=== PATIENT | male | born 1945 | race Caucasian/White ===

== ENCOUNTER 2018-10-30 14:56 | Inpatient (IN) | payer MEDICARE ==
[~2018-10-30] VITALS: Ht 177.8 cm; Wt 80.7 kg
[2018-10-31 13:15] VITALS: BP 150/72
[2018-10-31] MEDS ORDERED: PERCOCET 5MG/325MG TAB PO ONE (13:30)
[2018-10-31] MEDS ORDERED: DOCU100C16 PO (14:11)
[2018-10-31] MEDS ORDERED: CYCL10TA PO (14:11)
[2018-10-31] MEDS ORDERED: CEFT1INJ3 IV (14:11)
[2018-10-31] MEDS ORDERED: TEAR1SOL3 OU (14:11)
[2018-10-31] MEDS ORDERED: SENN18TA PO (14:11)
[2018-10-31] MEDS ORDERED: MIRA3350 PO (14:11)
[2018-10-31] MEDS ORDERED: TEST5GEL TOP (14:11)
[2018-10-31] MEDS ORDERED: PANT40TA3 PO (14:11)
[2018-10-31] MEDS ORDERED: [UNRECOGNIZED DRUG - CODE] SC (14:11)
[2018-10-31] MEDS ORDERED: METO1TAB32 PO (14:11)
[2018-10-31] MEDS ORDERED: VITA500T PO (14:11)
[2018-10-31] MEDS ORDERED: MILK120011 PO (14:11)
[2018-10-31] MEDS ORDERED: D 50CAP PO (14:11)
[2018-10-31] MEDS ORDERED: INSUHUMDS SC (14:11)
[2018-10-31] MEDS ORDERED: LIDO5DIS41 TOP (14:11)
[2018-10-31] MEDS ORDERED: BRIN1TAB3 PO (14:11)
[2018-10-31] MEDS ORDERED: [UNRECOGNIZED DRUG - CODE] IV (14:11)
[2018-10-31] MEDS ORDERED: BACL1TAB8 PO (14:11)
[2018-10-31] MEDS ORDERED: PRAM1TAB7 PO (14:11)
[2018-10-31] MEDS ORDERED: GABA-843 PO (14:11)
[2018-10-31] MEDS ORDERED: FLON1SPR NARES (14:11)
[2018-10-31] MEDS ORDERED: OXYC10TA12 PO (14:11)
[2018-10-31] MEDS ORDERED: BISA10SU4 PR (14:11)
[2018-10-31] MEDS ORDERED: REME30TA PO (14:11)
[2018-10-31] MEDS ORDERED: KRIS20PA4 PO (14:11)
[2018-10-31] MEDS ORDERED: DULE100A INH (14:11)
[2018-10-31] MEDS ORDERED: ASPI81TA24 PO (14:11)
[2018-10-31] MEDS ORDERED: RANO5TAB PO (14:11)
[2018-10-31] MEDS ORDERED: ACET1TAB55 PO (14:11)
[2018-10-31] MEDS ORDERED: GENT80SY IV (14:11)
[2018-10-31] MEDS ORDERED: OXYC-517 PO (14:17)
[2018-10-31] MEDS ORDERED: COEN100T PO (14:17)
[2018-10-31] MEDS ORDERED: METF500T13 PO (14:17)
[2018-10-31] MEDS ORDERED: REPA1INJ SC (14:17)
[2018-10-31] MEDS ORDERED: NITR4TASL SL (14:17)
[2018-10-31] MEDS ORDERED: ADV100INH INH (14:37)
[2018-10-31] MEDS ORDERED: LANS30CA PO (14:38)
[2018-10-31] MEDS ORDERED: diazePAM 5 MG TAB PO PRN ×3 (14:45→21:00)
[2018-10-31] MEDS ORDERED: NITROGLYCERIN 0.4 MG SUBL TABLET SL PRN (14:45)
[2018-10-31] MEDS ORDERED: oxyCODONE 5MG TAB PO PRN (14:45)
[2018-10-31] MEDS ORDERED: DEXTROSE 50% 50 ML SYRINGE IV PRN (15:15)
[2018-10-31] MEDS ORDERED: GLUCOSE 4 GM CHEW TABLET PO PRN (15:15)
[2018-10-31] MEDS ORDERED: GLUCAGON FOR INJ 1 MG VIAL (J1610) SC PRN (15:15)
[2018-10-31] MEDS ORDERED: ONDANSETRON 4 MG TAB (S0181) PO PRN (15:30)
[2018-10-31] MEDS ORDERED: BISACODYL 10 MG SUPP PR PRN (15:30)
[2018-10-31] MEDS: ACETAMINOPHEN 500 MG TAB PO SCH ×2 (16:02→22:04)
[2018-10-31] MEDS ORDERED: SODIUM CHLORIDE 0.9% INJ 10 ML SYR IV PRN (16:30)
[2018-10-31] MEDS ORDERED: NS 1,000 ML IV ONE (17:00)
[2018-10-31] MEDS: MORPHINE 15 MG SA TAB PO SCH ×2 (17:00→22:03)
[2018-10-31] MEDS ORDERED: TEARS NATURALE FREE OPHTH DROP VIAL OU SCH (17:00)
[2018-10-31] MEDS: ONDANSETRON 4 MG TAB (S0181) PO SCH (17:45)
[2018-10-31] MEDS: SODIUM CHLORIDE 0.9% INJ 10 ML SYR IV SCH (17:46)
[2018-10-31] MEDS: GENTAMICIN 80 MG in APPROPRIATE DILUENT 1 EA IV SCH (17:47)
--- NOTE | 2018-10-31 18:57 | CR ---
DATE OF CONSULTATION: 10/31/2018 This is a 72-year-old male with a past medical history of diabetes, hypertension, coronary artery disease, status post coronary artery bypass graft (CABG), status post transcatheter aortic valve replacement (TAVR), history of chronic obstructive pulmonary disease (COPD), who presents to [facility] ([facility]) to the physiatry department for rehabilitation. REASON FOR MEDICAL CONSULTATION: Medical management. Patient had an extensive stay between [facility] and [facility] before transferred from [facility] to [place]. Apparently he was in [facility] with altered mental status and was subsequently found to have Streptococcus mitis times two in the blood cultures. The patient was started on Rocephin for 6 weeks and gentamicin for 2 weeks, followed by Omnicef for 1 year's time. The patient, at this time, is doing well. He is pain free, offers no complaints. He has no chest pain or shortness of breath. PAST MEDICAL HISTORY: Diabetes. Hypertension. Coronary artery disease, status post CABG, status post TAVR. History of right hip replacement. COPD. ALLERGIES: He is allergic to STATINS and TRAZODONE. FAMILY HISTORY: Noncontributory. SOCIAL HISTORY: The patient denies tobacco, alcohol, or illicit drugs. MEDICATIONS: He is currently taking in the hospital are as follows: - Artifical Tears two drops four times a day - diazepam 5 mg orally every 8 hours as needed - pregabalin 100 mg orally twice daily - morphine sulfate 15 mg by mouth twice daily - Zofran 4 mg by mouth before food (a.c.) - Lyrica 100 mg orally twice daily - insulin sliding scale. - Rocephin 1 gram daily IV - Ranexa 500 mg orally twice daily - pramipexole 2 mg orally at bedtime - pantoprazole 40 mg orally daily - oxycodone 10 mg orally every 4 hours as needed - nitroglycerin 0.4 mg sublingual every 5 minutes times three as needed for chest pain - salmeterol/fluticasone two puffs inhaled twice daily - mirtazapine 30 mg orally at bedtime - metoprolol 25 mg orally daily - lidocaine patch 5%, one patch daily to lower back - pregabalin 75 mg orally twice daily - fluticasone two sprays each naris daily - diazepam 2.5 mg orally every 8 hours as needed - aspirin 81 mg orally daily - metformin 500 mg orally daily - gentamicin 80 mg IV every 12 hours REVIEW OF SYSTEMS: Negative all ten major systems except what is mentioned in the history of the present illness. Vital Signs: Blood pressure is 150/72, heart rate is 106, regular, respiratory rate 22, temperature 99.9, oxygen saturation is 99% on room air. Head is atraumatic, normocephalic. Neck supple. No jugular venous distention (JVD). Lungs are clear to auscultation. S1, S2 audible, No murmurs appreciated. Abdomen: Soft, positive bowel sounds. No pedal edema. Skin: Intact. Neurologic Examination: Patient awake, alert, oriented times three. Labs at this time are pending. IMPRESSION: 1. Discitis/osteomyelitis of L1-L2 vertebra. 2. Chronic lower back pain with debility. PLAN: Patient at this time is clinically stable with his chronic medical problems. Agree with all the medications he is on at this time. Will continue following his care alongside physiatry.
[2018-10-31] MEDS: oxyCODONE 5MG TAB PO PRN (19:33)
[2018-10-31 20:00] VITALS: BP 125/58
[2018-10-31] MEDS ORDERED: PREGABALIN 75 MG CAP(LYRICA) PO SCH (21:00)
[2018-10-31] MEDS: HumaLOG INSULIN (NovoLOG) PER UNIT SC SCH (21:00)
[2018-10-31] MEDS: ADVAIR HFA 115/21MCG INHALER INH SCH (21:23)
[2018-10-31] MEDS: **NOTE PATIENT COMMENT** MISC XX SCH (22:00)
[2018-10-31] MEDS: RANOLAZINE 500 MG ER TAB PO SCH (22:01)
[2018-10-31] MEDS: MAGNESIUM GLUCONATE 500 MG TAB PO SCH (22:02)
[2018-10-31] MEDS: MIRTAZAPINE 15 MG TAB PO SCH (22:02)
[2018-10-31] MEDS: PRAMIPEXOLE 1 MG TAB PO SCH (22:02)
[2018-10-31] MEDS: SENOKOT S TAB PO SCH (22:03)
[2018-10-31] MEDS: HEPARIN SOD (PORCINE) 5000 UNITS/ML VIAL SC SCH (22:04)
[2018-10-31] MEDS: POLYVINYL ALCOHOL OPHTH SOLN 15 ML(LIQUITEARS) OU SCH (22:04)
[2018-10-31] MEDS: PREGABALIN 100 MG CAP (LYRICA) PO SCH (22:04)
[2018-10-31 22:38] LABS: APPEARANCE, URINE CLOUDY (CLEAR); BACTERIA, URINE AUTO NEGATIVE (NEGATIVE); BILIRUBIN, URINE AUTO NEGATIVE (NEGATIVE); BLOOD, URINE BLOOD NEGATIVE (NEGATIVE); COLOR, URINE AMBER (YELLOW); GLUCOSE, URINE (UA) AUTO NEGATIVE (NEGATIVE); KETONE, URINE AUTO NEGATIVE (NEGATIVE); LEUKOCYTE ESTERASE, URINE AUTO NEGATIVE (NEGATIVE); MUCUS, URINE SMALL (NEGATIVE); NITRITE, URINE AUTO NEGATIVE (NEGATIVE); PROTEIN, URINE AUTO 2+ mg/dL (NEGATIVE); RBC, URINE AUTO 2 /HPF (0-3); SPECIFIC GRAVITY URINE AUTO 1.018 (1.002-1.035); SQUAMOUS EPITHELIAL CELL UR AU 0 /HPF (0-6); UROBILINOGEN, URINE AUTO 0.2 mg/dL (0.0-2.0); WBC, URINE AUTO 3 /HPF (0-3)
[2018-11-01] MEDS: oxyCODONE 5MG TAB PO PRN ×3 (02:18→16:27)
[2018-11-01] MEDS: GENTAMICIN 80 MG in APPROPRIATE DILUENT 1 EA IV SCH ×2 (05:56→18:17)
[2018-11-01 06:00] VITALS: BP 135/60
[2018-11-01] MEDS: SODIUM CHLORIDE 0.9% INJ 10 ML SYR IV SCH ×2 (06:37→18:17)
[2018-11-01 07:31] LABS: BASO % 0.3 % (0.0-1.0); EOS % 0.5 % (0.0-3.0); HEMATOCRIT 24.9 % (42.0-52.0); LYMPH # 0.8 10^3/uL (1.5-4.5); LYMPH % 20.1 % (24.0-44.0); MEAN CORPUSCULAR HEMOGLOBIN 30.8 pg (27.0-33.0); MEAN CORPUSCULAR HGB CONC 32.1 g/dl (32.0-36.5); MEAN CORPUSCULAR VOLUME 95.8 fl (80.0-96.0); MONO # 0.5 10^3/uL (0.0-0.8); MONO % 14.3 % (0.0-5.0); NEUTROPHILS # 2.4 10^3/uL (1.8-7.7); NEUTROPHILS % 63.5 % (36.0-66.0); PLATELET COUNT, AUTOMATED 142 10^3/uL (150-450); WHITE BLOOD COUNT 3.8 10^3/uL (4.0-10.0)
[2018-11-01 07:55] LABS: ALBUMIN 2.6 GM/DL (3.2-5.2); ALT/SGPT 31 U/L (12-78); BILIRUBIN,TOTAL 0.6 MG/DL (0.2-1.0); BLOOD UREA NITROGEN 23 MG/DL (7-18); CALCIUM LEVEL 8.6 MG/DL (8.8-10.2); CARBON DIOXIDE LEVEL 26 MEQ/L (21-32); CHLORIDE LEVEL 97 MEQ/L (98-107); CREATININE FOR GFR 1.18 MG/DL (0.70-1.30); GLOMERULAR FILTRATION RATE > 60.0 (>42); GLUCOSE, FASTING 100 MG/DL (70-100); SODIUM LEVEL 133 MEQ/L (136-145); TOTAL PROTEIN 6.6 GM/DL (6.4-8.2)
[2018-11-01] MEDS: cefTRIAXone SOD 2 GM in D5W MINI-BAG PLUS 50 ML IV SCH (08:06)
[2018-11-01] MEDS: TRINTELLIX PO SCH (08:06)
[2018-11-01] MEDS: MAGNESIUM GLUCONATE 500 MG TAB PO SCH ×2 (08:07→23:32)
[2018-11-01] MEDS: MORPHINE 15 MG SA TAB PO SCH ×2 (08:07→23:33)
[2018-11-01] MEDS: LIDOCAINE 5% (LIDODERM) PATCH TD SCH (08:07)
[2018-11-01] MEDS: CO-ENZYME Q10 50 MG CAP PO SCH (08:07)
[2018-11-01] MEDS: VITAMIN D 1,000 INTERNATIONAL UNITS TABLET PO SCH (08:09)
[2018-11-01] MEDS: PREGABALIN 100 MG CAP (LYRICA) PO SCH ×2 (08:09→21:00)
[2018-11-01] MEDS: ASPIRIN 81 MG ENTERIC TAB PO SCH (08:09)
[2018-11-01] MEDS: RANOLAZINE 500 MG ER TAB PO SCH ×2 (08:09→23:33)
[2018-11-01] MEDS: SENOKOT S TAB PO SCH ×2 (08:09→23:34)
[2018-11-01] MEDS: ACETAMINOPHEN 500 MG TAB PO SCH ×3 (08:10→23:33)
[2018-11-01] MEDS: metFORMIN (GLUCOPHAGE) 500 MG TAB PO SCH (08:10)
[2018-11-01] MEDS: METOPROLOL SUCC *XL* 25MG TAB (TopROL *XL*) PO SCH (08:10)
[2018-11-01] MEDS: ONDANSETRON 4 MG TAB (S0181) PO SCH ×3 (08:10→18:17)
[2018-11-01] MEDS: PANTOPRAZOLE 40MG TAB (PROTONIX) PO SCH (08:10)
[2018-11-01] MEDS: FLUTICASONE PROP 0.05% NASAL SPRAY 16 GM (FLONASE) NARES SCH (08:11)
[2018-11-01] MEDS: HEPARIN SOD (PORCINE) 5000 UNITS/ML VIAL SC SCH ×2 (08:11→23:31)
[2018-11-01] MEDS: ASCORBIC ACID 500 MG TAB PO SCH (08:11)
[2018-11-01 08:27] LABS: ERYTHROCYTE SEDIMENTATION RATE 126 mm/hr (0-20)
[2018-11-01] MEDS: POLYVINYL ALCOHOL OPHTH SOLN 15 ML(LIQUITEARS) OU SCH ×4 (09:00→23:34)
--- NOTE | 2018-11-01 10:09 | REP ---
BILATERAL LOWER EXTREMITY DOPPLER VENOUS ULTRASOUND: Comparison: None. Clinical History: Immobility, osteomyelitis. Technique: The deep venous system of the bilateral lower extremities is evaluated with lynn scale imaging, compression ultrasound, color imaging and duplex Doppler interrogation. Examination from the groin through the popliteal fossa into the proximal calf. Findings: There is full compressibility from the common femoral vein in the inguinal region through the popliteal vein on both sides. Color imaging confirms patency throughout the course of the deep venous system. There is respiratory variation and augmented flow at all levels. Impression: 1. No Doppler venous ultrasound evidence of DVT in the bilateral lower extremities. Electronically Signed by Artur Boss MD 11/01/2018 10:00 A
[2018-11-01] MEDS: ADVAIR HFA 115/21MCG INHALER INH SCH ×2 (11:54→20:06)
[2018-11-01 14:00] VITALS: BP 137/62
[2018-11-01] MEDS ORDERED: diazePAM 5 MG TAB PO PRN ×2 (14:00→14:30)
--- NOTE | 2018-11-01 14:05 | HPEPDOC ---
[employer] Note DATE OF ADMISSION: Oct 31, 2018 at 13:05 SOURCE OF ADMISSION INFORMATION: Patient, [facility] Medical Records, and patient's daughter CHIEF COMPLAINT: lumbar osteomyelitis HISTORY OF PRESENT ILLNESS: 72M pmh DM, HTN, PM, AVR (replaced in May 2018), CAD with CABG, JR, right hip periprosthetic infection, who was transferred to [facility] from [facility] for low back pain with fevers that began 6 days prior to admission. .An ID consult was ordered, he was found to have Strep Mitis bacteremia from a October 14 and blood culture taken at [place] for which he was placed on Ceftriaxone and Gentamicin on 10-16-18 for discitis vs osteomyelitis in the setting of a possibly infected bi-prosthetic aortic valve with endocarditis. A GUILLERMO was performed showing, Moderate perivalvular aortic regurgitation...mobile density contiguous with aortic valvecannot rule out vegetation Repeat blood cultures on October 20 and were negative. Thoracolumbar CT on 10-18-18 showed lesion suspicious for diskovertebral osteomyelitis at L1-L2, MR was not performed given his PM status. ID ultimately recommended a 6 week course of IV antibiotics followed by Omnicef for 1 year for suppression. No cardiac or orthopedic surgery was recommended and PICC line placed. He developed a decubitus ulcer during his stay due to immobility. 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 REVIEW OF SYSTEMS: The following is a completed review of systems and has been reviewed. Review of systems otherwise unremarkable. PAIN: Patient self reports severe low back pain with spasms EYES: Negative for recent vision changes EARS, NOSE, & THROAT:negative for rhinorrhea, tinnitus, or dysphagia CARDIOVASCULAR: denies chest pain or palpitations PULMONARY: Negative. Denies shortness of breath GASTROINTESTINAL: +constipation GENITOURINARY: Negative for dysuria MUSCULOSKELETAL: low back pain and bilateral knee OA NEUROLOGICAL: restless leg syndrome HEMATOLOGICAL: +anemia SKIN: +PICC PSYCHIATRIC: Unremarkable All other review of systems found to be negative. PAST MEDICAL HISTORY: DM, HTN, PM, AVR (replaced in May 2018), CAD with CABG, JR, right hip periprosthetic infection PAST SURGICAL HISTORY: TAVR replaced May 2018, first placed 2009 Right hip septic joint 1.5 years ago, s/p THR January 2018, s/p spacer and hairline fracture ALLERGIES: Please see below. MEDICATIONS: Please see below. FAMILY HISTORY: +CAD, DM SOCIAL HISTORY: ex-smoker, no ETOH, Jehovas witness, lives with DIET: Regular PHYSICAL EXAMINATION: VITAL SIGNS: Please see below. GENERAL: Pleasant and cooperative, mildly distressed by painful spasms, pale HEENT: PERRL. Extraocular movements intact. Clear conjunctiva CARDIOVASCULAR: Regular rate and rhythm. No murmurs, rubs, or gallops LUNGS: Clear to auscultation bilaterally. No wheezes. No rhonchi ABDOMEN: Soft, nontender, nondistended. Positive bowel sounds. Normal active bowel sounds NEUROLOGICAL: Alert and oriented times to self and place not time, Cranial nerves II through XII grossly intact. Sensation grossly intact. EXTREMITIES: 5\5 strength bilateral upper extremities. bilateral Ankle DF and EHL 5/5, however proximal muscle testing greatly limited by pain SKIN: +PICC, decubitus ulcer IMAGING: Imaging documentation personally reviewed by record FUNCTIONAL STATUS: Premorbid: Independent with all activities of daily life as well as mobility On Admission: Mod-Max assist for bed mobility, functional transfers, CG with RW ambulating a few feet.Max assist for dressing. GOALS: Modified independent ambulation with RW, stairs, dressing, bathing, pain control, medical optimization, family training, and assess for DMEs ASSESSMENT:72-year-old M with past medical history of CAD, AVR, CAD with CABG who presents with diskovertebral osteomyelitis in the setting of endocarditis. PLAN: 1. Rehab: PT/OT, assess for DME needs- LSO brace when out of bed for comfort 2. Neuro: pmh restless leg syndrome, continue home meds 3. Cardio: pmh CAD s/p AVR replacement with recent GUILLERMO suspicious for endocarditis continue IV Ceftriaxone and Gentamicin, outpatient cardio f/u -continue beta-blockers and ASA 4. Endo: pmh DM continue home meds 5. ID: L1-L2 disko-vertebral osteomyeltis, blood cultures positive for Strep Mitis, continue IV Ceftriaxone and Gentamcin for 6 weeks to be followed by one year suppression dose of Omnicef, will consider in-house ID consult and order admission blood cultures -patient appears mildly toxic on arrival with low grade temp, will give IVF and monitor vitals-medicine consult placed 6. Pain: pmh chronic knee pain, now with severe discogenic pain with spasms- Will start long acting Morphine 15mg BID, oxycodone 10mg q4h, standing Tylenol, switch Gabapentin to Lyrica, and Diazepam 2.5mg prn for spasms -lidoderm patch to low back 7. DVT ppx: heparin and f/u admisison dopplers, TEDs 8. SKin: Balmex and turning q2h in bed 9. Resp: pmh COPD: continue home meds, will add Duonebs and monitor for PNA 10. GI: patient constipated and poor appetite secondary to nausea, will add ZOfran prior to meals and optimize laxatives, protonix for ppx 11. Dispo: TBD POST ADMISSION PHYSICIAN EVALUATION: Medical and functional status: Description of medical status, medical assessment: As above. Rehabilitation diagnosis and current and prior cold morbid medical conditions as above. Risk of complications and plans to mitigate them as above. Description of functional status current status is as above. Prior status as above. Status compared to preadmission: There are no clinically significant differences between the patient's current status and the information described on the pread mission screening document. Treatment plan anticipated: Treatment plan is as described above. Required disciplines including physical therapy, occupational therapy, others as noted above Intensity of services: 3 hours a day, 6 days a week. Special considerations: There are no specific special or safety considerations that would likely preclude immediate implementation of an intensive rehabilitation program or subsequently influence the plan of care. ATTESTATION: Considering all the information above, it is my best judgment that this patient requires intensive rehabilitation therapy as described above and an inpatient hospital environment due to the complexity of nursing, medical, and rehabilitation needs required by the patient. Furthermore, this patient can reasonably be expected to participate in an benefit from an inpatient rehabilitation stay with an interdisciplinary team approach to the delivery of rehabilitation care under the direction and supervision of rehabilitation physician. PROGNOSIS: Good. ESTIMATED LENGTH OF STAY: 18-21 days. PROJECTED DISCHARGE DESTINATION: Home with family support and any durable medical equipment required to increase functional safety and mobility TIME SPENT COUNSELING AND COORDINATING INITIAL CARE: Greater than 70 minutes. Vital Signs Vital Sign - Last 24 Hours 1/18/19 1/18/19 1/18/19 13:15 13:48 14:18 Temp 99.9 Pulse 106 Resp 22 16 16 B/P (MAP) 150/72 (98) Pulse Ox 99 O2 Delivery Room Air Room Air Home Medications Scheduled (Dulera 100-5 Mcg/Act) 1 Aer Aer, 2 PUFF INH BID, (Reported) (Heparin Sodium) 5,000 Unit/Ml Inj, 5,000 UNIT SC BID, (Reported) (Repatha Sureclick) 140 Mg/Ml Inj, 140 MG SC Q2WK, (Reported) Ascorbic Acid (Vitamin C) 500 Mg Tab, 500 MG PO DAILY, (Reported) Aspirin (Aspirin EC) 81 Mg Tab, 81 MG PO DAILY, (Reported) Baclofen (Baclofen) 10 Mg Tab, 10 MG PO Q8H, (Reported) Ceftriaxone Sodium (Ceftriaxone Sodium) 1 Gm Inj, 2 GRAM IV DAILY, (Reported) Cholecalciferol (Vitamin D3) 5,000 Unit Cap, 5,000 UNIT PO DAILY, (Reported) Coenzyme Q10 (Coenzyme Q10) 100 Mg Tab, 100 MG PO DAILY, (Reported) Docusate Sodium (Docusate Sodium) 100 Mg Cap, 100 MG PO BID, (Reported) Fluticasone Propionate (Flonase Allergy Relief) 50 Mcg/Act Spr, 1 SPRAY NARES DAILY, (Reported) Gabapentin (Gabapentin) 300 Mg Cap, 300 MG PO TID, (Reported) Gentamicin Sulfate (Gentamicin Sulfate) 80 Mg/20 Ml Syringe, 80 MG IV Q12H, (Reported) Insulin Human Lispro (Humalog) 1 Units/0.01 Ml Inj, 1 DOSE SC ACHS, (Reported) PER SLIDING SCALE Lansoprazole (Lansoprazole) 30 Mg Cap, 30 MG PO DAILY, (Reported) HOME MED, REPLACED WITH PROTONIX AT [facility] Lidocaine (Lidoderm) 5 % Dis, 1 PATCH TOP DAILY, (Reported) LOWER BACK Magnesium Sulfate Heptahydrate (Magnesium Sulfate) 2 Gm/50 Ml Inj, 2 GM IV A SDIRECTED, (Reported) ONE TIME DOSE RECEIVED AT [facility] Metformin Hydrochloride (Metformin HCl) 500 Mg Tab, 500 MG PO DAILY, (Reported) Metoprolol Succinate (Metoprolol Succinate ER) 25 Mg Tab, 25 MG PO DAILY, (Reported) Mirtazapine (Remeron) 30 Mg Tab, 30 MG PO QHS, (Reported) Pantoprazole Sodium (Pantoprazole Sodium) 40 Mg Tab, 40 MG PO DAILY, (Reported) REPLACING HOME MED OF PREVACID, GIVEN AT [facility] Polyethylene Glycol (Miralax) 1 Pow Pow, 17 GM PO DAILY, (Reported) dilute in 8 ounces of water or juice Pramipexole Dihydrochloride (Pramipexole Dihydrochlori) 1 Mg Tab, 2 MG PO QHS, (Reported) Ranolazine (Ranexa) 500 Mg Nicolas, 500 MG PO BID, (Reported) Salmeterol/Fluticasone (Advair Diskus 100-50 Mcg/Dose) 28 Puff/Inhaler Aerp, 1 PUFF INH BID, (Reported) HOME MED, REPLACED WITH DULERA AT [facility] Senna (Senna-Lax) 8.6 Mg Tab, 1 TAB PO BID, (Reported) Testosterone (Androgel) 5 Gm Gel, 5 GM TOP DAILY, (Reported) APPLIED TO DELTOIDS Vortioxetine Hydrobromide (Trintellix) 20 Mg Tab, 20 MG PO DAILY, (Reported) Scheduled PRN Acetaminophen (Acetaminophen) 325 Mg Tab, 650 MG PO Q4H PRN for PAIN, (Reported) Bisacodyl (Bisacodyl) 10 Mg Sup, 10 MG NE DAILY PRN for CONSTIPATION, (Reported) Cyclobenzaprine HCl (Cyclobenzaprine HCl) 10 Mg Tab, 10 MG PO Q8H PRN for MUSCLE SPASMS, (Reported) Dextran/Hydrox.prop.meth.cell (Tears Naturale PF 0.1-0.3 %) 1 Drop/Bottle Soln, 1 DROP OU QID PRN for DRY EYES, (Reported) Lactulose (Kristalose) 20 Gm Viral, 10 GRAM PO DAILY PRN for CONSTIPATION, (Reported) Milk Of Magnesia (Milk of Magnesia) 1,200 Mg/15 Ml Yashira, 30 ML PO DAILY PRN for CONSTIPATION, (Reported) Nitroglycerin (Nitrostat) 0.4 Mg Subl, 0.4 MG SL Q5MP PRN for CHEST PAIN, (Reported) Oxycodone HCl (Oxycodone HCl) 10 Mg Tab, 10 MG PO Q4H PRN for BREAKTHROUGH PAIN, (Reported) Oxycodone HCl (Oxycodone HCl) 5 Mg Tab, 5 MG PO Q4H PRN for SEVERE PAIN (PS 8- 10), (Reported) Allergies Coded Allergies: Statins (Unverified Adverse Reaction, Unknown, MUSCLE PAINS, 10/31/18) Trazodone (Unverified Adverse Reaction, Unknown, ITCH, 10/31/18) SOILA FREITAS MD Oct 31, 2018 15:47
[2018-11-01] MEDS ORDERED: PILL CRUSHER/CUTTER 1 EACH XX PRN (14:15)
[2018-11-01] MEDS ORDERED: LACTULOSE 20 GM/30 ML SYRUP UD PO ONE (16:00)
[2018-11-01] MEDS ORDERED: BISACODYL 10 MG SUPP PR ONE (18:00)
[2018-11-01] MEDS ORDERED: BISACODYL ENEMA 10 MG/30 ML PR ONE (19:00)
[2018-11-01] MEDS: IPRATROPIUM 0.5MG/ALBUTEROL 2.5MG INH SOL UD 3ML (DUONEB)(J7620) NEB SCH (20:00)
[2018-11-01] MEDS: **NOTE PATIENT COMMENT** MISC XX SCH (21:00)
[2018-11-01] MEDS: HumaLOG INSULIN (NovoLOG) PER UNIT SC SCH (21:00)
[2018-11-01] MEDS: PRAMIPEXOLE 1 MG TAB PO SCH (23:31)
[2018-11-01] MEDS: MIRTAZAPINE 15 MG TAB PO SCH (23:32)
[2018-11-02 05:32] LABS: BASO % 0.5 % (0.0-1.0); EOS # 0.1 10^3/uL (0.0-0.50); EOS % 1.6 % (0.0-3.0); HEMATOCRIT 28.1 % (42.0-52.0); HEMOGLOBIN 8.9 g/dl (13.5-17.5); LYMPH # 0.9 10^3/uL (1.5-4.5); LYMPH % 22.9 % (24.0-44.0); MEAN CORPUSCULAR HEMOGLOBIN 30.6 pg (27.0-33.0); MEAN CORPUSCULAR HGB CONC 31.7 g/dl (32.0-36.5); MEAN CORPUSCULAR VOLUME 96.6 fl (80.0-96.0); MONO # 0.6 10^3/uL (0.0-0.8); MONO % 16.5 % (0.0-5.0); NEUTROPHILS # 2.2 10^3/uL (1.8-7.7); NEUTROPHILS % 57.4 % (36.0-66.0); PLATELET COUNT, AUTOMATED 151 10^3/uL (150-450); RED BLOOD COUNT 2.91 10^6/uL (4.30-6.10); WHITE BLOOD COUNT 3.8 10^3/uL (4.0-10.0)
[2018-11-02] MEDS: oxyCODONE 5MG TAB PO PRN ×3 (05:37→16:43)
[2018-11-02 06:00] VITALS: BP 127/59
[2018-11-02 06:00] LABS: CALCIUM LEVEL 8.6 MG/DL (8.8-10.2); CREATININE FOR GFR 1.26 MG/DL (0.70-1.30); GENTAMICIN LEVEL TROUGH 1.7 MCG/ML (0.0-2.0); GLOMERULAR FILTRATION RATE 59.7 (>42); POTASSIUM SERUM 4.2 MEQ/L (3.5-5.1)
[2018-11-02] MEDS: GENTAMICIN 80 MG in APPROPRIATE DILUENT 1 EA IV SCH (06:17)
[2018-11-02] MEDS: SODIUM CHLORIDE 0.9% INJ 10 ML SYR IV SCH ×2 (06:18→17:40)
[2018-11-02] MEDS: ADVAIR HFA 115/21MCG INHALER INH SCH ×2 (07:34→20:09)
[2018-11-02] MEDS: IPRATROPIUM 0.5MG/ALBUTEROL 2.5MG INH SOL UD 3ML (DUONEB)(J7620) NEB SCH ×2 (08:00→20:00)
[2018-11-02] MEDS: MAGNESIUM GLUCONATE 500 MG TAB PO SCH ×2 (08:37→21:40)
[2018-11-02] MEDS: cefTRIAXone SOD 2 GM in D5W MINI-BAG PLUS 50 ML IV SCH (08:37)
[2018-11-02] MEDS: PANTOPRAZOLE 40MG TAB (PROTONIX) PO SCH (08:37)
[2018-11-02] MEDS: CO-ENZYME Q10 50 MG CAP PO SCH (08:37)
[2018-11-02] MEDS: RANOLAZINE 500 MG ER TAB PO SCH ×2 (08:37→21:40)
[2018-11-02] MEDS: metFORMIN (GLUCOPHAGE) 500 MG TAB PO SCH (08:37)
[2018-11-02] MEDS: ASCORBIC ACID 500 MG TAB PO SCH (08:38)
[2018-11-02] MEDS: ASPIRIN 81 MG ENTERIC TAB PO SCH (08:38)
[2018-11-02] MEDS: TRINTELLIX PO SCH (08:38)
[2018-11-02] MEDS: VITAMIN D 1,000 INTERNATIONAL UNITS TABLET PO SCH (08:38)
[2018-11-02] MEDS: SENOKOT S TAB PO SCH ×2 (08:38→21:40)
[2018-11-02] MEDS: PREGABALIN 100 MG CAP (LYRICA) PO SCH ×2 (08:38→21:40)
[2018-11-02] MEDS: ONDANSETRON 4 MG TAB (S0181) PO SCH ×3 (08:39→17:38)
[2018-11-02] MEDS: HEPARIN SOD (PORCINE) 5000 UNITS/ML VIAL SC SCH ×2 (08:39→21:42)
[2018-11-02] MEDS: LIDOCAINE 5% (LIDODERM) PATCH TD SCH (08:39)
[2018-11-02] MEDS: MORPHINE 15 MG SA TAB PO SCH ×2 (08:41→21:41)
[2018-11-02] MEDS: ACETAMINOPHEN 500 MG TAB PO SCH ×3 (08:42→21:40)
[2018-11-02] MEDS: POLYVINYL ALCOHOL OPHTH SOLN 15 ML(LIQUITEARS) OU SCH ×4 (08:43→21:42)
[2018-11-02] MEDS: FLUTICASONE PROP 0.05% NASAL SPRAY 16 GM (FLONASE) NARES SCH (08:44)
[2018-11-02] MEDS: METOPROLOL SUCC *XL* 25MG TAB (TopROL *XL*) PO SCH (08:53)
--- NOTE | 2018-11-02 10:32 | IPN ---
DATE OF VISIT: 11/01/2018 SUBJECTIVE: Patient is seen and examined in the room today. On admission, the patient had a temperature of 99.9. Since admission, the patient's temperature improved. The patient continued expressing significant back pain. OBJECTIVE: Vital Signs: Temperature 98.8, pulse 97, respirations 18, blood pressure 137/62, pulse oximetry 97% in room air. General: Mild to moderate distress related to persistent back pain. The patient is alert, awake, and oriented. HEENT: Normocephalic, atraumatic. Extraocular movements grossly intact. Cardiovascular: Positive S1, S2. Regular rate. Lungs: Clear to auscultation bilaterally. Abdomen: Soft. Nontender. Nondistended. Bowel sounds present. Extremities: No edema. LABORATORY DATA: Showed WBC 3.8, hemoglobin 8, hematocrit 24.9, and platelet count 142. ESR 126. Sodium is 133, potassium 4, chloride 97, carbon dioxide 26, BUN 23, creatinine 1.1, GFR greater than 60, fasting glucose 100, calcium 8.6, magnesium 2, total bilirubin 0.6, AST 61, ALT 31, alkaline phosphatase 155, C-reactive protein 11.4, total protein 6.3, albumin 2.6. ASSESSMENT AND PLAN: 1. Diskitis/osteomyelitis of L1 to L2. The patient is currently on IV Rocephin and IV gentamicin. Currently the patient is in the acute rehabilitation unit (ARU) for acute rehabilitation. Blood culture is pending. Urine culture is pending. The patient was transferred from another facility. The regimen per patient was six week of Rocephin along with two weeks of gentamicin and then follow by Omnicef for one year. 2. Streptococcus mitis bacteremia. When the patient was in [facility], it was found patient had altered mental status. Repeated blood culture is pending. 3. Coronary artery disease. Status post coronary artery bypass graft (CABG) and status post transcatheter aortic valve replacement (TAVR). On aspirin, Ranexa. 4. History of COPD. No exacerbation at this moment. 5. Hypertension. Blood pressure in satisfactory range. 6. Deep vein thrombosis (DVT) prophylaxis. On heparin. MTDD
[2018-11-02] MEDS ORDERED: ISOVUE-370 76% 100ML VIAL (Q9967) As Ordered ONE (10:45)
--- NOTE | 2018-11-02 12:31 | REP ---
CT ABDOMEN PELVIS WITH IV CONTRAST ONLY: 11/02/2018. Clinical history: Abdominal pain with distension. Known fairly recent L1-L2 diskitis/osteomyelitis and a right total hip arthroplasty. Technique: Bolus of 100 ml Isovue 370 scanning through the abdomen pelvis with coronal and sagittal reconstructions. Bone windows are reviewed for all slices. Findings: No prior studies available at the time of this request. CT abdomen: Lung bases show minor dependent atelectatic change but no infiltrate or effusion. Heart is enlarged. There is a aortic root stent evident on the day care center director and upper most images of the study. Left atrial ventricular enlargement. No pericardial thickening or effusion. I see no hiatal hernia. Stomach partially filled with retained fluid. No gross hepatomegaly. No focal hepatic mass. I see no biliary dilatation nor adjacent ascites. Spleen mildly enlarged with a transverse diameter 15 cm, vertical diameter of 13 cm by 5.1 cm AP at the hilum. This gives a splenic index of 995 with a normal range less than 480. No focal splenic lesion. No ascites. Adrenal glands normal. Gallbladder without definite stone, sludge or mass. Pancreas unremarkable. No peripancreatic adenopathy or fluid. The aorta has atherosclerotic calcifications without aneurysm or dissection. Fluid-filled small bowel loops are noted without dilated loops, air-fluid levels, masses or wall thickening. No small bowel obstruction. There is stool and gas scattered in the abdominal portion of the colon without signs of colitis, stricture, mass or obstruction. Diverticulitis. No periaortic or retroperitoneal pathologic sized lymphadenopathy. Lung window review of all CT slices shows no perforation or free air. Kidneys show function without obstruction. A couple of tiny cortical cysts evident. There is no stone, solid mass, hydronephrosis or perinephric fluid. No ureteral dilatation or stone. The bone windows show osteomyelitis/discitis complex at the L1-2 level extending anteriorly and laterally on both sides with soft tissue density on the axial images. I do not see definite extension into the neural canal with a posterior neural arch intact for L1 and L2. No other levels with this finding. There is spondylosis from L2-3 through L4-5 with complete obliteration of the disc spaces at L3-4 and L4-5 posterior osteophytes noted. Some facet arthropathy without spondylolysis. No acute compression deformities in the thoracic vertebral levels or destructive lesions. Visualized ribs are intact. CT pelvis: Sacrum and SI joints are intact. Iliac wings intact. There is a right total hip arthroplasty in place with acetabular cup and femoral head component well aligned in relationship to each other. Left hip shows some degenerative changes. There is no acute fractures in the pelvis. Finley artifact limits evaluation of the deep pelvis but no distal ureteral dilatation, ureteral stone. Bladder stone, mass or wall thickening. No pelvic lymphadenopathy. Distal small bowel loops grossly intact with fluid-filled loops. The proximal to mid ileal loops have diameters up to 2 cm. The terminal ileum up to 12 mm. This is not obstruction with these values and normal. No air-fluid levels. There are no inflammatory changes about these loops. There are no inflammatory changes about the cecum to suggest appendicitis. No ventral or inguinal hernia. Impression: 1. Small bowel loops fluid filled but not abnormally dilated. The mid and proximal ileum up to 2 cm which is normal. The distal and terminal ileum are 1.2 cm but no sharp transition zone and no air-fluid levels to suggest obstruction. 2. Stool and gas in the colon without signs of colitis, diverticulitis, stricture or mass. The abdominal or pelvic portion of the distal sigmoid and rectum are collapsed. No abnormal colonic wall thickening to suggest antibiotic related colitis. 3. Prior right total hip arthroplasty. 4. The L1-L2 level shows discitis/osteomyelitis complex with some bony destruction and soft tissue swelling laterally and anteriorly at this level. The neural arch remains intact. No acute compression of air. Advanced degenerative changes at other levels in the lumbar spine. 5. Stomach well filled with fluid and air but no other significant findings. Electronically Signed by Artur Boss MD 11/02/2018 02:30 P
[2018-11-02 14:00] VITALS: BP 142/65
--- NOTE | 2018-11-02 15:35 | IPNPDOC ---
Text Note Date of Service The patient was seen on 11/02/18. NOTE SUBJECTIVE: Patient is seen and examined in the room today. Patient continues having significant back pain. He also noted to have pain in abdomen. He is not sure if the pain is related to his back pain. He remembers his last bowel movement was more than one week ago. His usually has bowel movement once 3-4 days. Per staff, patient might have altered mental status overnight. Valium PRN is on hold now. OBJECTIVE: Vital Signs: Listed below. General: Moderate distress related to persistent back pain. The patient is alert, awake, and oriented. HEENT: Normocephalic, atraumatic. Extraocular movements grossly intact. Cardiovascular: Positive S1, S2. Regular rate. Lungs: Clear to auscultation bilaterally. Abdomen: Soft. Nontender. Nondistended. Bowel sounds present. Extremities: No edema. LABORATORY DATA: Listed below. ASSESSMENT AND PLAN: #. Discitis/osteomyelitis of L1 to L2. - On IV Rocephin and IV gentamicin. Currently the patient is in the acute rehabilitation unit (ARU) for acute rehabilitation. Blood culture is pending. Urine culture is pending. Per recommendation, the antibiotic regimen for patient is six week of Rocephin along with two weeks of gentamicin and then follow by Omnicef for one year. # Abdomen pain - Possibly related to his persistent severe back pain from discitis/osteomyelitis. - Patient states he has had no bowel movement for long duration. Current bowel movement regimen is not working. Trial of Relistor. - CT abdomen is ordered. #. Streptococcus mitis bacteremia. - When the patient was in [facility], it was found patient had altered mental status. Blood culture was performed at the time and patient blood culture was positive. Repeated blood culture is pending. #. Coronary artery disease. - Status post coronary artery bypass graft (CABG) and status post transcatheter aortic valve replacement (TAVR). On aspirin, Ranexa. #. History of COPD. No exacerbation at this moment. #. Hypertension. Blood pressure in satisfactory range. #. Deep vein thrombosis (DVT) prophylaxis. On heparin. VS,Fishbone, I+O VS, Fishbone, I+O Laboratory Tests 11/02/18 05:22 Red Blood Count 2.91 L, Mean Corpuscular Volume 96.6 H, Mean Corpuscular Hemogl obin 30.6, Mean Corpuscular Hemoglobin Concent 31.7 L, Red Cell Distribution Width 15.9 H, Neutrophils (%) (Auto) 57.4, Lymphocytes (%) (Auto) 22.9 L, Monocytes (%) (Auto) 16.5 H, Eosinophils (%) (Auto) 1.6, Basophils (%) (Auto) 0.5, Neutrophils # (Auto) 2.2, Lymphocytes # (Auto) 0.9 L, Monocytes # (Auto) 0.6, Eosinophils # (Auto) 0.1, Basophils # (Auto) 0.0, Calcium Level 8.6 L Vital Signs Date Time Temp Pulse Resp B/P (MAP) Pulse Ox O2 Delivery O2 Flow Rate FiO2 11/02/18 14:00 97.5 101 20 142/65 (90) 91 Room Air I&O- Last 24 Hours up to 6 AM 11/02/18 06:00 Intake Total 640 ml Output Total 450 ml Balance 190 ml SIRENA HERNANDEZ DO Nov 02, 2018 15:35
[2018-11-02] MEDS ORDERED: METHYLNALTREXONE BROMIDE 12 MG/0.6 ML VIAL (RELISTOR) SC ONE (16:00)
[2018-11-02] MEDS: MIRTAZAPINE 15 MG TAB PO SCH (21:38)
[2018-11-02] MEDS: PRAMIPEXOLE 1 MG TAB PO SCH (21:41)
[2018-11-02] MEDS: MOM 30ML SUSPENSION UDC PO PRN (21:41)
[2018-11-02] MEDS: HumaLOG INSULIN (NovoLOG) PER UNIT SC SCH (21:42)
[2018-11-02] MEDS: **NOTE PATIENT COMMENT** MISC XX SCH (21:42)
[2018-11-02 22:00] VITALS: BP 136/62
[2018-11-03] MEDS ORDERED: GENTAMICIN 80 MG in APPROPRIATE DILUENT 1 EA IV SCH ×2
[2018-11-03] MEDS: SODIUM CHLORIDE 0.9% INJ 10 ML SYR IV SCH ×2 (06:20→18:23)
[2018-11-03 06:24] VITALS: BP 149/71
[2018-11-03] MEDS: ADVAIR HFA 115/21MCG INHALER INH SCH ×2 (07:34→20:15)
[2018-11-03] MEDS: IPRATROPIUM 0.5MG/ALBUTEROL 2.5MG INH SOL UD 3ML (DUONEB)(J7620) NEB SCH ×2 (08:00→20:00)
[2018-11-03] MEDS: ONDANSETRON 4 MG TAB (S0181) PO SCH ×3 (08:27→17:33)
[2018-11-03] MEDS: metFORMIN (GLUCOPHAGE) 500 MG TAB PO SCH (08:27)
[2018-11-03] MEDS: ASCORBIC ACID 500 MG TAB PO SCH (08:28)
[2018-11-03] MEDS: MAGNESIUM GLUCONATE 500 MG TAB PO SCH ×2 (08:28→20:47)
[2018-11-03] MEDS: VITAMIN D 1,000 INTERNATIONAL UNITS TABLET PO SCH (08:28)
[2018-11-03] MEDS: ASPIRIN 81 MG ENTERIC TAB PO SCH (08:28)
[2018-11-03] MEDS: PREGABALIN 100 MG CAP (LYRICA) PO SCH ×2 (08:28→20:48)
[2018-11-03] MEDS: SENOKOT S TAB PO SCH ×2 (08:28→20:47)
[2018-11-03] MEDS: PANTOPRAZOLE 40MG TAB (PROTONIX) PO SCH (08:28)
[2018-11-03] MEDS: HEPARIN SOD (PORCINE) 5000 UNITS/ML VIAL SC SCH ×2 (08:29→20:49)
[2018-11-03] MEDS: CO-ENZYME Q10 50 MG CAP PO SCH (08:29)
[2018-11-03] MEDS: RANOLAZINE 500 MG ER TAB PO SCH ×2 (08:29→20:57)
[2018-11-03] MEDS: ACETAMINOPHEN 500 MG TAB PO SCH ×3 (08:29→20:48)
[2018-11-03] MEDS: MORPHINE 15 MG SA TAB PO SCH ×2 (08:29→20:49)
[2018-11-03] MEDS: LIDOCAINE 5% (LIDODERM) PATCH TD SCH (08:30)
[2018-11-03] MEDS: METOPROLOL SUCC *XL* 25MG TAB (TopROL *XL*) PO SCH (08:30)
[2018-11-03] MEDS: TRINTELLIX PO SCH (08:30)
[2018-11-03] MEDS: cefTRIAXone SOD 2 GM in D5W MINI-BAG PLUS 50 ML IV SCH (08:31)
[2018-11-03] MEDS: FLUTICASONE PROP 0.05% NASAL SPRAY 16 GM (FLONASE) NARES SCH (08:31)
[2018-11-03] MEDS: POLYVINYL ALCOHOL OPHTH SOLN 15 ML(LIQUITEARS) OU SCH ×4 (08:32→20:50)
[2018-11-03] MEDS: oxyCODONE 5MG TAB PO PRN (13:46)
--- NOTE | 2018-11-03 13:53 | IPNPDOC ---
Date Seen The patient was seen on 11/03/18. Progress Note HPI: 72M pmh DM, HTN, PM, AVR (replaced in May 2018), CAD with CABG, JR, right hip periprosthetic infection, who was transferred to [facility] from [facility] for low back pain with fevers that began 6 days prior to admission. An ID consult was ordered, he was found to have Strep Mitis bacteremia from a October 14 and blood culture taken at [place] for which he was placed on Ceftriaxone and Gentamicin on 10-16-18 for discitis vs osteomyelitis in the setting of a possibly infected bi-prosthetic aortic valve with endocarditis. A GUILLERMO was performed showing, Moderate perivalvular aortic regurgitation, mobile density contiguous with aortic valve,cannot rule out vegetation. Repeat blood cultures on October 20 and were negative. Thor[address]olumbar CT on 10-18-18 showed lesion suspicious for diskovertebral osteomyelitis at L1-L2. ID recommended a 6 week course of IV antibiotics followed by Omnicef for 1 year for suppression. No cardiac or orthopedic surgery was recommended and PICC line placed. He developed a decubitus ulcer during his stay due to immobility. 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 No acute medical complaints today. Pt is reporting his pain is controlled. Repeat BC x 2 11/01/18 negative. UC negative. U/S LEs 10/31/[address] A/P done related to constipation 11/02/18. Denies any fevers, chills, weakness, fatigue, Headache, Chest Pain, Shortness of breath, cough, palpitations, abdominal pain, N/V/D or changes in bowel or bladder habits. PE: GEN: 72yoM, appears stated age. No acute distress. Alert and oriented x 3. Pleasant, interactive. HEENT: Normocephalic, atraumatic. Sclera are nonicteric. Conjunctiva without injection. No facial asymmetry. Moist mucous membranes. CHEST: Regular rate and rhythm, +S1, +S2 LUNGS: Clear to auscultation bilaterally. No wheezes, rales, or rhonchi. ABD: Round, soft, non-tender, non-distended. +Bowel sounds throughout. No rebound or guarding. EXT: No lower extremity edema appreciated. SKIN: [place], dry, warm. No rashes. NEURO: Alert and oriented x 3. No focal deficits appreciated. A&P: Discitis/osteomyelitis of L1 to L2, Streptococcus mitis bacteremia. Mgmt as per ARU Pain control as per ARU Bowel care as per ARU PT/OT as per ARU DVT prophylaxis as per ARU, SQ Heparin. On IV Rocephin and IV gentamicin as per ID. Per recommendation, the antibiotic regimen for patient is six week of Rocephin along with two weeks of gentamicin and then follow by Omnicef for one year. Continue Mgmt as per ID. PICC in place Blood culture x2 11/01 neg. Urine culture neg. Labs in AM, trend ESR/CRP. Abdominal pain Possibly related to his persistent severe back pain from discitis/osteomyelitis. S/P Trial of Relistor. CT abdomen 11/02/18 no obstruction. Coronary artery disease/Status post coronary artery bypass graft (CABG) and status post transcatheter aortic valve replacement (TAVR). Continue aspirin/Ranexa/Toprol XL. History of COPD. Duoneb Advair Hypertension. Toprol XL Blood pressure in satisfactory range. DM. Metformin Depression Trintellix. VS, I&O, 24H, Fishbone Vital Signs/I&O Vital Signs Date Time Temp Pulse Resp B/P (MAP) Pulse Ox O2 Delivery O2 Flow Rate FiO2 11/03/18 08:30 103 149/71 11/03/18 08:29 18 11/03/18 06:24 97.5 94 Room Air I&O- Last 24 Hours up to 6 AM 11/03/18 06:00 Intake Total 420 ml Output Total 450 ml Balance -30 ml Laboratory Data 24H LABS Laboratory Tests 2 11/02/18 17:44: Bedside Glucose (Misc Panel) 111H 11/02/18 20:02: Bedside Glucose (Misc Panel) 109 11/03/18 06:13: Bedside Glucose (Misc Panel) 83 11/03/18 11:45: Bedside Glucose (Misc Panel) 95 Microbiology Microbiology 11/02/18 Blood Culture - Preliminary, Resulted No growth after 24 hours . All specim... 11/01/18 Blood Culture - Preliminary, Resulted No growth after 24 hours . All specim... 10/31/18 Urine Culture - Final, Complete Yanci Cortes Nov 03, 2018 13:53
[2018-11-03 14:00] VITALS: BP 135/63
[2018-11-03] MEDS: BACLOFEN 5MG PER 1/2 TABLET PO SCH ×2 (17:32→20:47)
--- NOTE | 2018-11-03 19:46 | IPNPDOC ---
PM&R Progress Note DATE OF SERVICE: Nov 03, 2018 [employer] Progress Note Subjective: Patient seen in room in the afternoon and evening with improved pain, but still intermittent spasms. He has decreased appetite. REVIEW OF SYSTEMS: The following is a completed review of systems and has been reviewed. Review of systems otherwise unremarkable. PAIN: Patient self reports severe low back pain with spasms EYES: Negative for recent vision changes EARS, NOSE, & THROAT:negative for rhinorrhea, tinnitus, or dysphagia CARDIOVASCULAR: denies chest pain or palpitations PULMONARY: Negative. Denies shortness of breath GASTROINTESTINAL: +constipation GENITOURINARY: Negative for dysuria MUSCULOSKELETAL: low back pain and bilateral knee OA NEUROLOGICAL: restless leg syndrome HEMATOLOGICAL: +anemia SKIN: +PICC PSYCHIATRIC: Unremarkable All other review of systems found to be negative. PHYSICAL EXAMINATION: VITAL SIGNS: Please see below. GENERAL: Pleasant and cooperative, no acute distress HEENT: PERRL. Extraocular movements intact. Clear conjunctiva CARDIOVASCULAR: Regular rate and rhythm. No murmurs, rubs, or gallops LUNGS: Clear to auscultation bilaterally. No wheezes. No rhonchi ABDOMEN: Soft, nontender, nondistended. Positive bowel sounds. Normal active bowel sounds NEUROLOGICAL: Alert and oriented times to self and place not time, Cranial nerves II through XII grossly intact. Sensation grossly intact. EXTREMITIES: 5\5 strength bilateral upper extremities. bilateral Ankle DF and EHL 5/5, however proximal muscle testing greatly limited by pain SKIN: +PICC, decubitus ulcer ASSESSMENT:72-year-old M with past medical history of CAD, AVR, CAD with CABG who presents with diskovertebral osteomyelitis in the setting of endocarditis. PLAN: 1. Rehab: PT/OT, assess for DME needs- LSO brace when out of bed for comfort, able to ambulate a few feet 2. Neuro: pmh restless leg syndrome, continue home meds 3. Cardio: pmh CAD s/p AVR replacement with recent GUILLERMO suspicious for endocarditis continue IV Ceftriaxone and Gentamicin, outpatient cardio f/u -continue beta-blockers and ASA 4. Endo: pmh DM continue home meds 5. ID: L1-L2 disko-vertebral osteomyeltis, blood cultures positive for Strep Mitis, continue IV Ceftriaxone for 6 weeks and Gentamcin for 2 weeks to be followed by one year suppression dose of Omnicef, will consider in-house ID co nsult -admission blood cultures negative 6. Pain: pmh chronic knee pain, now with severe discogenic pain with spasms- continue long acting Morphine 15mg BID, oxycodone 10mg q4h, standing Tylenol, switch Gabapentin to Lyrica, and change diazepam to baclofen to avoid delirium 7. DVT ppx: heparin and f/u admisison dopplers, TEDs 8. SKin: Balmex and turning q2h in bed 9. Resp: pmh COPD: continue home meds, will add Duonebs and monitor for PNA 10. GI: patient constipated and poor appetite secondary to nausea, will add ZOfran prior to meals and optimize laxatives, protonix for ppx 11. Dispo: TBD Allergies Coded Allergies: Statins (Unverified Adverse Reaction, Unknown, MUSCLE PAINS, 10/31/18) Trazodone (Unverified Adverse Reaction, Unknown, ITCH, 10/31/18) Vital Signs Vital Signs Date Time Temp Pulse Resp B/P (MAP) Pulse Ox O2 Delivery O2 Flow Rate FiO2 11/03/18 14:20 18 11/03/18 14:00 97.6 92 135/63 (87) 98 11/03/18 06:24 Room Air Laboratory Data Labs 24H Laboratory Tests 2 11/02/18 20:02: Bedside Glucose (Misc Panel) 109 11/03/18 06:13: Bedside Glucose (Misc Panel) 83 11/03/18 11:45: Bedside Glucose (Misc Panel) 95 11/03/18 17:23: Bedside Glucose (Misc Panel) 83 Microbiology Microbiology 11/02/18 Blood Culture - Preliminary, Resulted No growth after 24 hours . All specim... 11/01/18 Blood Culture - Preliminary, Resulted No Growth after 48 hours. All Specime... 10/31/18 Urine Culture - Final, Complete Current Medications Current Medications Current Medications Acetaminophen (Tylenol Tab) 1,000 mg TID PO Last administered on 11/03/18at 17:33; Start 10/31/18 at 16:00 Albuterol/ Ipratropium (Duoneb (Ipr 0.5mg/Alb 2.5mg)) 3 ml RBID NEB ; Start 11/01/18 at 08:00 Artificial Tears ([place] Tears) 2 drop QID OU Last administered on 11/02/18at 21:42; Start 10/31/18 at 21:00 Ascorbic Acid (Vitamin C) 500 mg DAILY PO Last administered on 11/03/18at 08:28; Start 11/01/18 at 09:00 Aspirin (Ecotrin) 81 mg DAILY PO Last administered on 11/03/18 08:28; Start 11/01/18 at 09:00 Baclofen (Lioresal) 5 mg TID PO Last administered on 11/03/18at 17:32; Start 11/03/18 at 16:00 Bisacodyl (Dulcolax Suppository) 10 mg DAILYPRN PRN AR CONSTIPATION; Start 10/31/18 at 15:30 Bisacodyl (Dulcolax Tab) 5 mg DAILYPRN PRN PO CONSTIPATION; Start 10/31/18 at 15:30 Ceftriaxone Sodium 2 gm/ Dextrose 50 ml @ 100 mls/hr Q24H IV Last administered on 11/03/18at 08:31; Start 11/01/18 at 09:00 Coenzyme Q10 (Coenzyme Q10) 100 mg DAILY PO Last administered on 11/03/18at 08:29; Start 11/01/18 at 09:00; Stop 12/01/18 at 08:59 Dextran/ Hydroxypropyl Methylcellul (Tears Naturale Free) 2 drop QID OU ; Start 10/31/18 at 17:00; Status Cancel Dextrose (Dextrose 50%) 25 ml ASDIRECTED PRN IV SEE LABEL COMMENTS; Start 10/31/18 at 15:15 Diazepam (Valium) 2.5 mg Q4H PRN PO SPASMS Last administered on 11/01/18at 19:13; Start 11/01/18 at 14:30; Stop 11/01/18 at 23:15; Status DC Diazepam (Valium) 2.5 mg Q6H PRN PO SPASMS Last administered on 11/01/18at 14:15; Start 11/01/18 at 14:00; Stop 11/01/18 at 14:24; Status DC Diazepam (Valium) 2.5 mg Q8HP PRN PO SPASMS Last administered on 10/31/18at 16:01; Start 10/31/18 at 14:45; Stop 10/31/18 at 16:19; Status DC Diazepam (Valium) 2.5 mg Q8HP PRN PO SPASMS Last administered on 11/01/18at 08:09; Start 10/31/18 at 21:00; Stop 11/01/18 at 13:59; Status DC Diazepam (Valium) 5 mg Q8HP PRN PO SPASMS; Start 10/31/18 at 16:15; Stop 10/31/18 at 20:55; Status DC Fluticasone Propionate (Flonase 0.05% Nasal [place]) 2 spray DAILY NARES Last administered on 11/02/18at 08:44; Start 11/01/18 at 09:00 Gentamicin Sulfate 80 mg/IV Miscellaneous Supplies 100 ml @ 200 mls/hr Q12H IV Last administered on 11/02/18at 06:17; Start 10/31/18 at 18:00; Stop 11/02/18 at 08:56; Status DC Gentamicin Sulfate 80 mg/IV Miscellaneous Supplies 100 ml @ 200 mls/hr Q18H IV Last administered on 11/03/18at 00:02; Start 11/03/18 at 00:00; Stop 11/03/18 at 16:59; Status DC Glucagon (Glucagon) 1 mg ASDIRECTED PRN SC SEE LABEL COMMENTS; Start 10/31/18 at 15:15 Glucose (Glucose) 16 GM ASDIRECTED PRN PO SEE LABEL COMMENTS; Start 10/31/18 at 15:15 Heparin Sodium (Heparin (Flush)) 200 units ASDIRECTED PRN IV SEE LABEL COMMENTS Last administered on 11/02/18at 09:48; Start 10/31/18 at 16:30 Heparin Sodium (Heparin (Flush)) 200 units PICC IV Last administered on 11/03/18at 18:23; Start 10/31/18 at 18:00 Heparin Sodium (Porcine) (Heparin) 5,000 units Q12H SC Last administered on 11/03/18at 08:29; Start 10/31/18 at 21:00 Home Med (Med Rec Complete!) ASDIRECTED XX ; Start 10/31/18 at 14:45; Stop at 14:45; Status DC Insulin Human Lispro (HumaLOG INSULIN) SEE PROTOCOL TABLE QHS SC ; Start 10/31/18 at 21:00 Lidocaine (Lidoderm Patch) 1 patch DAILY TD Last administered on 11/03/18 08:30; Start 11/01/18 at 09:00 Magnesium Gluconate (Magnesium Gluconate) 500 mg BID PO Last administered on 11/03/18 08:28; Start 10/31/18 at 21:00 Magnesium Hydroxide (Milk Of Magnesia) 30 ml DAILYPRN PRN PO CONSTIPATION Last administered on 11/02/18 21:41; Start 10/31/18 at 15:30 Metformin HCl (Glucophage) 500 mg DAILY@08 PO Last administered on 11/03/18 08:27; Start 11/01/18 at 08:00 Metoprolol Succinate (TopROL XL) 25 mg DAILY PO Last administered on 11/03/18 08:30; Start 11/01/18 at 09:00 Mirtazapine (Remeron) 30 mg QHS PO Last administered on 11/02/18 21:38; Start 10/31/18 at 21:00 Miscellaneous (Unresolved Patient Own Med Order) SEE LABEL COMMENTS DAILY XX ; Start 10/31/18 at 09:00 Morphine Sulfate (Ms Contin) 15 mg BID PO Last administered on 11/03/18 08:29; Start 10/31/18 at 17:00 Nitroglycerin (Nitrostat (1/ 150)) 0.4 mg Q5MP PRN SL CHEST PAIN; Start 10/31/18 at 14:45 Non-Formulary Medication ( See Comment Field Below ) REMOVE LIDODERM PATCH DAILY@21 XX Last administered on 11/02/18at 21:42; Start 10/31/18 at 21:00 Ondansetron HCl (Zofran) 4 mg AC PO Last administered on 11/03/18at 17:33; Start 10/31/18 at 17:30 Ondansetron HCl (Zofran) 4 mg Q6HP PRN PO NAUSEA; Start 10/31/18 at 15:30 Oxycodone HCl (Roxicodone, Oxyir) 5 mg Q4HP PRN PO PAIN 4-7; Start 10/31/18 at 14:45 Oxycodone HCl (Roxicodone, Oxyir) 10 mg Q4HP PRN PO SEVERE PAIN (PS 8-10) Last administered on 11/03/18at 13:46; Start 10/31/18 at 14:45 Pantoprazole Sodium (Protonix) 40 mg DAILY PO Last administered on 11/03/18 08:28; Start 11/01/18 at 09:00 Patient Own Medication (Patient'S Own Med) TRINTELLIX 20mg po daily DAILY PO Last administered on 11/03/18 08:30; Start 11/01/18 at 09:00 Patient Own Medication (Patient'S Own Med) Testosterone 5gram (50mg/ 5gram (... DAILY PO ; Start 11/01/18 at 09:00; Status UNV Pramipexole Dihydrochloride (Mirapex) 2 mg QHS PO Last administered on 11/02/18 21:41; Start 10/31/18 at 21:00 Pregabalin (Lyrica) 75 mg BID PO ; Start 10/31/18 at 21:00; Stop 10/31/18 at 21:00; Status DC Pregabalin (Lyrica) 100 mg BID PO Last administered on 11/03/18 08:28; Start 10/31/18 at 21:00 Ranolazine (Ranexa) 500 mg BID PO Last administered on 11/03/18 08:29; Start 10/31/18 at 21:00 Salmeterol Xinafoate/ Fluticasone (Advair Hfa 115/ 21) 2 puff BID INH Last administered on 11/03/18 07:34; Start 10/31/18 at 21:00 Senna/Docusate Sodium (Senokot S) 1 tab BID PO Last administered on 11/03/18 08:28; Start 10/31/18 at 21:00 Sodium Chloride (Saline Lock Flush) 10 ml ASDIRECTED PRN IV SEE LABEL COMMENTS Last administered on 11/02/18 09:48; Start 10/31/18 at 16:30 Sodium Chloride (Saline Lock Flush) 10 ml PICC IV Last administered on 11/03/18 18:23; Start 10/31/18 at 18:00 Vitamin D (Vitamin D) 1,000 units DAILY PO Last administered on 11/03/18 08:28; Start 11/01/18 at 09:00 SOILA FREITAS MD Nov 03, 2018 19:46
[2018-11-03 20:30] VITALS: BP 112/53
[2018-11-03] MEDS: PRAMIPEXOLE 1 MG TAB PO SCH (20:47)
[2018-11-03] MEDS: MIRTAZAPINE 15 MG TAB PO SCH (20:47)
[2018-11-03] MEDS: HumaLOG INSULIN (NovoLOG) PER UNIT SC SCH (20:49)
[2018-11-03] MEDS: **NOTE PATIENT COMMENT** MISC XX SCH (20:50)
[2018-11-04] MEDS: SODIUM CHLORIDE 0.9% INJ 10 ML SYR IV SCH ×2 (05:43→17:16)
[2018-11-04 05:55] VITALS: BP 155/72
[2018-11-04 05:58] LABS: BASO % 0.2 % (0.0-1.0); EOS # 0.1 10^3/uL (0.0-0.50); EOS % 2.4 % (0.0-3.0); HEMATOCRIT 24.2 % (42.0-52.0); HEMOGLOBIN 7.6 g/dl (13.5-17.5); LYMPH % 21.8 % (24.0-44.0); MEAN CORPUSCULAR HGB CONC 31.4 g/dl (32.0-36.5); MEAN CORPUSCULAR VOLUME 95.7 fl (80.0-96.0); MONO # 0.7 10^3/uL (0.0-0.8); NEUTROPHILS # 2.7 10^3/uL (1.8-7.7); NEUTROPHILS % 59.7 % (36.0-66.0); PLATELET COUNT, AUTOMATED 138 10^3/uL (150-450); RED BLOOD COUNT 2.53 10^6/uL (4.30-6.10); WHITE BLOOD COUNT 4.5 10^3/uL (4.0-10.0)
[2018-11-04 06:30] LABS: C REACTIVE PROTEIN QUANTITATIV 16.4 MG/DL (0.00-0.30); CALCIUM LEVEL 8.2 MG/DL (8.8-10.2); CREATININE FOR GFR 2.15 MG/DL (0.70-1.30); GLOMERULAR FILTRATION RATE 32.2 (>42); POTASSIUM SERUM 4.6 MEQ/L (3.5-5.1)
[2018-11-04 06:32] LABS: ERYTHROCYTE SEDIMENTATION RATE 126 mm/hr (0-20)
[2018-11-04] MEDS: ADVAIR HFA 115/21MCG INHALER INH SCH ×2 (07:16→19:28)
[2018-11-04] MEDS: IPRATROPIUM 0.5MG/ALBUTEROL 2.5MG INH SOL UD 3ML (DUONEB)(J7620) NEB SCH ×2 (07:16→20:00)
[2018-11-04] MEDS: HEPARIN SOD (PORCINE) 5000 UNITS/ML VIAL SC SCH (08:35)
[2018-11-04] MEDS: PANTOPRAZOLE 40MG TAB (PROTONIX) PO SCH (08:35)
[2018-11-04] MEDS: ASPIRIN 81 MG ENTERIC TAB PO SCH (08:35)
[2018-11-04] MEDS: ACETAMINOPHEN 500 MG TAB PO SCH ×3 (08:36→20:47)
[2018-11-04] MEDS: VITAMIN D 1,000 INTERNATIONAL UNITS TABLET PO SCH (08:36)
[2018-11-04] MEDS: SENOKOT S TAB PO SCH ×2 (08:36→20:46)
[2018-11-04] MEDS: CO-ENZYME Q10 50 MG CAP PO SCH (08:36)
[2018-11-04] MEDS: PREGABALIN 100 MG CAP (LYRICA) PO SCH ×2 (08:36→20:48)
[2018-11-04] MEDS: metFORMIN (GLUCOPHAGE) 500 MG TAB PO SCH (08:36)
[2018-11-04] MEDS: MAGNESIUM GLUCONATE 500 MG TAB PO SCH ×2 (08:36→20:48)
[2018-11-04] MEDS: ASCORBIC ACID 500 MG TAB PO SCH (08:36)
[2018-11-04] MEDS: RANOLAZINE 500 MG ER TAB PO SCH ×2 (08:37→20:47)
[2018-11-04] MEDS: MORPHINE 15 MG SA TAB PO SCH ×2 (08:37→20:47)
[2018-11-04] MEDS: BACLOFEN 5MG PER 1/2 TABLET PO SCH ×3 (08:38→20:48)
[2018-11-04] MEDS: METOPROLOL SUCC *XL* 25MG TAB (TopROL *XL*) PO SCH (08:38)
[2018-11-04] MEDS: cefTRIAXone SOD 2 GM in D5W MINI-BAG PLUS 50 ML IV SCH (08:38)
[2018-11-04] MEDS: ONDANSETRON 4 MG TAB (S0181) PO SCH ×3 (08:38→17:15)
[2018-11-04] MEDS: TRINTELLIX PO SCH (08:39)
[2018-11-04] MEDS: POLYVINYL ALCOHOL OPHTH SOLN 15 ML(LIQUITEARS) OU SCH ×4 (08:40→20:48)
[2018-11-04] MEDS: LIDOCAINE 5% (LIDODERM) PATCH TD SCH (08:40)
[2018-11-04] MEDS: FLUTICASONE PROP 0.05% NASAL SPRAY 16 GM (FLONASE) NARES SCH (08:40)
[2018-11-04 09:58] LABS: PERCENT SATURATION 13.3 % (19.7-50.0)
[2018-11-04] MEDS: oxyCODONE 5MG TAB PO PRN (10:52)
--- NOTE | 2018-11-04 11:11 | IPNPDOC ---
Date Seen The patient was seen on 11/04/18. Progress Note HPI: 72M pmh DM, HTN, PM, AVR (replaced in May 2018), CAD with CABG, JR, right hip periprosthetic infection, who was transferred to [facility] from [facility] for low back pain with fevers that began 6 days prior to admission. An ID consult was ordered, he was found to have Strep Mitis bacteremia from a October 14 and blood culture taken at [facility] for which he was placed on Ceftriaxone and Gentamicin on 10-16-18 for discitis vs osteomyelitis in the setting of a possibly infected bi-prosthetic aortic valve with endocarditis. A GUILLERMO was performed showing, Moderate perivalvular aortic regurgitation, mobile density contiguous with aortic valve,cannot rule out vegetation. Repeat blood cultures on October 20 and were negative. Thoracolumbar CT on 10-18-18 showe d lesion suspicious for diskovertebral osteomyelitis at L1-L2. ID recommended a 6 week course of IV antibiotics followed by Omnicef for 1 year for suppression. No cardiac or orthopedic surgery was recommended and PICC line placed. He developed a decubitus ulcer during his stay due to immobility. 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 The pt is OOB to chair for breakfast and states his pain is worse today. He is having muscle spasms UEs, baclofen was added as per attending 11/03/18. ID has been consulted to assist with antibiotic recommendations. Repeat BC x 2 11/01/18 negative. UC negative. U/S LEs 10/31/[address] A/P done related to constipation 11/02/18. Denies any fevers, chills, headache, Chest Pain, Shortness of breath, cough, palpitations, abdominal pain, N/V/D or changes in bowel or bladder habits. PE: GEN: 72yoM, appears stated age. No acute distress. Alert and oriented to person but difficulty with time and place. HEENT: Normocephalic, atraumatic. Sclera are nonicteric. Conjunctiva without injection. No facial asymmetry. Moist mucous membranes. CHEST: Regular rate and rhythm, +S1, +S2 LUNGS: Clear to auscultation bilaterally. No wheezes, rales, or rhonchi. ABD: Round, soft, non-tender, non-distended. +Bowel sounds present. No rebound or guarding. EXT: No lower extremity edema appreciated. SKIN: [place], dry, warm. No rashes. NEURO: No focal deficits appreciated. A&P: 72M pmh DM, HTN, PM, AVR (replaced in May 2018), CAD with CABG, JR, right hip periprosthetic infection, who was transferred to [facility] from [facility] for low back pain with fevers that began 6 days prior to admission. An ID consult was ordered, he was found to have Strep Mitis bacteremia from a October 14 and blood culture taken at [facility] for which he was placed on Ceftriaxone and Gentamicin on 10-16-18 for discitis vs osteomyelitis in the setting of a possibly infected bi-prosthetic aortic valve with endocarditis. A GUILLERMO was performed showing, Moderate perivalvular aortic regurgitation, mobile density contiguous with aortic valve,cannot rule out vegetation. Repeat blood cultures on October 20 and were negative. Thoracolumbar CT on 10-18-18 showed lesion suspicious for diskovertebral osteomyelitis at L1-L2. ID recommended a 6 week course of IV antibiotics followed by Omnicef for 1 year for suppression. No cardiac or orthopedic surgery was recommended and PICC line placed. He developed a decubitus ulcer during his stay due to immobility. 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 Discitis/osteomyelitis of L1 to L2, Streptococcus mitis bacteremia/Endocarditis. Mgmt as per ARU Pain control as per ARU Bowel care as per ARU PT/OT as per ARU DVT prophylaxis as per ARU, SQ Heparin. On IV Rocephin and IV gentamicin as per ID Shirlene. Per recommendation, the antibiotic regimen for patient is six week of Rocephin along with two weeks of gentamicin and then follow by Omnicef for one year. Continue Mgmt as per ID. ID consulted, Dr Alejandro. Spoke with her this AM, she will evaluate and provide further recommendations. Relayed labs today ESR 126, CRP 16.40. Repeat imaging per ID, Pt unable to have MRI related to pacemaker. PICC in place Blood culture x2 11/01 neg. Urine culture neg. Abdominal pain/Constipation. Possibly related to his persistent severe back pain from discitis/osteomyelitis. S/P Trial of Relistor x [address] abdomen 11/02/18 no obstruction. Coronary artery disease/Status post coronary artery bypass graft (CABG) and status post transcatheter aortic valve replacement (TAVR). Continue aspirin/Ranexa/Toprol XL. History of COPD. Duoneb Advair Hypertension. Toprol XL Blood pressure 112-155. DM. CC diet. Hold Metformin Monitor FSBS- BS have been 83-139. Depression Trintellix. Anemia. Add B12, folate, Fe studies. FOB pending. Hgb noted to be 7.6. Pt is Jehov[employer] Witness and declines transfusion at this time. Monitor Hgb. ANA. SCr noted to be 2.15. IVF added this AM at 40cc/hr. Hold Metformin. Monitor Hyponatremia. Na 133-135. IVF as above. Monitor. VS, I&O, 24H, Fishbone Vital Signs/I&O Vital Signs Date Time Temp Pulse Resp B/P (MAP) Pulse Ox O2 Delivery O2 Flow Rate FiO2 11/04/18 10:52 20 11/04/18 08:38 92 142/68 11/04/18 05:55 97.8 94 Room Air I&O- Last 24 Hours up to 6 AM 11/04/18 06:00 Intake Total 820 ml Output Total 550 ml Balance 270 ml Laboratory Data 24H LABS Laboratory Tests 2 11/03/18 11:45: Bedside Glucose (Misc Panel) 95 11/03/18 17:23: Bedside Glucose (Misc Panel) 83 11/03/18 20:33: Bedside Glucose (Misc Panel) 139H 11/04/18 05:36: Immature Granulocyte % (Auto) 0.9, White Blood Count 4.5, Red Blood Count 2.53L, Hemoglobin 7.6L, Hematocrit 24.2L, Mean Corpuscular Volume 95.7, Mean Corpuscular Hemoglobin 30.0, Mean Corpuscular Hemoglobin Concent 31.4L, Red Cell Distribution Width 15.6H, Platelet Count 138L, Neutrophils (%) (Auto) 59.7, Lymphocytes (%) (Auto) 21.8L, Monocytes (%) (Auto) 15.0H, Eosinophils (%) (Auto) 2.4, Basophils (%) (Auto) 0.2, Neutrophils # (Auto) 2.7, Lymphocytes # (Auto) 1.0L, Monocytes # (Auto) 0.7, Eosinophils # (Auto) 0.1, Basophils # (Auto) 0.0, Nucleated Red Blood Cells % (auto) 0.0, Erythrocyte Sedimentation Rate 126H 11/04/18 05:37: Anion Gap 8, Glomerular Filtration Rate 32.2L, Blood Urea Nitrogen 27H, Creatinine 2.15#H, Sodium Level 134L, Potassium Level 4.6, Chloride Level 98, Carbon Dioxide Level 28, Calcium Level 8.2L, C-Reactive Protein, Quantitative 16.40H 11/04/18 09:09: Iron Level 36L, Total Iron Binding Capacity 270, Transferrin % Saturation 13.3L, Ferritin 1013H, Folate 20.0 CBC/BMP Laboratory Tests 11/04/18 05:36 Red Blood Count 2.53 L, Mean Corpuscular Volume 95.7, Mean Corpuscular Hemoglobin 30.0, Mean Corpuscular Hemoglobin Concent 31.4 L, Red Cell Distribution Width 15.6 H, Neutrophils (%) (Auto) 59.7, Lymphocytes (%) (Auto) 21.8 L, Monocytes (%) (Auto) 15.0 H, Eosinophils (%) (Auto) 2.4, Basophils (%) (Auto) 0.2, Neutrophils # (Auto) 2.7, Lymphocytes # (Auto) 1.0 L, Monocytes # (Auto) 0.7, Eosinophils # (Auto) 0.1, Basophils # (Auto) 0.0 11/04/18 05:37 Calcium Level 8.2 L Microbiology Microbiology 11/02/18 Blood Culture - Preliminary, Resulted No Growth after 48 hours. All Specime... 11/01/18 Blood Culture - Preliminary, Resulted No Growth after 48 hours. All Specime... 10/31/18 Urine Culture - Final, Complete Yanci Cortes Nov 04, 2018 11:11
[2018-11-04] MEDS: NS 1,000 ML IV SCH (12:32)
[2018-11-04 14:00] VITALS: BP 130/63
[2018-11-04] MEDS: diazePAM 2 MG TAB PO SCH ×2 (17:15→21:00)
--- NOTE | 2018-11-04 18:40 | IPNPDOC ---
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 Discussion was started regarding Arinesp infusion for anemia. REVIEW OF SYSTEMS: The following is a completed review of systems and has been reviewed. Review of systems otherwise unremarkable. PAIN: Patient self reports severe low back pain with spasms EYES: Negative for recent vision changes EARS, NOSE, & THROAT:negative for rhinorrhea, tinnitus, or dysphagia CARDIOVASCULAR: denies chest pain or palpitations PULMONARY: Negative. Denies shortness of breath GASTROINTESTINAL: +constipation GENITOURINARY: Negative for dysuria MUSCULOSKELETAL: low back pain and bilateral knee OA NEUROLOGICAL: restless leg syndrome HEMATOLOGICAL: +anemia SKIN: +PICC PSYCHIATRIC: Unremarkable All other review of systems found to be negative. PHYSICAL EXAMINATION: VITAL SIGNS: Please see below. GENERAL: Pleasant and cooperative, no acute distress HEENT: PERRL. Extraocular movements intact. Clear conjunctiva CARDIOVASCULAR: Regular rate and rhythm. No murmurs, rubs, or gallops LUNGS: Clear to auscultation bilaterally. No wheezes. No rhonchi ABDOMEN: Soft, nontender, nondistended. Positive bowel sounds. Normal active bowel sounds NEUROLOGICAL: Alert and oriented times to self and place not time, Cranial nerves II through XII grossly intact. Sensation grossly intact. EXTREMITIES: 5\5 strength bilateral upper extremities. bilateral Ankle DF and EHL 5/5, however proximal muscle testing greatly limited by pain SKIN: +PICC, decubitus ulcer ASSESSMENT:72-year-old M with past medical history of CAD, AVR, CAD with CABG who presents with diskovertebral osteomyelitis in the setting of endocarditis. PLAN: 1. Rehab: PT/OT, assess for DME needs- LSO brace when out of bed for comfort, able to ambulate a few feet 2. Neuro: pmh restless leg syndrome, continue home meds 3. Cardio: pmh CAD s/p AVR replacement with recent GUILLERMO suspicious for en docarditis continue IV Ceftriaxone and Gentamicin, outpatient cardio f/u -continue beta-blockers and ASA 4. Endo: pmh DM continue home meds 5. ID: L1-L2 disko-vertebral osteomyeltis, blood cultures positive for Strep Mitis, continue IV Ceftriaxone for 6 weeks (start date 10/16/18) and Gentamicin for 2 weeks (start date 10/26/18)to be followed by one year suppression dose of Omnicef- Dr. Alejandro consulted, Gentamicin discontinued will continue to follow- recs -admission blood cultures negative 6. Pain: pmh chronic knee pain, now with severe discogenic pain with spasms- continue long acting Morphine 15mg BID, oxycodone 10mg q4h, standing Tylenol, switch Gabapentin to Lyrica, added back low dose Diazepam for painful spams to be held for sedation 7. DVT ppx: will d/c heparin given anemia and borderline low platelets and obtain serial dopplers, continue TEDs 8. SKin: Balmex and turning q2h in bed 9. Resp: pmh COPD: continue home meds, will add Duonebs and monitor for PNA 10. 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 GI: patient constipated and poor appetite secondary to nausea, optimize laxatives, protonix for ppx 11. Dispo: 11/24/18, slowly progressing towards goasl Allergies Coded Allergies: Statins (Unverified Adverse Reaction, Unknown, MUSCLE PAINS, 10/31/18) Trazodone (Unverified Adverse Reaction, Unknown, ITCH, 10/31/18) Vital Signs Vital Signs Date Time Temp Pulse Resp B/P (MAP) Pulse Ox O2 Delivery O2 Flow Rate FiO2 11/04/18 14:00 97.9 103 17 130/63 (85) 98 Room Air Laboratory Data CBC/BMP Laboratory Tests 11/04/18 05:36 Red Blood Count 2.53 L, Mean Corpuscular Volume 95.7, Mean Corpuscular Hemogl obin 30.0, Mean Corpuscular Hemoglobin Concent 31.4 L, Red Cell Distribution Width 15.6 H, Neutrophils (%) (Auto) 59.7, Lymphocytes (%) (Auto) 21.8 L, Monocytes (%) (Auto) 15.0 H, Eosinophils (%) (Auto) 2.4, Basophils (%) (Auto) 0.2, Neutrophils # (Auto) 2.7, Lymphocytes # (Auto) 1.0 L, Monocytes # (Auto) 0.7, Eosinophils # (Auto) 0.1, Basophils # (Auto) 0.0 1/22/19 05:37 Calcium Level 8.2 L Labs 24H Laboratory Tests 2 11/03/18 20:33: Bedside Glucose (Misc Panel) 139H 11/04/18 05:36: Immature Granulocyte % (Auto) 0.9, White Blood Count 4.5, Red Blood Count 2.53L, Hemoglobin 7.6L, Hematocrit 24.2L, Mean Corpuscular Volume 95.7, Mean Corpuscular Hemoglobin 30.0, Mean Corpuscular Hemoglobin Concent 31.4L, Red Cell Distribution Width 15.6H, Platelet Count 138L, Neutrophils (%) (Auto) 59.7, Lymphocytes (%) (Auto) 21.8L, Monocytes (%) (Auto) 15.0H, Eosinophils (%) (Auto) 2.4, Basophils (%) (Auto) 0.2, Neutrophils # (Auto) 2.7, Lymphocytes # (Auto) 1.0L, Monocytes # (Auto) 0.7, Eosinophils # (Auto) 0.1, Basophils # (Auto) 0.0, Nucleated Red Blood Cells % (auto) 0.0, Erythrocyte Sedimentation Rate 126H 11/04/18 05:37: Anion Gap 8, Glomerular Filtration Rate 32.2L, Blood Urea Nitrogen 27H, Creatinine 2.15#H, Sodium Level 134L, Potassium Level 4.6, Chloride Level 98, Carbon Dioxide Level 28, Calcium Level 8.2L, C-Reactive Protein, Quantitative 16.40H 11/04/18 09:09: Iron Level 36L, Total Iron Binding Capacity 270, Transferrin % Saturation 13.3L, Ferritin 1013H, Folate 20.0 Microbiology Microbiology 11/02/18 Blood Culture - Preliminary, Resulted No Growth after 48 hours. All Specime... 11/01/18 Blood Culture - Preliminary, Resulted No Growth after 72 hours. All specime... 10/31/18 Urine Culture - Final, Complete Current Medications Current Medications Current Medications Acetaminophen (Tylenol Tab) 1,000 mg TID PO Last administered on 11/04/18at 17:15; Start 10/31/18 at 16:00 Albuterol/ Ipratropium (Duoneb (Ipr 0.5mg/Alb 2.5mg)) 3 ml RBID NEB ; Start 11/01/18 at 08:00 Artificial Tears ([place]wa Tears) 2 drop QID OU Last administered on 11/03/18at 20:50; Start 10/31/18 at 21:00 Ascorbic Acid (Vitamin C) 500 mg DAILY PO Last administered on 11/04/18at 08:36; Start 11/01/18 at 09:00 Aspirin (Ecotrin) 81 mg DAILY PO Last administered on 11/04/18at 08:35; Start 11/01/18 at 09:00 Baclofen (Lioresal) 5 mg TID PO Last administered on 11/04/18at 17:15; Start 11/03/18 at 16:00 Bisacodyl (Dulcolax Suppository) 10 mg DAILYPRN PRN VT CONSTIPATION; Start 10/31/18 at 15:30 Bisacodyl (Dulcolax Tab) 5 mg DAILYPRN PRN PO CONSTIPATION; Start 10/31/18 at 15:30 Ceftriaxone Sodium 2 gm/ Dextrose 50 ml @ 100 mls/hr Q24H IV Last administered on 11/04/18at 08:38; Start 11/01/18 at 09:00 Coenzyme Q10 (Coenzyme Q10) 100 mg DAILY PO Last administered on 11/04/18at 08:36; Start 11/01/18 at 09:00; Stop 12/01/18 at 08:59 Dextran/ Hydroxypropyl Methylcellul (Tears Naturale Free) 2 drop QID OU ; Start 10/31/18 at 17:00; Status Cancel Dextrose (Dextrose 50%) 25 ml ASDIRECTED PRN IV SEE LABEL COMMENTS; Start 10/31/18 at 15:15 Diazepam (Valium) 2 mg TID PO Last administered on 11/04/18at 17:15; Start 11/04/18 at 16:00 Diazepam (Valium) 2.5 mg Q4H PRN PO SPASMS Last administered on 11/01/18at 19:13; Start 11/01/18 at 14:30; Stop 11/01/18 at 23:15; Status DC Diazepam (Valium) 2.5 mg Q6H PRN PO SPASMS Last administered on 11/01/18at 14:15; Start 11/01/18 at 14:00; Stop 11/01/18 at 14:24; Status DC Diazepam (Valium) 2.5 mg Q8HP PRN PO SPASMS Last administered on 10/31/18at 16:01; Start 10/31/18 at 14:45; Stop 10/31/18 at 16:19; Status DC Diazepam (Valium) 2.5 mg Q8HP PRN PO SPASMS Last administered on 11/01/18at 08:09; Start 10/31/18 at 21:00; Stop 11/01/18 at 13:59; Status DC Diazepam (Valium) 5 mg Q8HP PRN PO SPASMS; Start 10/31/18 at 16:15; Stop 10/31/18 at 20:55; Status DC Fluticasone Propionate (Flonase 0.05% Nasal [place]) 2 spray DAILY NARES Last administered on 11/02/18at 08:44; Start 11/01/18 at 09:00 Gentamicin Sulfate 80 mg/IV Miscellaneous Supplies 100 ml @ 200 mls/hr Q12H IV Last administered on 11/02/18at 06:17; Start 10/31/18 at 18:00; Stop 11/02/18 at 08:56; Status DC Gentamicin Sulfate 80 mg/IV Miscellaneous Supplies 100 ml @ 200 mls/hr Q18H IV Last administered on 11/03/18at 00:02; Start 11/03/18 at 00:00; Stop 11/03/18 at 16:59; Status DC Glucagon (Glucagon) 1 mg ASDIRECTED PRN SC SEE LABEL COMMENTS; Start 10/31/18 at 15:15 Glucose (Glucose) 16 GM ASDIRECTED PRN PO SEE LABEL COMMENTS; Start 10/31/18 at 15:15 Heparin Sodium (Heparin (Flush)) 200 units ASDIRECTED PRN IV SEE LABEL COMMENTS Last administered on 11/02/18at 09:48; Start 10/31/18 at 16:30 Heparin Sodium (Heparin (Flush)) 200 units PICC IV Last administered on 11/04/18at 05:43; Start 10/31/18 at 18:00 Heparin Sodium (Porcine) (Heparin) 5,000 units Q12H SC Last administered on 11/04/18at 08:35; Start 10/31/18 at 21:00 Home Med (Med Rec Complete!) ASDIRECTED XX ; Start 10/31/18 at 14:45; Stop 10/31/18 at 14:45; Status DC Insulin Human Lispro (HumaLOG INSULIN) SEE PROTOCOL TABLE QHS SC ; Start 10/31/18 at 21:00 Lidocaine (Lidoderm Patch) 1 patch DAILY TD Last administered on 11/04/18 08:40; Start 11/01/18 at 09:00 Magnesium Gluconate (Magnesium Gluconate) 500 mg BID PO Last administered on 11/04/18 08:36; Start 10/31/18 at 21:00 Magnesium Hydroxide (Milk Of Magnesia) 30 ml DAILYPRN PRN PO CONSTIPATION Last administered on 11/02/18 21:41; Start 10/31/18 at 15:30 Metformin HCl (Glucophage) 500 mg DAILY@08 PO Last administered on 11/04/18 08:36; Start 11/01/18 at 08:00; Stop 11/04/18 at 11:08; Status DC Metoprolol Succinate (TopROL XL) 25 mg DAILY PO Last administered on 11/04/18 08:38; Start 11/01/18 at 09:00 Mirtazapine (Remeron) 30 mg QHS PO Last administered on 11/03/18at 20:47; Start 10/31/18 at 21:00 Miscellaneous (Unresolved Patient Own Med Order) SEE LABEL COMMENTS DAILY XX ; Start 10/31/18 at 09:00 Morphine Sulfate (Ms Contin) 15 mg BID PO Last administered on 11/04/18 08:37; Start 10/31/18 at 17:00 Nitroglycerin (Nitrostat (1/ 150)) 0.4 mg Q5MP PRN SL CHEST PAIN; Start 10/31/18 at 14:45 Non-Formulary Medication ( See Comment Field Below ) REMOVE LIDODERM PATCH DAILY@21 XX Last administered on 11/03/18 20:50; Start 10/31/18 at 21:00 Ondansetron HCl (Zofran) 4 mg AC PO Last administered on 11/04/18 17:15; Start 10/31/18 at 17:30 Ondansetron HCl (Zofran) 4 mg Q6HP PRN PO NAUSEA; Start 10/31/18 at 15:30 Oxycodone HCl (Roxicodone, Oxyir) 5 mg Q4HP PRN PO PAIN 4-7 Last administered on 11/04/18 05:47; Start 10/31/18 at 14:45 Oxycodone HCl (Roxicodone, Oxyir) 10 mg Q4HP PRN PO SEVERE PAIN (PS 8-10) Last administered on 11/04/18 10:52; Start 10/31/18 at 14:45 Pantoprazole Sodium (Protonix) 40 mg DAILY PO Last administered on 11/04/18 08:35; Start 11/01/18 at 09:00 Patient Own Medication (Patient'S Own Med) TRINTELLIX 20mg po daily DAILY PO Last administered on 11/04/18 08:39; Start 11/01/18 at 09:00 Patient Own Medication (Patient'S Own Med) Testosterone 5gram (50mg/ 5gram (... DAILY PO ; Start 11/01/18 at 09:00; Status UNV Pramipexole Dihydrochloride (Mirapex) 2 mg QHS PO Last administered on 11/03/18 20:47; Start 10/31/18 at 21:00 Pregabalin (Lyrica) 75 mg BID PO ; Start 10/31/18 at 21:00; Stop 10/31/18 at 21:00; Status DC Pregabalin (Lyrica) 100 mg BID PO Last administered on 11/04/18 08:36; Start 10/31/18 at 21:00 Ranolazine (Ranexa) 500 mg BID PO Last administered on 11/04/18 08:37; Start 10/31/18 at 21:00 Salmeterol Xinafoate/ Fluticasone (Advair Hfa 115/ 21) 2 puff BID INH Last administered on 11/04/18 07:16; Start 10/31/18 at 21:00 Senna/Docusate Sodium (Senokot S) 1 tab BID PO Last administered on 11/04/18 08:36; Start 10/31/18 at 21:00 Sodium Chloride 1,000 ml @ 40 mls/hr Q24H IV Last administered on 11/04/18 12:32; Start 11/04/18 at 10:30 Sodium Chloride (Saline Lock Flush) 10 ml ASDIRECTED PRN IV SEE LABEL COMMENTS Last administered on 11/02/18 09:48; Start 10/31/18 at 16:30 Sodium Chloride (Saline Lock Flush) 10 ml PICC IV Last administered on 11/04/18at 05:43; Start 10/31/18 at 18:00 Vitamin D (Vitamin D) 1,000 units DAILY PO Last administered on 11/04/18at 08:36; Start 11/01/18 at 09:00 SOILA FREITAS MD Nov 04, 2018 18:40
[2018-11-04 20:00] VITALS: BP 128/100
[2018-11-04] MEDS: MIRTAZAPINE 15 MG TAB PO SCH (20:48)
[2018-11-04] MEDS: HumaLOG INSULIN (NovoLOG) PER UNIT SC SCH (20:48)
[2018-11-04] MEDS: PRAMIPEXOLE 1 MG TAB PO SCH (20:48)
[2018-11-04] MEDS: **NOTE PATIENT COMMENT** MISC XX SCH (21:00)
--- NOTE | 2018-11-04 23:37 | CR ---
DATE OF CONSULTATION: 11/04/2018 My preceptor for this encounter is Dr. Kathleen Alejandro. REQUESTING PROVIDER: Dr. Cassidy. REASON FOR CONSULTATION: Osteomyelitis and endocarditis. HISTORY OF PRESENT ILLNESS: This is a 72-year-old gentleman who was originally admitted to [facility] on 10/14/2018. He had been having 1 month of low back pain and had started to have fevers about 5-6 days prior to his initial presentation. Blood cultures from [facility] were positive for Streptococcus mitis on both 10/14/2018 and 10/15/2018. He was transferred to [facility] on 10/24/2018 due to the need for a transesophageal echocardiogram (GUILLERMO) and to see if his pacemaker would be MRI compatible to evaluate the discitis. His pacemaker was ultimately decided to not be MRI compatible. Transesophageal echocardiogram at [place] showed a moderate perivalvular aortic regurgitation, mobile density contiguous with aortic valve, best seen in the LVOT view. Infectious disease was consulted and added gentamicin to the Rocephin, recommending a total of 6 weeks of Rocephin from the first negative blood culture, which would have been on 10/20/2018, and 2 weeks of gentamicin. Further investigation realized that the patient had had a recent dental surgery. After evaluation from cardiothoracic surgery and neurosurgery, the patient was deemed to not be a surgical candidate, and long-term antibiotic therapy was chosen at the treatment modality. Blood cultures that were obtained during his hospitalization at [facility] showed no growth. REVIEW OF SYSTEMS: Difficult to obtain; however, I was able to elicit that he was not febrile, was not having chills, nausea, vomiting, diarrhea, chest pain or shortness of breath. He is unsure of whether or not he has had any rashes and continues to say that he has a lot of pain. PAST MEDICAL HISTORY: 1. Coronary artery disease status post coronary artery bypass graft (CABG), two open heart surgeries. 2. Aortic valvular disease, status post bioprosthetic valve replacement and transcatheter aortic valve replacement (TAVR). 3. Status post permanent pacemaker; the patient does not indicate that this is an automatic implantable cardioverter defibrillator (AICD). 4. Obstructive sleep apnea, not on continuous positive airway pressure (CPAP). 5. Depression, anxiety. 6. Gastroesophageal reflux disease (GERD). 7. Previous tobacco use disorder. 8. Type 2 diabetes, controlled on oral medications. 9. Chronic back pain. PAST SURGICAL HISTORY 1. Dental surgery. 2. Right total hip replacement. 3. Two open heart surgeries, pacemaker placement, bioprosthetic aortic valve replacement and TAVR. SOCIAL HISTORY: The patient quit smoking in the . He denies any alcohol or recreational drug use. He is a Hoahaoism and refuses blood products. He has no recent travel outside of [facility]. FAMILY HISTORY: Parents both , his father had coronary artery disease, mom also had coronary artery disease and type 2 diabetes. ALLERGIES: STATINS and TRAZODONE. CURRENT MEDICATIONS WERE REVIEWED: Magnesium 500 mg twice a day MS Contin 15 mg twice a day Tylenol 1000 mg three times a day Aspirin 81 mg daily Baclofen 5 mg every 8 hours Ceftriaxone 2 grams IV every 24 hours Hypoglycemia protocol in place Flonase 50 mcg 1 spray both nostrils once a day Lyrica 100 mg twice a day Heparin 5000 units twice a day for deep vein thrombosis (DVT) prophylaxis Insulin sliding scale Lidocaine patch transdermally daily Metoprolol succinate 25 mg once a day Mirtazapine 30 mg at bedtime Coenzyme Q10 100 mg by mouth daily Metformin 500 mg daily, DuoNebs Zofran 4 mg before food by mouth Dulcolax and Milk of Magnesia as needed Dulera 2 puffs twice a day Nitroglycerin 0.4 mg sublingual as needed for chest pain Protonix 40 mg once a day Pramipexole 2 mg nightly Oxycodone 10 mg every 4 hours as needed for pain Oxycodone 5 mg every 4 hours as needed for pain Artificial tears 2 drops both eyes (OU) daily Ranolazine 500 mg every 12 hours AndroGel 5 grams topically once a day Vitamin C 500 mg once a day Vitamin D3 1000 units once a day Trintellix 20 mg once a day. PHYSICAL EXAMINATION: Vital Signs: Temperature 97.8, pulse 101, respiratory rate 16, blood pressure 155/72, 94% on room air. The patient has been afebrile since his admission at [facility] General: The patient is sitting in the chair and is quite uncomfortable looking. Periodically he twinges with pain. HEENT: Mucous membranes are moist. Head is atraumatic, normocephalic. Eyes are clear. The patient has his own teeth and dentition is fair with a cap on one of the molars in the back right part of the mouth. Neck: Supple, no masses. No thyromegaly or lymphadenopathy. Heart: Regular rate and rhythm, not tachycardiac. No rubs or gallops, but there is a 3/6 holosystolic murmur heard best at the second intercostal space on the right side of the sternum. Lungs: Clear to auscultation bilaterally. No wheezes, rhonchi or rales. Abdomen: Normoactive bowel sounds. No tenderness to palpation. No hepatosplenomegaly. Back: There is a 2 cm wide stage II pressure ulcer, approximately 10 cm superior to the patient's gluteal cleft. It has well-defined borders and there was minimal drainage on the dressing. No costovertebral angle (CVA) tenderness, but the patient does state he has significant back pain. Extremities: No clubbing, cyanosis or edema. Skin: Besides the pressure ulcer on the patient's back, there are no rashes, lesions or discolorations. Neurologic: Alert and oriented to himself. He is unsure of what day of the week it is but knows it is winter. Muscle strength is mildly diminished but equal bilaterally, upper extremities are about 3/5 bilaterally. Cranial nerves II-XII grossly intact. LABORATORY DATA: CBC: WBC 4.5, hemoglobin 7.6, hematocrit 24.2, platelets 138. Chemistry: Sodium 134, potassium 4.6, chloride 98, carbon dioxide 28, BUN 27, creatinine 2.15, fasting glucose 98, calcium 8.2, iron 36, TIBC 270, transferrin percent saturation 13.3, ferritin 1,013, CRP is 16.4, vitamin B12 pending, folate 200. Urine from 10/31/2018 was positive for 2+ protein. Gentamicin peak 5.7, gentamicin trough 1.7. Microbiology: Blood cultures times two were negative so far. Urine culture from 10/31/2018 was negative. IMAGING: Vascular ultrasound from 11/01/2018 was negative for DVTs bilaterally. CT abdomen and pelvis with contrast showed no obstruction, no abnormal colonic wall thickening to suggest antibiotic related colitis, right total hip arthroplasty, the stomach well filled with fluid and air. The L1-L2 levels shows discitis/osteomyelitis complex with some bony destruction and soft tissue swelling laterally and anteriorly at this level. The neural arch remains intact. No acute compression of air. Advanced degenerative changes at the other levels in the lumbar spine. ASSESSMENT: This is a 72-year-old gentleman with osteomyelitis of L1-L2 and endocarditis of a bioprosthetic valve who was deemed to not be a surgical candidate and will therefore be on long-term antibiotic therapy. PLAN: Records were obtained from [facility], SULEIMAN was less than 0.25 for ceftriaxone, so the gentamicin is not needed as ceftriaxone should be enough to cover Streptococcus mitis, which was what the patient grew in his blood. Since his first negative blood culture was on 10/20/2018, end date of ceftriaxone should be 12/01/2018. The patient also has discitis as seen on CT, he is not able to have an MRI because his pacemaker is not MRI compatible. The patient had a CT abdomen and pelvis with contrast and was still taking metformin at the time, so I believe that his decrease in renal function/acute kidney injury is from metformin, IV contrast, and possibly gentamicin usage all at the same time. We have ordered a liter of normal saline for gentle rehydration, and I have stopped the patient's metformin. If his kidney function should not improve, a nephrology consult may be purcell. For right now we will hold off of ordering another CT as it would need to be with contrast as well, though if his CRP and sedimentation (sed) rate should increase, then that may be warranted for further evaluation. The patient is also a Hoahaoism and will not accept blood products. He is anemic, and based on his laboratory data is iron deficient as well. Nephrology consult may also be warranted to start any Aranesp for red blood cell production. Thank you for involving us in the care of your patient. We will be happy to follow him along. My faculty preceptor for this patient encounter was physically present during the encounter and was fully available. All aspects of the patient interview, examination, medical decision making process, and medical care plan development were reviewed and approved by the faculty preceptor. The faculty preceptor is aware and concurs with the plan as stated in the body of this note and will attest to such by his/her cosignature. ELIZABETH
[2018-11-05] VITALS (7 sets, daily range): BP systolic 121–147; BP diastolic 55–66
[2018-11-05 05:38] LABS: HEMATOCRIT 23.6 % (42.0-52.0); HEMOGLOBIN 7.4 g/dl (13.5-17.5); MEAN CORPUSCULAR HEMOGLOBIN 30.8 pg (27.0-33.0); MEAN CORPUSCULAR HGB CONC 31.4 g/dl (32.0-36.5); MEAN CORPUSCULAR VOLUME 98.3 fl (80.0-96.0); PLATELET COUNT, AUTOMATED 144 10^3/uL (150-450); WHITE BLOOD COUNT 4.6 10^3/uL (4.0-10.0)
[2018-11-05] MEDS: SODIUM CHLORIDE 0.9% INJ 10 ML SYR IV SCH ×2 (06:00→17:52)
[2018-11-05 06:14] LABS: ALBUMIN 2.1 GM/DL (3.2-5.2); BILIRUBIN,TOTAL 0.3 MG/DL (0.2-1.0); CALCIUM LEVEL 7.1 MG/DL (8.8-10.2); CREATININE FOR GFR 1.94 MG/DL (0.70-1.30); GLOMERULAR FILTRATION RATE 36.3 (>42); POTASSIUM SERUM 3.9 MEQ/L (3.5-5.1); TOTAL PROTEIN 5.4 GM/DL (6.4-8.2)
[2018-11-05] MEDS: IPRATROPIUM 0.5MG/ALBUTEROL 2.5MG INH SOL UD 3ML (DUONEB)(J7620) NEB SCH ×2 (06:14→20:00)
[2018-11-05] MEDS: ADVAIR HFA 115/21MCG INHALER INH SCH ×2 (06:14→21:00)
[2018-11-05] MEDS: ONDANSETRON 4 MG TAB (S0181) PO SCH ×4 (07:30→17:42)
[2018-11-05] MEDS: METOPROLOL SUCC *XL* 25MG TAB (TopROL *XL*) PO SCH ×2 (09:00→10:14)
[2018-11-05] MEDS: ACETAMINOPHEN 500 MG TAB PO SCH ×4 (09:00→21:00)
[2018-11-05] MEDS: VITAMIN D 1,000 INTERNATIONAL UNITS TABLET PO SCH ×2 (09:00→10:13)
[2018-11-05] MEDS: ASCORBIC ACID 500 MG TAB PO SCH ×2 (09:00→10:12)
[2018-11-05] MEDS: MAGNESIUM GLUCONATE 500 MG TAB PO SCH ×3 (09:00→21:00)
[2018-11-05] MEDS: ASPIRIN 81 MG ENTERIC TAB PO SCH ×2 (09:00→10:13)
[2018-11-05] MEDS: PANTOPRAZOLE 40MG TAB (PROTONIX) PO SCH ×2 (09:00→10:13)
[2018-11-05] MEDS: PREGABALIN 100 MG CAP (LYRICA) PO SCH ×3 (09:00→21:00)
[2018-11-05] MEDS: CO-ENZYME Q10 50 MG CAP PO SCH ×2 (09:00→10:14)
[2018-11-05] MEDS: MORPHINE 15 MG SA TAB PO SCH ×3 (09:00→21:00)
[2018-11-05] MEDS: BACLOFEN 5MG PER 1/2 TABLET PO SCH ×4 (09:00→21:00)
[2018-11-05] MEDS: SENOKOT S TAB PO SCH ×3 (09:00→21:00)
[2018-11-05] MEDS: diazePAM 2 MG TAB PO SCH ×3 (09:00→21:00)
--- NOTE | 2018-11-05 09:56 | REP ---
Duplex extremity venous ultrasound: Immobility. Bilateral lower extremities. History: Immobility, question DVT. Comparison study November 01, 2018. Findings: The deep veins are anechoic and fully compressible from the groin to the popliteal fossa in the left and right lower extremity. Color flow imaging is homogeneous. Spectral Doppler interrogation demonstrates intact respiratory variation in flow and normal manual augmentation of flow. There is no evidence of deep vein thrombosis. Impression: Negative bilateral lower extremity duplex venous ultrasound. No evidence of deep vein thrombosis. Electronically Signed by Javi Salazar MD 11/05/2018 09:47 A
[2018-11-05] MEDS: LIDOCAINE 5% (LIDODERM) PATCH TD SCH (10:10)
[2018-11-05] MEDS: cefTRIAXone SOD 2 GM in D5W MINI-BAG PLUS 50 ML IV SCH (10:11)
[2018-11-05] MEDS: RANOLAZINE 500 MG ER TAB PO SCH ×2 (10:11→21:00)
[2018-11-05] MEDS: FLUTICASONE PROP 0.05% NASAL SPRAY 16 GM (FLONASE) NARES SCH (10:14)
[2018-11-05] MEDS: TRINTELLIX PO SCH (10:14)
[2018-11-05] MEDS: POLYVINYL ALCOHOL OPHTH SOLN 15 ML(LIQUITEARS) OU SCH ×4 (10:14→21:00)
[2018-11-05] MEDS: NS 1,000 ML IV SCH (10:14)
[2018-11-05] MEDS ORDERED: IRON SUCROSE 100MG 5ML VIAL (J1756 PER 1MG) IV ONE (11:45)
[2018-11-05 11:55] LABS: MAGNESIUM LEVEL 2.1 MG/DL (1.8-2.4)
[2018-11-05] MEDS ORDERED: IRON SUCROSE 25 MG in NS 50 ML IV ONE (13:00)
[2018-11-05] MEDS ORDERED: IRON SUCROSE 275 MG in NS 250 ML IV ONE (14:00)
--- NOTE | 2018-11-05 14:59 | IPNPDOC ---
Date Seen The patient was seen on 11/05/18. Progress Note HPI: 72M who was transferred to [facility] from [facility] for low back pain with fevers that began 6 days prior to admission. An ID consult was ordered, he was found to have Strep Mitis bacteremia from a October 14 and blood culture taken at [employer] for which he was placed on Ceftriaxone and Gentamicin on 10-16-18 for discitis vs osteomyelitis in the setting of a possibly infected bi-prosthetic aortic valve with endocarditis. A GUILLERMO was performed showing, Moderate perivalvular aortic regurgitation, mobile density contiguous with aortic valve,cannot rule out vegetation. Repeat blood cultures on October 20 and were negative. Thor[address]olumbar CT on 10-18-18 showed lesion suspicious for diskovertebral osteomyelitis at L1-L2. ID recommended a 6 week course of IV antibiotics followed by Omnicef for 1 year for suppression. No cardiac or orthopedic surgery was recommended and PICC line placed. He developed a decubitus ulcer during his stay due to immobility. Patient had worsening back pain with spasms limiting his ability to ambulate and perform ADLs and deemed medically appropriate for transfer to [facility], Dr Pennington, on 10-31-18 with a diagnosis of Strep Mitis bacteremia with bio- prosthetic AVR endocarditis and L1-L2 diskovertebral osteomyelitis. The pt has been having muscle spasms UEs, baclofen/Valium was added as per attending. ID has been consulted to assist with antibiotic recommendations. Nephrology following to assist with anemia/ANA. Denies any fevers, chills, headache, Chest Pain, Shortness of breath, cough, palpitations, abdominal pain, N/V/D or changes in bowel or bladder habits. PAST MEDICAL HISTORY: NIDDM. HTN Coronary artery disease, status post CABG, status post TAVR 05/31. COPD. depression PAST SURGICAL HISTORY: TAVR replaced May 2018, first placed 2009 Right hip septic joint 1.5 years ago, s/p YANET January 2018, s/p pacemaker PE: GEN: 72yoM, appears stated age. No acute distress. Alert and oriented to person but difficulty with time and place. HEENT: Normocephalic, atraumatic. Sclera are nonicteric. Conjunctiva without injection. No facial asymmetry. Moist mucous membranes. CHEST: Regular rate and rhythm, +S1, +S2 LUNGS: Clear to auscultation bilaterally. No wheezes, rales, or rhonchi. ABD: Round, soft, non-tender, non-distended. +Bowel sounds present. No rebound or guarding. EXT: No lower extremity edema appreciated. SKIN: [place], dry, warm. No rashes. NEURO: No focal deficits appreciated. UC negative. U/S LEs 10/31/18, 11/05/[address] A/P done related to constipation 11/02/18. A&P: 72M pmh DM, HTN, PM, AVR (replaced in May 2018), CAD with CABG, JR, right hip periprosthetic infection, who was transferred to [facility] from [facility] for low back pain with fevers that began 6 days prior to admission. An ID consult was ordered, he was found to have Strep Mitis bacteremia from a October 14 and blood culture taken at [employer] for which he was placed on Ceftriaxone and Gentamicin on 10-16-18 for discitis vs osteomyelitis in the setting of a possibly infected bi-prosthetic aortic valve with endocarditis. A GUILLERMO was performed showing, Moderate perivalvular aortic regurgitation, mobile density contiguous with aortic valve,cannot rule out vegetation. Repeat blood cultures on October 20 and were negative. Thoracolumbar CT on 10-18-18 showed lesion suspicious for diskovertebral osteomyelitis at L1-L2. ID recommended a 6 week course of IV antibiotics followed by Víctoricef for 1 year for suppression. No cardiac or orthopedic surgery was recommended and PICC line placed. He developed a decubitus ulcer during his stay due to immobility. Patient had worsening back pain with spasms limiting his ability to ambulate and perform ADLs and deemed medically appropriate for transfer to [facility], Dr Pennington, on 10-31-18 with a diagnosis of Strep Mitis bacteremia with bio- prosthetic AVR endocarditis and L1-L2 diskovertebral osteomyelitis. 1. Discitis/osteomyelitis of L1 to L2, Streptococcus mitis bacteremia/Endocarditis. Pt is afebrile. WBC 4.6. Mgmt as per ARU Pain control as per ARU Bowel care as per ARU PT/OT/ST as per ARU DVT prophylaxis as per ARU, SQ Heparin. On IV Rocephin and IV gentamicin as per ID Shirlene. Per recommendation, the antibiotic regimen for patient was six week of Rocephin along with two weeks of gentamicin and then follow by Omnicef for one year. Gent d/cd 11/03/18. Continue Mgmt as per ID. ID consulted, Dr Alejandro. Appreciate recommendations. 11/04/18 ESR 126, CRP 16.40. Pt unable to have MRI related to pacemaker. PICC in place Blood culture x2 11/01 neg. Urine culture neg. Recheck labs in AM. 2. Abdominal pain/Constipation. Possibly related to his persistent severe back pain from discitis/osteomyelitis. S/P Trial of Relistor x [address] abdomen 11/02/18 no obstruction. 3. Coronary artery disease/Status post coronary artery bypass graft (CABG) and status post transcatheter aortic valve replacement (TAVR). Continue aspirin/Ranexa/Toprol XL. 4. History of COPD. Duoneb Advair 5. Hypertension. Toprol XL Blood pressure 128-137. 6. DM. CC diet. HOLD Metformin Monitor FSBS. 7. Depression Trintellix. 8. Anemia. B12, folate, Fe studies. FOB pending. Hgb noted to be 7.4. Pt is Jehov[employer] Witness and declines transfusion at this time. Nephrology consulted and following, Kiet/Jillian ordered. 9. ANA. SCr noted to be 1.94. IVF 40cc/hr. Continue to hold Metformin. S/P IV contrast with CT 11/02/18. Nephrology following. Monitor 10. Hyponatremia. Resolved. Na 140 this AM. IVF as above. Monitor. VS, I&O, 24H, Fishbone Vital Signs/I&O Vital Signs Date Time Temp Pulse Resp B/P (MAP) Pulse Ox O2 Delivery O2 Flow Rate FiO2 11/05/18 06:00 98.4 97 17 137/65 (89) 96 Room Air I&O- Last 24 Hours up to 6 AM 11/05/18 06:00 Intake Total 710 ml Output Total 425 ml Balance 285 ml Laboratory Data 24H LABS Laboratory Tests 2 11/04/18 20:15: Bedside Glucose (Misc Panel) 146H 11/05/18 05:26: Nucleated Red Blood Cells % (auto) 0.0, Anion Gap 10, Glomerular Filtration Rate 36.3L, Blood Urea Nitrogen 24H, Creatinine 1.94H, Sodium Level 140, Potassium Level 3.9, Chloride Level 108H, Carbon Dioxide Level 22, Calcium Level 7.1L, Aspartate Amino Transf (AST/SGOT) 31, Alanine Aminotransferase (ALT/SGPT) 19, Alkaline Phosphatase 114, Total Bilirubin 0.3, Total Protein 5.4L, Albumin 2.1L, Magnesium Level 2.1, Albumin/Globulin Ratio 0.64L, Random Gentamicin Level 0.6 CBC/BMP Laboratory Tests 11/05/18 05:26 Red Blood Count 2.40 L, Mean Corpuscular Volume 98.3 H, Mean Corpuscular Hemoglobin 30.8, Mean Corpuscular Hemoglobin Concent 31.4 L, Red Cell Distribution Width 15.8 H, Calcium Level 7.1 L, Aspartate Amino Transf (AST/SGOT) 31, Alanine Aminotransferase (ALT/SGPT) 19, Alkaline Phosphatase 114, Total Bilirubin 0.3, Total Protein 5.4 L, Albumin 2.1 L Microbiology Microbiology 11/02/18 Blood Culture - Preliminary, Resulted No Growth after 72 hours. All specime... 11/01/18 Blood Culture - Preliminary, Resulted No Growth after 72 hours. All specime... 10/31/18 Urine Culture - Final, Complete Yanci Cortes Nov 05, 2018 14:59
--- NOTE | 2018-11-05 15:51 | IPNPDOC ---
PM&R Progress Note DATE OF SERVICE: Nov 05, 2018 Director Supplier Quality Progress Note Subjective: Patient seen in his room this morning, agitated and wanting to call his friend Nba, he had refused pain meds, and room changed to closer to nurse's stat ion. Patient to receive IV venofer today. REVIEW OF SYSTEMS: The following is a completed review of systems and has been reviewed. Review of systems otherwise unremarkable. PAIN: Patient self reports severe low back pain with spasms EYES: Negative for recent vision changes EARS, NOSE, & THROAT:negative for rhinorrhea, tinnitus, or dysphagia CARDIOVASCULAR: denies chest pain or palpitations PULMONARY: Negative. Denies shortness of breath GASTROINTESTINAL: constipation (improving) GENITOURINARY: Negative for dysuria MUSCULOSKELETAL: low back pain and bilateral knee OA NEUROLOGICAL: restless leg syndrome HEMATOLOGICAL: +anemia SKIN: +PICC PSYCHIATRIC: Unremarkable All other review of systems found to be negative. PHYSICAL EXAMINATION: VITAL SIGNS: Please see below. GENERAL: Pleasant and cooperative, no acute distress HEENT: PERRL. Extraocular movements intact. Clear conjunctiva CARDIOVASCULAR: Regular rate and rhythm. No murmurs, rubs, or gallops LUNGS: Clear to auscultation bilaterally. No wheezes. No rhonchi ABDOMEN: Soft, nontender, nondistended. Positive bowel sounds. Normal active bowel sounds NEUROLOGICAL: Alert and oriented times to self and place not time, Cranial nerv es II through XII grossly intact. Sensation grossly intact. EXTREMITIES: 5\5 strength bilateral upper extremities. bilateral Ankle DF and EHL 5/5, however proximal muscle testing greatly limited by pain SKIN: +PICC, decubitus ulcer ASSESSMENT:72-year-old M with past medical history of CAD, AVR, CAD with CABG who presents with diskovertebral osteomyelitis in the setting of endocarditis. PLAN: 1. Rehab: PT/OT, assess for DME needs- LSO brace when out of bed for comfort, able to ambulate a few feet 2. Neuro: pmh restless leg syndrome, continue home meds 3. Cardio: pmh CAD s/p AVR replacement with recent GUILLERMO suspicious for endocarditis continue IV Ceftriaxone and Gentamicin, outpatient cardio f/u -continue beta-blockers and ASA 4. Endo: pmh DM continue home meds 5. ID: L1-L2 disko-vertebral osteomyeltis, blood cultures positive for Strep Mitis, continue IV Ceftriaxone for 6 weeks (start date 10/16/18) and Gentamicin for 2 weeks (start date 10/26/18)to be followed by one year suppression dose of Omnicef- Dr. Alejandro consulted, Gentamicin discontinued will continue to follow- recs -admission blood cultures negative 6. Pain: pmh chronic knee pain, now with severe discogenic pain with spasms- continue long acting Morphine 15mg BID, oxycodone 10mg q4h, standing Tylenol, switch Gabapentin to Lyrica, added back low dose Diazepam for painful spams to be held for sedation 7. DVT ppx: will d/c heparin given anemia and borderline low platelets and obtain serial dopplers, continue TEDs 8. SKin: Balmex and turning q2h in bed 9. Resp: pmh COPD: continue home meds, will add Duonebs and monitor for PNA 10. 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 Heme: Anemia of chronic disease, patient is Jehov'as witness and cannot receive blood, however plan was discussed for IV Venofer to be followed by Lei and Renal to manage, recs appreciated 10. GI: patient constipated and poor appetite secondary to nausea, optimize laxatives, protonix for ppx 11. Dispo: 11/24/18, slowly progressing towards goals, spoke wit over phone to discuss concerns regarding , she is comfortable with his non-blood product transfusions Allergies Coded Allergies: Statins (Unverified Adverse Reaction, Unknown, MUSCLE PAINS, 10/31/18) Trazodone (Unverified Adverse Reaction, Unknown, ITCH, 10/31/18) Vital Signs Vital Signs Date Time Temp Pulse Resp B/P (MAP) Pulse Ox O2 Delivery O2 Flow Rate FiO2 11/05/18 15:25 98.3 99 18 139/66 (90) 97 Room Air Laboratory Data CBC/BMP Laboratory Tests 11/05/18 05:26 Red Blood Count 2.40 L, Mean Corpuscular Volume 98.3 H, Mean Corpuscular Hemoglobin 30.8, Mean Corpuscular Hemoglobin Concent 31.4 L, Red Cell Distribution Width 15.8 H, Calcium Level 7.1 L, Aspartate Amino Transf (AST/SGOT) 31, Alanine Aminotransferase (ALT/SGPT) 19, Alkaline Phosphatase 114, Total Bilirubin 0.3, Total Protein 5.4 L, Albumin 2.1 L Labs 24H Laboratory Tests 2 11/04/18 20:15: Bedside Glucose (Misc Panel) 146H 11/05/18 05:26: Nucleated Red Blood Cells % (auto) 0.0, Anion Gap 10, Glomerular Filtration Rate 36.3L, Blood Urea Nitrogen 24H, Creatinine 1.94H, Sodium Level 140, Potassium Level 3.9, Chloride Level 108H, Carbon Dioxide Level 22, Calcium Level 7.1L, Aspartate Amino Transf (AST/SGOT) 31, Alanine Aminotransferase (ALT/SGPT) 19, Alkaline Phosphatase 114, Total Bilirubin 0.3, Total Protein 5.4L, Albumin 2.1L, Magnesium Level 2.1, Albumin/Globulin Ratio 0.64L, Random Gentamicin Level 0.6 Microbiology Microbiology 11/02/18 Blood Culture - Preliminary, Resulted No Growth after 72 hours. All specime... 11/01/18 Blood Culture - Preliminary, Resulted No Growth after 72 hours. All specime... 10/31/18 Urine Culture - Final, Complete Current Medications Current Medications Current Medications Acetaminophen (Tylenol Tab) 1,000 mg TID PO Last administered on 11/05/18at 15:05; Start 10/31/18 at 16:00 Albuterol/ Ipratropium (Duoneb (Ipr 0.5mg/Alb 2.5mg)) 3 ml RBID NEB ; Start 11/01/18 at 08:00 Artificial Tears (Akwa Tears) 2 drop QID OU Last administered on 11/05/18at 15:06; Start 10/31/18 at 21:00 Ascorbic Acid (Vitamin C) 500 mg DAILY PO Last administered on 11/04/18at 08:36; Start 11/01/18 at 09:00 Aspirin (Ecotrin) 81 mg DAILY PO Last administered on 11/04/18at 08:35; Start 11/01/18 at 09:00 Baclofen (Lioresal) 5 mg TID PO Last administered on 11/05/18at 15:06; Start 11/03/18 at 16:00 Bisacodyl (Dulcolax Suppository) 10 mg DAILYPRN PRN HI CONSTIPATION; Start 10/31/18 at 15:30 Bisacodyl (Dulcolax Tab) 5 mg DAILYPRN PRN PO CONSTIPATION; Start 10/31/18 at 15:30 Ceftriaxone Sodium 2 gm/ Dextrose 50 ml @ 100 mls/hr Q24H IV Last administered on 11/05/18at 10:11; Start 11/01/18 at 09:00 Coenzyme Q10 (Coenzyme Q10) 100 mg DAILY PO Last administered on 11/04/18at 08:36; Start 11/01/18 at 09:00; Stop 12/01/18 at 08:59 Darbepoetin Dioni (Aranesp) 100 mcg Th@09 SC ; Start 11/06/18 at 09:00 Dextran/ Hydroxypropyl Methylcellul (Tears Naturale Free) 2 drop QID OU ; Start 10/31/18 at 17:00; Status Cancel Dextrose (Dextrose 50%) 25 ml ASDIRECTED PRN IV SEE LABEL COMMENTS; Start 10/31/18 at 15:15 Diazepam (Valium) 2 mg TID PO Last administered on 11/05/18at 15:05; Start 11/04/18 at 16:00 Diazepam (Valium) 2.5 mg Q4H PRN PO SPASMS Last administered on 11/01/18at 19:13; Start 11/01/18 at 14:30; Stop 11/01/18 at 23:15; Status DC Diazepam (Valium) 2.5 mg Q6H PRN PO SPASMS Last administered on 11/01/18at 14:15; Start 11/01/18 at 14:00; Stop 11/01/18 at 14:24; Status DC Diazepam (Valium) 2.5 mg Q8HP PRN PO SPASMS Last administered on 10/31/18at 16:01; Start 10/31/18 at 14:45; Stop 10/31/18 at 16:19; Status DC Diazepam (Valium) 2.5 mg Q8HP PRN PO SPASMS Last administered on 11/01/18at 08 :09; Start 10/31/18 at 21:00; Stop 11/01/18 at 13:59; Status DC Diazepam (Valium) 5 mg Q8HP PRN PO SPASMS; Start 10/31/18 at 16:15; Stop 10/31/18 at 20:55; Status DC Fluticasone Propionate (Flonase 0.05% Nasal Kane) 2 spray DAILY NARES Last administered on 11/05/18at 10:14; Start 11/01/18 at 09:00 Gentamicin Sulfate 80 mg/IV Miscellaneous Supplies 100 ml @ 200 mls/hr Q12H IV Last administered on 11/02/18at 06:17; Start 10/31/18 at 18:00; Stop 11/02/18 at 08:56; Status DC Gentamicin Sulfate 80 mg/IV Miscellaneous Supplies 100 ml @ 200 mls/hr Q18H IV Last administered on 11/03/18at 00:02; Start 11/03/18 at 00:00; Stop 11/03/18 at 16:59; Status DC Glucagon (Glucagon) 1 mg ASDIRECTED PRN SC SEE LABEL COMMENTS; Start 10/31/18 at 15:15 Glucose (Glucose) 16 GM ASDIRECTED PRN PO SEE LABEL COMMENTS; Start 10/31/18 at 15:15 Heparin Sodium (Heparin (Flush)) 200 units ASDIRECTED PRN IV SEE LABEL COMMENTS Last administered on 11/02/18at 09:48; Start 10/31/18 at 16:30 Heparin Sodium (Heparin (Flush)) 200 units PICC IV Last administered on 11/04/18at 05:43; Start 10/31/18 at 18:00 Heparin Sodium (Porcine) (Heparin) 5,000 units Q12H SC Last administered on 11/04/18at 08:35; Start 10/31/18 at 21:00; Stop 11/04/18 at 18:41; Status DC Home Med (Med Rec Complete!) ASDIRECTED XX ; Start 10/31/18 at 14:45; Stop 10/31/18 at 14:45; Status DC Insulin Human Lispro (HumaLOG INSULIN) SEE PROTOCOL TABLE QHS SC ; Start 10/31/18 at 21:00 Lidocaine (Lidoderm Patch) 1 patch DAILY TD Last administered on 11/05/18at 10:10; Start 11/01/18 at 09:00 Magnesium Gluconate (Magnesium Gluconate) 500 mg BID PO Last administered on 11/04/18at 20:48; Start 10/31/18 at 21:00 Magnesium Hydroxide (Milk Of Magnesia) 30 ml DAILYPRN PRN PO CONSTIPATION Last administered on 11/02/18 21:41; Start 10/31/18 at 15:30 Metformin HCl (Glucophage) 500 mg DAILY@08 PO Last administered on 11/04/18 08:36; Start 11/01/18 at 08:00; Stop 11/04/18 at 11:08; Status DC Metoprolol Succinate (TopROL XL) 25 mg DAILY PO Last administered on 11/04/18 08:38; Start 11/01/18 at 09:00 Mirtazapine (Remeron) 30 mg QHS PO Last administered on 11/04/18 20:48; Start 10/31/18 at 21:00 Miscellaneous (Unresolved Patient Own Med Order) SEE LABEL COMMENTS DAILY XX ; Start 10/31/18 at 09:00 Morphine Sulfate (Ms Contin) 15 mg BID PO Last administered on 11/04/18 20:47; Start 10/31/18 at 17:00 Nitroglycerin (Nitrostat (1/ 150)) 0.4 mg Q5MP PRN SL CHEST PAIN; Start 10/31/18 at 14:45 Non-Formulary Medication ( See Comment Field Below ) REMOVE LIDODERM PATCH DAILY@21 XX Last administered on 11/04/18at 21:00; Start 10/31/18 at 21:00 Ondansetron HCl (Zofran) 4 mg AC PO Last administered on 11/04/18at 17:15; Start 10/31/18 at 17:30 Ondansetron HCl (Zofran) 4 mg Q6HP PRN PO NAUSEA; Start 10/31/18 at 15:30 Oxycodone HCl (Roxicodone, Oxyir) 5 mg Q4HP PRN PO PAIN 4-7 Last administered on 11/04/18 05:47; Start 10/31/18 at 14:45 Oxycodone HCl (Roxicodone, Oxyir) 10 mg Q4HP PRN PO SEVERE PAIN (PS 8-10) Last administered on 11/04/18 10:52; Start 10/31/18 at 14:45 Pantoprazole Sodium (Protonix) 40 mg DAILY PO Last administered on 11/04/18 08:35; Start 11/01/18 at 09:00 Patient Own Medication (Patient'S Own Med) TRINTELLIX 20mg po daily DAILY PO Last administered on 11/05/18 10:14; Start 11/01/18 at 09:00 Patient Own Medication (Patient'S Own Med) Testosterone 5gram (50mg/ 5gram (... DAILY PO ; Start 11/01/18 at 09:00; Status UNV Pramipexole Dihydrochloride (Mirapex) 2 mg QHS PO Last administered on 10/15 20:48; Start 10/31/18 at 21:00 Pregabalin (Lyrica) 75 mg BID PO ; Start 10/31/18 at 21:00; Stop 10/31/18 at 21:00; Status DC Pregabalin (Lyrica) 100 mg BID PO Last administered on 11/04/18 20:48; Start 10/31/18 at 21:00 Ranolazine (Ranexa) 500 mg BID PO Last administered on 11/05/18 10:11; Start 10/31/18 at 21:00 Salmeterol Xinafoate/ Fluticasone (Advair Hfa 115/ 21) 2 puff BID INH Last administered on 11/05/18 06:14; Start 10/31/18 at 21:00 Senna/Docusate Sodium (Senokot S) 1 tab BID PO Last administered on 11/04/18 20:46; Start 10/31/18 at 21:00 Sodium Chloride 1,000 ml @ 40 mls/hr Q24H IV Last administered on 11/05/18 10:14; Start 11/04/18 at 10:30 Sodium Chloride (Saline Lock Flush) 10 ml ASDIRECTED PRN IV SEE LABEL COMMENTS Last administered on 11/02/18at 09:48; Start 10/31/18 at 16:30 Sodium Chloride (Saline Lock Flush) 10 ml PICC IV Last administered on 11/04/18 at 05:43; Start 10/31/18 at 18:00 Vitamin D (Vitamin D) 1,000 units DAILY PO Last administered on 11/04/18at 08:36; Start 11/01/18 at 09:00 SOILA FREITAS MD Nov 05, 2018 15:51
[2018-11-05] MEDS: MIRTAZAPINE 15 MG TAB PO SCH (21:00)
[2018-11-05] MEDS: **NOTE PATIENT COMMENT** MISC XX SCH (21:00)
[2018-11-05] MEDS: PRAMIPEXOLE 1 MG TAB PO SCH (21:00)
[2018-11-05] MEDS: HumaLOG INSULIN (NovoLOG) PER UNIT SC SCH (21:00)
--- NOTE | 2018-11-05 21:59 | CR ---
DATE OF CONSULTATION: 11/05/2018 REQUESTING PHYSICIAN : Marisela Pennington MD REASON FOR CONSULTATION: Management of anemia in this Moravian and also management of acute injury superimposed on chronic kidney disease (CKD) stage II. HISTORY OF PRESENT ILLNESS: History is obtained from discussion with other healthcare providers and the patient's . The patient is unable to provide any reliable history at present due to clinical condition. George Ward is a 72-year-old male, Moravian, with a past medical history of diabetes, hypertension, coronary artery disease status post coronary artery bypass graft (CABG), history of transcatheter aortic valve replacement (TAVR), sleep apnea and also history of total hip replacement on the right. The patient was admitted to [facility] on October 14 with complaint of back pain and fever. Blood cultures had grown Streptococcus mitis. He was subsequently transferred to [facility] on October 24 for transesophageal echocardiogram (GUILLERMO), which demonstrated mobile density with the aortic valve. The patient was ultimately deemed not to be a surgical candidate. Antibiotic therapy was commenced with combination of Rocephin and gentamicin for his osteomyelitis of the L1 and L2 vertebrae and endocarditis of the bioprosthetic valve. He was transferred to [facility] for rehabilitation. His admission creatinine was 1.1 on November 01 and on November 02, the patient underwent a IV contrast CAT scan while he was receiving metformin and gentamicin. Subsequently, on November 04, his creatinine bumped up to 2.1 and his nephrotoxins were discontinued and he was started on IV fluid and creatinine mildly improved to 1.9 today. The patient is seen and examined this morning at the bedside in the rehabilitation unit. He is quite altered and not reliable for history giving. PAST MEDICAL HISTORY: 1. Coronary artery disease, status post coronary artery bypass graft (CABG). 2. Aortic valve disease, status post bioprosthetic valve replacement and transcatheter aortic valve replacement (TAVR), status post pacemaker. 3. Obstructive sleep apnea. 4. Depression/anxiety. 5. Gastroesophageal reflux disease (GERD). 6. Hwu-doaeyue-nuuvgldrl type 2 diabetic. 7. Chronic back pain. 8. Neuropathy. 9. Dyslipidemia. 10. Asthma. PAST SURGICAL HISTORY: Dental surgery, status post right total hip replacement, open heart surgery, pacemaker placement, bioprosthetic aortic valve and TAVR. SOCIAL HISTORY: He is Moravian. He is an smoker. There is no alcohol or drug use. ALLERGIES: STATIN and TRAZODONE. FAMILY HISTORY: Father had coronary artery disease as did his mother. HOME MEDICATIONS: Reviewed. REVIEW OF SYSTEMS: Unreliable secondary to the patient's clinical condition, but he does note lower back pain when he moves and denies shortness of breath or chest pain. Denies diarrhea. VITAL SIGNS: Temperature 98.7, pulse 91, respiratory rate 18, blood pressure 121/59, saturating 96% on room air. Intake yesterday was 710. Urine output yesterday was not fully recorded. Weight in the bed scale is not recorded. GENERAL: The patient is seen lying in bed in the rehabilitation unit. He is drowsy, but easily arousable. He makes eye contact after much prompting. He is slow to respond. Extraocular muscles are intact. The tongue is dry. Neck is supple. Jugular veins are not elevated. CARDIAC: S1, S2. Systolic murmur. LUNGS: Clear to auscultation bilaterally. No wheezing, rhonchi or rales. ABDOMEN: Soft. He does not grimace to palpation. MUSCULOSKELETAL: The patient grimaces a lot with movement when rolling over for physical examination purposes. He was incontinent of urine. EXTREMITIES: No edema. NEUROLOGIC: The patient tells me it is 2017. He is able to tell me his name. After much prompting is able to follow simple commands to move his arms. He does not know the season. He does not know who is president and he cannot tell me why he is in the hospital. LABORATORY: Sodium 140, potassium 3.9, bicarbonate 22, BUN 24, creatinine 1.9, magnesium 2.1. T saturation 13%, ferritin 1000. Hemoglobin 7.4, platelets 144. CT abdomen and pelvis with IV contrast November 02. Kidney show function without obstruction. There are a couple of semi-cortical cysts. There is no hydronephrosis. No ureteral dilatation, nor stone. There is diskitis, osteomyelitis at L1/L2. INPATIENT MEDICATIONS: His metformin was discontinued and his gentamicin was discontinued. He is on ceftriaxone 2 grams IV daily. He is receiving 300 mg of Venofer today and he is being started on Aranesp 100 mg subcutaneous every week. Every other medications include Tylenol 1 gram by mouth three times a day, vitamin C 500 mg by mouth daily, aspirin 81 mg by mouth daily, baclofen 5 mg by mouth three times a day, CoQ10 volume 2 mg by mouth three times a day, insulin sliding scale, magnesium gluconate 500 mg by mouth twice a day, metoprolol XL 25 mg by mouth daily, Remeron 30 mg by mouth at bedtime (q.h.s.), MS-Contin 15 mg by mouth twice a day, Zofran 4 mg 6 hours as needed, oxycodone 5 mg every 4 hours as needed, Protonix 40 mg by mouth daily, Lyrica 100 mg by mouth twice a day, Advair, vitamin D 1000 units by mouth daily. PROBLEMS: 1. Acute kidney injury (ANA) on chronic kidney disease (CKD) stage II. The patient's admission creatinine on November 01 was 1.1. He subsequently had a IV contrast study on November 02 in the setting of IV gentamicin and metformin use and his creatinine increased to 2.1 on November 04 secondary to contrast induced nephropathy with the other nephrotoxins. He is having poor oral intake secondary to altered mental status. He is appropriately on IV fluids. His gentamicin and metformin have appropriately been stopped. Nursing staff tells me that his urinary voids are not being fully recorded as he is incontinent of urine secondary to altered mentation. His renal function on today's chemistry showed some modest improvement. His electrolytes are acceptable. I will continue with supportive care this time with the IV fluids and withholding nephrotoxic medications. He did have renal imaging that was negative for any obstructive process. No need for Hua catheter at present. 2. Anemia management. The patient is a Moravian. I spoke at length with a Moravian retail field representative who was at the bedside and also with the patient's over the phone. He is iron deficient. His transferrin saturation is 13%. Certainly, his ferritin is elevated, but that is secondary to the inflammatory and infectious process. He is going to receive 300 mg of IV Venofer today and we will start him on 100 mcg of Aranesp subcutaneous every week. As I explained to his , it will take days to weeks to see an improvement in his blood cell count with the aforementioned therapy. I suggest to limit blood draws as much as possible and also for blood to be drawn in pediatric tubes. 3. Altered mental status. This is likely due to both polypharmacy and possibly due to the underlying infection. He is receiving considerable opioids. His tells me at baseline George is very sharp. He uses a computer, drives, handles his finances. At the time of my visit, he was oriented times 1. I suggest to reduce the narcotics as tolerated by the patient and also he is on a significant amount of valium as well, which can likely be reduced. I will defer this to the primary team. 4. Osteomyelitis/diskitis, L1/L2 and endocarditis of the bioprosthetic valve. Managed by infectious diseases. I recommend to hold off on further IV contrast studies in view of his present acute kidney injury unless urgently or emergently needed. I also discussed the IV iron use with Dr. Alejandro; and given that the patient's blood cultures are negative and that he has been on antibiotic treatment since early October, I felt it was reasonable to go ahead and use IV iron. Thank you for involving me in the care of Mr. Ward. Plan of care was discussed with the patient's and with infectious diseases. I will be happy to follow the patient along with you.
[2018-11-06 06:00] VITALS: BP 145/66
[2018-11-06] MEDS: SODIUM CHLORIDE 0.9% INJ 10 ML SYR IV SCH ×2 (06:00→17:10)
[2018-11-06 06:47] LABS: HEMATOCRIT 25.2 % (42.0-52.0); HEMOGLOBIN 7.7 g/dl (13.5-17.5); MEAN CORPUSCULAR HEMOGLOBIN 30.1 pg (27.0-33.0); MEAN CORPUSCULAR HGB CONC 30.6 g/dl (32.0-36.5); MEAN CORPUSCULAR VOLUME 98.4 fl (80.0-96.0); PLATELET COUNT, AUTOMATED 149 10^3/uL (150-450); RED BLOOD COUNT 2.56 10^6/uL (4.30-6.10); WHITE BLOOD COUNT 4.5 10^3/uL (4.0-10.0)
[2018-11-06 07:14] LABS: ALBUMIN 2.5 GM/DL (3.2-5.2); BILIRUBIN,TOTAL 0.3 MG/DL (0.2-1.0); C REACTIVE PROTEIN QUANTITATIV 16.1 MG/DL (0.00-0.30); CALCIUM LEVEL 8.5 MG/DL (8.8-10.2); CREATININE FOR GFR 2.08 MG/DL (0.70-1.30); GLOMERULAR FILTRATION RATE 33.5 (>42); POTASSIUM SERUM 4.5 MEQ/L (3.5-5.1); TOTAL PROTEIN 6.1 GM/DL (6.4-8.2)
[2018-11-06] MEDS: ADVAIR HFA 115/21MCG INHALER INH SCH ×2 (07:24→21:00)
[2018-11-06] MEDS: IPRATROPIUM 0.5MG/ALBUTEROL 2.5MG INH SOL UD 3ML (DUONEB)(J7620) NEB SCH ×2 (07:24→20:00)
[2018-11-06 07:34] LABS: ERYTHROCYTE SEDIMENTATION RATE 128 mm/hr (0-20)
[2018-11-06] MEDS: diazePAM 2 MG TAB PO SCH (09:00)
[2018-11-06] MEDS: PREGABALIN 100 MG CAP (LYRICA) PO SCH ×3 (09:00→21:00)
[2018-11-06] MEDS: MORPHINE 15 MG SA TAB PO SCH (09:00)
[2018-11-06] MEDS: cefTRIAXone SOD 2 GM in D5W MINI-BAG PLUS 50 ML IV SCH (09:09)
[2018-11-06] MEDS: POLYVINYL ALCOHOL OPHTH SOLN 15 ML(LIQUITEARS) OU SCH ×4 (09:09→22:27)
[2018-11-06] MEDS: TRINTELLIX PO SCH (09:09)
[2018-11-06] MEDS: FLUTICASONE PROP 0.05% NASAL SPRAY 16 GM (FLONASE) NARES SCH (09:09)
[2018-11-06] MEDS: METOPROLOL SUCC *XL* 25MG TAB (TopROL *XL*) PO SCH (09:09)
[2018-11-06] MEDS: BACLOFEN 5MG PER 1/2 TABLET PO SCH ×3 (09:09→21:00)
[2018-11-06] MEDS: VITAMIN D 1,000 INTERNATIONAL UNITS TABLET PO SCH (09:11)
[2018-11-06] MEDS: MAGNESIUM GLUCONATE 500 MG TAB PO SCH ×2 (09:11→21:00)
[2018-11-06] MEDS: CO-ENZYME Q10 50 MG CAP PO SCH (09:11)
[2018-11-06] MEDS: DARBEPOETIN 100 MCG/0.5 ML *NON-DIALYSIS* SYRINGE (J0881) SC SCH (09:11)
[2018-11-06] MEDS: PANTOPRAZOLE 40MG TAB (PROTONIX) PO SCH (09:11)
[2018-11-06] MEDS: RANOLAZINE 500 MG ER TAB PO SCH ×2 (09:11→21:00)
[2018-11-06] MEDS: ONDANSETRON 4 MG TAB (S0181) PO SCH ×3 (09:11→17:11)
[2018-11-06] MEDS: ASCORBIC ACID 500 MG TAB PO SCH (09:11)
[2018-11-06] MEDS: ACETAMINOPHEN 500 MG TAB PO SCH ×3 (09:11→22:26)
[2018-11-06] MEDS: ASPIRIN 81 MG ENTERIC TAB PO SCH (09:11)
[2018-11-06] MEDS: SENOKOT S TAB PO SCH ×2 (09:11→21:00)
[2018-11-06] MEDS: LIDOCAINE 5% (LIDODERM) PATCH TD SCH (09:12)
[2018-11-06] MEDS ORDERED: diazePAM 2 MG TAB PO PRN (10:45)
[2018-11-06] MEDS: NS 1,000 ML IV SCH (10:49)
[2018-11-06] MEDS: oxyCODONE 5MG TAB PO PRN (11:44)
--- NOTE | 2018-11-06 13:21 | IPNPDOC ---
Date Seen The patient was seen on 11/06/18. Progress Note HPI: 72M who was transferred to [facility] from [facility] for low back pain with fevers that began 6 days prior to admission. An ID consult was ordered, he was found to have Strep Mitis bacteremia from a October 14 and blood culture taken at [place] for which he was placed on Ceftriaxone and Gentamicin on 10-16-18 for discitis vs osteomyelitis in the setting of a possibly infected bi-prosthetic aortic valve with endocarditis. A GUILLERMO was performed showing, Moderate perivalvular aortic regurgitation, mobile density contiguous with aortic valve,cannot rule out vegetation. Repeat blood cultures on October 20 and were negative. Thor[address]olumbar CT on 10-18-18 showed lesion suspicious for diskovertebral osteomyelitis at L1-L2. ID recommended a 6 week course of IV antibiotics followed by Omnicef for 1 year for suppression. No cardiac or orthopedic surgery was recommended and PICC line placed. He developed a decubitus ulcer during his stay due to immobility. 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 The pt had been noted to be lethargic. MS contin is d/cd. Valium adjusted as per ARU, Dr Pennington, for spasms. ID has been consulted to assist with antibiotic recommendations. Nephrology following to assist with anemia/ANA. Denies any fevers, chills, headache, Chest Pain, Shortness of breath, cough, p alpitations, abdominal pain, N/V/D or changes in bowel or bladder habits. PAST MEDICAL HISTORY: NIDDM. HTN Coronary artery disease, status post CABG, status post TAVR 05/31. COPD. depression PAST SURGICAL HISTORY: TAVR replaced May 2018, first placed 2009 Right hip septic joint 1.5 years ago, s/p YANET January 2018, s/p pacemaker PE: GEN: 72yoM, appears stated age. No acute distress. Alert and oriented to person but not time and place. HEENT: Normocephalic, atraumatic. Sclera are nonicteric. Conjunctiva without injection. No facial asymmetry. Moist mucous membranes. CHEST: Regular rate and rhythm, +S1, +S2 LUNGS: Clear to auscultation bilaterally. No wheezes, rales, or rhonchi. ABD: Round, soft, non-tender, non-distended. +Bowel sounds present. No rebound or guarding. EXT: No lower extremity edema appreciated. SKIN: [place], dry, warm. No rashes. NEURO: No focal deficits appreciated. UC negative. U/S LEs 10/31/18, 11/05/[address] A/P done related to constipation 11/02/18. A&P: 72M pmh DM, HTN, PM, AVR (replaced in May 2018), CAD with CABG, JR, right hip periprosthetic infection, who was transferred to [facility] from [facility] for low back pain with fevers that began 6 days prior to admission. An ID consult was ordered, he was found to have Strep Mitis bacteremia from a October 14 and blood culture taken at [place] for which he was placed on Ceftriaxone and Gentamicin on 10-16-18 for discitis vs osteomyelitis in the setting of a possibly infected bi-prosthetic aortic valve with endocarditis. A GUILLERMO was performed showing, Moderate perivalvular aortic regurgitation, mobile density contiguous with aortic valve,cannot rule out vegetation. Repeat blood cultures on October 20 and were negative. Thoracolumbar CT on 10-18-18 showed lesion suspicious for diskovertebral osteomyelitis at L1-L2. ID recomm ended a 6 week course of IV antibiotics followed by Omnicef for 1 year for suppression. No cardiac or orthopedic surgery was recommended and PICC line placed. He developed a decubitus ulcer during his stay due to immobility. 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 1. Discitis/osteomyelitis of L1 to L2, Streptococcus mitis bacteremia/End ocarditis. Pt is afebrile. WBC 4.5. Mgmt as per ARU Pain control as per ARU Bowel care as per ARU PT/OT/ST as per ARU DVT prophylaxis as per ARU, SQ Heparin. On IV Rocephin as per ID Shirlene. Per recommendation, the antibiotic regimen for patient was six week of Rocephin along with two weeks of gentamicin and then follow by Omnicef for one year. Gent d/cd 11/03/18. Continue Mgmt as per ID. ID consulted, Dr Alejandro. Appreciate recommendations. 11/06/18 ESR 128, CRP 16.10. Pt unable to have MRI related to pacemaker. PICC in place Blood culture x2 11/01 neg. Urine culture neg. Recheck labs in AM. Continue to monitor. 2. Abdominal pain/Constipation. Possibly related to his persistent severe back pain from discitis/osteomyelitis. S/P Trial of Relistor x [address] abdomen 11/02/18 no obstruction. 3. Coronary artery disease/Status post coronary artery bypass graft (CABG) and s tatus post transcatheter aortic valve replacement (TAVR). Continue aspirin/Ranexa/Toprol XL. 4. History of COPD. Duoneb Advair 5. Hypertension. Toprol XL 6. DM. CC diet. HOLD Metformin Monitor FSBS. 7. Depression Trintellix. 8. Anemia. B12, folate, Fe studies. FOB pending. Hgb noted to be 7.7. Pt is Jehovah Witness and declines transfusion. Nephrology consulted and following, Kiet/Jillian ordered. Recommends to draw labs in pediatric tubes if possible. Monitor. 9. ANA. SCr noted to be 2.08. IVF 40cc/hr. Continue to hold Metformin. S/P IV contrast with CT 11/02/18. Nephrology following. Avoid nephrotoxins. Monitor 10. Hyponatremia. Resolved. Na 139 this AM. IVF as above. Monitor. VS, I&O, 24H, [facility] Vital Signs/I&O Vital Signs Date Time Temp Pulse Resp B/P (MAP) Pulse Ox O2 Delivery O2 Flow Rate FiO2 11/06/18 12:14 18 11/06/18 09:09 86 145/66 11/06/18 06:00 97.0 99 Nasal Cannula 2.0 I&O- Last 24 Hours up to 6 AM 11/06/18 06:00 Intake Total 1975 ml Output Total 450 ml Balance 1525 ml Laboratory Data 24H LABS Laboratory Tests 2 11/05/18 22:45: Bedside Glucose (Misc Panel) 92 11/06/18 06:29: Nucleated Red Blood Cells % (auto) 0.0, Erythrocyte Sedimentation Rate 128H, Anion Gap 9, Glomerular Filtration Rate 33.5L, Blood Urea Nitrogen 25H, Creatin ine 2.08H, Sodium Level 139, Potassium Level 4.5, Chloride Level 103, Carbon Dioxide Level 27, Calcium Level 8.5#L, Aspartate Amino Transf (AST/SGOT) 40H, Alanine Aminotransferase (ALT/SGPT) 22, Alkaline Phosphatase 137H, Total Bilirubin 0.3, Total Protein 6.1L, Albumin 2.5L, C-Reactive Protein, Gabe ntitative 16.10H, Albumin/Globulin Ratio 0.69L CBC/BMP Laboratory Tests 11/06/18 06:29 Red Blood Count 2.56 L, Mean Corpuscular Volume 98.4 H, Mean Corpuscular Hemoglobin 30.1, Mean Corpuscular Hemoglobin Concent 30.6 L, Red Cell Distribution Width 15.9 H, Calcium Level 8.5 #L, Aspartate Amino Transf (AST/SGOT) 40 H, Alanine Aminotransferase (ALT/SGPT) 22, Alkaline Phosphatase 137 H, Total Bilirubin 0.3, Total Protein 6.1 L, Albumin 2.5 L Microbiology Microbiology 11/02/18 Blood Culture - Preliminary, Resulted No Growth after 72 hours. All specime... 11/01/18 Blood Culture - Preliminary, Resulted No Growth after 72 hours. All specime... 10/31/18 Urine Culture - Final, Complete Yanci Cortes Nov 06, 2018 13:21
[2018-11-06 13:42] LABS: HEMATOCRIT 24.4 % (42.0-52.0); HEMOGLOBIN 7.6 g/dl (13.5-17.5); MEAN CORPUSCULAR HGB CONC 31.1 g/dl (32.0-36.5); MEAN CORPUSCULAR VOLUME 96.4 fl (80.0-96.0); PLATELET COUNT, AUTOMATED 157 10^3/uL (150-450); RED BLOOD COUNT 2.53 10^6/uL (4.30-6.10); WHITE BLOOD COUNT 5.6 10^3/uL (4.0-10.0)
[2018-11-06 14:00] VITALS: BP 132/60
[2018-11-06 14:51] LABS: ALBUMIN 2.5 GM/DL (3.2-5.2); BILIRUBIN,TOTAL 0.4 MG/DL (0.2-1.0); CALCIUM LEVEL 8.9 MG/DL (8.8-10.2); CREATININE FOR GFR 2.12 MG/DL (0.70-1.30); GLOMERULAR FILTRATION RATE 32.8 (>42); POTASSIUM SERUM 4.9 MEQ/L (3.5-5.1); TOTAL PROTEIN 6.3 GM/DL (6.4-8.2)
[2018-11-06] MEDS: oxyCODONE 5MG TAB PO SCH ×2 (15:22→21:00)
[2018-11-06 20:00] VITALS: BP_SYST 121; BP_SYST 150; BP_DIAS 61; BP_DIAS 68
--- NOTE | 2018-11-06 20:44 | IPN ---
DATE: 11/06/2018 INFECTIOUS DISEASE PROGRESS NOTE Mr. Ward is seen in acute rehab. He has done very well today in rehab. He has walked twice the nurses station. He is less confused. He has complained less of muscle spasm. He had a good night last night after he had some Valium. LABORATORY: White count is 5.6, hemoglobin 7.6, hematocrit 24.4, platelets 157. ESR 128. Sodium 137, potassium 4.9, chloride 106, bicarbonate 21, BUN 26, creatinine 2.12, glucose 121, calcium 8.9, AST 38, ALT 20, alkaline phosphatase 137, total protein 6.3, albumin 2.5, CRP 16.1. Blood cultures on November 01, 2018 and November 02, 2018 were negative. Urine culture on October 31, 2018 was negative. On physical exam, temperature is 97.7, pulse 86, respirations 17, blood pressure 132/60, oxygen saturation (O2 sat) 97% on room air. Heart: Normal S1, S2 with a systolic ejection murmur 2/6. Lungs are clear. No wheezes, rales, or rhonchi anteriorly. Abdomen is soft, nontender. No hepatosplenomegaly. Extremities: No edema. The patient has difficulty getting up because of severe spasm and therefore, his back exam was not done. Skin: He has a peripherally inserted central catheter (PICC) line and decubitus ulcer. IMPRESSION: A 71-year-old gentleman hospitalized at [facility] October 14, 2018 with Streptococcus mitis bacteremia endocarditis of Prosthetic AV and L1-2 discitis with MICs of 0.125 penicillin being intermediate but SULEIMAN to ceftriaxone being less than 0.25. The patient was treated with ceftriaxone and gentamicin, and he was also diagnosed with L1-2 discitis. The patient eventually was transferred to [place] for further evaluation. The plan of treatment was for treatment for 6 weeks of IV antibiotics followed by oral cefdinir for about a year. The patient had a recent bioprosthetic aortic valve done, transcatheter aortic valve replacement (TAVR) at [facility], and he is no longer a surgical candidate. IMPRESSION: 1. 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 2. Discitis from seeding and bacteremia from endocarditis of L1-L2 with severe back pain and muscle spasms. Patient improving with oxycodone and baclofen. Patient on IV ceftriaxone 2 grams every 24 hours. Gentamicin was discontinued. 3. Acute kidney injury, most likely a combination of dye and gentamicin and metformin use. His creatinine is stable but not significant improvement. 4. Anemia. Most likely due to chronic disease, infection. The patient is a Jehovah Witness and therefore was treated with IV Venofer and Aranesp. I have discussed the case with Dr. Bassett. There is no contraindication for IV iron in the setting of this infection. The patient has been on antibiotics for over 3 weeks. PLAN: Continue IV Rocephin until at least mid November and then switch to cefdinir 600 mg daily. I would not recommend obtaining a followup CT at this point with his kidney injury unless the patient deteriorates, sedimentation rate or CRP continue to worsen. At this time, will continue current management with IV Rocephin. MTDD
[2018-11-06] MEDS: PRAMIPEXOLE 1 MG TAB PO SCH (21:00)
[2018-11-06] MEDS: **NOTE PATIENT COMMENT** MISC XX SCH (21:00)
[2018-11-06] MEDS: MIRTAZAPINE 15 MG TAB PO SCH (21:00)
--- NOTE | 2018-11-06 21:51 | IPNPDOC ---
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 Plan to receive Arinesp today. REVIEW OF SYSTEMS: The following is a completed review of systems and has been reviewed. Review of systems otherwise unremarkable. PAIN: Patient self reports severe low back pain with spasms EYES: Negative for recent vision changes EARS, NOSE, & THROAT:negative for rhinorrhea, tinnitus, or dysphagia CARDIOVASCULAR: denies chest pain or palpitations PULMONARY: Negative. Denies shortness of breath GASTROINTESTINAL: constipation (improving) GENITOURINARY: Negative for dysuria MUSCULOSKELETAL: low back pain and bilateral knee OA NEUROLOGICAL: restless leg syndrome HEMATOLOGICAL: +anemia SKIN: +PICC PSYCHIATRIC: Unremarkable All other review of systems found to be negative. PHYSICAL EXAMINATION: VITAL SIGNS: Please see below. GENERAL: Pleasant and cooperative, no acute distress HEENT: PERRL. Extraocular movements intact. Clear conjunctiva CARDIOVASCULAR: Regular rate and rhythm. No murmurs, rubs, or gallops LUNGS: Clear to auscultation bilaterally. No wheezes. No rhonchi ABDOMEN: Soft, nontender, nondistended. Positive bowel sounds. Normal active bowel sounds NEUROLOGICAL: Alert and oriented times to self and place not time, Cranial nerves II through XII grossly intact. Sensation grossly intact. EXTREMITIES: 5\5 strength bilateral upper extremities. bilateral Ankle DF and EHL 5/5, however proximal muscle testing greatly limited by pain SKIN: +PICC, decubitus ulcer ASSESSMENT:72-year-old M with past medical history of CAD, AVR, CAD with CABG who presents with diskovertebral osteomyelitis in the setting of endocarditis. PLAN: 1. Rehab: PT/OT, assess for DME needs- LSO brace when out of bed for comfort, able to ambulate further 2. Neuro: pmh restless leg syndrome, continue home meds 3. Cardio: pmh CAD s/p AVR replacement with recent GUILLERMO suspicious for endocarditis continue IV Ceftriaxone and s/p Gentamicin, will need outpatient cardio f/u -continue beta-blockers and ASA 4. Endo: pmh DM continue home meds 5. ID: L1-L2 disko-vertebral osteomyeltis, blood cultures positive for Strep Mitis, per acute care hospital continue IV Ceftriaxone for 6 weeks (start date 10/16/18) and Gentamicin for 2 weeks (start date 10/26/18)to be followed by one year suppression dose of Omnicef- Dr. Alejandro consulted, Gentamicin discontinued will continue to follow-recs, appreciated -admission blood cultures negative 6. Pain: pmh chronic knee pain, now with severe discogenic pain with spasms- pain mildly improved today, will d/c long acting morphine, add oxycodone 5mg tid standing and continue oxycodone 10mg q4h prn, standing Tylenol, continue o Lyrica, added back low dose Diazepam prn for painful spams to be held for sondra tion 7. DVT ppx: will d/c heparin given anemia and borderline low platelets and obtain serial dopplers, continue TEDs, thus far studies negative for DVT 8. SKin: Balmex and turning q2h in bed 9. Resp: pmh COPD: continue home meds, continue Duonebs and monitor for PNA 10. 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 Heme: Anemia of chronic disease, patient is Jehov'as witness and cannot receive blood, however s/p Venofer and receiving Aranesp today per Renal, recs appreciated 10. GI: patient constipated and poor appetite secondary to nausea, optimize laxatives, protonix for ppx 11. Dispo: 11/24/18, slowly progressing towards goals given pain, infection, and delirium Allergies Coded Allergies: Statins (Unverified Adverse Reaction, Unknown, MUSCLE PAINS, 10/31/18) Trazodone (Unverified Adverse Reaction, Unknown, ITCH, 10/31/18) Vital Signs Vital Signs Date Time Temp Pulse Resp B/P (MAP) Pulse Ox O2 Delivery O2 Flow Rate FiO2 11/06/18 15:52 18 11/06/18 14:00 97.7 86 132/60 (84) 97 Room Air 11/06/18 06:00 2.0 Laboratory Data CBC/BMP Laboratory Tests 11/06/18 06:29 Red Blood Count 2.56 L, Mean Corpuscular Volume 98.4 H, Mean Corpuscular Hemoglobin 30.1, Mean Corpuscular Hemoglobin Concent 30.6 L, Red Cell Distribution Width 15.9 H, Calcium Level 8.5 #L, Aspartate Amino Transf (AST/SGOT) 40 H, Alanine Aminotransferase (ALT/SGPT) 22, Alkaline Phosphatase 137 H, Total Bilirubin 0.3, Total Protein 6.1 L, Albumin 2.5 L 11/06/18 13:21 Red Blood Count 2.53 L, Mean Corpuscular Volume 96.4 H, Mean Corpuscular Hemoglobin 30.0, Mean Corpuscular Hemoglobin Concent 31.1 L, Red Cell Distribution Width 15.9 H, Calcium Level 8.9, Aspartate Amino Transf (AST/SGOT) 38 H, Alanine Aminotransferase (ALT/SGPT) 20, Alkaline Phosphatase 137 H, Total Bilirubin 0.4, Total Protein 6.3 L, Albumin 2.5 L Labs 24H Laboratory Tests 2 11/05/18 22:45: Bedside Glucose (Misc Panel) 92 11/06/18 06:29: Nucleated Red Blood Cells % (auto) 0.0, Erythrocyte Sedimentation Rate 128H, Anion Gap 9, Glomerular Filtration Rate 33.5L, Blood Urea Nitrogen 25H, Crea tinine 2.08H, Sodium Level 139, Potassium Level 4.5, Chloride Level 103, Carbon Dioxide Level 27, Calcium Level 8.5#L, Aspartate Amino Transf (AST/SGOT) 40H, Alanine Aminotransferase (ALT/SGPT) 22, Alkaline Phosphatase 137H, Total Bilirubin 0.3, Total Protein 6.1L, Albumin 2.5L, C-Reactive Protein, Quantitative 16.10H, Albumin/Globulin Ratio 0.69L 11/06/18 07:13: Bedside Glucose (Misc Panel) 92 11/06/18 13:21: Nucleated Red Blood Cells % (auto) 0.0, Anion Gap 10, Glomerular Filtration Rate 32.8L, Blood Urea Nitrogen 26H, Creatinine 2.12H, Sodium Level 137, Potassium Level 4.9, Chloride Level 106, Carbon Dioxide Level 21, Calcium Level 8.9, Aspartate Amino Transf (AST/SGOT) 38H, Alanine Aminotransferase (ALT/SGPT) 20, Alkaline Phosphatase 137H, Total Bilirubin 0.4, Total Protein 6.3L, Albumin 2.5L, Albumin/Globulin Ratio 0.66L 11/06/18 21:17: Bedside Glucose (Misc Panel) 99 Microbiology Microbiology 11/02/18 Blood Culture - Preliminary, Resulted No Growth after 72 hours. All specime... 11/01/18 Blood Culture - Final, Complete NO GROWTH AFTER 5 DAYS 10/31/18 Urine Culture - Final, Complete Current Medications Current Medications Current Medications Acetaminophen (Tylenol Tab) 1,000 mg TID PO Last administered on 11/06/18 15:21; Start 10/31/18 at 16:00 Albuterol/ Ipratropium (Duoneb (Ipr 0.5mg/Alb 2.5mg)) 3 ml RBID NEB ; Start 11/01/18 at 08:00 Artificial Tears (Akwa Tears) 2 drop QID OU Last administered on 11/06/18 17:00; Start 10/31/18 at 21:00 Ascorbic Acid (Vitamin C) 500 mg DAILY PO Last administered on 11/06/18 09:11; Start 11/01/18 at 09:00 Aspirin (Ecotrin) 81 mg DAILY PO Last administered on 11/06/18 09:11; Start 11/01/18 at 09:00 Baclofen (Lioresal) 5 mg TID PO Last administered on 11/06/18 15:21; Start 11/03/18 at 16:00 Bisacodyl (Dulcolax Suppository) 10 mg DAILYPRN PRN AK CONSTIPATION; Start 10/31/18 at 15:30 Bisacodyl (Dulcolax Tab) 5 mg DAILYPRN PRN PO CONSTIPATION; Start 10/31/18 at 15:30 Ceftriaxone Sodium 2 gm/ Dextrose 50 ml @ 100 mls/hr Q24H IV Last administered on 11/06/18 09:09; Start 11/01/18 at 09:00 Coenzyme Q10 (Coenzyme Q10) 100 mg DAILY PO Last administered on 11/06/18 09:11; Start 11/01/18 at 09:00; Stop 12/01/18 at 08:59 Darbepoetin Dioni (Aranesp) 100 mcg Th@09 SC Last administered on 11/06/18 09:11; Start 11/06/18 at 09:00 Dextran/ Hydroxypropyl Methylcellul (Tears Naturale Free) 2 drop QID OU ; Start 10/31/18 at 17:00; Status Cancel Dextrose (Dextrose 50%) 25 ml ASDIRECTED PRN IV SEE LABEL COMMENTS; Start 10/31/18 at 15:15 Diazepam (Valium) 2 mg Q4H PRN PO spasm; Start 11/06/18 at 10:45 Diazepam (Valium) 2 mg TID PO Last administered on 11/05/18at 15:05; Start 11/04/18 at 16:00; Stop 11/06/18 at 10:35; Status DC Diazepam (Valium) 2.5 mg Q4H PRN PO SPASMS Last administered on 11/01/18at 19:13; Start 11/01/18 at 14:30; Stop 11/01/18 at 23:15; Status DC Diazepam (Valium) 2.5 mg Q6H PRN PO SPASMS Last administered on 11/01/18at 14:15; Start 11/01/18 at 14:00; Stop 11/01/18 at 14:24; Status DC Diazepam (Valium) 2.5 mg Q8HP PRN PO SPASMS Last administered on 10/31/18at 16:01; Start 10/31/18 at 14:45; Stop 10/31/18 at 16:19; Status DC Diazepam (Valium) 2.5 mg Q8HP PRN PO SPASMS Last administered on 11/01/18at 08:09; Start 10/31/18 at 21:00; Stop 11/01/18 at 13:59; Status DC Diazepam (Valium) 5 mg Q8HP PRN PO SPASMS; Start 10/31/18 at 16:15; Stop 10/31/18 at 20:55; Status DC Fluticasone Propionate (Flonase 0.05% Nasal [place]) 2 spray DAILY NARES Last administered on 11/06/18at 09:09; Start 11/01/18 at 09:00 Gentamicin Sulfate 80 mg/IV Miscellaneous Supplies 100 ml @ 200 mls/hr Q12H IV Last administered on 11/02/18at 06:17; Start 10/31/18 at 18:00; Stop 11/02/18 at 08:56; Status DC Gentamicin Sulfate 80 mg/IV Miscellaneous Supplies 100 ml @ 200 mls/hr Q18H IV Last administered on 11/03/18at 00:02; Start 11/03/18 at 00:00; Stop 11/03/18 at 16:59; Status DC Glucagon (Glucagon) 1 mg ASDIRECTED PRN SC SEE LABEL COMMENTS; Start 10/31/18 at 15:15 Glucose (Glucose) 16 GM ASDIRECTED PRN PO SEE LABEL COMMENTS; Start 10/31/18 at 15:15 Heparin Sodium (Heparin (Flush)) 200 units ASDIRECTED PRN IV SEE LABEL COMMENTS Last administered on 11/02/18 09:48; Start 10/31/18 at 16:30 Heparin Sodium (Heparin (Flush)) 200 units PICC IV Last administered on 11/04/18at 05:43; Start 10/31/18 at 18:00 Heparin Sodium (Porcine) (Heparin) 5,000 units Q12H SC Last administered on 11/04/18 08:35; Start 10/31/18 at 21:00; Stop 11/04/18 at 18:41; Status DC Home Med (Med Rec Complete!) ASDIRECTED XX ; Start 10/31/18 at 14:45; Stop 10/31/18 at 14:45; Status DC Insulin Human Lispro (HumaLOG INSULIN) SEE PROTOCOL TABLE QHS SC ; Start 10/31/18 at 21:00 Lidocaine (Lidoderm Patch) 1 patch DAILY TD Last administered on 11/06/18 09:12; Start 11/01/18 at 09:00 Magnesium Gluconate (Magnesium Gluconate) 500 mg BID PO Last administered on 11/06/18at 09:11; Start 10/31/18 at 21:00 Magnesium Hydroxide (Milk Of Magnesia) 30 ml DAILYPRN PRN PO CONSTIPATION Last administered on 11/02/18at 21:41; Start 10/31/18 at 15:30 Metformin HCl (Glucophage) 500 mg DAILY@08 PO Last administered on 11/04/18 08:36; Start 11/01/18 at 08:00; Stop 11/04/18 at 11:08; Status DC Metoprolol Succinate (TopROL XL) 25 mg DAILY PO Last administered on 11/06/18 09:09; Start 11/01/18 at 09:00 Mirtazapine (Remeron) 30 mg QHS PO Last administered on 11/04/18at 20:48; Start 10/31/18 at 21:00 Miscellaneous (Unresolved Patient Own Med Order) SEE LABEL COMMENTS DAILY XX ; Start 10/31/18 at 09:00; Stop 11/06/18 at 18:23; Status DC Morphine Sulfate (Ms Contin) 15 mg BID PO Last administered on 11/04/18 20:47; Start 10/31/18 at 17:00; Stop 11/06/18 at 10:35; Status DC Nitroglycerin (Nitrostat (1/ 150)) 0.4 mg Q5MP PRN SL CHEST PAIN; Start 10/31/18 at 14:45 Non-Formulary Medication ( See Comment Field Below ) REMOVE LIDODERM PATCH DAILY@21 XX Last administered on 11/05/18 21:00; Start 10/31/18 at 21:00 Ondansetron HCl (Zofran) 4 mg AC PO Last administered on 11/06/18 09:11; Start 10/31/18 at 17:30 Ondansetron HCl (Zofran) 4 mg Q6HP PRN PO NAUSEA Last administered on 11/06/18 15:21; Start 10/31/18 at 15:30 Oxycodone HCl (Roxicodone, Oxyir) 5 mg Q4HP PRN PO PAIN 4-7 Last administered on 11/04/18 05:47; Start 10/31/18 at 14:45; Stop 11/06/18 at 10:35; Status DC Oxycodone HCl (Roxicodone, Oxyir) 5 mg TID PO Last administered on 11/06/18 15:22; Start 11/06/18 at 16:00 Oxycodone HCl (Roxicodone, Oxyir) 10 mg Q4HP PRN PO SEVERE PAIN (PS 8-10) Last administered on 11/06/18 11:44; Start 10/31/18 at 14:45 Pantoprazole Sodium (Protonix) 40 mg DAILY PO Last administered on 11/06/18 09:11; Start 11/01/18 at 09:00 Patient Own Medication (Patient'S Own Med) TRINTELLIX 20mg po daily DAILY PO Last administered on 11/06/18 09:09; Start 11/01/18 at 09:00 Patient Own Medication (Patient'S Own Med) Testosterone 5gram 1% gel; AP... DAILY TOP ; Start 11/07/18 at 09:00 Pramipexole Dihydrochloride (Mirapex) 2 mg QHS PO Last administered on 11/04/18 20:48; Start 10/31/18 at 21:00 Pregabalin (Lyrica) 75 mg BID PO ; Start 10/31/18 at 21:00; Stop 10/31/18 at 21:00; Status DC Pregabalin (Lyrica) 100 mg BID PO Last administered on 11/06/18 10:48; Start 10/31/18 at 21:00 Ranolazine (Ranexa) 500 mg BID PO Last administered on 11/06/18 09:11; Start 10/31/18 at 21:00 Salmeterol Xinafoate/ Fluticasone (Advair Hfa 115/ 21) 2 puff BID INH Last administered on 11/06/18 07:24; Start 10/31/18 at 21:00 Senna/Docusate Sodium (Senokot S) 1 tab BID PO Last administered on 11/06/18 09:11; Start 10/31/18 at 21:00 Sodium Chloride 1,000 ml @ 40 mls/hr Q24H IV Last administered on 11/06/18 10:49; Start 11/04/18 at 10:30 Sodium Chloride (Saline Lock Flush) 10 ml ASDIRECTED PRN IV SEE LABEL COMMENTS Last administered on 11/02/18 09:48; Start 10/31/18 at 16:30 Sodium Chloride (Saline Lock Flush) 10 ml PICC IV Last administered on 11/04/18 05:43; Start 10/31/18 at 18:00 Vitamin D (Vitamin D) 1,000 units DAILY PO Last administered on 11/06/18 09:11; Start 11/01/18 at 09:00 SOILA FREITAS MD Nov 06, 2018 21:51
--- NOTE | 2018-11-06 21:54 | IPN ---
DATE: 11/06/2018 SUBJECTIVE: The patient is seen and examined this morning at the bedside in the rehabilitation unit. He is much more awake, alert and interactive today as compared to yesterday. He was sitting out of bed to the chair. He was moving better than he was yesterday as well, although he was still not fully oriented. He reports his back pain is improving. VITAL SIGNS: Temperature 97.7, pulse 86, respiratory rate 17, blood pressure 132/60, saturating 97% on room air. Intake yesterday was 1735. Urine output yesterday was not fully recorded because the patient was having incontinent voids from altered mental status. Today's urine output is 1350. GENERAL: The patient is seen sitting out of bed to the chair making eye contact. Awake and alert. He thinks the year is 1948. He notes Pam is president. He is able to tell me his 's name and his own name and date of . Extraocular muscles are intact. Tongue is moist. Neck is supple. Jugular veins are not elevated. CARDIAC: S1, S2. Systolic murmur. LUNGS: Clear to auscultation bilaterally. No wheezes, rhonchi or rales. ABDOMEN: Soft. He does not grimace to palpation. MUSCULOSKELETAL: The patient has decreased range of motion of the lower back secondary to pain. EXTREMITIES: Negative for edema. NEUROLOGIC: Orientation as mentioned above. He had normal temperature and turgor. LABORATORIES: Sodium 137, potassium 4.9, bicarbonate 21, BUN 26, creatinine 2.1, hemoglobin 7.6. INPATIENT MEDICATIONS: The patient continues on: - ceftriaxone - normal saline at 40 mL an hour He received a dose of Aranesp. He received 300 mg of Venofer. His pain medications have been adjusted by the primary team. The remainder of medications are unchanged from prior. PROBLEMS: 1. Acute kidney injury on chronic kidney disease stage II. Admission creatinine on 11/01/2018 was 1.1. Subsequently had IV contrast study on 11/02/2018 in the setting of IV gentamicin and metformin use. Creatinine increased to 2.1 on 11/04/2018 secondary to contrast induced nephropathy with other nephrotoxins. There has been no real change in renal function over the past few days. Continue supportive care with IV fluids and holding the nephrotoxins. His mentation was somewhat improved today and he was continent of urine, hence today's recorded output is more reliable. 2. Anemia management. The patient is a [employer]. He received Venofer 300 mg IV yesterday and a dose of 100 mcg of subcutaneous Aranesp today. We will give anther dose of Venofer over the weekend. I very much suggest to limit blood draws as much as possible and also for blood to be drawn in pediatric tubes. For example, he had a CBC and BMP drawn at 6:00 a.m. this morning and then for some repeat CBC and BMP at 1:00 p.m. this afternoon, which I feel was quite unnecessary. 3. Altered mental status, likely due to polypharmacy. He is receiving opioids and benzodiazepine and neuropathic medications at baseline. Per the , he is very sharp and uses a computer, drives, and handles the finances. Today, at the time of my visit, he was oriented to self. Otherwise, could not tell me where he was and thought the year was 1948. He did note that Pam was president. I suggest that we reduce the narcotics and neuropathics as tolerated and defer to the primary team. 4. Osteomyelitis and endocarditis. Managed by infectious disease. Please hold off on further IV contrast studies in view of his present acute kidney injury unless urgently or emergently needed.
[2018-11-07 06:00] VITALS: BP 139/65
[2018-11-07] MEDS: SODIUM CHLORIDE 0.9% INJ 10 ML SYR IV SCH ×2 (06:00→16:58)
[2018-11-07] MEDS: oxyCODONE 5MG TAB PO PRN (06:35)
[2018-11-07 08:07] LABS: C REACTIVE PROTEIN QUANTITATIV 13.8 MG/DL (0.00-0.30)
[2018-11-07] MEDS: PREGABALIN 100 MG CAP (LYRICA) PO SCH ×2 (08:27→21:54)
[2018-11-07] MEDS: CO-ENZYME Q10 50 MG CAP PO SCH (08:27)
[2018-11-07] MEDS: ASPIRIN 81 MG ENTERIC TAB PO SCH (08:27)
[2018-11-07] MEDS: RANOLAZINE 500 MG ER TAB PO SCH ×2 (08:27→21:53)
[2018-11-07] MEDS: SENOKOT S TAB PO SCH ×2 (08:27→21:54)
[2018-11-07] MEDS: PANTOPRAZOLE 40MG TAB (PROTONIX) PO SCH (08:27)
[2018-11-07] MEDS: MAGNESIUM GLUCONATE 500 MG TAB PO SCH ×2 (08:28→21:53)
[2018-11-07] MEDS: ASCORBIC ACID 500 MG TAB PO SCH (08:28)
[2018-11-07] MEDS: VITAMIN D 1,000 INTERNATIONAL UNITS TABLET PO SCH (08:28)
[2018-11-07] MEDS: BACLOFEN 5MG PER 1/2 TABLET PO SCH ×3 (08:28→21:53)
[2018-11-07] MEDS: TRINTELLIX PO SCH (08:28)
[2018-11-07] MEDS: ONDANSETRON 4 MG TAB (S0181) PO SCH ×3 (08:28→17:30)
[2018-11-07] MEDS: METOPROLOL SUCC *XL* 25MG TAB (TopROL *XL*) PO SCH (08:32)
[2018-11-07] MEDS: ACETAMINOPHEN 500 MG TAB PO SCH ×3 (08:33→21:53)
[2018-11-07] MEDS: cefTRIAXone SOD 2 GM in D5W MINI-BAG PLUS 50 ML IV SCH (08:33)
[2018-11-07] MEDS: LIDOCAINE 5% (LIDODERM) PATCH TD SCH (08:33)
[2018-11-07] MEDS: oxyCODONE 5MG TAB PO SCH ×3 (08:33→21:54)
[2018-11-07] MEDS: FLUTICASONE PROP 0.05% NASAL SPRAY 16 GM (FLONASE) NARES SCH (08:34)
[2018-11-07] MEDS: TESTOSTERONE 1% TOP SCH (08:34)
[2018-11-07] MEDS: POLYVINYL ALCOHOL OPHTH SOLN 15 ML(LIQUITEARS) OU SCH ×4 (08:34→21:55)
[2018-11-07 11:06] LABS: POTASSIUM SERUM 4.6 MEQ/L (3.5-5.1)
[2018-11-07] MEDS: IPRATROPIUM 0.5MG/ALBUTEROL 2.5MG INH SOL UD 3ML (DUONEB)(J7620) NEB SCH ×2 (11:58→20:00)
[2018-11-07] MEDS: ADVAIR HFA 115/21MCG INHALER INH SCH ×2 (12:00→20:16)
--- NOTE | 2018-11-07 13:53 | IPNPDOC ---
Date Seen The patient was seen on 11/07/18. Progress Note HPI: 72M who was transferred to [facility] from [facility] for low back pain with fevers that began 6 days prior to admission. An ID consult was ordered, he was found to have Strep Mitis bacteremia from a October 14 and blood culture taken at [facility] for which he was placed on Ceftriaxone and Gentamicin on 10-16-18 for discitis vs osteomyelitis in the setting of a possibly infected bi-prosthetic aortic valve with endocarditis. A GUILLERMO was performed showing, Moderate perivalvular aortic regurgitation, mobile density contiguous with aortic valve,cannot rule out vegetation. Repeat blood cultures on October 20 and were negative. Thor[address]olumbar CT on 10-18-18 showed lesion suspicious for diskovertebral osteomyelitis at L1-L2. ID recommended a 6 week course of IV antibiotics followed by Omnicef for 1 year for suppression. No cardiac or orthopedic surgery was recommended and PICC line placed. He developed a decubitus ulcer during his stay due to immobility. 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 ID has been consulted to assist with antibiotic recommendations. Nephrology following to assist with anemia/ANA. Pt is in bed and states his pain is controlled currently. Denies any fevers, chills, headache, Chest Pain, Shortness of breath, cough, palpitations, abdominal pain, N/V/D or changes in bowel or bladder habits. PAST MEDICAL HISTORY: NIDDM. HTN Coronary artery disease, status post CABG, status post TAVR 05/31. COPD. depression PAST SURGICAL HISTORY: TAVR replaced May 2018, first placed 2009 Right hip septic joint 1.5 years ago, s/p YANET January 2018, s/p pacemaker PE: GEN: 72yoM, appears stated age. No acute distress. Alert and oriented to person but is not oriented to time/place. HEENT: Normocephalic, atraumatic. Sclera are nonicteric. Conjunctiva without injection. No facial asymmetry. Moist mucous membranes. CHEST: Regular rate and rhythm, +S1, +S2 LUNGS: Clear to auscultation bilaterally. No wheezes, rales, or rhonchi. ABD: Round, soft, non-tender, non-distended. +Bowel sounds present. No rebound or guarding. EXT: No lower extremity edema appreciated. SKIN: [place], dry, warm. No rashes. NEURO: No focal deficits appreciated. UC negative. U/S LEs 10/31/18, 11/05/[address] A/P done related to constipation 11/02/18. A&P: 72M pmh DM, HTN, PM, AVR (replaced in May 2018), CAD with CABG, JR, right hip periprosthetic infection, who was transferred to [facility] from [facility] for low back pain with fevers that began 6 days prior to admission. An ID consult was ordered, he was found to have Strep Mitis bacteremia from a October 14 and blood culture taken at [facility] for which he was placed on Ceftriaxone and Gentamicin on 10-16-18 for discitis vs osteomyelitis in the setting of a possibly infected bi-prosthetic aortic valve with endocarditis. A GUILLERMO was performed showing, Moderate perivalvular aortic regurgitation, mobile density contiguous with aortic valve,cannot rule out vegetation. Repeat blood cultures on October 20 and were negative. Thoracolumbar CT on 10-18-18 showed lesion suspicious for diskovertebral osteomyelitis at L1-L2. ID recommended a 6 week course of IV antibiotics followed by Omnicef for 1 year for suppression. No cardiac or orthopedic surgery was recommended and PICC line placed. He developed a decubitus ulcer during his stay due to immobility. 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 1. Discitis/osteomyelitis of L1 to L2, Streptococcus mitis bacteremia/Endocarditis. Pt is afebrile. WBC 5.6. Mgmt as per ARU Pain control as per ARU Bowel care as per ARU PT/OT/ST as per ARU DVT prophylaxis as per ARU, SQ Heparin. On IV Rocephin as per ID Shirlene. Per recommendation, the antibiotic regimen for patient was six week of Rocephin along with two weeks of gentamicin and then follow by Omnicef for one year. Gent d/cd 11/03/18. Continue Mgmt as per ID. ID consulted, Dr Alejandro. Appreciate recommendations. 11/07/18 ESR 128, CRP 13.80. Pt unable to have MRI related to pacemaker. PICC in place Blood culture x2 11/01 neg. Urine culture neg. Recheck labs in AM. Continue to monitor. 2. Abdominal pain/Constipation. Possibly related to his persistent severe back pain from discitis/osteomyelitis. S/P Trial of Relistor x [address] abdomen 11/02/18 no obstruction. 3. Coronary artery disease/Status post coronary artery bypass graft (CABG) and status post transcatheter aortic valve replacement (TAVR). Continue aspirin/Ranexa/Toprol XL. 4. History of COPD. Duoneb Advair 5. Hypertension. Toprol XL 6. DM. CC diet. HOLD Metformin Monitor FSBS. 7. Depression Trintellix. 8. Anemia. B12, folate, Fe studies. FOB pending. Hgb noted to be 7.7. Pt is [employer] and declines transfusion. Nephrology consulted and following, Kiet/Jillian ordered. Recommends to draw labs in pediatric tubes if possible. Monitor. 9. ANA. SCr noted to be 2.12. IVF 40cc/hr. Continue to hold Metformin. S/P IV contrast with CT 11/02/18. Nephrology following. Avoid nephrotoxins. Monitor 10. Hyponatremia. Resolved. Na 137 IVF as above. Monitor. BMP in AM. VS, I&O, 24H, Fishbone Vital Signs/I&O Vital Signs Date Time Temp Pulse Resp B/P (MAP) Pulse Ox O2 Delivery O2 Flow Rate FiO2 11/07/18 09:03 18 11/07/18 08:33 Room Air 11/07/18 08:32 78 160/80 11/07/18 06:00 97.5 96 11/06/18 06:00 2.0 I&O- Last 24 Hours up to 6 AM 11/07/18 06:00 Intake Total 1330 ml Output Total 1650 ml Balance -320 ml Laboratory Data 24H LABS Laboratory Tests 2 11/06/18 21:17: Bedside Glucose (Misc Panel) 99 11/07/18 06:23: Erythrocyte Sedimentation Rate 128H, Glomerular Filtration Rate 35.0L, C- Reactive Protein, Quantitative 13.80H CBC/BMP Laboratory Tests 11/07/18 06:23 Microbiology Microbiology 11/02/18 Blood Culture - Final, Complete NO GROWTH AFTER 5 DAYS 11/01/18 Blood Culture - Final, Complete NO GROWTH AFTER 5 DAYS 10/31/18 Urine Culture - Final, Complete Yanci Cortes Nov 07, 2018 13:53
[2018-11-07] MEDS: NS 1,000 ML IV SCH (13:55)
[2018-11-07 14:00] VITALS: BP 118/58
--- NOTE | 2018-11-07 16:34 | IPN ---
DATE: 11/07/2018 George seems to be doing a little weaker today. He has more myoclonic jerks and back pain. He was not able to do as much with physical therapy. He denies any fever or chills. His major complaint is weakness and back pain. Temperature is 97.4, pulse 80, respirations 18, blood pressure 118/58, oxygen saturation 95% on room air. HEART: Normal S1, S2 with a holosystolic murmur 3/6 at the left upper sternal border. Lungs are clear. No wheezes, rales or rhonchi. Abdomen is soft, nontender. No hepatosplenomegaly. EXTREMITIES: Trace edema. BACK: L1-2 tenderness. Motor strength 5- bilaterally. LOWER EXTREMITIES: He has continuous myoclonic jerks with any movement. Blood cultures from 11/01/2018 and 11/02/2018 are negative. MEDICATIONS: Rocephin 2 grams IV every 24 hours. IMPRESSION: 1. Endocarditis of prosthetic valve complicated by discitis and osteomyelitis of L1-2 with culture positive for Streptococcus mitis. C-reactive protein (CRP) slightly improving. Patient on IV Rocephin 2 grams every 24 hours. Gentamicin was discontinued due to acute renal failure. 2. Severe back pain with spasm, limiting his physical therapy. 3. Anemia, combination of chronic infection and acute renal failure. The patient is being treated with IV iron and Aranesp per renal. PLAN: Continue IV Rocephin. We will monitor complete blood count (CBC), C-reactive protein (CRP), sedimentation rate weekly.
[2018-11-07 20:00] VITALS: BP 108/51
[2018-11-07] MEDS: **NOTE PATIENT COMMENT** MISC XX SCH (21:00)
[2018-11-07] MEDS: PRAMIPEXOLE 1 MG TAB PO SCH (21:53)
[2018-11-07] MEDS: MIRTAZAPINE 15 MG TAB PO SCH (21:54)
[2018-11-08 06:00] VITALS: BP 146/78
[2018-11-08] MEDS: SODIUM CHLORIDE 0.9% INJ 10 ML SYR IV SCH ×2 (06:00→17:53)
[2018-11-08] MEDS: ONDANSETRON 4 MG TAB (S0181) PO SCH ×3 (07:30→17:54)
[2018-11-08] MEDS: ADVAIR HFA 115/21MCG INHALER INH SCH ×2 (07:47→19:38)
[2018-11-08] MEDS: IPRATROPIUM 0.5MG/ALBUTEROL 2.5MG INH SOL UD 3ML (DUONEB)(J7620) NEB SCH ×2 (07:47→19:37)
[2018-11-08 09:07] LABS: HEMATOCRIT 26.7 % (42.0-52.0); HEMOGLOBIN 8.1 g/dl (13.5-17.5); MEAN CORPUSCULAR HEMOGLOBIN 30.3 pg (27.0-33.0); MEAN CORPUSCULAR HGB CONC 30.3 g/dl (32.0-36.5); PLATELET COUNT, AUTOMATED 152 10^3/uL (150-450); RED BLOOD COUNT 2.67 10^6/uL (4.30-6.10); WHITE BLOOD COUNT 5.8 10^3/uL (4.0-10.0)
[2018-11-08 09:24] LABS: CALCIUM LEVEL 8.2 MG/DL (8.8-10.2); CREATININE FOR GFR 1.86 MG/DL (0.70-1.30); GLOMERULAR FILTRATION RATE 38.1 (>42); POTASSIUM SERUM 4.5 MEQ/L (3.5-5.1)
[2018-11-08] MEDS: cefTRIAXone SOD 2 GM in D5W MINI-BAG PLUS 50 ML IV SCH (10:03)
[2018-11-08] MEDS: TRINTELLIX PO SCH (10:03)
[2018-11-08] MEDS: LIDOCAINE 5% (LIDODERM) PATCH TD SCH (10:04)
[2018-11-08] MEDS: CO-ENZYME Q10 50 MG CAP PO SCH (10:04)
[2018-11-08] MEDS: MAGNESIUM GLUCONATE 500 MG TAB PO SCH ×2 (10:04→20:28)
[2018-11-08] MEDS: POLYVINYL ALCOHOL OPHTH SOLN 15 ML(LIQUITEARS) OU SCH ×4 (10:04→20:29)
[2018-11-08] MEDS: RANOLAZINE 500 MG ER TAB PO SCH ×2 (10:04→20:27)
[2018-11-08] MEDS: SENOKOT S TAB PO SCH ×2 (10:05→20:28)
[2018-11-08] MEDS: VITAMIN D 1,000 INTERNATIONAL UNITS TABLET PO SCH (10:05)
[2018-11-08] MEDS: PANTOPRAZOLE 40MG TAB (PROTONIX) PO SCH (10:05)
[2018-11-08] MEDS: METOPROLOL SUCC *XL* 25MG TAB (TopROL *XL*) PO SCH (10:05)
[2018-11-08] MEDS: ASPIRIN 81 MG ENTERIC TAB PO SCH (10:05)
[2018-11-08] MEDS: ASCORBIC ACID 500 MG TAB PO SCH (10:05)
[2018-11-08] MEDS: PREGABALIN 100 MG CAP (LYRICA) PO SCH ×2 (10:05→20:28)
[2018-11-08] MEDS: BACLOFEN 5MG PER 1/2 TABLET PO SCH ×3 (10:06→20:28)
[2018-11-08] MEDS: oxyCODONE 5MG TAB PO SCH ×3 (10:07→20:28)
[2018-11-08] MEDS: ACETAMINOPHEN 500 MG TAB PO SCH ×3 (10:07→20:29)
[2018-11-08] MEDS: TESTOSTERONE 1% TOP SCH (10:08)
[2018-11-08] MEDS: FLUTICASONE PROP 0.05% NASAL SPRAY 16 GM (FLONASE) NARES SCH (10:08)
--- NOTE | 2018-11-08 11:58 | IPN ---
DATE OF SERVICE: 11/07/2018 SUBJECTIVE: The patient is seen and examined this morning at the bedside in the rehabilitation unit, sitting out of bed to the chair. He is awake and oriented times one. He complains of low back pain. He is still having some urinary incontinence secondary to altered mental status. VITAL SIGNS: Temperature 97.4, pulse 80, respiratory rate 18, blood pressure 118/58, saturating 95% on room air. Intake yesterday was 1330. Urine output yesterday was 1350. Weight on the bed scale today is not recorded. GENERAL: The patient is seen sitting in the chair, in recliner position, in no acute distress, oriented times one, making eye contact and following commands. He thinks the year is 194. He tells me Az Rojo is president. He is able to tell me his own name, his date of and his 's name. He thinks he is at home. Extraocular muscles are intact. Tongue is moist. Neck is supple. Jugular veins are not elevated. Cardiac: S1, S2. Systolic murmur. Lungs: Clear to auscultation bilaterally. No wheezes, rhonchi nor rales. Abdomen: Soft and nontender. Musculoskeletal: He has decreased range of motion of the lower back secondary to pain. Extremities: Negative for edema. Neurologic: He is oriented times one as mentioned above. Skin: Has normal temperature and turgor. LABORATORIES: White count 5.6, hemoglobin 7.6. Potassium 4.6, creatinine 2.0, CRP 13.8. INPATIENT MEDICATIONS: Reviewed by myself. He continues on normal saline at 40 mL an hour. He received a first time of Aranesp yesterday. Remainder of medications are unchanged from prior. PROBLEMS: 1. Acute kidney injury on chronic kidney disease stage II. His ANA is secondary to contrast induced nephropathy in the setting of IV gentamicin and metformin use. His urinary output is not fully recorded due to incontinent voids from his altered mental status. His renal function is slowly improving. Continue with supportive care with IV fluids and holding the nephrotoxins. I think give his significant anemia, I would only check the chemistries every other day. 2. Anemia management. The patient is a [employer]. He received Venofer 300 mg IV and he also received 100 mcg of subcutaneous Aranesp. I suggest to limit blood draws as much as possible and for blood to be drawn in pediatric tubes. 3. Altered mental status, likely due to polypharmacy. Patient is oriented times one. He is able to tell me his name and date of , and is 's name, otherwise. He thinks the year is 1949 and jeremi Rojo is president and that he is at home. At his baseline, per , he is cognitively intact, handles finances, drives, and uses a computer. He is on benzodiazepines, narcotics and neuropathics, and I recommended to wean and defer to primary team. 4. Osteomyelitis and endocarditis. Managed by infectious disease. CRP is down trending. Please hold off on further IV contrast studies in view of present ANA unless urgently or emergently needed. He continues on ceftriaxone.
--- NOTE | 2018-11-08 12:20 | IPNPDOC ---
PM&R Progress Note DATE OF SERVICE: Nov 07, 2018 Sexual Health Physician Progress Note Subjective: Patient seen sitting in his chair states he feels ok, noted to be twitching, but able to follow commands. REVIEW OF SYSTEMS: The following is a completed review of systems and has been reviewed. Review of systems otherwise unremarkable. PAIN: Patient self reports severe low back pain with spasms EYES: Negative for recent vision changes EARS, NOSE, & THROAT:negative for rhinorrhea, tinnitus, or dysphagia CARDIOVASCULAR: denies chest pain or palpitations PULMONARY: Negative. Denies shortness of breath GASTROINTESTINAL: constipation (improving) GENITOURINARY: Negative for dysuria MUSCULOSKELETAL: low back pain and bilateral knee OA NEUROLOGICAL: restless leg syndrome HEMATOLOGICAL: +anemia SKIN: +PICC PSYCHIATRIC: Unremarkable All other review of systems found to be negative. PHYSICAL EXAMINATION: VITAL SIGNS: Please see below. GENERAL: Pleasant and cooperative, no acute distress HEENT: PERRL. Extraocular movements intact. Clear conjunctiva CARDIOVASCULAR: Regular rate and rhythm. No murmurs, rubs, or gallops LUNGS: Clear to auscultation bilaterally. No wheezes. No rhonchi ABDOMEN: Soft, nontender, nondistended. Positive bowel sounds. Normal active bowel sounds NEUROLOGICAL: Alert and oriented times to self and place not time, Cranial nerves II through XII grossly intact. Sensation grossly intact. EXTREMITIES: 5\5 strength bilateral upper extremities. bilateral Ankle DF and EHL 5/5, however proximal muscle testing greatly limited by pain SKIN: +PICC, decubitus ulcer ASSESSMENT:72-year-old M with past medical history of CAD, AVR, CAD with CABG who presents with diskovertebral osteomyelitis in the setting of endocarditis. PLAN: 1. Rehab: PT/OT, assess for DME needs- LSO brace when out of bed for comfort, able to ambulate further 2. Neuro: pmh restless leg syndrome, continue home meds 3. Cardio: pmh CAD s/p AVR replacement with recent GUILLERMO suspicious for endocarditis continue IV Ceftriaxone and s/p Gentamicin, will need outpatient cardio f/u -continue beta-blockers and ASA 4. Endo: pmh DM off metformin, monitoring FS for hypoglycemia due to poor oral intake 5. ID: L1-L2 disko-vertebral osteomyeltis, blood cultures positive for Strep Mitis, per acute care hospital continue IV Ceftriaxone for 6 weeks (start date 10/16/18) and Gentamicin for 2 weeks (start date 10/26/18)to be followed by one year suppression dose of Omnicef- Dr. Alejandro consulted, Gentamicin discontinued will continue to follow-recs, appreciated -admission blood cultures negative 6. Pain: pmh chronic knee pain, now with severe discogenic pain with spasms- pain mildly improved today, will d/c long acting morphine, add oxycodone 5mg tid standing and continue oxycodone 10mg q4h prn, standing Tylenol, continue Lyrica, and low dose Diazepam prn for painful spams to be held for sedation 7. DVT ppx: will d/c heparin given anemia and borderline low platelets and obtain serial dopplers, continue TEDs, thus far studies negative for DVT 8. SKin: Balmex and turning q2h in bed 9. Resp: pmh COPD: continue home meds, continue Duonebs and monitor for PNA 10. Renal:stable, but worse Hand Stamper most likely from recent contrast Abdomen pelvis while on metformin, IVF ordered, Renal consulted, metformin stopped, and defer repeat CT with contrast for the future if clinical picture worsenes, otherwise follow CRP/ESR fo now per ID 11. Heme: Anemia of chronic disease, patient is Jehovas witness and cannot receive blood, however s/p Venofer and s/p Aranesp per Renal, recs appreciated 10. GI: patient constipated and poor appetite secondary to nausea, optimize laxatives, protonix for ppx 11. Dispo: 11/24/18, slowly progressing towards goals given pain, infection, and delirium Allergies Coded Allergies: Statins (Unverified Adverse Reaction, Unknown, MUSCLE PAINS, 10/31/18) Trazodone (Unverified Adverse Reaction, Unknown, ITCH, 10/31/18) Vital Signs Vital Signs Date Time Temp Pulse Resp B/P (MAP) Pulse Ox O2 Delivery O2 Flow Rate FiO2 11/08/18 10:07 18 Room Air 11/08/18 10:05 94 146/78 11/08/18 06:00 97.0 99 11/06/18 06:00 2.0 Laboratory Data CBC/BMP Laboratory Tests 11/08/18 08:52 Red Blood Count 2.67 L, Mean Corpuscular Volume 100.0 H, Mean Corpuscular Hemoglobin 30.3, Mean Corpuscular Hemoglobin Concent 30.3 L, Red Cell Distribution Width 16.2 H, Calcium Level 8.2 L Labs 24H Laboratory Tests 2 11/07/18 20:28: Bedside Glucose (Misc Panel) 97 11/08/18 06:47: Bedside Glucose (Misc Panel) 80L 11/08/18 08:52: Nucleated Red Blood Cells % (auto) 0.0, Anion Gap 8, Glomerular Filtration Rate 38.1L, Blood Urea Nitrogen 20H, Creatinine 1.86H, Sodium Level 140, Potassium Level 4.5, Chloride Level 107, Carbon Dioxide Level 25, Calcium Level 8.2L 11/08/18 11:40: Bedside Glucose (Misc Panel) 104 Microbiology Microbiology 11/02/18 Blood Culture - Final, Complete NO GROWTH AFTER 5 DAYS 11/01/18 Blood Culture - Final, Complete NO GROWTH AFTER 5 DAYS 10/31/18 Urine Culture - Final, Complete Current Medications Current Medications Current Medications Acetaminophen (Tylenol Tab) 1,000 mg TID PO Last administered on 11/08/18at 10:07; Start 10/31/18 at 16:00 Albuterol/ Ipratropium (Duoneb (Ipr 0.5mg/Alb 2.5mg)) 3 ml RBID NEB ; Start 11/01/18 at 08:00 Artificial Tears (Akwa Tears) 2 drop QID OU Last administered on 11/08/18at 10:04; Start 10/31/18 at 21:00 Ascorbic Acid (Vitamin C) 500 mg DAILY PO Last administered on 11/08/18at 10:05; Start 11/01/18 at 09:00 Aspirin (Ecotrin) 81 mg DAILY PO Last administered on 11/08/18at 10:05; Start 11/01/18 at 09:00 Baclofen (Lioresal) 5 mg TID PO Last administered on 11/08/18at 10:06; Start 11/03/18 at 16:00 Bisacodyl (Dulcolax Suppository) 10 mg DAILYPRN PRN [place] CONSTIPATION; Start 10/31/18 at 15:30 Bisacodyl (Dulcolax Tab) 5 mg DAILYPRN PRN PO CONSTIPATION; Start 10/31/18 at 15:30 Ceftriaxone Sodium 2 gm/ Dextrose 50 ml @ 100 mls/hr Q24H IV Last administered on 11/08/18at 10:03; Start 11/01/18 at 09:00 Coenzyme Q10 (Coenzyme Q10) 100 mg DAILY PO Last administered on 11/08/18at 10:04; Start 11/01/18 at 09:00; Stop 12/01/18 at 08:59 Darbepoetin Dioni (Aranesp) 100 mcg Th@09 SC Last administered on 11/06/18at 0 9:11; Start 11/06/18 at 09:00 Dextran/ Hydroxypropyl Methylcellul (Tears Naturale Free) 2 drop QID OU ; Start 10/31/18 at 17:00; Status Cancel Dextrose (Dextrose 50%) 25 ml ASDIRECTED PRN IV SEE LABEL COMMENTS; Start 10/31/18 at 15:15 Diazepam (Valium) 2 mg Q4H PRN PO spasm; Start 11/06/18 at 10:45 Diazepam (Valium) 2 mg TID PO Last administered on 11/05/18at 15:05; Start 11/04/18 at 16:00; Stop 11/06/18 at 10:35; Status DC Diazepam (Valium) 2.5 mg Q4H PRN PO SPASMS Last administered on 11/01/18at 19:13; Start 11/01/18 at 14:30; Stop 11/01/18 at 23:15; Status DC Diazepam (Valium) 2.5 mg Q6H PRN PO SPASMS Last administered on 11/01/18at 14:15; Start 11/01/18 at 14:00; Stop 11/01/18 at 14:24; Status DC Diazepam (Valium) 2.5 mg Q8HP PRN PO SPASMS Last administered on 10/31/18at 16:01; Start 10/31/18 at 14:45; Stop 10/31/18 at 16:19; Status DC Diazepam (Valium) 2.5 mg Q8HP PRN PO SPASMS Last administered on 11/01/18at 08:09; Start 10/31/18 at 21:00; Stop 11/01/18 at 13:59; Status DC Diazepam (Valium) 5 mg Q8HP PRN PO SPASMS; Start 10/31/18 at 16:15; Stop 10/31/18 at 20:55; Status DC Fluticasone Propionate (Flonase 0.05% Nasal Jackson) 2 spray DAILY NARES Last administered on 11/08/18at 10:08; Start 11/01/18 at 09:00 Gentamicin Sulfate 80 mg/IV Miscellaneous Supplies 100 ml @ 200 mls/hr Q12H IV Last administered on 11/02/18at 06:17; Start 10/31/18 at 18:00; Stop 11/02/18 at 08:56; Status DC Gentamicin Sulfate 80 mg/IV Miscellaneous Supplies 100 ml @ 200 mls/hr Q18H IV Last administered on 11/03/18at 00:02; Start 11/03/18 at 00:00; Stop 11/03/18 at 16:59; Status DC Glucagon (Glucagon) 1 mg ASDIRECTED PRN SC SEE LABEL COMMENTS; Start 10/31/18 at 15:15 Glucose (Glucose) 16 GM ASDIRECTED PRN PO SEE LABEL COMMENTS; Start 10/31/18 at 15:15 Heparin Sodium (Heparin (Flush)) 200 units ASDIRECTED PRN IV SEE LABEL COMMENTS Last administered on 11/02/18at 09:48; Start 10/31/18 at 16:30 Heparin Sodium (Heparin (Flush)) 200 units PICC IV Last administered on 11/04/18at 05:43; Start 10/31/18 at 18:00 Heparin Sodium (Porcine) (Heparin) 5,000 units Q12H SC Last administered on 11/04/18at 08:35; Start 10/31/18 at 21:00; Stop 11/04/18 at 18:41; Status DC Home Med (Med Rec Complete!) ASDIRECTED XX ; Start 10/31/18 at 14:45; Stop 10/31/18 at 14:45; Status DC Insulin Human Lispro (HumaLOG INSULIN) SEE PROTOCOL TABLE QHS SC ; Start 10/31/18 at 21:00; Stop 11/06/18 at 21:44; Status DC Lidocaine (Lidoderm Patch) 1 patch DAILY TD Last administered on 11/08/18at 10:04; Start 11/01/18 at 09:00 Magnesium Gluconate (Magnesium Gluconate) 500 mg BID PO Last administered on 11/08/18at 10:04; Start 10/31/18 at 21:00 Magnesium Hydroxide (Milk Of Magnesia) 30 ml DAILYPRN PRN PO CONSTIPATION Last administered on 11/02/18 21:41; Start 10/31/18 at 15:30 Metformin HCl (Glucophage) 500 mg DAILY@08 PO Last administered on 11/04/18 08:36; Start 11/01/18 at 08:00; Stop 11/04/18 at 11:08; Status DC Metoprolol Succinate (TopROL XL) 25 mg DAILY PO Last administered on 11/08/18 10:05; Start 11/01/18 at 09:00 Mirtazapine (Remeron) 30 mg QHS PO Last administered on 11/07/18 21:54; Start 10/31/18 at 21:00 Miscellaneous (Unresolved Patient Own Med Order) SEE LABEL COMMENTS DAILY XX ; Start 10/31/18 at 09:00; Stop 11/06/18 at 18:23; Status DC Morphine Sulfate (Ms Contin) 15 mg BID PO Last administered on 11/04/18 20:47; Start 10/31/18 at 17:00; Stop 11/06/18 at 10:35; Status DC Nitroglycerin (Nitrostat (1/ 150)) 0.4 mg Q5MP PRN SL CHEST PAIN; Start 10/31/18 at 14:45 Non-Formulary Medication ( See Comment Field Below ) REMOVE LIDODERM PATCH DAILY@21 XX Last administered on 11/07/18at 21:00; Start 10/31/18 at 21:00 Ondansetron HCl (Zofran) 4 mg AC PO Last administered on 11/07/18 17:30; Start 10/31/18 at 17:30 Ondansetron HCl (Zofran) 4 mg Q6HP PRN PO NAUSEA Last administered on 11/06/18 15:21; Start 10/31/18 at 15:30 Oxycodone HCl (Roxicodone, Oxyir) 5 mg Q4HP PRN PO PAIN 4-7 Last administered on 11/04/18 05:47; Start 10/31/18 at 14:45; Stop 11/06/18 at 10:35; Status DC Oxycodone HCl (Roxicodone, Oxyir) 5 mg TID PO Last administered on 11/08/18at 10:07; Start 11/06/18 at 16:00 Oxycodone HCl (Roxicodone, Oxyir) 10 mg Q4HP PRN PO SEVERE PAIN (PS 8-10) Last administered on 11/07/18 06:35; Start 10/31/18 at 14:45 Pantoprazole Sodium (Protonix) 40 mg DAILY PO Last administered on 11/08/18 10:05; Start 11/01/18 at 09:00 Patient Own Medication (Patient'S Own Med) TRINTELLIX 20mg po daily DAILY PO Last administered on 11/08/18 10:03; Start 11/01/18 at 09:00 Patient Own Medication (Patient'S Own Med) Testosterone 5gram 1% gel; AP... DAILY TOP Last administered on 11/08/18 10:08; Start 11/07/18 at 09:00 Pramipexole Dihydrochloride (Mirapex) 2 mg QHS PO Last administered on 11/07/18 21:53; Start 10/31/18 at 21:00 Pregabalin (Lyrica) 75 mg BID PO ; Start 10/31/18 at 21:00; Stop 10/31/18 at 21:00; Status DC Pregabalin (Lyrica) 100 mg BID PO Last administered on 11/08/18 10:05; Start 10/31/18 at 21:00 Ranolazine (Ranexa) 500 mg BID PO Last administered on 11/08/18 10:04; Start 10/31/18 at 21:00 Salmeterol Xinafoate/ Fluticasone (Advair Hfa 115/ 21) 2 puff BID INH Last administered on 11/07/18 20:16; Start 10/31/18 at 21:00 Senna/Docusate Sodium (Senokot S) 1 tab BID PO Last administered on 11/08/18 10:05; Start 10/31/18 at 21:00 Sodium Chloride 1,000 ml @ 40 mls/hr Q24H IV Last administered on 11/07/18 13:55; Start 11/04/18 at 10:30 Sodium Chloride (Saline Lock Flush) 10 ml ASDIRECTED PRN IV SEE LABEL COMMENTS Last administered on 11/02/18 09:48; Start 1/18/19 at 16:30 Sodium Chloride (Saline Lock Flush) 10 ml PICC IV Last administered on 11/04/18at 05:43; Start 10/31/18 at 18:00 Vitamin D (Vitamin D) 1,000 units DAILY PO Last administered on 11/08/18at 10:05; Start 11/01/18 at 09:00 SOILA FREITAS MD Nov 08, 2018 12:20
[2018-11-08] MEDS: D5W/0.9% SODIUM CHLORIDE 1,000 ML IV SCH (13:35)
[2018-11-08] MEDS: oxyCODONE 5MG TAB PO PRN (13:36)
[2018-11-08 14:00] VITALS: BP 138/66
[2018-11-08] MEDS ORDERED: SLF 3 ML SYR IV PRN (19:45)
[2018-11-08] MEDS: PRAMIPEXOLE 1 MG TAB PO SCH (20:27)
[2018-11-08] MEDS: MIRTAZAPINE 15 MG TAB PO SCH (20:28)
[2018-11-08] MEDS: **NOTE PATIENT COMMENT** MISC XX SCH (20:30)
--- NOTE | 2018-11-08 20:52 | IPN ---
DATE: 11/08/2018 Mr. Ward is seen this morning on his bedside. He is lying in the bed and reports severe pain in his back. He just finished his physical therapy. He was admitted for rehabilitation and has known history of spinal discitis and osteomyelitis. He is being treated with antibiotics and analgesics. The patient also developed acute renal failure and is being followed by nephrology service. The patient denies any dyspnea, chest pain, leg edema, but does have a decreased oral intake. He is not feeling very well at the time of my visit. PHYSICAL EXAMINATION: Temperature 97.6 degrees Fahrenheit, heart rate 88 per minute, respiratory rate 18 per minute, blood pressure 138/66 mm of mercury, and oxygen saturation 98% on room air. His head is atraumatic. Neck is supple and without jugular venous distention (JVD) or thyroid enlargement. There is no oral thrush or ulcers. Heart sounds are regular and lungs clear to auscultation. Abdomen is soft and bowel sounds are present. There is no palpable organomegaly. Extremities have no cyanosis or clubbing. Neurologically, he is awake and alert at his baseline mentation. Today's labs show sodium 140, potassium 4.5, CO2 of 25, BUN 20, and creatinine 1.86. Glucose 127 and calcium 8.2. WBC count is 5.8, hemoglobin 8.1 and hematocrit 26.7. Platelets 152. PROBLEMS: 1. Acute kidney injury, possibly superimposed on chronic kidney disease. He had mild chronic kidney disease with creatinine of 1.18 on November 01. His creatinine peaked at 2.12 and now seems to be gradually improving. He is receiving intravenous (IV) fluid, only 40 per hour. His oral intake is still low, and I am going to increase his IV fluid to 75 mL per hour. Kidney function will be rechecked tomorrow morning. 2. Anemia, most likely related to ongoing osteomyelitis/discitis and acute kidney injury. He has been started on Aranesp 100 mcg once a week, but he is likely to require a transfusion. Complete blood count (CBC) will be checked tomorrow morning and consider transfusing him if needed. 3. Discitis and osteomyelitis in lumbar spine. The patient is currently on ceftriaxone and remains afebrile. He does report significant pain in his back.
[2018-11-08 22:00] VITALS: BP 148/82
[2018-11-08] MEDS: SLF 3 ML SYR IV SCH (22:33)
[2018-11-09] MEDS: D5W/0.9% SODIUM CHLORIDE 1,000 ML IV SCH ×2 (06:07→20:19)
[2018-11-09] MEDS: SLF 3 ML SYR IV SCH ×4 (06:07→23:24)
[2018-11-09 06:08] VITALS: BP 147/65
[2018-11-09] MEDS: IPRATROPIUM 0.5MG/ALBUTEROL 2.5MG INH SOL UD 3ML (DUONEB)(J7620) NEB SCH ×2 (08:00→20:00)
[2018-11-09] MEDS: TRINTELLIX PO SCH (08:01)
[2018-11-09] MEDS: TESTOSTERONE 1% TOP SCH (08:02)
[2018-11-09] MEDS: PREGABALIN 100 MG CAP (LYRICA) PO SCH ×2 (08:02→20:23)
[2018-11-09] MEDS: PANTOPRAZOLE 40MG TAB (PROTONIX) PO SCH (08:02)
[2018-11-09] MEDS: CO-ENZYME Q10 50 MG CAP PO SCH (08:03)
[2018-11-09] MEDS: RANOLAZINE 500 MG ER TAB PO SCH ×2 (08:03→20:23)
[2018-11-09] MEDS: oxyCODONE 5MG TAB PO SCH ×3 (08:03→20:26)
[2018-11-09] MEDS: ASCORBIC ACID 500 MG TAB PO SCH (08:03)
[2018-11-09] MEDS: VITAMIN D 1,000 INTERNATIONAL UNITS TABLET PO SCH (08:03)
[2018-11-09] MEDS: MAGNESIUM GLUCONATE 500 MG TAB PO SCH ×2 (08:03→20:24)
[2018-11-09] MEDS: BACLOFEN 5MG PER 1/2 TABLET PO SCH ×3 (08:03→20:23)
[2018-11-09] MEDS: SENOKOT S TAB PO SCH ×2 (08:04→20:24)
[2018-11-09] MEDS: METOPROLOL SUCC *XL* 25MG TAB (TopROL *XL*) PO SCH (08:04)
[2018-11-09] MEDS: ACETAMINOPHEN 500 MG TAB PO SCH ×3 (08:04→20:25)
[2018-11-09] MEDS: ONDANSETRON 4 MG TAB (S0181) PO SCH ×3 (08:04→16:27)
[2018-11-09] MEDS: ASPIRIN 81 MG ENTERIC TAB PO SCH (08:04)
[2018-11-09] MEDS: LIDOCAINE 5% (LIDODERM) PATCH TD SCH (08:05)
[2018-11-09] MEDS: FLUTICASONE PROP 0.05% NASAL SPRAY 16 GM (FLONASE) NARES SCH (08:05)
[2018-11-09] MEDS: cefTRIAXone SOD 2 GM in D5W MINI-BAG PLUS 50 ML IV SCH (08:05)
[2018-11-09] MEDS: POLYVINYL ALCOHOL OPHTH SOLN 15 ML(LIQUITEARS) OU SCH ×4 (08:05→20:27)
[2018-11-09] MEDS: ADVAIR HFA 115/21MCG INHALER INH SCH ×2 (08:37→20:52)
[2018-11-09 11:16] LABS: HEMATOCRIT 24.5 % (42.0-52.0); HEMOGLOBIN 7.6 g/dl (13.5-17.5); MEAN CORPUSCULAR HEMOGLOBIN 30.9 pg (27.0-33.0); MEAN CORPUSCULAR VOLUME 99.6 fl (80.0-96.0); PLATELET COUNT, AUTOMATED 154 10^3/uL (150-450); RED BLOOD COUNT 2.46 10^6/uL (4.30-6.10); WHITE BLOOD COUNT 4.3 10^3/uL (4.0-10.0)
[2018-11-09 11:39] LABS: ALBUMIN 2.3 GM/DL (3.2-5.2); CALCIUM LEVEL 8.4 MG/DL (8.8-10.2); CREATININE FOR GFR 1.74 MG/DL (0.70-1.30); GLOMERULAR FILTRATION RATE 41.1 (>42); PHOSPHORUS LEVEL 3.1 MG/DL (2.5-4.9); POTASSIUM SERUM 4.2 MEQ/L (3.5-5.1)
[2018-11-09] MEDS: oxyCODONE 5MG TAB PO PRN (12:53)
[2018-11-09 14:12] VITALS: BP 144/62
[2018-11-09 20:00] VITALS: BP 153/67
[2018-11-09] MEDS: MIRTAZAPINE 15 MG TAB PO SCH (20:23)
[2018-11-09] MEDS: PRAMIPEXOLE 1 MG TAB PO SCH (20:24)
[2018-11-09] MEDS: **NOTE PATIENT COMMENT** MISC XX SCH (20:27)
[2018-11-10] MEDS: D5W/0.9% SODIUM CHLORIDE 1,000 ML IV SCH ×2 (05:01→09:57)
[2018-11-10] MEDS: oxyCODONE 5MG TAB PO PRN ×2 (05:20→11:01)
--- NOTE | 2018-11-10 05:25 | IPN ---
DATE OF VISIT: 11/09/2018 HISTORY OF PRESENT ILLNESS: Mr. Ward is seen this morning on his bedside. He is sitting in the reclining chair today and feels better. His back pain is better compared to yesterday. He denies any nausea, vomiting, dyspnea or chest pain. His oral intake has been not great and he is receiving intravenous (IV) fluid which was increased to 75 mL per hour yesterday. The patient is currently being treated for diskitis and osteomyelitis of his lumbar vertebrae and he is also receiving acute rehabilitation. He had developed acute renal failure which is gradually improving but he also has severe anemia and he is a Jehovah Witness so he does not wish to get transfused. He was given intravenous iron and is also receiving Aranesp once a week. PHYSICAL EXAMINATION: VITAL SIGNS: His temperature is 98.3 degrees Fahrenheit, heart rate 78 per minute and respiratory rate 18 per minute. Blood pressure 147/65 mmHg and oxygen saturation 99% on room air. Intake and output records from yesterday showed total intake 1600 and output 700mL. HEENT: His head is head is atraumatic. He is pale looking but not in any acute distress. NECK: Neck is supple and without jugular venous distention (JVD) or thyroid enlargement. Trachea is midline. HEART: Heart sounds are regular. LUNGS: Clear to auscultation bilaterally. ABDOMEN: Soft and nontender and bowel sounds are normal. EXTREMITIES: Extremities have no cyanosis or clubbing. NEUROLOGIC: Neurologically he is awake, alert and oriented times three. LABORATORY DATA: Today's labs show WBC count 4.3, hemoglobin 7.6 and hematocrit 24.5. Platelets 154. Sodium 143, potassium 4.2, CO2 23, BUN 17 and creatinine 1.74. PROBLEMS: 1. Acute kidney injury, possible superimposed on chronic kidney disease. Kidney function is improving nicely and we will continue intravenous fluids for another 24 hours in view of his decreased oral intake. Renal profile will be checked again tomorrow morning. 2. Anemia. Most likely this is multifactorial. The patient has acute renal failure and acute infection with diskitis and osteomyelitis. He also had iron deficiency and has already received intravenous iron. I am going to hold off on further dosing of iron as his ferritin level was about 1000 just last week. We will recheck his iron studies and then consider further dosing of iron. At this point we will continue with Aranesp once a week. 3. Diskitis and osteomyelitis. The patient remains on ceftriaxone and he is currently afebrile with no leukocytosis. He is also receiving analgesics and rehabilitation. He is not suitable candidate for nonsteroidal antiinflammatory drugs (NSAID) use.
[2018-11-10 06:00] VITALS: BP 142/64
[2018-11-10 06:28] LABS: HEMATOCRIT 24.1 % (42.0-52.0); HEMOGLOBIN 7.5 g/dl (13.5-17.5); MEAN CORPUSCULAR HEMOGLOBIN 30.7 pg (27.0-33.0); MEAN CORPUSCULAR HGB CONC 31.1 g/dl (32.0-36.5); MEAN CORPUSCULAR VOLUME 98.8 fl (80.0-96.0); PLATELET COUNT, AUTOMATED 133 10^3/uL (150-450); RED BLOOD COUNT 2.44 10^6/uL (4.30-6.10); WHITE BLOOD COUNT 4.7 10^3/uL (4.0-10.0)
[2018-11-10 06:57] LABS: ALBUMIN 2.3 GM/DL (3.2-5.2); CALCIUM LEVEL 8.5 MG/DL (8.8-10.2); CREATININE FOR GFR 1.63 MG/DL (0.70-1.30); GLOMERULAR FILTRATION RATE 44.4 (>42); PHOSPHORUS LEVEL 3.3 MG/DL (2.5-4.9); POTASSIUM SERUM 4.1 MEQ/L (3.5-5.1)
[2018-11-10] MEDS: IPRATROPIUM 0.5MG/ALBUTEROL 2.5MG INH SOL UD 3ML (DUONEB)(J7620) NEB SCH ×2 (08:00→20:00)
[2018-11-10] MEDS: RANOLAZINE 500 MG ER TAB PO SCH ×2 (08:20→21:05)
[2018-11-10] MEDS: ASCORBIC ACID 500 MG TAB PO SCH (08:20)
[2018-11-10] MEDS: oxyCODONE 5MG TAB PO SCH ×3 (08:20→21:05)
[2018-11-10] MEDS: BACLOFEN 5MG PER 1/2 TABLET PO SCH ×3 (08:20→21:05)
[2018-11-10] MEDS: SENOKOT S TAB PO SCH ×2 (08:20→21:04)
[2018-11-10] MEDS: MAGNESIUM GLUCONATE 500 MG TAB PO SCH ×2 (08:20→21:04)
[2018-11-10] MEDS: PANTOPRAZOLE 40MG TAB (PROTONIX) PO SCH (08:21)
[2018-11-10] MEDS: ACETAMINOPHEN 500 MG TAB PO SCH ×3 (08:21→21:05)
[2018-11-10] MEDS: PREGABALIN 100 MG CAP (LYRICA) PO SCH ×2 (08:21→21:04)
[2018-11-10] MEDS: METOPROLOL SUCC *XL* 25MG TAB (TopROL *XL*) PO SCH (08:21)
[2018-11-10] MEDS: ONDANSETRON 4 MG TAB (S0181) PO SCH ×3 (08:21→17:04)
[2018-11-10] MEDS: cefTRIAXone SOD 2 GM in D5W MINI-BAG PLUS 50 ML IV SCH (08:21)
[2018-11-10] MEDS: ASPIRIN 81 MG ENTERIC TAB PO SCH (08:21)
[2018-11-10] MEDS: CO-ENZYME Q10 50 MG CAP PO SCH (08:21)
[2018-11-10] MEDS: VITAMIN D 1,000 INTERNATIONAL UNITS TABLET PO SCH (08:21)
[2018-11-10] MEDS: TRINTELLIX PO SCH (08:22)
[2018-11-10] MEDS: LIDOCAINE 5% (LIDODERM) PATCH TD SCH (08:22)
[2018-11-10] MEDS: TESTOSTERONE 1% TOP SCH (08:23)
[2018-11-10] MEDS: FLUTICASONE PROP 0.05% NASAL SPRAY 16 GM (FLONASE) NARES SCH (08:23)
[2018-11-10] MEDS: POLYVINYL ALCOHOL OPHTH SOLN 15 ML(LIQUITEARS) OU SCH ×4 (08:23→21:15)
[2018-11-10] MEDS: ADVAIR HFA 115/21MCG INHALER INH SCH ×2 (10:50→21:08)
--- NOTE | 2018-11-10 12:22 | IPNPDOC ---
Date Seen The patient was seen on 11/10/18. Progress Note Progress Note HPI: 72M who was transferred to [facility] from [facility] for low back pain with fevers that began 6 days prior to admission. An ID consult was ordered, he was found to have Strep Mitis bacteremia from a October 14 and blood culture taken at [place] for which he was placed on Ceftriaxone and Gentamicin on 10-16-18 for discitis vs osteomyelitis in the setting of a possibly infected bi-prosthetic aortic valve with endocarditis. A GUILLERMO was performed showing, Moderate perivalvular aortic regurgitation, mobile density contiguous with aortic valve,cannot rule out vegetation. Repeat blood cultures on October 20 and were negative. Thoracolumbar CT on 10-18-18 showed lesion suspicious for diskovertebral osteomyelitis at L1-L2. ID recommended a 6 week course of IV antibiotics followed by Omnicef for 1 year for suppression. No cardiac or orthopedic surgery was recommended and PICC line placed. He developed a decubitus ulcer during his stay due to immobility. Patient had worsening back pain with spasms limiting his ability to ambulate and perform ADLs and deemed medically appropriate for transfer to [facility], Dr Pennington, on 10-31-18 with a diagnosis of Strep Mitis bacteremia with bio- prosthetic AVR endocarditis and L1-L2 diskovertebral osteomyelitis. ID has been consulted to assist with antibiotic recommendations. Nephrology following to assist with anemia/ANA. Pt with no voiced concerns at this time. Denies any fevers, chills, headache, Chest Pain, Shortness of breath, cough, palpitations, abdominal pain, N/V/D or changes in bowel or bladder habits. PAST MEDICAL HISTORY: NIDDM. HTN Coronary artery disease, status post CABG, status post TAVR 05/31. COPD. depression PAST SURGICAL HISTORY: TAVR replaced May 2018, first placed 2009 Right hip septic joint 1.5 years ago, s/p YANET January 2018, s/p pacemaker PE: GEN: 72yoM, appears stated age. No acute distress. Alert and oriented to person but is not oriented to time/place. HEENT: Normocephalic, atraumatic. Sclera are nonicteric. Conjunctiva without injection. No facial asymmetry. Moist mucous membranes. CHEST: Regular rate and rhythm, +S1, +S2 LUNGS: Clear to auscultation bilaterally. No wheezes, rales, or rhonchi. ABD: Round, soft, non-tender, non-distended. +Bowel sounds present. No rebound or guarding. EXT: No lower extremity edema appreciated. SKIN: Tira, dry, warm. No rashes. NEURO: No focal deficits appreciated. UC negative. U/S LEs 10/31/18, 11/05/[address] A/P done related to constipation 11/02/18. A&P: 72M pmh DM, HTN, PM, AVR (replaced in May 2018), CAD with CABG, JR, right hip periprosthetic infection, who was transferred to [facility] from [facility] for low back pain with fevers that began 6 days prior to admission. An ID consult was ordered, he was found to have Strep Mitis bacteremia from a October 14 and blood culture taken at [place] for which he was placed on Ceftriaxone and Gentamicin on 10-16-18 for discitis vs osteomyelitis in the setting of a possibly infected bi-prosthetic aortic valve with endocarditis. A GUILLERMO was performed showing, Moderate perivalvular aortic regurgitation, mobile density contiguous with aortic valve,cannot rule out vegetation. Repeat blood cultures on October 20 and were negative. Thoracolumbar CT on 10-18-18 showed lesion suspicious for diskovertebral osteomyelitis at L1-L2. ID recommended a 6 week course of IV antibiotics followed by Omnicef for 1 year for suppression. No cardiac or orthopedic surgery was recommended and PICC line placed. He developed a decubitus ulcer during his stay due to immobility. Patient had worsening back pain with spasms limiting his ability to ambulate and perform ADLs and deemed medically appropriate for transfer to [facility], Dr Pennington, on 10-31-18 with a diagnosis of Strep Mitis bacteremia with bio- prosthetic AVR endocarditis and L1-L2 diskovertebral osteomyelitis. 1. Discitis/osteomyelitis of L1 to L2, Streptococcus mitis bacteremia/Endocarditis. Pt is afebrile. WBC 4.7 Mgmt as per ARU Pain control as per ARU Bowel care as per ARU PT/OT/ST as per ARU DVT prophylaxis as per ARU, SQ Heparin. On IV Rocephin as per ID Shirlene. Per recommendation, the antibiotic regimen for patient was six week of Rocephin along with two weeks of gentamicin and then follow by Omnicef for one year. Gent d/cd 11/03/18. Continue Mgmt as per ID. ID consulted, Dr Alejandro. Appreciate recommendations. 11/07/18 ESR 128, CRP 13.80. Pt unable to have MRI related to pacemaker. Blood culture x2 11/01 neg. Urine culture neg. Continue to monitor. 2. Coronary artery disease/Status post coronary artery bypass graft (CABG) and status post transcatheter aortic valve replacement (TAVR). Continue aspirin/Ranexa/Toprol XL. Outpt F/U with cardiology. 3. History of COPD. Duoneb Advair 4. Hypertension. Toprol XL 5. DM. CC diet. HOLD Metformin Monitor FSBS. 6. Depression Trintellix. 7. Anemia. B12, folate, Fe studies. FOB pending. Hgb noted to be 7.5. Pt is Jehovah Witness and declines transfusion. Nephrology consulted and following, Kiet/Jillian ordered. Monitor. 8. ANA. SCr noted to be 1.63 S/P IVF Continue to hold Metformin. S/P IV contrast with CT 11/02/18. Nephrology following. Avoid nephrotoxins. Monitor 9. Hyponatremia. Resolved. Monitor. VS, I&O, 24H, Fishbone Vital Signs/I&O Vital Signs Date Time Temp Pulse Resp B/P (MAP) Pulse Ox O2 Delivery O2 Flow Rate FiO2 11/10/18 11:31 16 11/10/18 08:21 79 142/64 11/10/18 06:00 98 Room Air 11/10/18 06:00 98.7 11/06/18 06:00 2.0 I&O- Last 24 Hours up to 6 AM 11/10/18 06:00 Intake Total 1810 ml Output Total 650 ml Balance 1160 ml Laboratory Data 24H LABS Laboratory Tests 2 11/09/18 16:30: Bedside Glucose (Misc Panel) 112H 11/09/18 19:43: Bedside Glucose (Misc Panel) 122H 11/10/18 06:14: Nucleated Red Blood Cells % (auto) 0.0, Blood Urea Nitrogen 16, Creatinine 1.63H, Sodium Level 145, Potassium Level 4.1, Chloride Level 112H, Carbon Dioxide Level 23, Anion Gap 10, Glomerular Filtration Rate 44.4, Calcium Level 8.5L, Phosphorus Level 3.3, Iron Level 40L, Ferritin 706H, Albumin 2.3L CBC/BMP Laboratory Tests 11/10/18 06:14 Red Blood Count 2.44 L, Mean Corpuscular Volume 98.8 H, Mean Corpuscular Hemoglobin 30.7, Mean Corpuscular Hemoglobin Concent 31.1 L, Red Cell Distribution Width 17.1 H, Anion Gap 10 Microbiology Microbiology 11/02/18 Blood Culture - Final, Complete NO GROWTH AFTER 5 DAYS 11/01/18 Blood Culture - Final, Complete NO GROWTH AFTER 5 DAYS 10/31/18 Urine Culture - Final, Complete Yanci Cortes Nov 10, 2018 12:22
[2018-11-10] MEDS: SLF 3 ML SYR IV SCH ×2 (13:57→22:00)
[2018-11-10 14:00] VITALS: BP 151/67
--- NOTE | 2018-11-10 15:32 | IPNPDOC ---
PM&R Progress Note DATE OF SERVICE: Nov 10, 2018 [facility]her Progress Note Subjective: Patient seen lying in bed comfortably, reporting fewer and less intense muscles spasms. REVIEW OF SYSTEMS: The following is a completed review of systems and has been reviewed. Review of systems otherwise unremarkable. PAIN: Patient self reports severe low back pain with spasms EYES: Negative for recent vision changes EARS, NOSE, & THROAT:negative for rhinorrhea, tinnitus, or dysphagia CARDIOVASCULAR: denies chest pain or palpitations PULMONARY: Negative. Denies shortness of breath GASTROINTESTINAL: constipation (improving) GENITOURINARY: Negative for dysuria MUSCULOSKELETAL: low back pain and bilateral knee OA NEUROLOGICAL: restless leg syndrome HEMATOLOGICAL: +anemia SKIN: +PICC PSYCHIATRIC: Unremarkable All other review of systems found to be negative. PHYSICAL EXAMINATION: VITAL SIGNS: Please see below. GENERAL: Pleasant and cooperative, no acute distress HEENT: PERRL. Extraocular movements intact. Clear conjunctiva CARDIOVASCULAR: Regular rate and rhythm. No murmurs, rubs, or gallops LUNGS: Clear to auscultation bilaterally. No wheezes. No rhonchi ABDOMEN: Soft, nontender, nondistended. Positive bowel sounds. Normal active marisa wel sounds NEUROLOGICAL: Alert and oriented times to self and place not time, Cranial nerves II through XII grossly intact. Sensation grossly intact. EXTREMITIES: 5\5 strength bilateral upper extremities. bilateral Ankle DF and EHL 5/5, however proximal muscle testing greatly limited by pain SKIN: +PICC, decubitus ulcer ASSESSMENT:72-year-old M with past medical history of CAD, AVR, CAD with CABG who presents with diskovertebral osteomyelitis in the setting of endocarditis. PLAN: 1. Rehab: PT/OT, assess for DME needs- LSO brace when out of bed for comfort, able to ambulate further with RW 2. Neuro: pmh restless leg syndrome, continue home meds 3. Cardio: pmh CAD s/p AVR replacement with recent GUILLERMO suspicious for endocarditis continue IV Ceftriaxone and s/p Gentamicin, will need outpatient cardio f/u -continue beta-blockers and ASA 4. Endo: pmh DM off metformin, monitoring FS for hypoglycemia due to poor oral intake 5. ID: L1-L2 disko-vertebral osteomyeltis, blood cultures positive for Strep Mitis, per acute care hospital continue IV Ceftriaxone for 6 weeks (start date ) and Gentamicin for 2 weeks (start date 10/26/18)to be followed by one year suppression dose of Omnicef- Dr. Alejandro consulted, Gentamicin discontinued will continue to follow-recs, appreciated -admission blood cultures negative 6. Pain: pmh chronic knee pain, now with severe discogenic pain with spasms- pain mildly improved today, will d/c long acting morphine, add oxycodone 5mg tid standing and continue oxycodone 10mg q4h prn, standing Tylenol, continue Lyrica, and low dose Diazepam prn for painful spams to be held for sedation 7. DVT ppx: will d/c heparin given anemia and borderline low platelets and obtain serial dopplers, continue TEDs, thus far studies negative for DVT 8. SKin: Balmex and turning q2h in bed 9. Resp: pmh COPD: continue home meds, continue Duonebs and monitor for PNA 10. 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 Heme: Anemia of chronic disease, patient is Jehovas witness and cannot receive blood, however s/p Venofer and s/p Aranesp per Renal, recs appreciated 10. GIppx: optimize laxatives, protonix for ppx 11. Dispo: 11/24/18, slowly progressing towards goals given pain and delirium, however starting to improve Allergies Coded Allergies: Statins (Unverified Adverse Reaction, Unknown, MUSCLE PAINS, 10/31/18) Trazodone (Unverified Adverse Reaction, Unknown, ITCH, 10/31/18) Vital Signs Vital Signs Date Time Temp Pulse Resp B/P (MAP) Pulse Ox O2 Delivery O2 Flow Rate FiO2 11/10/18 11:31 16 11/10/18 08:21 79 142/64 11/10/18 06:00 98 Room Air 11/10/18 06:00 98.7 11/06/18 06:00 2.0 Laboratory Data CBC/BMP Laboratory Tests 11/10/18 06:14 Red Blood Count 2.44 L, Mean Corpuscular Volume 98.8 H, Mean Corpuscular Hemoglobin 30.7, Mean Corpuscular Hemoglobin Concent 31.1 L, Red Cell Distribution Width 17.1 H, Anion Gap 10 Labs 24H Laboratory Tests 2 11/09/18 16:30: Bedside Glucose (Misc Panel) 112H 11/09/18 19:43: Bedside Glucose (Misc Panel) 122H 11/10/18 06:14: Nucleated Red Blood Cells % (auto) 0.0, Blood Urea Nitrogen 16, Creatinine 1.63H, Sodium Level 145, Potassium Level 4.1, Chloride Level 112H, Carbon Dioxide Level 23, Anion Gap 10, Glomerular Filtration Rate 44.4, Calcium Level 8.5L, Phosphorus Level 3.3, Iron Level 40L, Ferritin 706H, Albumin 2.3L 11/10/18 11:47: Bedside Glucose (Misc Panel) 114H Microbiology Microbiology 11/02/18 Blood Culture - Final, Complete NO GROWTH AFTER 5 DAYS 11/01/18 Blood Culture - Final, Complete NO GROWTH AFTER 5 DAYS 10/31/18 Urine Culture - Final, Complete Current Medications Current Medications Current Medications Acetaminophen (Tylenol Tab) 1,000 mg TID PO Last administered on 11/10/18at 0 8:21; Start 10/31/18 at 16:00 Albuterol/ Ipratropium (Duoneb (Ipr 0.5mg/Alb 2.5mg)) 3 ml RBID NEB ; Start 11/01/18 at 08:00 Artificial Tears ([place] Tears) 2 drop QID OU Last administered on 11/10/18at 12:07; Start 10/31/18 at 21:00 Ascorbic Acid (Vitamin C) 500 mg DAILY PO Last administered on 11/10/18at 08:20; Start 11/01/18 at 09:00 Aspirin (Ecotrin) 81 mg DAILY PO Last administered on 11/10/18at 08:21; Start 11/01/18 at 09:00 Baclofen (Lioresal) 5 mg TID PO Last administered on 11/10/18at 08:20; Start 11/03/18 at 16:00 Bisacodyl (Dulcolax Suppository) 10 mg DAILYPRN PRN [place] CONSTIPATION; Start 10/31/18 at 15:30 Bisacodyl (Dulcolax Tab) 5 mg DAILYPRN PRN PO CONSTIPATION; Start 10/31/18 at 15:30 Ceftriaxone Sodium 2 gm/ Dextrose 50 ml @ 100 mls/hr Q24H IV Last administered on 11/10/18at 08:21; Start 11/01/18 at 09:00 Coenzyme Q10 (Coenzyme Q10) 100 mg DAILY PO Last administered on 11/10/18at 08:21; Start 11/01/18 at 09:00; Stop 12/01/18 at 08:59 Darbepoetin Dioni (Aranesp) 100 mcg Th@09 SC Last administered on 11/06/18at 09:11; Start 11/06/18 at 09:00 Dextran/ Hydroxypropyl Methylcellul (Tears Naturale Free) 2 drop QID OU ; Start 10/31/18 at 17:00; Status Cancel Dextrose (Dextrose 50%) 25 ml ASDIRECTED PRN IV SEE LABEL COMMENTS; Start 10/31/18 at 15:15 Dextrose/Sodium Chloride 1,000 ml @ 75 mls/hr [id number] IV Last administered on 11/10/18at 09:57; Start 11/08/18 at 12:30; Stop 11/10/18 at 10:40; Status DC Diazepam (Valium) 2 mg Q4H PRN PO spasm; Start 11/06/18 at 10:45 Diazepam (Valium) 2 mg TID PO Last administered on 11/05/18at 15:05; Start 11/04/18 at 16:00; Stop 11/06/18 at 10:35; Status DC Diazepam (Valium) 2.5 mg Q4H PRN PO SPASMS Last administered on 11/01/18at 19:13; Start 11/01/18 at 14:30; Stop 11/01/18 at 23:15; Status DC Diazepam (Valium) 2.5 mg Q6H PRN PO SPASMS Last administered on 11/01/18at 14:15; Start 11/01/18 at 14:00; Stop 11/01/18 at 14:24; Status DC Diazepam (Valium) 2.5 mg Q8HP PRN PO SPASMS Last administered on 10/31/18at 16:01; Start 10/31/18 at 14:45; Stop 10/31/18 at 16:19; Status DC Diazepam (Valium) 2.5 mg Q8HP PRN PO SPASMS Last administered on 11/01/18at 08:09; Start 10/31/18 at 21:00; Stop 11/01/18 at 13:59; Status DC Diazepam (Valium) 5 mg Q8HP PRN PO SPASMS; Start 10/31/18 at 16:15; Stop 10/31/18 at 20:55; Status DC Fluticasone Propionate (Flonase 0.05% Nasal [place]) 2 spray DAILY NARES Last administered on 11/10/18at 08:23; Start 11/01/18 at 09:00 Gentamicin Sulfate 80 mg/IV Miscellaneous Supplies 100 ml @ 200 mls/hr Q12H IV Last administered on 11/02/18at 06:17; Start 10/31/18 at 18:00; Stop 11/02/18 at 08:56; Status DC Gentamicin Sulfate 80 mg/IV Miscellaneous Supplies 100 ml @ 200 mls/hr Q18H IV Last administered on 11/03/18at 00:02; Start 11/03/18 at 00:00; Stop 11/03/18 at 16:59; Status DC Glucagon (Glucagon) 1 mg ASDIRECTED PRN SC SEE LABEL COMMENTS; Start 10/31/18 at 15:15 Glucose (Glucose) 16 GM ASDIRECTED PRN PO SEE LABEL COMMENTS; Start 10/31/18 at 15:15 Heparin Sodium (Heparin (Flush)) 200 units ASDIRECTED PRN IV SEE LABEL COMMENTS Last administered on 11/02/18at 09:48; Start 10/31/18 at 16:30; Stop 11/08/18 at 19:36; Status DC Heparin Sodium (Heparin (Flush)) 200 units PICC IV Last administered on 11/04/18at 05:43; Start 10/31/18 at 18:00; Stop 11/08/18 at 19:36; Status DC Heparin Sodium (Porcine) (Heparin) 5,000 units Q12H SC Last administered on 11/04/18at 08:35; Start 10/31/18 at 21:00; Stop 11/04/18 at 18:41; Status DC Home Med (Med Rec Complete!) ASDIRECTED XX ; Start 10/31/18 at 14:45; Stop 10/31/18 at 14:45; Status DC Insulin Human Lispro (HumaLOG INSULIN) SEE PROTOCOL TABLE QHS SC ; Start 10/31/18 at 21:00; Stop 11/06/18 at 21:44; Status DC Lidocaine (Lidoderm Patch) 1 patch DAILY TD Last administered on 11/10/18 08:22; Start 11/01/18 at 09:00 Magnesium Gluconate (Magnesium Gluconate) 500 mg BID PO Last administered on 11/10/18 08:20; Start 10/31/18 at 21:00 Magnesium Hydroxide (Milk Of Magnesia) 30 ml DAILYPRN PRN PO CONSTIPATION Last administered on 11/02/18 21:41; Start 10/31/18 at 15:30 Metformin HCl (Glucophage) 500 mg DAILY@08 PO Last administered on 11/04/18 08:36; Start 11/01/18 at 08:00; Stop 11/04/18 at 11:08; Status DC Metoprolol Succinate (TopROL XL) 25 mg DAILY PO Last administered on 11/10/18 08:21; Start 11/01/18 at 09:00 Mirtazapine (Remeron) 30 mg QHS PO Last administered on 11/09/18 20:23; Start 10/31/18 at 21:00 Miscellaneous (Unresolved Patient Own Med Order) SEE LABEL COMMENTS DAILY XX ; Start 10/31/18 at 09:00; Stop 11/06/18 at 18:23; Status DC Morphine Sulfate (Ms Contin) 15 mg BID PO Last administered on 11/04/18 20:47; Start 10/31/18 at 17:00; Stop 11/06/18 at 10:35; Status DC Nitroglycerin (Nitrostat (1/ 150)) 0.4 mg Q5MP PRN SL CHEST PAIN; Start 10/31/18 at 14:45 Non-Formulary Medication ( See Comment Field Below ) REMOVE LIDODERM PATCH DAILY@21 XX Last administered on 11/09/18 20:27; Start 10/31/18 at 21:00 Ondansetron HCl (Zofran) 4 mg AC PO Last administered on 11/10/18 12:07; Start 10/31/18 at 17:30 Ondansetron HCl (Zofran) 4 mg Q6HP PRN PO NAUSEA Last administered on 11/06/18 15:21; Start 10/31/18 at 15:30 Oxycodone HCl (Roxicodone, Oxyir) 5 mg Q4HP PRN PO PAIN 4-7 Last administered on 11/04/18 05:47; Start 10/31/18 at 14:45; Stop 11/06/18 at 10:35; Status DC Oxycodone HCl (Roxicodone, Oxyir) 5 mg TID PO Last administered on 11/10/18 08:20; Start 11/06/18 at 16:00 Oxycodone HCl (Roxicodone, Oxyir) 10 mg Q4HP PRN PO SEVERE PAIN (PS 8-10) Last administered on 11/10/18 11:01; Start 10/31/18 at 14:45 Pantoprazole Sodium (Protonix) 40 mg DAILY PO Last administered on 11/10/18 08:21; Start 11/01/18 at 09:00 Patient Own Medication (Patient'S Own Med) TRINTELLIX 20mg po daily DAILY PO Last administered on 11/10/18 08:22; Start 11/01/18 at 09:00 Patient Own Medication (Patient'S Own Med) Testosterone 5gram 1% gel; AP... DAILY TOP Last administered on 11/10/18 08:23; Start 11/07/18 at 09:00 Pramipexole Dihydrochloride (Mirapex) 2 mg QHS PO Last administered on 11/09/18 20:24; Start 10/31/18 at 21:00 Pregabalin (Lyrica) 75 mg BID PO ; Start 10/31/18 at 21:00; Stop 10/31/18 at 21:00; Status DC Pregabalin (Lyrica) 100 mg BID PO Last administered on 11/10/18 08:21; Start 10/31/18 at 21:00 Ranolazine (Ranexa) 500 mg BID PO Last administered on 11/10/18 08:20; Start 10/31/18 at 21:00 Salmeterol Xinafoate/ Fluticasone (Advair Hfa 115/ 21) 2 puff BID INH Last administered on 11/10/18 10:50; Start 10/31/18 at 21:00 Senna/Docusate Sodium (Senokot S) 1 tab BID PO Last administered on 11/10/18 08:20; Start 10/31/18 at 21:00 Sodium Chloride 1,000 ml @ 40 mls/hr Q24H IV Last administered on 11/07/18 13:55; Start 11/04/18 at 10:30; Stop 11/08/18 at 12:17; Status DC Sodium Chloride ([place] Flush) 2 ml ASDIRECTED PRN IV SEE LABEL COMMENTS; Start 11/08/18 at 19:45 Sodium Chloride (Saline Lock Flush) 2 ml SLF IV Last administered on 11/10/18at 13:57; Start 11/08/18 at 22:00 Sodium Chloride ([place] Flush) 10 ml ASDIRECTED PRN IV SEE LABEL COMMENTS Last administered on 11/02/18 09:48; Start 10/31/18 at 16:30; Stop 11/08/18 at 19:36; Status DC Sodium Chloride ([place] Flush) 10 ml PICC IV Last administered on 11/04at 05:43; Start 10/31/18 at 18:00; Stop 11/08/18 at 19:36; Status DC Vitamin D (Vitamin D) 1,000 units DAILY PO Last administered on 11/10/18 08:21; Start 11/01/18 at 09:00 SOILA FREITAS MD Nov 10, 2018 15:32
[2018-11-10 16:17] LABS: C REACTIVE PROTEIN QUANTITATIV 4.32 MG/DL (0.00-0.30)
--- NOTE | 2018-11-10 17:46 | IPN ---
DATE: 11/10/2018 Mr. Ward seems to be doing much better today. He is alert, smiling. He states his back pain has improved and his back spasm as well. He was able to walk 150 feet today. He denies any fever, chills, nausea, vomiting or diarrhea. No cough or shortness of breath. His complaint is mostly low back pain, knee pains and back spasms. PHYSICAL EXAMINATION: Heart: Normal S1, S2 with a holosystolic murmur 3/6, unchanged. Lungs are clear. No wheezes, rales or rhonchi. Abdomen: Soft, nontender. No hepatosplenomegaly. Extremities: No clubbing, cyanosis or edema. Motor strength 5/5 bilateral upper extremities. Lower extremities: Giveaway weakness due to pain and spasm, but he has good the hip flexors. Temperature is 97.5, pulse 85, respirations 18, blood pressure 151/67, O2 sat 98% on room air. LABORATORY DATA: White count 4.7, hemoglobin 7.5, hematocrit 24.1, platelets 133. Sodium 145, potassium 4.1, chloride 112, bicarbonate 23, BUN 16, creatinine 1.63 down from 2.15, glucose 113, calcium 8.5, iron 40, ferritin 706, total protein 4.32 down from 13.8, albumin 2.3. IMPRESSION: 1. Endocarditis of prosthetic aortic valve and osteomyelitis with diskitis of L1-L2. Culture positive for Streptococcus mitis. CRP improving. Clinically, patient improving and doing much better on IV Rocephin 2 grams every 24 hours. The patient will be on treatment for at least 6 weeks, which will be until at least mid November. Gentamicin was discontinued due to acute renal failure. 2. Back pain with muscle spasm, improving. 3. Acute kidney injury from gentamicin, improving. 4. Anemia from chronic infection, renal disease and iron deficiency, being treated with Epo and IV iron. PLAN: Continue IV Rocephin 2 grams every 24 h at least until November 28 and then the patient will need lifelong antibiotic therapy for at least another year as he has a prosthetic valve and is not a surgical candidate.
[2018-11-10 20:00] VITALS: BP 152/67
[2018-11-10] MEDS: **NOTE PATIENT COMMENT** MISC XX SCH (21:00)
[2018-11-10] MEDS: PRAMIPEXOLE 1 MG TAB PO SCH (21:04)
[2018-11-10] MEDS: MIRTAZAPINE 15 MG TAB PO SCH (21:05)
--- NOTE | 2018-11-10 21:08 | IPN ---
DATE: 11/10/2018 Mr. Ward is seen this morning on his bedside. He is feeling better but still has back pain. He denies any dyspnea, chest pain, nausea or vomiting. His oral intake is adequate and he reports that his appetite is improving. He has no fever or chills. PHYSICAL EXAMINATION: Temperature 98.7 degrees Fahrenheit, heart rate 80 per minute and respiratory rate 16 per minute. Blood pressure 142/64 mmHg and oxygen saturation 97% on room air. Intake and output records from yesterday showed total intake 1340 and output 875 mL. His head is atraumatic. Neck is supple and JVD is not elevated. He has no oral thrush or ulcers. Heart: Sounds are regular and lungs sound clear to auscultation bilaterally. Abdomen: Soft and nontender and without palpable organomegaly. Bowel sounds are normal. Extremities have no cyanosis or clubbing. Neurologically he is awake, alert and oriented times three. Today's labs show WBC count 4.7, hemoglobin 7.5 and hematocrit 24.1. Platelets 133. Sodium 145, potassium 4.1, CO2 of 23, BUN 16 and creatinine 1.63. His iron level is 40 and ferritin 706. His C-reactive protein is down to 4.32, it was 13.8 on the . Albumin is 2.2. PROBLEMS: 1. Acute renal failure superimposed on chronic kidney disease. Kidney function is improving nicely and the patient seems very well-hydrated now. I am going to stop his IV fluids and the patient is being encouraged to continue with liberal oral fluid intake. 2. Anemia. His anemia is slightly worsened due to hemodilution. He has ongoing infection and acute renal failure. He has already received one dose of IV Venofer few days ago and we will give him another dose of intravenous Venofer this week. She is also receiving Aranesp 100 mcg once a week. The patient is a Jehovah witness and does not wish to get transfusion. 3. Hypertension. Blood pressure is very well controlled and we will continue with current antihypertensive meds. No changes are being made today. 4. Diskitis and osteomyelitis. The patient remains on ceftriaxone 2 grams every 24 hours. He is currently afebrile and his symptoms are improving.
[2018-11-11] MEDS: SLF 3 ML SYR IV SCH ×3 (06:30→21:50)
[2018-11-11] MEDS: ADVAIR HFA 115/21MCG INHALER INH SCH ×2 (07:55→23:18)
[2018-11-11] MEDS: IPRATROPIUM 0.5MG/ALBUTEROL 2.5MG INH SOL UD 3ML (DUONEB)(J7620) NEB SCH ×2 (07:56→20:00)
[2018-11-11] MEDS: FLUTICASONE PROP 0.05% NASAL SPRAY 16 GM (FLONASE) NARES SCH (09:00)
[2018-11-11] MEDS: cefTRIAXone SOD 2 GM in D5W MINI-BAG PLUS 50 ML IV SCH (10:21)
[2018-11-11] MEDS: LIDOCAINE 5% (LIDODERM) PATCH TD SCH (10:22)
[2018-11-11] MEDS: ACETAMINOPHEN 500 MG TAB PO SCH ×3 (10:23→21:38)
[2018-11-11] MEDS: ASCORBIC ACID 500 MG TAB PO SCH (10:23)
[2018-11-11] MEDS: METOPROLOL SUCC *XL* 25MG TAB (TopROL *XL*) PO SCH (10:23)
[2018-11-11] MEDS: CO-ENZYME Q10 50 MG CAP PO SCH (10:23)
[2018-11-11] MEDS: RANOLAZINE 500 MG ER TAB PO SCH ×2 (10:24→21:37)
[2018-11-11] MEDS: oxyCODONE 5MG TAB PO SCH ×3 (10:24→21:37)
[2018-11-11] MEDS: BACLOFEN 5MG PER 1/2 TABLET PO SCH ×3 (10:24→21:38)
[2018-11-11] MEDS: SENOKOT S TAB PO SCH ×2 (10:24→21:37)
[2018-11-11] MEDS: ASPIRIN 81 MG ENTERIC TAB PO SCH (10:24)
[2018-11-11] MEDS: ONDANSETRON 4 MG TAB (S0181) PO SCH ×3 (10:24→19:03)
[2018-11-11] MEDS: PANTOPRAZOLE 40MG TAB (PROTONIX) PO SCH (10:25)
[2018-11-11] MEDS: MAGNESIUM GLUCONATE 500 MG TAB PO SCH ×2 (10:25→21:38)
[2018-11-11] MEDS: PREGABALIN 100 MG CAP (LYRICA) PO SCH ×2 (10:25→21:37)
[2018-11-11] MEDS: TRINTELLIX PO SCH (10:25)
[2018-11-11] MEDS: TESTOSTERONE 1% TOP SCH (10:26)
[2018-11-11] MEDS: VITAMIN D 1,000 INTERNATIONAL UNITS TABLET PO SCH (10:26)
[2018-11-11] MEDS: POLYVINYL ALCOHOL OPHTH SOLN 15 ML(LIQUITEARS) OU SCH ×4 (10:27→21:39)
--- NOTE | 2018-11-11 11:51 | IPNPDOC ---
Date Seen The patient was seen on 11/11/18. Progress Note Progress Note HPI: 72M who was transferred to [facility] from [facility] for low back pain with fevers that began 6 days prior to admission. An ID consult was ordered, he was found to have Strep Mitis bacteremia from a October 14 and blood culture taken at [facility] for which he was placed on Ceftriaxone and Gentamicin on 10-16-18 for discitis vs osteomyelitis in the setting of a possibly infected bi-prosthetic aortic valve with endocarditis. A GUILLERMO was performed showing, Moderate perivalvular aortic regurgitation, mobile density contiguous with aortic valve,cannot rule out vegetation. Repeat blood cultures on October 20 and were negative. Thor[address]olumbar CT on 10-18-18 showed lesion suspicious for diskovertebral osteomyelitis at L1-L2. ID recommended a 6 week course of IV antibiotics followed by Omnicef for 1 year for suppression. No cardiac or orthopedic surgery was recommended and PICC line placed. He developed a decubitus ulcer during his stay due to immobility. Patient had worsening back pain with spasms limiting his ability to ambulate and perform ADLs and deemed medically appropriate for transfer to [facility], Dr Pennington, on 10-31-18 with a diagnosis of Strep Mitis bacteremia with bio- prosthetic AVR endocarditis and L1-L2 diskovertebral osteomyelitis. ID has been consulted to assist with antibiotic recommendations. Nephrology following to assist with anemia/ANA. Pt with no voiced concerns at this time. Denies any fevers, chills, headache, Chest Pain, Shortness of breath, cough, palpitations, abdominal pain, N/V/D or changes in bowel or bladder habits. PAST MEDICAL HISTORY: NIDDM. HTN Coronary artery disease, status post CABG, status post TAVR 05/31. COPD. depression PAST SURGICAL HISTORY: TAVR replaced May 2018, first placed 2009 Right hip septic joint 1.5 years ago, s/p YANET January 2018, s/p pacemaker PE: GEN: 72yoM, appears stated age. No acute distress. Alert and oriented to person and is oriented to time/place today. HEENT: Normocephalic, atraumatic. Sclera are nonicteric. Conjunctiva without injection. No facial asymmetry. Moist mucous membranes. CHEST: Regular rate and rhythm, +S1, +S2 LUNGS: Clear to auscultation bilaterally. No wheezes, rales, or rhonchi. ABD: Round, soft, non-tender, non-distended. +Bowel sounds present. No rebound or guarding. EXT: No lower extremity edema appreciated. SKIN: [place], dry, warm. No rashes. NEURO: No focal deficits appreciated. UC negative. U/S LEs 10/31/18, 11/05/[address] A/P done related to constipation 11/02/18. A&P: 72M pmh DM, HTN, PM, AVR (replaced in May 2018), CAD with CABG, JR, right hip periprosthetic infection, who was transferred to [facility] from [facility] for low back pain with fevers that began 6 days prior to admission. An ID consult was ordered, he was found to have Strep Mitis bacteremia from a October 14 and blood culture taken at [facility] for which he was placed on Ceftriaxone and Gentamicin on 10-16-18 for discitis vs osteomyelitis in the setting of a possibly infected bi-prosthetic aortic valve with endocarditis. A GUILLERMO was performed showing, Moderate perivalvular aortic regurgitation, mobile density contiguous with aortic valve,cannot rule out vegetation. Repeat blood cultures on October 20 and were negative. Thoracolumbar CT on 10-18-18 showed lesion suspicious for diskovertebral osteomyelitis at L1-L2. ID recommended a 6 week course of IV antibiotics followed by Omnicef for 1 year for suppression. No cardiac or orthopedic surgery was recommended and PICC line placed. He developed a decubitus ulcer during his stay due to immobility. Patient had worsening back pain with spasms limiting his ability to ambulate and perform ADLs and deemed medically appropriate for transfer to [facility], Dr Pennington, on 10-31-18 with a diagnosis of Strep Mitis bacteremia with bio- prosthetic AVR endocarditis and L1-L2 diskovertebral osteomyelitis. 1. Discitis/osteomyelitis of L1 to L2, Streptococcus mitis bacteremia/Endocarditis. Pt is afebrile. WBC 4.7 Mgmt as per ARU Pain control as per ARU Bowel care as per ARU PT/OT/ST as per ARU DVT prophylaxis as per ARU, SQ Heparin. On IV Rocephin as per ID Shirlene. Continue Mgmt as per ID. ID consulted, Dr Alejandro. Appreciate recommendations. IV Rocephin until 11/28/18 then po Omnicef x 1 year. 11/07/18 ESR 128, CRP 13.80. 11/10 CRP 4.32. Pt unable to have MRI related to pacemaker. Blood culture x2 11/01 neg. Urine culture neg. Continue to monitor. 2. Coronary artery disease/Status post coronary artery bypass graft (CABG) and status post transcatheter aortic valve replacement (TAVR). Continue aspirin/Ranexa/Toprol XL. Outpt F/U with cardiology. 3. History of COPD. Duoneb Advair 4. Hypertension. Toprol XL 5. DM. CC diet. HOLD Metformin Monitor FSBS. 6. Depression Trintellix. 7. Anemia. B12, folate, Fe studies noted FOB pending. 11/10/18 Hgb noted to be 7.5. Pt is Jehovah Witness and declines transfusion. Nephrology consulted and following, Kiet/Jillian ordered. Monitor. 8. ANA/CKD. SCr noted to be 1.63 S/P IVF Continue to hold Metformin. S/P IV contrast with CT 11/02/18. Nephrology following. Avoid nephrotoxins. Monitor 9. Hyponatremia. Resolved. Monitor. VS, I&O, 24H, Fishbone Vital Signs/I&O Vital Signs Date Time Temp Pulse Resp B/P (MAP) Pulse Ox O2 Delivery O2 Flow Rate FiO2 11/11/18 10:24 18 Room Air 11/11/18 10:23 92 142/64 11/11/18 06:00 98.6 98 11/06/18 06:00 2.0 I&O- Last 24 Hours up to 6 AM 11/11/18 06:00 Intake Total 1730 ml Output Total 425 ml Balance 1305 ml Laboratory Data 24H LABS Laboratory Tests 2 11/10/18 11:47: Bedside Glucose (Misc Panel) 114H 11/10/18 16:45: Bedside Glucose (Misc Panel) 105 11/10/18 20:42: Bedside Glucose (Misc Panel) 112H 11/11/18 06:20: Bedside Glucose (Misc Panel) 75L 11/11/18 11:22: Bedside Glucose (Misc Panel) 104 Microbiology Microbiology 11/02/18 Blood Culture - Final, Complete NO GROWTH AFTER 5 DAYS 11/01/18 Blood Culture - Final, Complete NO GROWTH AFTER 5 DAYS Yanci Cortes Nov 11, 2018 11:51
--- NOTE | 2018-11-11 13:00 | IPN ---
DATE OF VISIT: 11/11/2018 Mr. Ward is seen this morning on his bedside. He is feeling better and his back pain is improving. He denies any dyspnea, chest pain, nausea or vomiting. On physical exam, temperature 98.6 degrees Fahrenheit, heart rate 92 per minute and respiratory rate 18 per minute. Blood pressure 142/64 mmHg and oxygen saturation 98% on room air. Head is atraumatic. Neck is supple and without jugular venous distention (JVD) or thyroid enlargement. Heart sounds are irregular in rhythm and lungs clear to auscultation. Abdomen soft and nontender. Bowel sounds are normal. Extremities have no cyanosis or clubbing. Skin has no rash or ulcers. Neurologically he is awake, alert and oriented times three. The patient did not have any new labs done today, and we plan to repeat his labs tomorrow. PROBLEMS: 1. Acute kidney injury superimposed on chronic kidney disease. Kidney function has improved almost back to baseline and IV fluids have been stopped. Patient has adequate oral intake now and will recheck his renal profile tomorrow. 2. Anemia. Patient is Jehovah Witness and significant anemia. However, he is currently being treated with Aranesp 100 mcg once a week and was also given one dose of intravenous iron. His iron studies were checked yesterday and they are borderline low iron of 40 and ferritin is 706. We will plan to give him one more dose of Venofer 400 mg in next couple of days. Complete blood count (CBC) will be checked again tomorrow morning. 3. 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 Patient remains on IV antibiotic, including ceftriaxone and his symptoms are gradually improving. 4. Hypertension. Blood pressure seems reasonably well-controlled on current medications and no changes are being made today.
[2018-11-11] MEDS ORDERED: LIDOCAINE 1% MDV 20ML VIAL As Ordered ONE (14:16)
--- NOTE | 2018-11-11 16:16 | REP ---
Procedure: Mid line insertion with Site-Rite The procedure was performed under the direct supervision of Dr. Hess. The risks and benefits of the procedure were explained to the patient and informed consent was obtained. The right basilic vein was localized using ultrasound guidance. The skin was prepped and draped in a sterile fashion. 1% lidocaine was used as a local anesthetic. Using ultrasound guidance the basilic vein was cannulated and a 0.018 guidewire was inserted. The needle was removed and a 5.5 Indian dilator and peel-away sheath was inserted over the guide wire. A 5.5 Indian dual lumen catheter was cut to length of 14 cm. The dilator was removed and the catheter was inserted over the guide wire. The peel-away sheath was removed and the catheter was flushed with heparinized saline as per Hospital protocol. The catheter was affixed to the skin and a sterile dressing was applied. The patient tolerated the procedure well and there were no immediate complications. Reviewed by MARIKA Mattson 11/11/2018 03:57 P Electronically Signed by Darrick Hess MD 11/11/2018 04:07 P
[2018-11-11] MEDS: SODIUM CHLORIDE 0.9% INJ 10 ML SYR IV SCH (19:03)
[2018-11-11] MEDS: oxyCODONE 5MG TAB PO PRN (19:04)
[2018-11-11 20:00] VITALS: BP 141/65
[2018-11-11] MEDS: MIRTAZAPINE 15 MG TAB PO SCH (21:37)
[2018-11-11] MEDS: PRAMIPEXOLE 1 MG TAB PO SCH (21:38)
[2018-11-11] MEDS: **NOTE PATIENT COMMENT** MISC XX SCH (21:43)
[2018-11-12] MEDS: SLF 3 ML SYR IV SCH (05:55)
[2018-11-12 06:00] VITALS: BP 180/82
[2018-11-12] MEDS: SODIUM CHLORIDE 0.9% INJ 10 ML SYR IV SCH ×2 (06:16→17:11)
[2018-11-12] MEDS: oxyCODONE 5MG TAB PO PRN ×2 (06:17→11:25)
[2018-11-12] MEDS: IPRATROPIUM 0.5MG/ALBUTEROL 2.5MG INH SOL UD 3ML (DUONEB)(J7620) NEB SCH ×2 (07:40→20:00)
[2018-11-12] MEDS: ADVAIR HFA 115/21MCG INHALER INH SCH ×2 (07:40→20:37)
[2018-11-12] MEDS: cefTRIAXone SOD 2 GM in D5W MINI-BAG PLUS 50 ML IV SCH (08:50)
[2018-11-12] MEDS: TRINTELLIX PO SCH (08:50)
[2018-11-12] MEDS: ASCORBIC ACID 500 MG TAB PO SCH (08:51)
[2018-11-12] MEDS: SENOKOT S TAB PO SCH ×2 (08:52→20:43)
[2018-11-12] MEDS: ACETAMINOPHEN 500 MG TAB PO SCH ×3 (08:52→20:43)
[2018-11-12] MEDS: RANOLAZINE 500 MG ER TAB PO SCH ×2 (08:52→20:44)
[2018-11-12] MEDS: MAGNESIUM GLUCONATE 500 MG TAB PO SCH ×2 (08:52→20:44)
[2018-11-12] MEDS: METOPROLOL SUCC *XL* 25MG TAB (TopROL *XL*) PO SCH (08:53)
[2018-11-12] MEDS: BACLOFEN 5MG PER 1/2 TABLET PO SCH ×3 (08:53→20:44)
[2018-11-12] MEDS: ASPIRIN 81 MG ENTERIC TAB PO SCH (08:53)
[2018-11-12] MEDS: CO-ENZYME Q10 50 MG CAP PO SCH (08:53)
[2018-11-12] MEDS: ONDANSETRON 4 MG TAB (S0181) PO SCH ×3 (08:54→17:11)
[2018-11-12] MEDS: PREGABALIN 100 MG CAP (LYRICA) PO SCH ×2 (08:54→20:44)
[2018-11-12] MEDS: oxyCODONE 5MG TAB PO SCH ×3 (08:55→20:44)
[2018-11-12] MEDS: VITAMIN D 1,000 INTERNATIONAL UNITS TABLET PO SCH (08:55)
[2018-11-12] MEDS: PANTOPRAZOLE 40MG TAB (PROTONIX) PO SCH (08:55)
[2018-11-12] MEDS: LIDOCAINE 5% (LIDODERM) PATCH TD SCH (08:56)
[2018-11-12] MEDS: TESTOSTERONE 1% TOP SCH (08:56)
[2018-11-12] MEDS: POLYVINYL ALCOHOL OPHTH SOLN 15 ML(LIQUITEARS) OU SCH ×4 (08:57→20:48)
[2018-11-12] MEDS: FLUTICASONE PROP 0.05% NASAL SPRAY 16 GM (FLONASE) NARES SCH (08:57)
[2018-11-12] MEDS: SODIUM CHLORIDE 0.9% INJ 10 ML SYR IV PRN (09:51)
[2018-11-12 10:21] LABS: HEMATOCRIT 28.6 % (42.0-52.0); HEMOGLOBIN 8.8 g/dl (13.5-17.5); MEAN CORPUSCULAR HEMOGLOBIN 30.8 pg (27.0-33.0); MEAN CORPUSCULAR HGB CONC 30.8 g/dl (32.0-36.5); PLATELET COUNT, AUTOMATED 178 10^3/uL (150-450); RED BLOOD COUNT 2.86 10^6/uL (4.30-6.10); WHITE BLOOD COUNT 6.3 10^3/uL (4.0-10.0)
[2018-11-12 10:44] LABS: ALBUMIN 2.9 GM/DL (3.2-5.2); CALCIUM LEVEL 8.6 MG/DL (8.8-10.2); CREATININE FOR GFR 1.61 MG/DL (0.70-1.30); PHOSPHORUS LEVEL 3.9 MG/DL (2.5-4.9)
[2018-11-12 12:00] VITALS: BP 147/67
[2018-11-12] MEDS ORDERED: METOPROLOL TART 25 MG TABLET PO ONE (12:00)
--- NOTE | 2018-11-12 12:24 | IPN ---
DATE OF VISIT: 11/12/2018 MR. Ward is seen this morning on his bedside. He is sitting in the chair getting ready for physical therapy. He reports severe pain in his lower back and did not eat well. He denies any nausea, vomiting, dyspnea, or chest pain. On physical examination, temperature 97.2 degrees Fahrenheit, heart rate 88 per minute and respiratory rate 18 per minute. Blood pressure 180/82 mmHg, but he is also in a lot of pain at this time. His head is atraumatic. Neck is supple and without jugular venous distention (JVD) or thyroid enlargement. Heart sounds regular and lungs clear to auscultation. Abdomen: Soft and nontender. Bowel sounds are normal. Extremities are without any cyanosis or clubbing. Today's labs show increase in hemoglobin to 8.8 and hematocrit 28.6. Platelets 178. Sodium 141, potassium 4.0, CO2 of 26, BUN 15 and creatinine 1.61. PROBLEMS: 1. Acute kidney injury superimposed on chronic kidney disease. Kidney function is stable and this is probably his baseline renal function. We will continue to monitor. He is not getting any IV fluid and the patient is being encouraged to continue with liberal fluid intake. 2. Anemia. His anemia is improving and he remains on Aranesp 100 mcg once a week. He has already received a dose of Venofer and we will give him another dose of Venofer in the next couple of days. 3. Hypertension. Blood pressure is high, but the patient is in a lot of pain. We will not change his blood pressure medications and continue to monitor and see how he does when he is comfortable and resting.
--- NOTE | 2018-11-12 12:36 | IPNPDOC ---
Date Seen The patient was seen on 11/12/18. Progress Note HPI: 72M who was transferred to [facility] from [facility] for low back pain with fevers that began 6 days prior to admission. 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 A GUILLERMO was performed showing, Moderate perivalvular aortic regurgitation, mobile density contiguous with aortic valve,cannot rule out vegetation. Repeat blood cultures on October 20 and were negative. Thor[address]olumbar CT on 10-18-18 showed lesion suspicious for diskovertebral osteomyelitis at L1-L2. ID recommended a 6 week course of IV antibiotics followed by Omnicef for 1 year for suppression. No cardiac or orthopedic surgery was recommended and PICC line placed. He developed a decubitus ulcer during his stay due to immobility. 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 ID has been consulted to assist with antibiotic recommendations. Nephrology following to assist with anemia/ANA. Pt with no voiced concerns at this time. Denies any fevers, chills, headache, Chest Pain, Shortness of breath, cough, palpitations, abdominal pain, N/V/D or changes in bowel or bladder habits. PAST MEDICAL HISTORY: NIDDM. HTN Coronary artery disease, status post CABG, status post TAVR 05/31. COPD. depression PAST SURGICAL HISTORY: TAVR replaced May 2018, first placed 2008 Right hip septic joint 1.5 years ago, s/p YANET January 2018, s/p pacemaker PE: GEN: 72yoM, appears stated age. No acute distress. Alert and oriented to person/time/place. HEENT: Normocephalic, atraumatic. Sclera are nonicteric. Conjunctiva without injection. No facial asymmetry. Moist mucous membranes. CHEST: Regular rate and rhythm, +S1, +S2 LUNGS: Clear to auscultation bilaterally. No wheezes, rales, or rhonchi. ABD: Round, soft, non-tender, non-distended. +Bowel sounds present. No rebound or guarding. EXT: No lower extremity edema appreciated. SKIN: [place], dry, warm. No rashes. NEURO: No focal deficits appreciated. UC negative. U/S LEs 10/31/18, 11/05/[address] A/P done related to constipation 11/02/18. A&P: 72M pmh DM, HTN, PM, AVR (replaced in May 2018), CAD with CABG, JR, right hip periprosthetic infection, who was transferred to [facility] from [facility] for low back pain with fevers that began 6 days prior to admission. 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 A GUILLERMO was performed showing, Moderate perivalvular aortic regurgitation, mobile density contiguous with aortic valve,cannot rule out vegetation. Repeat blood cultures on October 20 and were negative. Thoracolumbar CT on 10-18-18 showed lesion suspicious for diskovertebral osteomyelitis at L1-L2. ID recommended a 6 week course of IV antibiotics followed by Omnicef for 1 year for suppression. No cardiac or orthopedic surgery was recommended and PICC line placed. He developed a decubitus ulcer during his stay due to immobility. 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 1. Discitis/osteomyelitis of L1 to L2, Streptococcus mitis bacteremia/Endocarditis. Pt is afebrile. WBC 4.7 Mgmt as per ARU Pain control as per ARU Bowel care as per ARU PT/OT/ST as per ARU DVT prophylaxis as per ARU, SQ Heparin. On IV Rocephin as per ID Shirlene. Continue Mgmt as per ID. ID consulted, Dr Alejandro. Appreciate recommendations. IV R ocephin until 11/28/18 then po Omnicef x 1 year. 11/07/18 ESR 128, CRP 13.80. 11/10 CRP 4.32. Pt unable to have MRI related to pacemaker. Blood culture x2 11/01 neg. Urine culture neg. Continue to monitor. 2. Coronary artery disease/Status post coronary artery bypass graft (CABG) and status post transcatheter aortic valve replacement (TAVR). Continue aspirin/Ranexa/Toprol XL. Outpt F/U with cardiology. 3. History of COPD. Duoneb Advair 4. Hypertension. Toprol XL 5. DM. CC diet. HOLD Metformin Monitor FSBS. 6. Depression Trintellix. 7. Anemia. B12, folate, Fe studies noted FOB pending. 11/12/18 Hgb noted to be 8.8. Pt is Jehovah Witness and declines transfusion. Nephrology consulted and following, Kiet/Jillian ordered. Monitor. 8. ANA/CKD. SCr noted to be 1.61 S/P IVF Continue to hold Metformin. S/P IV contrast with CT 11/02/18. Nephrology following. Avoid nephrotoxins. Monitor 9. Hyponatremia. Resolved. Monitor. VS, I&O, 24H, Fishbone Vital Signs/I&O Vital Signs Date Time Temp Pulse Resp B/P (MAP) Pulse Ox O2 Delivery O2 Flow Rate FiO2 11/12/18 12:01 75 147/67 11/12/18 11:55 18 11/12/18 06:00 97.2 99 Room Air 11/06/18 06:00 2.0 I&O- Last 24 Hours up to 6 AM 11/12/18 06:00 Intake Total 820 ml Output Total 875 ml Balance -55 ml Laboratory Data 24H LABS Laboratory Tests 2 11/11/18 16:57: Bedside Glucose (Misc Panel) 89 11/11/18 20:54: Bedside Glucose (Misc Panel) 91 11/12/18 06:05: Bedside Glucose (Misc Panel) 89 11/12/18 09:53: Nucleated Red Blood Cells % (auto) 0.0, Blood Urea Nitrogen 15, Creatinine 1.61H, Sodium Level 141, Potassium Level 4.0, Chloride Level 107, Carbon Dioxide Level 26, Anion Gap 8, Glomerular Filtration Rate 45.0, Calcium Level 8.6L, Phosphorus Level 3.9, Albumin 2.9#L CBC/BMP Laboratory Tests 11/12/18 09:53 Red Blood Count 2.86 L, Mean Corpuscular Volume 100.0 H, Mean Corpuscular Hemoglobin 30.8, Mean Corpuscular Hemoglobin Concent 30.8 L, Red Cell Distribution Width 17.4 H, Anion Gap 8 Microbiology Microbiology 11/02/18 Blood Culture - Final, Complete NO GROWTH AFTER 5 DAYS Yanci Cortes Nov 12, 2018 12:36
[2018-11-12 14:00] VITALS: BP 163/74
[2018-11-12 20:00] VITALS: BP 148/64
[2018-11-12] MEDS: MIRTAZAPINE 15 MG TAB PO SCH (20:43)
[2018-11-12] MEDS: PRAMIPEXOLE 1 MG TAB PO SCH (20:48)
[2018-11-12] MEDS: **NOTE PATIENT COMMENT** MISC XX SCH (21:00)
--- NOTE | 2018-11-12 22:00 | IPNPDOC ---
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 REVIEW OF SYSTEMS: The following is a completed review of systems and has been reviewed. Review of systems otherwise unremarkable. PAIN: Patient self reports severe low back pain with spasms EYES: Negative for recent vision changes EARS, NOSE, & THROAT:negative for rhinorrhea, tinnitus, or dysphagia CARDIOVASCULAR: denies chest pain or palpitations PULMONARY: Negative. Denies shortness of breath GASTROINTESTINAL: constipation (improving) GENITOURINARY: Negative for dysuria MUSCULOSKELETAL: low back pain and bilateral knee OA NEUROLOGICAL: restless leg syndrome HEMATOLOGICAL: +anemia SKIN: +PICC PSYCHIATRIC: Unremarkable All other review of systems found to be negative. PHYSICAL EXAMINATION: VITAL SIGNS: Please see below. GENERAL: Pleasant and cooperative, no acute distress HEENT: PERRL. Extraocular movements intact. Clear conjunctiva CARDIOVASCULAR: Regular rate and rhythm. No murmurs, rubs, or gallops LUNGS: Clear to auscultation bilaterally. No wheezes. No rhonchi ABDOMEN: Soft, nontender, nondistended. Positive bowel sounds. Normal active bowel sounds NEUROLOGICAL: Alert and oriented times to self and place not time, Cranial nerves II through XII grossly intact. Sensation grossly intact. EXTREMITIES: 5\5 strength bilateral upper extremities. bilateral Ankle DF and EHL 5/5, however proximal muscle testing greatly limited by pain SKIN: +PICC, decubitus ulcer ASSESSMENT:72-year-old M with past medical history of CAD, AVR, CAD with CABG who presents with diskovertebral osteomyelitis in the setting of endocarditis. PLAN: 1. Rehab: PT/OT, assess for DME needs- LSO brace when out of bed for comfort, able to ambulate further with RW 2. Neuro: pmh restless leg syndrome, continue home meds 3. Cardio: pmh CAD s/p AVR replacement with recent GUILLERMO suspicious for endocarditis continue IV Ceftriaxone and s/p Gentamicin, will need outpatient cardio f/u -continue beta-blockers and ASA 4. Endo: pmh DM off metformin, monitoring FS for hypoglycemia due to poor oral intake 5. ID: L1-L2 disko-vertebral osteomyeltis, blood cultures positive for Strep Mitis, per acute care hospital continue IV Ceftriaxone for 6 weeks (start date 10/16/18) and Gentamicin for 2 weeks (start date 10/26/18)to be followed by one year suppression dose of Omnicef- Dr. Alejandro consulted, Gentamicin discontinued will continue to follow-recs, appreciated -admission blood cultures negative 6. Pain: pmh chronic knee pain, now with severe discogenic pain with spasms- pain mildly improved today, will d/c long acting morphine, add oxycodone 5mg tid standing and continue oxycodone 10mg q4h prn, standing Tylenol, continue Lyrica, and low dose Diazepam prn for painful spasms to be held for sedation 7. DVT ppx: will d/c heparin given anemia and borderline low platelets and obtain serial dopplers, continue TEDs, thus far studies negative for DVT 8. SKin: Balmex and turning q2h in bed 9. Resp: pmh COPD: continue home meds, continue Duonebs and monitor for PNA 10. Renal:stable, but worse Manager Epic most likely from recent contrast Abdomen pelvis while on metformin, IVF ordered, Renal consulted, metformin stopped, and defer repeat CT with contrast for the future if clinical picture worsenes, otherwise follow CRP/ESR fo now per ID 11. Heme: Anemia of chronic disease, patient is Jehovas witness and cannot receive blood, however s/p Venofer and s/p Aranesp per Renal, recs appreciated- f/u hbg 10. GIppx: optimize laxatives, protonix for ppx 11. Dispo: 11/24/18, slowly progressing towards goals given pain and delirium, however starting to improving Allergies Coded Allergies: Statins (Unverified Adverse Reaction, Unknown, MUSCLE PAINS, 10/31/18) Trazodone (Unverified Adverse Reaction, Unknown, ITCH, 10/31/18) Vital Signs Vital Signs Date Time Temp Pulse Resp B/P (MAP) Pulse Ox O2 Delivery O2 Flow Rate FiO2 11/12/18 20:44 18 11/12/18 20:00 98.2 70 148/64 (92) 96 11/12/18 06:00 Room Air 11/06/18 06:00 2.0 Laboratory Data CBC/BMP Laboratory Tests 11/12/18 09:53 Red Blood Count 2.86 L, Mean Corpuscular Volume 100.0 H, Mean Corpuscular Hemoglobin 30.8, Mean Corpuscular Hemoglobin Concent 30.8 L, Red Cell Distribution Width 17.4 H, Anion Gap 8 Labs 24H Laboratory Tests 2 11/12/18 06:05: Bedside Glucose (Misc Panel) 89 11/12/18 09:53: Nucleated Red Blood Cells % (auto) 0.0, Blood Urea Nitrogen 15, Creatinine 1.61H, Sodium Level 141, Potassium Level 4.0, Chloride Level 107, Carbon Dioxide Level 26, Anion Gap 8, Glomerular Filtration Rate 45.0, Calcium Level 8.6L, Phosphorus Level 3.9, Albumin 2.9#L 11/12/18 17:02: Bedside Glucose (Misc Panel) 104 Microbiology Microbiology 11/02/18 Blood Culture - Final, Complete NO GROWTH AFTER 5 DAYS Current Medications Current Medications Current Medications Acetaminophen (Tylenol Tab) 1,000 mg TID PO Last administered on 11/12/18 20:43; Start 10/31/18 at 16:00 Albuterol/ Ipratropium (Duoneb (Ipr 0.5mg/Alb 2.5mg)) 3 ml RBID NEB ; Start 10/14 07/02 at 08:00 Artificial Tears (Akwa Tears) 2 drop QID OU Last administered on 11/12/18 20:48; Start 10/31/18 at 21:00 Ascorbic Acid (Vitamin C) 500 mg DAILY PO Last administered on 11/12/18 08:51; Start 11/01/18 at 09:00 Aspirin (Ecotrin) 81 mg DAILY PO Last administered on 11/12/18at 08:53; Start 11/01/18 at 09:00 Baclofen (Lioresal) 5 mg TID PO Last administered on 11/12/18 20:44; Start 11/03/18 at 16:00 Bisacodyl (Dulcolax Suppository) 10 mg DAILYPRN PRN [place] CONSTIPATION; Start 10/31/18 at 15:30 Bisacodyl (Dulcolax Tab) 5 mg DAILYPRN PRN PO CONSTIPATION; Start 10/31/18 at 15:30 Ceftriaxone Sodium 2 gm/ Dextrose 50 ml @ 100 mls/hr Q24H IV Last administered on 11/12/18 08:50; Start 11/01/18 at 09:00 Coenzyme Q10 (Coenzyme Q10) 100 mg DAILY PO Last administered on 11/12/18at 08: 53; Start 11/01/18 at 09:00; Stop 12/01/18 at 08:59 Darbepoetin Dioni (Aranesp) 100 mcg Th@09 SC Last administered on 11/06/18at 09:11; Start 11/06/18 at 09:00 Dextran/ Hydroxypropyl Methylcellul (Tears Naturale Free) 2 drop QID OU ; Start 10/31/18 at 17:00; Status Cancel Dextrose (Dextrose 50%) 25 ml ASDIRECTED PRN IV SEE LABEL COMMENTS; Start 10/31/18 at 15:15 Dextrose/Sodium Chloride 1,000 ml @ 75 mls/hr [id number] IV Last administered on 11/10/18at 09:57; Start 11/08/18 at 12:30; Stop 11/10/18 at 10:40; Status DC Diazepam (Valium) 2 mg Q4H PRN PO spasm; Start 11/06/18 at 10:45; Stop 11/10/18 at 15:31; Status DC Diazepam (Valium) 2 mg TID PO Last administered on 11/05/18at 15:05; Start 11/04/18 at 16:00; Stop 11/06/18 at 10:35; Status DC Diazepam (Valium) 2.5 mg Q4H PRN PO SPASMS Last administered on 11/01/18at 19:13; Start 11/01/18 at 14:30; Stop 11/01/18 at 23:15; Status DC Diazepam (Valium) 2.5 mg Q6H PRN PO SPASMS Last administered on 11/01/18at 14:15; Start 11/01/18 at 14:00; Stop 11/01/18 at 14:24; Status DC Diazepam (Valium) 2.5 mg Q8HP PRN PO SPASMS Last administered on 10/31/18at 16:01; Start 10/31/18 at 14:45; Stop 10/31/18 at 16:19; Status DC Diazepam (Valium) 2.5 mg Q8HP PRN PO SPASMS Last administered on 11/01/18at 08:09; Start 10/31/18 at 21:00; Stop 11/01/18 at 13:59; Status DC Diazepam (Valium) 5 mg Q8HP PRN PO SPASMS; Start 10/31/18 at 16:15; Stop at 20:55; Status DC Fluticasone Propionate (Flonase 0.05% Nasal [facility]) 2 spray DAILY NARES Last administered on 11/12/18at 08:57; Start 11/01/18 at 09:00 Gentamicin Sulfate 80 mg/IV Miscellaneous Supplies 100 ml @ 200 mls/hr Q12H IV Last administered on 11/02/18at 06:17; Start 10/31/18 at 18:00; Stop 11/02/18 at 08:56; Status DC Gentamicin Sulfate 80 mg/IV Miscellaneous Supplies 100 ml @ 200 mls/hr Q18H IV Last administered on 11/03/18at 00:02; Start 11/03/18 at 00:00; Stop 11/03/18 at 16:59; Status DC Glucagon (Glucagon) 1 mg ASDIRECTED PRN SC SEE LABEL COMMENTS; Start 10/31/18 a t 15:15 Glucose (Glucose) 16 GM ASDIRECTED PRN PO SEE LABEL COMMENTS; Start 10/31/18 at 15:15 Heparin Sodium (Heparin (Flush)) 100 units ASDIRECTED PRN IV SEE LABEL COMMENTS Last administered on 11/12/18at 09:51; Start 11/11/18 at 16:30 Heparin Sodium (Heparin (Flush)) 100 units PICC IV Last administered on 11/12/18at 17:10; Start 11/11/18 at 18:00 Heparin Sodium (Heparin (Flush)) 200 units ASDIRECTED PRN IV SEE LABEL COMMENTS Last administered on 11/02/18at 09:48; Start 10/31/18 at 16:30; Stop 11/08/18 at 19:36; Status DC Heparin Sodium (Heparin (Flush)) 200 units PICC IV Last administered on 11/04/18at 05:43; Start 10/31/18 at 18:00; Stop 11/08/18 at 19:36; Status DC Heparin Sodium (Porcine) (Heparin) 5,000 units Q12H SC Last administered on 11/04/18at 08:35; Start 10/31/18 at 21:00; Stop 11/04/18 at 18:41; Status DC Home Med (Med Rec Complete!) ASDIRECTED XX ; Start 10/31/18 at 14:45; Stop 10/31/18 at 14:45; Status DC Insulin Human Lispro (HumaLOG INSULIN) SEE PROTOCOL TABLE QHS SC ; Start 10/31/18 at 21:00; Stop 11/06/18 at 21:44; Status DC Lidocaine (Lidoderm Patch) 1 patch DAILY TD Last administered on 11/12/18at 08:56; Start 11/01/18 at 09:00 Magnesium Gluconate (Magnesium Gluconate) 500 mg BID PO Last administered on 11/12/18at 20:44; Start 10/31/18 at 21:00 Magnesium Hydroxide (Milk Of Magnesia) 30 ml DAILYPRN PRN PO CONSTIPATION Last administered on 11/02/18at 21:41; Start 10/31/18 at 15:30 Metformin HCl (Glucophage) 500 mg DAILY@08 PO Last administered on 11/04/18at 08:36; Start 11/01/18 at 08:00; Stop 11/04/18 at 11:08; Status DC Metoprolol Succinate (TopROL XL) 25 mg DAILY PO Last administered on 11/12/18at 08:53; Start 11/01/18 at 09:00; Stop 11/12/18 at 11:31; Status DC Metoprolol Succinate (TopROL XL) 50 mg DAILY PO ; Start 11/13/18 at 09:00 Mirtazapine (Remeron) 30 mg QHS PO Last administered on 11/12/18at 20:43; Start 10/31/18 at 21:00 Miscellaneous (Unresolved Patient Own Med Order) SEE LABEL COMMENTS DAILY XX ; Start 10/31/18 at 09:00; Stop 11/06/18 at 18:23; Status DC Morphine Sulfate (Ms Contin) 15 mg BID PO Last administered on 11/04/18at 20:47; Start 10/31/18 at 17:00; Stop 11/06/18 at 10:35; Status DC Nitroglycerin (Nitrostat (1/ 150)) 0.4 mg Q5MP PRN SL CHEST PAIN; Start 10/31/18 at 14:45 Non-Formulary Medication ( See Comment Field Below ) REMOVE LIDODERM PATCH DAILY@21 XX Last administered on 11/12/18at 21:00; Start 10/31/18 at 21:00 Ondansetron HCl (Zofran) 4 mg AC PO Last administered on 11/12/18 17:11; Star t 10/31/18 at 17:30 Ondansetron HCl (Zofran) 4 mg Q6HP PRN PO NAUSEA Last administered on 11/06/18 15:21; Start 10/31/18 at 15:30 Oxycodone HCl (Roxicodone, Oxyir) 5 mg Q4HP PRN PO PAIN 4-7 Last administered on 11/04/18 05:47; Start 10/31/18 at 14:45; Stop 11/06/18 at 10:35; Status DC Oxycodone HCl (Roxicodone, Oxyir) 5 mg TID PO Last administered on 11/12/18 20:44; Start 11/06/18 at 16:00 Oxycodone HCl (Roxicodone, Oxyir) 10 mg Q4HP PRN PO SEVERE PAIN (PS 8-10) Last administered on 11/12/18 11:25; Start 10/31/18 at 14:45 Pantoprazole Sodium (Protonix) 40 mg DAILY PO Last administered on 11/12/18 08:55; Start 11/01/18 at 09:00 Patient Own Medication (Patient'S Own Med) TRINTELLIX 20mg po daily DAILY PO Last administered on 11/12/18 08:50; Start 11/01/18 at 09:00 Patient Own Medication (Patient'S Own Med) Testosterone 5gram 1% gel; AP... DAILY TOP Last administered on 11/12/18 08:56; Start 11/07/18 at 09:00 Pramipexole Dihydrochloride (Mirapex) 2 mg QHS PO Last administered on 11/12/18 20:48; Start 10/31/18 at 21:00 Pregabalin (Lyrica) 75 mg BID PO ; Start 10/31/18 at 21:00; Stop 10/31/18 at 21:00; Status DC Pregabalin (Lyrica) 100 mg BID PO Last administered on 11/12/18 20:44; Start 10/31/18 at 21:00 Ranolazine (Ranexa) 500 mg BID PO Last administered on 11/12/18 20:44; Start 10/31/18 at 21:00 Salmeterol Xinafoate/ Fluticasone (Advair Hfa 115/ 21) 2 puff BID INH Last administered on 11/12/18 20:37; Start 10/31/18 at 21:00 Senna/Docusate Sodium (Senokot S) 1 tab BID PO Last administered on 11/12/18 20:43; Start 10/31/18 at 21:00 Sodium Chloride 1,000 ml @ 40 mls/hr Q24H IV Last administered on 11/07/18 13:55; Start 11/04/18 at 10:30; Stop 11/08/18 at 12:17; Status DC Sodium Chloride (Saline Lock Flush) 2 ml ASDIRECTED PRN IV SEE LABEL COMMENTS; Start 11/08/18 at 19:45; Stop 11/12/18 at 14:23; Status DC Sodium Chloride (Saline Lock Flush) 2 ml SLF IV Last administered on 11/12/18 05:55; Start 11/08/18 at 22:00; Stop 11/12/18 at 14:23; Status DC Sodium Chloride (Saline Lock Flush) 10 ML PICC IV Last administered on 11/12/18 17:11; Start 11/11/18 at 18:00 Sodium Chloride (Saline Lock Flush) 10 ml ASDIRECTED PRN IV SEE LABEL COMMENTS Last administered on 11/02/18 09:48; Start 10/31/18 at 16:30; Stop 11/08/18 at 19:36; Status DC Sodium Chloride (Saline Lock Flush) 10 ml PICC IV Last administered on 11/04/18 05:43; Start 10/31/18 at 18:00; Stop 11/08/18 at 19:36; Status DC Sodium Chloride (Saline Lock Flush) 10ML ASDIRECTED PRN IV SEE LABEL COMMENTS Last administered on 11/12/18 09:51; Start 11/11/18 at 16:30 Vitamin D (Vitamin D) 1,000 units DAILY PO Last administered on 11/12/18 08:55; Start 11/01/18 at 09:00 SOILA FREITAS MD Nov 12, 2018 22:00
[2018-11-13] MEDS: SODIUM CHLORIDE 0.9% INJ 10 ML SYR IV SCH ×2 (05:12→18:37)
[2018-11-13 05:22] VITALS: BP 158/70
[2018-11-13 07:24] LABS: HEMATOCRIT 23.7 % (42.0-52.0); HEMOGLOBIN 7.3 g/dl (13.5-17.5); MEAN CORPUSCULAR HEMOGLOBIN 30.4 pg (27.0-33.0); MEAN CORPUSCULAR HGB CONC 30.8 g/dl (32.0-36.5); MEAN CORPUSCULAR VOLUME 98.8 fl (80.0-96.0); PLATELET COUNT, AUTOMATED 150 10^3/uL (150-450); WHITE BLOOD COUNT 4.5 10^3/uL (4.0-10.0)
[2018-11-13] MEDS: ADVAIR HFA 115/21MCG INHALER INH SCH ×2 (07:32→19:49)
[2018-11-13 07:42] LABS: ALBUMIN 2.5 GM/DL (3.2-5.2); BILIRUBIN,TOTAL 0.4 MG/DL (0.2-1.0); C REACTIVE PROTEIN QUANTITATIV 7.58 MG/DL (0.00-0.30); CALCIUM LEVEL 8.4 MG/DL (8.8-10.2); CREATININE FOR GFR 1.65 MG/DL (0.70-1.30); GLOMERULAR FILTRATION RATE 43.8 (>42); POTASSIUM SERUM 4.1 MEQ/L (3.5-5.1); TOTAL PROTEIN 6.5 GM/DL (6.4-8.2)
[2018-11-13] MEDS: IPRATROPIUM 0.5MG/ALBUTEROL 2.5MG INH SOL UD 3ML (DUONEB)(J7620) NEB SCH ×2 (08:00→20:00)
[2018-11-13 08:03] LABS: ERYTHROCYTE SEDIMENTATION RATE 126 mm/hr (0-20)
[2018-11-13] MEDS ORDERED: METOPROLOL SUCC *XL* 25MG TAB (TopROL *XL*) PO SCH (09:00)
[2018-11-13] MEDS: TRINTELLIX PO SCH (09:59)
[2018-11-13] MEDS: cefTRIAXone SOD 2 GM in D5W MINI-BAG PLUS 50 ML IV SCH (10:00)
[2018-11-13] MEDS ORDERED: IRON SUCROSE 400 MG in NS 250 ML IV ONE (10:00)
[2018-11-13] MEDS: ASCORBIC ACID 500 MG TAB PO SCH (10:01)
[2018-11-13] MEDS: RANOLAZINE 500 MG ER TAB PO SCH ×2 (10:01→20:30)
[2018-11-13] MEDS: CO-ENZYME Q10 50 MG CAP PO SCH (10:01)
[2018-11-13] MEDS: PREGABALIN 100 MG CAP (LYRICA) PO SCH ×2 (10:02→20:30)
[2018-11-13] MEDS: BACLOFEN 5MG PER 1/2 TABLET PO SCH ×3 (10:02→20:30)
[2018-11-13] MEDS: ASPIRIN 81 MG ENTERIC TAB PO SCH (10:02)
[2018-11-13] MEDS: ACETAMINOPHEN 500 MG TAB PO SCH ×3 (10:04→20:29)
[2018-11-13] MEDS: LIDOCAINE 5% (LIDODERM) PATCH TD SCH (10:05)
[2018-11-13] MEDS: oxyCODONE 5MG TAB PO SCH ×3 (10:05→20:30)
[2018-11-13] MEDS: POLYVINYL ALCOHOL OPHTH SOLN 15 ML(LIQUITEARS) OU SCH ×4 (10:05→20:31)
[2018-11-13] MEDS: FLUTICASONE PROP 0.05% NASAL SPRAY 16 GM (FLONASE) NARES SCH (10:06)
[2018-11-13] MEDS: ONDANSETRON 4 MG TAB (S0181) PO SCH ×3 (10:06→18:36)
[2018-11-13] MEDS: TESTOSTERONE 1% TOP SCH (10:06)
[2018-11-13] MEDS: SENOKOT S TAB PO SCH ×2 (10:07→20:30)
[2018-11-13] MEDS: VITAMIN D 1,000 INTERNATIONAL UNITS TABLET PO SCH (10:07)
[2018-11-13] MEDS: MAGNESIUM GLUCONATE 500 MG TAB PO SCH ×2 (10:14→20:30)
[2018-11-13] MEDS: PANTOPRAZOLE 40MG TAB (PROTONIX) PO SCH (10:15)
[2018-11-13] MEDS: DARBEPOETIN 100 MCG/0.5 ML *NON-DIALYSIS* SYRINGE (J0881) SC SCH (11:49)
[2018-11-13] MEDS: oxyCODONE 5MG TAB PO PRN (11:59)
--- NOTE | 2018-11-13 13:53 | IPNPDOC ---
Date Seen The patient was seen on 11/13/18. Progress Note HPI: 72M who was transferred to [facility] from [facility] for low back pain with fevers that began 6 days prior to admission. An ID consult was ordered, he was found to have Strep Mitis bacteremia from a October 14 and blood culture taken at [place] for which he was placed on Ceftriaxone and Gentamicin on 10-16-18 for discitis vs osteomyelitis in the setting of a possibly infected bi-prosthetic aortic valve with endocarditis. A GUILLERMO was performed showing, Moderate perivalvular aortic regurgitation, mobile density contiguous with aortic valve,cannot rule out vegetation. Repeat blood cultures on October 20 and were negative. Thor[address]olumbar CT on 10-18-18 showed lesion suspicious for diskovertebral osteomyelitis at L1-L2. ID recommended a 6 week course of IV antibiotics followed by Omnicef for 1 year for suppression. No cardiac or orthopedic surgery was recommended and PICC line placed. He developed a decubitus ulcer during his stay due to immobility. Patient had worsening back pain with spasms limiting his ability to ambulate and perform ADLs and deemed medically appropriate for transfer to [facility], Dr Pennington, on 10-31-18 with a diagnosis of Strep Mitis bacteremia with bio- prosthetic AVR endocarditis and L1-L2 diskovertebral osteomyelitis. ID has been consulted to assist with antibiotic recommendations. Nephrology following to assist with anemia/ANA. Pt is OOB to chair and states sitting up causes aching in his low back. In bed resting he states his pain is better. Denies any fevers, chills, headache, Chest Pain, Shortness of breath, cough, palpitations, abdominal pain, N/V/D or changes in bowel or bladder habits. PAST MEDICAL HISTORY: NIDDM. HTN Coronary artery disease, status post CABG, status post TAVR 05/31. COPD. depression PAST SURGICAL HISTORY: TAVR replaced May 2018, first placed 2009 Right hip septic joint 1.5 years ago, s/p YANET January 2018, s/p pacemaker PE: GEN: 72yoM, appears stated age. No acute distress. Alert and oriented to person/time/place. HEENT: Normocephalic, atraumatic. Sclera are nonicteric. Conjunctiva without injection. No facial asymmetry. Moist mucous membranes. CHEST: Regular rate and rhythm, +S1, +S2 LUNGS: Clear to auscultation bilaterally. No wheezes, rales, or rhonchi. ABD: Round, soft, non-tender, non-distended. +Bowel sounds present. No rebound o r guarding. EXT: No lower extremity edema appreciated. SKIN: [place], dry, warm. No rashes. NEURO: No focal deficits appreciated. Moving UEs and LEs UC negative. U/S LEs 10/31/18, 11/05/[address] A/P done related to constipation 11/02/18. A&P: 72M pmh DM, HTN, PM, AVR (replaced in May 2018), CAD with CABG, JR, right hip periprosthetic infection, who was transferred to [facility] from [facility] for low back pain with fevers that began 6 days prior to admission. An ID consult was ordered, he was found to have Strep Mitis bacteremia from a October 14 and blood culture taken at [place] for which he was placed on Ceftriaxone and Gentamicin on 10-16-18 for discitis vs osteomyelitis in the setting of a possibly infected bi-prosthetic aortic valve with endocarditis. A GUILLERMO was performed showing, Moderate perivalvular aortic regurgitation, mobile density contiguous with aortic valve,cannot rule out vegetation. Repeat blood cultures on October 20 and were negative. Thoracolumbar CT on 10-18-18 showed lesion suspicious for diskovertebral osteomyelitis at L1-L2. ID recommended a 6 week course of IV antibiotics followed by Omnicef for 1 year for suppression. No cardiac or orthopedic surgery was recommended and PICC line placed. He developed a decubitus ulcer during his stay due to immobility. Patient had worsening back pain with spasms limiting his ability to ambulate and perform ADLs and deemed medically appropriate for transfer to [facility], Dr Xochilt moser, on 10-31-18 with a diagnosis of Strep Mitis bacteremia with bio- prosthetic AVR endocarditis and L1-L2 diskovertebral osteomyelitis. 1. Discitis/osteomyelitis of L1 to L2, Streptococcus mitis bacteremia/Endocarditis. Pt is afebrile. WBC 4.5 Mgmt as per ARU Pain control as per ARU Bowel care as per ARU PT/OT/ST as per ARU DVT prophylaxis as per ARU, SQ Heparin. On IV Rocephin as per HE Garber. Continue Mgmt as per ID. ID consulted, Dr Alejandro. Appreciate recommendations. IV Rocephin until 11/28/18 then po Omnicef x 1 year. 11/07/18 ESR 128, CRP 13.80. 11/10 CRP 4.32. 11/13/18 ESR 126, CRP 7.58 Pt unable to have MRI related to pacemaker. Blood culture x2 11/01 neg. Urine culture neg. Continue to monitor. 2. Coronary artery disease/Status post coronary artery bypass graft (CABG) and status post transcatheter aortic valve replacement (TAVR). Continue aspirin/Ranexa/Toprol XL. Outpt F/U with cardiology. 3. History of COPD. Duoneb Advair 4. Hypertension. Toprol XL 5. DM. CC diet. HOLD Metformin Monitor FSBS. 6. Depression Trintellix. 7. Anemia. B12, folate, Fe studies noted FOB pending. 11/13/18 Hgb noted to be 7.3. Pt is Jehovah Witness and declines transfusion. Nephrology consulted and following, Kiet/Jillian ordered. Monitor. 8. ANA/CKD. SCr noted to be 1.65 S/P IVF Continue to hold Metformin. S/P IV contrast with CT 11/02/18. Nephrology following. Avoid nephrotoxins. Monitor 9. Hyponatremia. Resolved. Monitor. VS, I&O, 24H, Fishbone Vital Signs/I&O Vital Signs Date Time Temp Pulse Resp B/P (MAP) Pulse Ox O2 Delivery O2 Flow Rate FiO2 11/13/18 11:59 18 11/13/18 10:10 92 138/68 11/13/18 05:22 97.5 98 11/12/18 06:00 Room Air I&O- Last 24 Hours up to 6 AM 11/13/18 06:00 Intake Total 820 ml Output Total 830 ml Balance -10 ml Laboratory Data 24H LABS Laboratory Tests 2 11/12/18 17:02: Bedside Glucose (Misc Panel) 104 11/13/18 06:59: Nucleated Red Blood Cells % (auto) 0.0, Erythrocyte Sedimentation Rate 126H, Ani on Gap 5L, Glomerular Filtration Rate 43.8, Blood Urea Nitrogen 18, Creatinine 1.65H, Sodium Level 142, Potassium Level 4.1, Chloride Level 109H, Carbon Dioxide Level 28, Calcium Level 8.4L, Aspartate Amino Transf (AST/SGOT) 30, Alanine Aminotransferase (ALT/SGPT) 17, Alkaline Phosphatase 121H, Total Bilirubin 0.4, Total Protein 6.5, Albumin 2.5L, C-Reactive Protein, Quantitative 7.58H, Albumin/Globulin Ratio 0.63L CBC/BMP Laboratory Tests 11/13/18 06:59 Red Blood Count 2.40 L, Mean Corpuscular Volume 98.8 H, Mean Corpuscular Hemoglobin 30.4, Mean Corpuscular Hemoglobin Concent 30.8 L, Red Cell Distribution Width 17.2 H, Calcium Level 8.4 L, Aspartate Amino Transf (AST/ SGOT) 30, Alanine Aminotransferase (ALT/SGPT) 17, Alkaline Phosphatase 121 H, Total Bilirubin 0.4, Total Protein 6.5, Albumin 2.5 L Yanci Cortes Nov 13, 2018 13:53
[2018-11-13 14:00] VITALS: BP 152/73
[2018-11-13] MEDS: SODIUM CHLORIDE 0.9% INJ 10 ML SYR IV PRN (14:02)
--- NOTE | 2018-11-13 17:28 | IPN ---
DATE: 11/13/2018 Mr. Ward is seen this morning on his bedside. He is lying in the bed today at the time of my visit and reports that his back pain is slightly better. He wants to know when he can go home. He denies any nausea or vomiting. He continues to participate in physical therapy. However he gets significant pain on movement. He has no diarrhea, vomiting, fever or chills and reports that he is eating and drinking pretty good today. PHYSICAL EXAMINATION Temperature 98.2 degrees Fahrenheit, heart rate 80 per minute and respiratory rate 18 per minute. Blood pressure 138/68 mmHg and oxygen saturation 98% on room air. His head is atraumatic. Neck is supple and without JVD or thyroid enlargement. Heart: Sounds are regular and lungs clear to auscultation. Abdomen: Soft and nontender. Bowel sounds are normal. Extremities have no cyanosis or clubbing. Neurologically he is awake, alert and at his baseline mentation. Today's labs show WBC count 4.5, hemoglobin 7.3 and hematocrit 23.7. Platelets 150. His ESR is still 126. Sodium is 142, potassium 4.1, CO2 28, BUN 18 and creatinine 1.65. PROBLEMS: 1. Acute renal failure superimposed on chronic kidney disease. Kidney function has improved and stable at about baseline. There has been no change for last 3 days. This is probably going to be his chronic renal function. 2. Anemia. His anemia is fluctuates slightly, but no significant trend. He is Bahai and does not wish to get transfused. He received one dose of intravenous iron about a week ago and we are going to give him another dose of Venofer 400 mg today. He remains on Aranesp 100 mcg once a week. 3. Hypertension. Blood pressure is well-controlled on current medications. 4. Discitis and osteomyelitis. The patient remains on ceftriaxone and his ESR has not improved as yet. His back pain is slightly better but not resolved. He continues with acute rehab.
[2018-11-13 20:00] VITALS: BP 154/66
[2018-11-13] MEDS: MIRTAZAPINE 15 MG TAB PO SCH (20:28)
[2018-11-13] MEDS: PRAMIPEXOLE 1 MG TAB PO SCH (20:30)
[2018-11-13] MEDS: **NOTE PATIENT COMMENT** MISC XX SCH (20:31)
[2018-11-14] MEDS: SODIUM CHLORIDE 0.9% INJ 10 ML SYR IV SCH ×2 (05:11→17:06)
[2018-11-14 06:00] VITALS: BP 122/65
[2018-11-14 07:05] LABS: HEMATOCRIT 29.6 % (42.0-52.0); HEMOGLOBIN 8.9 g/dl (13.5-17.5); MEAN CORPUSCULAR HEMOGLOBIN 30.7 pg (27.0-33.0); MEAN CORPUSCULAR HGB CONC 30.1 g/dl (32.0-36.5); MEAN CORPUSCULAR VOLUME 102.1 fl (80.0-96.0); PLATELET COUNT, AUTOMATED 140 10^3/uL (150-450); WHITE BLOOD COUNT 3.9 10^3/uL (4.0-10.0)
[2018-11-14 07:27] LABS: ALBUMIN 2.6 GM/DL (3.2-5.2); BILIRUBIN,TOTAL 0.4 MG/DL (0.2-1.0); CALCIUM LEVEL 8.7 MG/DL (8.8-10.2); CREATININE FOR GFR 1.65 MG/DL (0.70-1.30); GLOMERULAR FILTRATION RATE 43.8 (>42); TOTAL PROTEIN 7.1 GM/DL (6.4-8.2)
[2018-11-14] MEDS: IPRATROPIUM 0.5MG/ALBUTEROL 2.5MG INH SOL UD 3ML (DUONEB)(J7620) NEB SCH ×2 (07:42→20:00)
[2018-11-14] MEDS: ADVAIR HFA 115/21MCG INHALER INH SCH ×2 (07:42→20:06)
[2018-11-14] MEDS: POLYVINYL ALCOHOL OPHTH SOLN 15 ML(LIQUITEARS) OU SCH ×4 (08:16→21:14)
[2018-11-14] MEDS: FLUTICASONE PROP 0.05% NASAL SPRAY 16 GM (FLONASE) NARES SCH (08:16)
[2018-11-14] MEDS: ASPIRIN 81 MG ENTERIC TAB PO SCH (08:16)
[2018-11-14] MEDS: cefTRIAXone SOD 2 GM in D5W MINI-BAG PLUS 50 ML IV SCH (08:16)
[2018-11-14] MEDS: LIDOCAINE 5% (LIDODERM) PATCH TD SCH (08:16)
[2018-11-14] MEDS: ONDANSETRON 4 MG TAB (S0181) PO SCH ×3 (08:16→17:06)
[2018-11-14] MEDS: oxyCODONE 5MG TAB PO SCH ×3 (08:17→21:13)
[2018-11-14] MEDS: SENOKOT S TAB PO SCH ×2 (08:17→21:13)
[2018-11-14] MEDS: ACETAMINOPHEN 500 MG TAB PO SCH ×3 (08:17→21:13)
[2018-11-14] MEDS: PANTOPRAZOLE 40MG TAB (PROTONIX) PO SCH (08:17)
[2018-11-14] MEDS: RANOLAZINE 500 MG ER TAB PO SCH ×2 (08:17→21:12)
[2018-11-14] MEDS: VITAMIN D 1,000 INTERNATIONAL UNITS TABLET PO SCH (08:17)
[2018-11-14] MEDS: CO-ENZYME Q10 50 MG CAP PO SCH (08:17)
[2018-11-14] MEDS: MAGNESIUM GLUCONATE 500 MG TAB PO SCH ×2 (08:17→21:13)
[2018-11-14] MEDS: TESTOSTERONE 1% TOP SCH (08:18)
[2018-11-14] MEDS: TRINTELLIX PO SCH (08:18)
[2018-11-14] MEDS: ASCORBIC ACID 500 MG TAB PO SCH (08:18)
[2018-11-14] MEDS: BACLOFEN 5MG PER 1/2 TABLET PO SCH ×2 (08:19→21:12)
[2018-11-14] MEDS: PREGABALIN 100 MG CAP (LYRICA) PO SCH ×2 (08:19→21:12)
[2018-11-14] MEDS: SODIUM CHLORIDE 0.9% INJ 10 ML SYR IV PRN (08:29)
[2018-11-14] MEDS: METOPROLOL SUCC (TopROL XL) 50MG **XL** TAB PO SCH (09:52)
[2018-11-14] MEDS: oxyCODONE 5MG TAB PO PRN (11:01)
--- NOTE | 2018-11-14 11:03 | IPNPDOC ---
Date Seen The patient was seen on 11/14/18. Progress Note HPI: 72M who was transferred to [facility] from [facility] for low back pain with fevers that began 6 days prior to admission. An ID consult was ordered, he was found to have Strep Mitis bacteremia from a October 14 and blood culture taken at [facility] for which he was placed on Ceftriaxone and Gentamicin on 10-16-18 for discitis vs osteomyelitis in the setting of a possibly infected bi-prosthetic aortic valve with endocarditis. A GUILLERMO was performed showing, Moderate perivalvular aortic regurgitation, mobile density contiguous with aortic valve,cannot rule out vegetation. Repeat blood cultures on October 20 and were negative. Thor[address]olumbar CT on 10-18-18 showed lesion suspicious for diskovertebral osteomyelitis at L1-L2. ID recommended a 6 week course of IV antibiotics followed by Omnicef for 1 year for suppression. No cardiac or orthopedic surgery was recommended and PICC line placed. He developed a decubitus ulcer during his stay due to immobility. 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 ID following to assist with antibiotic recommendations. Nephrology following to assist with anemia/ANA. Pt states he is still having pain in his back, no change. Spasms are less the past couple of days. Denies any fevers, chills, headache, Chest Pain, Shortness of breath, cough, palpitations, abdominal pain, N/V/D or changes in bowel or bladder habits. PAST MEDICAL HISTORY: NIDDM. HTN Coronary artery disease, status post CABG, status post TAVR 05/31. COPD. depression PAST SURGICAL HISTORY: TAVR replaced May 2018, first placed 2009 Right hip septic joint 1.5 years ago, s/p YANET January 2018, s/p pacemaker PE: GEN: 72yoM, appears stated age. No acute distress. Alert and oriented to person/time/place. HEENT: Normocephalic, atraumatic. Sclera are nonicteric. Conjunctiva without injection. No facial asymmetry. Moist mucous membranes. CHEST: Regular rate and rhythm, +S1, +S2 LUNGS: Clear to auscultation bilaterally. No wheezes, rales, or rhonchi. ABD: Round, soft, non-tender, non-distended. +Bowel sounds present. No rebound or guarding. EXT: No lower extremity edema appreciated. SKIN: [place], dry, warm. No rashes. NEURO: No focal deficits appreciated. Moving UEs and LEs UC negative. U/S LEs 10/31/18, 11/05/[address] A/P done related to constipation 11/02/18. A&P: 72M pmh DM, HTN, PM, AVR (replaced in May 2018), CAD with CABG, JR, right hip periprosthetic infection, who was transferred to [facility] from [facility] for low back pain with fevers that began 6 days prior to admission. An ID consult was ordered, he was found to have Strep Mitis bacteremia from a October 14 and blood culture taken at [facility] for which he was placed on Ceftriaxone and Gentamicin on 10-16-18 for discitis vs osteomyelitis in the setting of a possibly infected bi-prosthetic aortic valve with endocarditis. A GUILLERMO was performed showing, Moderate perivalvular aortic regurgitation, mobile density contiguous with aortic valve,cannot rule out vegetation. Repeat blood cultures on October 20 and were negative. Thoracolumbar CT on 10-18-18 showed lesion suspicious for diskovertebral osteomyelitis at L1-L2. ID recommended a 6 week course of IV antibiotics followed by Omnicef for 1 year for suppression. No cardiac or orthopedic surgery was recommended and PICC line placed. He developed a decubitus ulcer during his stay due to immobility. 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 1. Discitis/osteomyelitis of L1 to L2, Streptococcus mitis bacteremia/Endocarditis. Pt is afebrile. WBC 3.9 Mgmt as per ARU Pain control as per ARU Bowel care as per ARU PT/OT/ST as per ARU DVT prophylaxis as per ARU, SQ Heparin. On IV Rocephin as per ID Shirlene. Continue Mgmt as per ID. ID consulted, Dr Alejandro. Appreciate recommendations. IV Rocephin until 11/28/18 then po Omnicef x 1 year. 11/07/18 ESR 128, CRP 13.80. 11/10 CRP 4.32. 11/13/18 ESR 126, CRP 7.58 Pt unable to have MRI related to pacemaker. Blood culture x2 11/01 neg. Urine culture neg. Continue to monitor. 2. Coronary artery disease/Status post coronary artery bypass graft (CABG) and status post transcatheter aortic valve replacement (TAVR). Continue aspirin/Ranexa/Toprol XL. Outpt F/U with cardiology. 3. History of COPD. Duoneb Advair 4. Hypertension. Toprol XL 5. DM. CC diet. HOLD Metformin Monitor FSBS. 6. Depression Trintellix. 7. Anemia. B12, folate, Fe studies noted 11/13/18 Hgb noted to be 7.3. Pt is Jehovah Witness and declines transfusion. Nephrology consulted and following, Venofer as per Nephrology/Purnimap weekly. Monitor. 8. ANA/CKD. SCr noted to be 1.65 S/P IVF Continue to hold Metformin. S/P IV contrast with CT 11/02/18. Nephrology following. Avoid nephrotoxins. Monitor 9. Hyponatremia. Resolved. Monitor. VS, I&O, 24H, Fishbone Vital Signs/I&O Vital Signs Date Time Temp Pulse Resp B/P (MAP) Pulse Ox O2 Delivery O2 Flow Rate FiO2 11/14/18 09:52 86 122/65 11/14/18 08:47 16 11/14/18 06:00 97.0 98 11/12/18 06:00 Room Air I&O- Last 24 Hours up to 6 AM 11/14/18 06:00 Intake Total 1320 ml Output Total 1400 ml Balance -80 ml Laboratory Data 24H LABS Laboratory Tests 2 11/13/18 16:48: Bedside Glucose (Misc Panel) 90 11/14/18 06:52: Nucleated Red Blood Cells % (auto) 0.0, Anion Gap 8, Glomerular Filtration Rate 43.8, Blood Urea Nitrogen 15, Creatinine 1.65H, Sodium Level 142, Potassium Level 4.0, Chloride Level 108H, Carbon Dioxide Level 26, Calcium Level 8.7L, Aspartate Amino Transf (AST/SGOT) 37, Alanine Aminotransferase (ALT/SGPT) 22, Alkaline Phosphatase 166H, Total Bilirubin 0.4, Total Protein 7.1, Albumin 2.6L, Albumin/Globulin Ratio 0.58L CBC/BMP Laboratory Tests 11/14/18 06:52 Red Blood Count 2.90 L, Mean Corpuscular Volume 102.1 H, Mean Corpuscular Hemoglobin 30.7, Mean Corpuscular Hemoglobin Concent 30.1 L, Red Cell Distribution Width 17.5 H, Calcium Level 8.7 L, Aspartate Amino Transf (AST/SGOT) 37, Alanine Aminotransferase (ALT/SGPT) 22, Alkaline Phosphatase 166 H, Total Bilirubin 0.4, Total Protein 7.1, Albumin 2.6 L Yanci Cortes Nov 14, 2018 11:03
[2018-11-14] MEDS ORDERED: diazePAM 2 MG TAB PO ONE ×2 (11:30)
--- NOTE | 2018-11-14 12:56 | IPNPDOC ---
PM&R Progress Note DATE OF SERVICE: Nov 14, 2018 Appointment Setter Progress Note Subjective: Patient seen lying in bed states he is still having painful spasms which is limiting his oral intake, but has not been getting valium. 1mg dose was given which provided immediate relief without confusion. REVIEW OF SYSTEMS: The following is a completed review of systems and has been reviewed. Review of systems otherwise unremarkable. PAIN: Patient self reports severe low back pain with spasms EYES: Negative for recent vision changes EARS, NOSE, & THROAT:negative for rhinorrhea, tinnitus, or dysphagia CARDIOVASCULAR: denies chest pain or palpitations PULMONARY: Negative. Denies shortness of breath GASTROINTESTINAL: constipation (improving) GENITOURINARY: Negative for dysuria MUSCULOSKELETAL: low back pain and bilateral knee OA NEUROLOGICAL: restless leg syndrome HEMATOLOGICAL: +anemia SKIN: PICC rue PSYCHIATRIC: Unremarkable All other review of systems found to be negative. PHYSICAL EXAMINATION: VITAL SIGNS: Please see below. GENERAL: Pleasant and cooperative, no acute distress HEENT: PERRL. Extraocular movements intact. Clear conjunctiva CARDIOVASCULAR: Regular rate and rhythm. No murmurs, rubs, or gallops LUNGS: Clear to auscultation bilaterally. No wheezes. No rhonchi ABDOMEN: Soft, nontender, nondistended. Positive bowel sounds. Normal active bowel sounds NEUROLOGICAL: Alert and oriented times to self and place not time, Cranial nerves II through XII grossly intact. Sensation grossly intact. EXTREMITIES: 5\5 strength bilateral upper extremities. bilateral Ankle DF and EHL 5/5, however proximal muscle testing greatly limited by pain (negative Michael's bilat) SKIN: +PICC, decubitus ulcer ASSESSMENT:72-year-old M with past medical history of CAD, AVR, CAD with CABG who presents with diskovertebral osteomyelitis in the setting of endocarditis. PLAN: 1. Rehab: PT/OT, assess for DME needs- LSO brace when out of bed for comfort, able to ambulate further with RW 2. Neuro: pmh restless leg syndrome, continue home meds 3. Cardio: pmh CAD s/p AVR replacement with recent GUILLERMO suspicious for endocarditis continue IV Ceftriaxone and s/p Gentamicin, will need outpatient cardio f/u -continue beta-blockers and ASA 4. Endo: pmh DM off metformin, monitoring FS for hypoglycemia due to poor oral intake 5. ID: L1-L2 disko-vertebral osteomyeltis, blood cultures positive for Strep Mitis, per acute care hospital continue IV Ceftriaxone for 6 weeks (start date 10/16/18) and Gentamicin for 2 weeks (start date 10/26/18)to be followed by one year suppression dose of Omnicef- Dr. Alejandro consulted, Gentamicin discontinued w ill continue to follow-recs, appreciated -admission blood cultures negative 6. Pain: pmh chronic knee pain, now with severe discogenic pain with spasms- pain mildly improved today, will d/c long acting morphine, add oxycodone 5mg tid standing and continue oxycodone 10mg q4h prn, standing Tylenol, continue Lyrica, and low dose Diazepam standing for painful spasms to be held for sedation, will taper baclofen 7. DVT ppx: will d/c heparin given anemia and borderline low platelets and obtain serial dopplers, continue TEDs, thus far studies negative for DVT-will repeat today 8. SKin: [place] and turning q2h in bed 9. Resp: pmh COPD: continue home meds, continue Duonebs and monitor for PNA 10. 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 Heme: Anemia of chronic disease, patient is Jehovas witness and cannot receive blood, however s/p Venofer and s/p Aranesp per Renal, recs appreciated- hgb stable at 8.9 10. GIppx: optimize laxatives, protonix for ppx 11. Dispo: 11/24/18, progressing towards goals Allergies Coded Allergies: Statins (Unverified Adverse Reaction, Unknown, MUSCLE PAINS, 10/31/18) Trazodone (Unverified Adverse Reaction, Unknown, ITCH, 10/31/18) Vital Signs Vital Signs Date Time Temp Pulse Resp B/P (MAP) Pulse Ox O2 Delivery O2 Flow Rate FiO2 11/14/18 11:31 16 11/14/18 09:52 86 122/65 11/14/18 06:00 97.0 98 11/12/18 06:00 Room Air Laboratory Data CBC/BMP Laboratory Tests 11/14/18 06:52 Red Blood Count 2.90 L, Mean Corpuscular Volume 102.1 H, Mean Corpuscular Hemoglobin 30.7, Mean Corpuscular Hemoglobin Concent 30.1 L, Red Cell Distribution Width 17.5 H, Calcium Level 8.7 L, Aspartate Amino Transf (AST/SGOT) 37, Alanine Aminotransferase (ALT/SGPT) 22, Alkaline Phosphatase 166 H, Total Bilirubin 0.4, Total Protein 7.1, Albumin 2.6 L Labs 24H Laboratory Tests 2 11/13/18 16:48: Bedside Glucose (Misc Panel) 90 11/14/18 06:52: Nucleated Red Blood Cells % (auto) 0.0, Anion Gap 8, Glomerular Filtration Rate 43.8, Blood Urea Nitrogen 15, Creatinine 1.65H, Sodium Level 142, Potassium Level 4.0, Chloride Level 108H, Carbon Dioxide Level 26, Calcium Level 8.7L, Aspartate Amino Transf (AST/SGOT) 37, Alanine Aminotransferase (ALT/SGPT) 22, Alkaline Phosphatase 166H, Total Bilirubin 0.4, Total Protein 7.1, Albumin 2.6L, Albumin/Globulin Ratio 0.58L Current Medications Current Medications Current Medications Acetaminophen (Tylenol Tab) 1,000 mg TID PO Last administered on 11/14/18 08:17; Start 10/31/18 at 16:00 Albuterol/ Ipratropium (Duoneb (Ipr 0.5mg/Alb 2.5mg)) 3 ml RBID NEB ; Start 11/01/18 at 08:00 Artificial Tears ([place] Tears) 2 drop QID OU Last administered on 11/14/18at 12:21; Start 10/31/18 at 21:00 Ascorbic Acid (Vitamin C) 500 mg DAILY PO Last administered on 11/14/18 08:18; Start 11/01/18 at 09:00 Aspirin (Ecotrin) 81 mg DAILY PO Last administered on 11/14/18 08:16; Start 11/01/18 at 09:00 Baclofen (Lioresal) 5 mg TID PO Last administered on 11/14/18 08:19; Start 11/03/18 at 16:00 Bisacodyl (Dulcolax Suppository) 10 mg DAILYPRN PRN MA CONSTIPATION; Start 10/31/18 at 15:30 Bisacodyl (Dulcolax Tab) 5 mg DAILYPRN PRN PO CONSTIPATION; Start 10/31/18 at 15:30 Ceftriaxone Sodium 2 gm/ Dextrose 50 ml @ 100 mls/hr Q24H IV Last administered on 11/14/18 08:16; Start 11/01/18 at 09:00 Coenzyme Q10 (Coenzyme Q10) 100 mg DAILY PO Last administered on 11/14/18 08:17; Start 11/01/18 at 09:00; Stop 12/01/18 at 08:59 Darbepoetin Dioni (Aranesp) 100 mcg Th@09 SC Last administered on 11/13/18at 11:49; Start 11/06/18 at 09:00 Dextran/ Hydroxypropyl Methylcellul (Tears Naturale Free) 2 drop QID OU ; Start 10/31/18 at 17:00; Status Cancel Dextrose (Dextrose 50%) 25 ml ASDIRECTED PRN IV SEE LABEL COMMENTS; Start 10/31/18 at 15:15 Dextrose/Sodium Chloride 1,000 ml @ 75 mls/hr [id number] IV Last administered on 11/10/18at 09:57; Start 11/08/18 at 12:30; Stop 11/10/18 at 10:40; Status DC Diazepam (Valium) 2 mg Q4H PRN PO spasm; Start 11/06/18 at 10:45; Stop 11/10/18 at 15:31; Status DC Diazepam (Valium) 2 mg TID PO Last administered on 11/05/18at 15:05; Start 11/04/18 at 16:00; Stop 11/06/18 at 10:35; Status DC Diazepam (Valium) 2.5 mg Q4H PRN PO SPASMS Last administered on 11/01/18at 19:13; Start 11/01/18 at 14:30; Stop 11/01/18 at 23:15; Status DC Diazepam (Valium) 2.5 mg Q6H PRN PO SPASMS Last administered on 11/01/18at 14:15; Start 11/01/18 at 14:00; Stop 11/01/18 at 14:24; Status DC Diazepam (Valium) 2.5 mg Q8HP PRN PO SPASMS Last administered on 10/31/18at 16:01; Start 10/31/18 at 14:45; Stop 10/31/18 at 16:19; Status DC Diazepam (Valium) 2.5 mg Q8HP PRN PO SPASMS Last administered on 11/01/18at 08:09; Start 10/31/18 at 21:00; Stop 11/01/18 at 13:59; Status DC Diazepam (Valium) 5 mg Q8HP PRN PO SPASMS; Start 10/31/18 at 16:15; Stop 10/31/18 at 20:55; Status DC Fluticasone Propionate (Flonase 0.05% Nasal [place]) 2 spray DAILY NARES Last administered on 11/14/18at 08:16; Start 11/01/18 at 09:00 Gentamicin Sulfate 80 mg/IV Miscellaneous Supplies 100 ml @ 200 mls/hr Q12H IV Last administered on 11/02/18at 06:17; Start 10/31/18 at 18:00; Stop 11/02/18 at 08:56; Status DC Gentamicin Sulfate 80 mg/IV Miscellaneous Supplies 100 ml @ 200 mls/hr Q18H IV Last administered on 11/03/18at 00:02; Start 11/03/18 at 00:00; Stop 11/03/18 at 16:59; Status DC Glucagon (Glucagon) 1 mg ASDIRECTED PRN SC SEE LABEL COMMENTS; Start 10/31/18 at 15:15 Glucose (Glucose) 16 GM ASDIRECTED PRN PO SEE LABEL COMMENTS; Start 10/31/18 at 15:15 Heparin Sodium (Heparin (Flush)) 100 units ASDIRECTED PRN IV SEE LABEL COMMENTS Last administered on 11/14/18at 08:29; Start 11/11/18 at 16:30 Heparin Sodium (Heparin (Flush)) 100 units PICC IV Last administered on 11/14/18at 05:11; Start 11/11/18 at 18:00 Heparin Sodium (Heparin (Flush)) 200 units ASDIRECTED PRN IV SEE LABEL COMMENTS Last administered on 11/02/18at 09:48; Start 10/31/18 at 16:30; Stop 11/08/18 at 19:36; Status DC Heparin Sodium (Heparin (Flush)) 200 units PICC IV Last administered on 11/04/18at 05:43; Start 10/31/18 at 18:00; Stop 11/08/18 at 19:36; Status DC Heparin Sodium (Porcine) (Heparin) 5,000 units Q12H SC Last administered on 11/04/18at 08:35; Start 10/31/18 at 21:00; Stop 11/04/18 at 18:41; Status DC Home Med (Med Rec Complete!) ASDIRECTED XX ; Start 10/31/18 at 14:45; Stop 10/31/18 at 14:45; Status DC Insulin Human Lispro (HumaLOG INSULIN) SEE PROTOCOL TABLE QHS SC ; Start 10/31/18 at 21:00; Stop 11/06/18 at 21:44; Status DC Lidocaine (Lidoderm Patch) 1 patch DAILY TD Last administered on 11/14/18at 08:16; Start 11/01/18 at 09:00 Magnesium Gluconate (Magnesium Gluconate) 500 mg BID PO Last administered on 11/14/18at 08:17; Start 10/31/18 at 21:00 Magnesium Hydroxide (Milk Of Magnesia) 30 ml DAILYPRN PRN PO CONSTIPATION Last administered on 11/02/18at 21:41; Start 10/31/18 at 15:30 Metformin HCl (Glucophage) 500 mg DAILY@08 PO Last administered on 11/04/18at 08:36; Start 11/01/18 at 08:00; Stop 11/04/18 at 11:08; Status DC Metoprolol Succinate (TopROL XL) 25 mg DAILY PO Last administered on 11/12/18at 08:53; Start 11/01/18 at 09:00; Stop 11/12/18 at 11:31; Status DC Metoprolol Succinate (TopROL XL) 50 mg DAILY PO Last administered on 11/13/18at 10:10; Start 11/13/18 at 09:00; Stop 11/14/18 at 09:10; Status DC Metoprolol Succinate (TopROL XL) 50 mg DAILY PO Last administered on 11/14/18at 09:52; Start 11/14/18 at 09:00 Mirtazapine (Remeron) 30 mg QHS PO Last administered on 11/13/18at 20:28; Start 10/31/18 at 21:00 Miscellaneous (Unresolved Patient Own Med Order) SEE LABEL COMMENTS DAILY XX ; Start 10/31/18 at 09:00; Stop 11/06/18 at 18:23; Status DC Morphine Sulfate (Ms Contin) 15 mg BID PO Last administered on 11/04/18 20:47; Start 10/31/18 at 17:00; Stop 11/06/18 at 10:35; Status DC Nitroglycerin (Nitrostat (1/ 150)) 0.4 mg Q5MP PRN SL CHEST PAIN; Start 10/31/18 at 14:45 Non-Formulary Medication ( See Comment Field Below ) REMOVE LIDODERM PATCH DAILY@21 XX Last administered on 11/13/18 20:31; Start 10/31/18 at 21:00 Ondansetron HCl (Zofran) 4 mg AC PO Last administered on 11/14/18 11:00; Start 10/31/18 at 17:30 Ondansetron HCl (Zofran) 4 mg Q6HP PRN PO NAUSEA Last administered on 11/06/18 15:21; Start 10/31/18 at 15:30 Oxycodone HCl (Roxicodone, Oxyir) 5 mg Q4HP PRN PO PAIN 4-7 Last administered on 11/04/18 05:47; Start 10/31/18 at 14:45; Stop 11/06/18 at 10:35; Status DC Oxycodone HCl (Roxicodone, Oxyir) 5 mg TID PO Last administered on 11/14/18 08:17; Start 11/06/18 at 16:00 Oxycodone HCl (Roxicodone, Oxyir) 10 mg Q4HP PRN PO SEVERE PAIN (PS 8-10) Last administered on 11/14/18 11:01; Start 10/31/18 at 14:45 Pantoprazole Sodium (Protonix) 40 mg DAILY PO Last administered on 11/14/18 08: 17; Start 11/01/18 at 09:00 Patient Own Medication (Patient'S Own Med) TRINTELLIX 20mg po daily DAILY PO Last administered on 11/14/18 08:18; Start 11/01/18 at 09:00 Patient Own Medication (Patient'S Own Med) Testosterone 5gram 1% gel; AP... DAILY TOP Last administered on 11/14/18 08:18; Start 11/07/18 at 09:00 Pramipexole Dihydrochloride (Mirapex) 2 mg QHS PO Last administered on 11/13/18at 20:30; Start 10/31/18 at 21:00 Pregabalin (Lyrica) 75 mg BID PO ; Start 10/31/18 at 21:00; Stop 10/31/18 at 21:00; Status DC Pregabalin (Lyrica) 100 mg BID PO Last administered on 11/14/18 08:19; Start 10/31/18 at 21:00 Ranolazine (Ranexa) 500 mg BID PO Last administered on 11/14/18 08:17; Start 10/31/18 at 21:00 Salmeterol Xinafoate/ Fluticasone (Advair Hfa 115/ 21) 2 puff BID INH Last administered on 11/14/18at 07:42; Start 10/31/18 at 21:00 Senna/Docusate Sodium (Senokot S) 1 tab BID PO Last administered on 11/14/18 08:17; Start 10/31/18 at 21:00 Sodium Chloride 1,000 ml @ 40 mls/hr Q24H IV Last administered on 11/07/18at 13:55; Start 11/04/18 at 10:30; Stop 11/08/18 at 12:17; Status DC Sodium Chloride (Saline Lock Flush) 2 ml ASDIRECTED PRN IV SEE LABEL COMMENTS; Start 11/08/18 at 19:45; Stop 11/12/18 at 14:23; Status DC Sodium Chloride (Saline Lock Flush) 2 ml SLF IV Last administered on 11/12/18at 05:55; Start 11/08/18 at 22:00; Stop 11/12/18 at 14:23; Status DC Sodium Chloride (Saline Lock Flush) 10 ML PICC IV Last administered on 11/14/18at 05:11; Start 11/11/18 at 18:00 Sodium Chloride (Saline Lock Flush) 10 ml ASDIRECTED PRN IV SEE LABEL COMMENTS Last administered on 11/02/18at 09:48; Start 10/31/18 at 16:30; Stop 11/08/18 at 19:36; Status DC Sodium Chloride (Saline Lock Flush) 10 ml PICC IV Last administered on 11/04/18at 05:43; Start 10/31/18 at 18:00; Stop 11/08/18 at 19:36; Status DC Sodium Chloride (Saline Lock Flush) 10ML ASDIRECTED PRN IV SEE LABEL COMMENTS Last administered on 11/14/18 08:29; Start 11/11/18 at 16:30 Vitamin D (Vitamin D) 1,000 units DAILY PO Last administered on 11/14/18 08:17; Start 11/01/18 at 09:00 SOILA FREITAS MD Nov 14, 2018 12:56
[2018-11-14] MEDS: diazePAM 2 MG TAB PO SCH ×3 (13:00→21:12)
[2018-11-14 14:00] VITALS: BP 131/60
--- NOTE | 2018-11-14 14:30 | IPN ---
DATE OF VISIT: 11/14/2018 Mr. Ward is seen this morning on his bedside. He is currently doing physical therapy in his room. He continues to have severe back pain and difficulty with movements. He has no dyspnea, chest pain, nausea or vomiting. He is being treated for diskitis and osteomyelitis in his back. Temperature is 97 degrees Fahrenheit, heart rate 86 per minute and respiratory rate 16 per minute. Blood pressure 122/65 mmHg and oxygen saturation 99% on room air. His head is atraumatic. Neck is supple and without jugular venous distention (JVD) or thyroid enlargement. Heart sounds regular and lungs clear to auscultation. Abdomen soft and nontender and extremities without any cyanosis or clubbing. Neurologically he is at his baseline mentation. Today's labs show WBC count 3.9, hemoglobin 8.9 and hematocrit 29.6. Platelets 140. Sodium 142, potassium 4.0, CO2 24, BUN 15 and creatinine 1.65. PROBLEMS: 1. Acute renal failure superimposed on chronic kidney disease. This is most likely his baseline kidney function and has been stable for the last 4 days. Electrolytes are within normal range. His volume status is also well compensated. 2. Anemia. The patient has received two doses of intravenous iron now and he remains on Aranesp 100 mcg once a week. We will continue with the same and check his CBC periodically. I do not feel that he needs labs every day. The patient is a Yazidism and has declined transfusion. 3. Diskitis and osteomyelitis lumbar spine. The patient remains on intravenous ceftriaxone. His ESR remains elevated at 126 yesterday. He is still in significant pain. 4. Hypertension. Blood pressure is well-controlled on current medications.
--- NOTE | 2018-11-14 15:14 | IPN ---
DATE: 10/15/2018 Mr. Ward seems more alert today. He is in good spirits. He still complains of spasms in his back, but they have decreased. He has been afebrile. Temperature is 98.2, pulse 86, respirations 16, blood pressure 122/65, oxygen saturation 98% on room air. HEART: Normal S1, S2 with a systolic ejection murmur 2/6, unchanged. LUNGS: Clear. No wheezes, rales, or rhonchi. ABDOMEN: Soft, nontender. No hepatosplenomegaly. EXTREMITIES: No edema. Lower extremity strength hip flexion is 5/5. Hip extension is limited due to pain,but he is definitely stronger. Peripherally inserted central catheter (PICC) line in the right upper arm, nontender. LABORATORY DATA: White count 3.9, hemoglobin 8.9, hematocrit 29.6, platelets 140. Sodium 142, potassium 4 chloride 108, bicarbonate 26, BUN 15, creatinine 1.65, glucose 94, calcium 8.7. AST 37, ALT 22, alkaline phosphatase 166, CRP 7.58, total protein 7.1, albumin 2.6. IMPRESSION: 1. Aortic valve endocarditis with Streptococcus mitis and L1-2 diskitis, on intravenous (IV) ceftriaxone for a total of 6 weeks. The patient tolerating well. 2. Severe back pain due to discitis, which is limiting his improvement with therapy but doing much better, using a brace for his lumbar spine support. PLAN: Continue with IV ceftriaxone until mid November. Then he will be switched to oral antibiotics for at least a year. ELIZABETH
[2018-11-14 20:00] VITALS: BP 127/61
[2018-11-14] MEDS: **NOTE PATIENT COMMENT** MISC XX SCH (21:00)
[2018-11-14] MEDS: PRAMIPEXOLE 1 MG TAB PO SCH (21:12)
[2018-11-14] MEDS: MIRTAZAPINE 15 MG TAB PO SCH (21:13)
[2018-11-15 06:00] VITALS: BP 164/76
[2018-11-15] MEDS: SODIUM CHLORIDE 0.9% INJ 10 ML SYR IV SCH ×2 (06:15→17:14)
[2018-11-15] MEDS: ONDANSETRON 4 MG TAB (S0181) PO SCH ×3 (07:30→17:14)
[2018-11-15] MEDS: IPRATROPIUM 0.5MG/ALBUTEROL 2.5MG INH SOL UD 3ML (DUONEB)(J7620) NEB SCH ×2 (08:00→20:00)
[2018-11-15] MEDS: ADVAIR HFA 115/21MCG INHALER INH SCH ×2 (08:32→21:27)
[2018-11-15] MEDS: TESTOSTERONE 1% TOP SCH (08:48)
[2018-11-15] MEDS: LIDOCAINE 5% (LIDODERM) PATCH TD SCH (08:48)
[2018-11-15] MEDS: ASCORBIC ACID 500 MG TAB PO SCH (08:49)
[2018-11-15] MEDS: PREGABALIN 100 MG CAP (LYRICA) PO SCH ×2 (08:49→20:46)
[2018-11-15] MEDS: PANTOPRAZOLE 40MG TAB (PROTONIX) PO SCH (08:49)
[2018-11-15] MEDS: BISACODYL 5 MG TAB PO PRN (08:49)
[2018-11-15] MEDS: CO-ENZYME Q10 50 MG CAP PO SCH (08:49)
[2018-11-15] MEDS: VITAMIN D 1,000 INTERNATIONAL UNITS TABLET PO SCH (08:49)
[2018-11-15] MEDS: SENOKOT S TAB PO SCH ×2 (08:49→20:47)
[2018-11-15] MEDS: RANOLAZINE 500 MG ER TAB PO SCH ×2 (08:49→20:46)
[2018-11-15] MEDS: ACETAMINOPHEN 500 MG TAB PO SCH ×3 (08:50→20:48)
[2018-11-15] MEDS: BACLOFEN 5MG PER 1/2 TABLET PO SCH ×2 (08:50→20:46)
[2018-11-15] MEDS: ASPIRIN 81 MG ENTERIC TAB PO SCH (08:50)
[2018-11-15] MEDS: MAGNESIUM GLUCONATE 500 MG TAB PO SCH ×2 (08:51→20:46)
[2018-11-15] MEDS: oxyCODONE 5MG TAB PO SCH ×3 (08:51→20:47)
[2018-11-15] MEDS: METOPROLOL SUCC (TopROL XL) 50MG **XL** TAB PO SCH (08:51)
[2018-11-15] MEDS: diazePAM 2 MG TAB PO SCH ×4 (08:51→20:46)
[2018-11-15] MEDS: POLYVINYL ALCOHOL OPHTH SOLN 15 ML(LIQUITEARS) OU SCH ×4 (08:52→20:48)
[2018-11-15] MEDS: cefTRIAXone SOD 2 GM in D5W MINI-BAG PLUS 50 ML IV SCH (08:52)
[2018-11-15] MEDS: FLUTICASONE PROP 0.05% NASAL SPRAY 16 GM (FLONASE) NARES SCH (08:52)
[2018-11-15] MEDS: TRINTELLIX PO SCH (08:53)
[2018-11-15 14:00] VITALS: BP 132/63
[2018-11-15 20:00] VITALS: BP 135/63
[2018-11-15] MEDS: MIRTAZAPINE 15 MG TAB PO SCH (20:46)
[2018-11-15] MEDS: PRAMIPEXOLE 1 MG TAB PO SCH (20:47)
[2018-11-15] MEDS: **NOTE PATIENT COMMENT** MISC XX SCH (20:48)
--- NOTE | 2018-11-15 21:02 | IPN ---
DATE: 11/15/2018 SUBJECTIVE: Patient is seen and examined in the room today. Patient still complains of significant back pain; however, his pain is under better control than before. Denies any acute complaints during encounter. OBJECTIVE: VITAL SIGNS: Temperature is 97.4, pulse 81, respirations 18, blood pressure 132/63, pulse oximetry 96% in room air. GENERAL: No sign of acute distress. Patient is alert, awake, oriented. HEENT: Normocephalic, atraumatic. Extraocular motor grossly intact. CARDIOVASCULAR: Positive S1, S2, regular rate. LUNGS: Clear to auscultation bilaterally. ABDOMEN: Soft, nontender, nondistended. Bowel sounds present. EXTREMITIES: No edema. LABORATORY DATA: WBC is 3.9, hemoglobin 8.9, hematocrit 29.6, platelet count is 140. Sodium is 142, potassium 4, chloride 109, carbon dioxide 26, BUN 15, creatinine 1.65, GFR is 43.8, fasting glucose 94, calcium is 8.7. Total bilirubin 0.4, AST 37, ALT 22, alkaline phosphatase is 166, total protein 7.1, albumin 2.6. ASSESSMENT AND PLAN: 1. Discitis/osteomyelitis of L1 and L2. Staphylococcus mitis bacteremia and endocarditis. Currently patient continues rehabilitation in acute rehabilitation unit (ARU). Infectious disease consulted. Patient is currently on intravenous (IV) Rocephin per infectious disease specialist in [place]. Continue IV Rocephin until 11/28/2018, then adjust it to Omnicef orally for 1 year. 2. Coronary artery disease, status post coronary artery bypass graft (CABG) and transcatheter aortic valve replacement (TAVR). On aspirin, metoprolol, and Ranexa. 3. Chronic obstructive pulmonary disease (COPD). No sign of exacerbation at this moment. 4. Hypertension. Blood pressure in the satisfactory range, on metoprolol. 5. Deep vein thrombosis (DVT) prophylaxis, on thromboembolic deterrents (TEDs) and compression.
[2018-11-16] MEDS: SODIUM CHLORIDE 0.9% INJ 10 ML SYR IV SCH ×2 (05:49→17:51)
[2018-11-16] MEDS: MOM 30ML SUSPENSION UDC PO PRN (05:59)
[2018-11-16 06:00] VITALS: BP 162/78
[2018-11-16] MEDS: ADVAIR HFA 115/21MCG INHALER INH SCH ×2 (07:24→21:00)
[2018-11-16] MEDS: IPRATROPIUM 0.5MG/ALBUTEROL 2.5MG INH SOL UD 3ML (DUONEB)(J7620) NEB SCH ×2 (07:24→20:00)
[2018-11-16] MEDS: ONDANSETRON 4 MG TAB (S0181) PO SCH ×3 (07:30→17:51)
[2018-11-16] MEDS: SENOKOT S TAB PO SCH ×2 (07:51→21:00)
[2018-11-16] MEDS: ACETAMINOPHEN 500 MG TAB PO SCH ×3 (07:51→21:01)
[2018-11-16] MEDS: CO-ENZYME Q10 50 MG CAP PO SCH (07:51)
[2018-11-16] MEDS: MAGNESIUM GLUCONATE 500 MG TAB PO SCH ×2 (07:51→21:02)
[2018-11-16] MEDS: ASCORBIC ACID 500 MG TAB PO SCH (07:51)
[2018-11-16] MEDS: PANTOPRAZOLE 40MG TAB (PROTONIX) PO SCH (07:51)
[2018-11-16] MEDS: RANOLAZINE 500 MG ER TAB PO SCH ×2 (07:51→21:01)
[2018-11-16] MEDS: PREGABALIN 100 MG CAP (LYRICA) PO SCH ×2 (07:52→21:00)
[2018-11-16] MEDS: BACLOFEN 5MG PER 1/2 TABLET PO SCH ×2 (07:52→21:00)
[2018-11-16] MEDS: VITAMIN D 1,000 INTERNATIONAL UNITS TABLET PO SCH (07:52)
[2018-11-16] MEDS: METOPROLOL SUCC (TopROL XL) 50MG **XL** TAB PO SCH (07:52)
[2018-11-16] MEDS: ASPIRIN 81 MG ENTERIC TAB PO SCH (07:52)
[2018-11-16] MEDS: diazePAM 2 MG TAB PO SCH ×4 (07:54→21:00)
[2018-11-16] MEDS: oxyCODONE 5MG TAB PO SCH ×3 (07:54→21:01)
[2018-11-16] MEDS: TESTOSTERONE 1% TOP SCH (07:54)
[2018-11-16] MEDS: LIDOCAINE 5% (LIDODERM) PATCH TD SCH (07:55)
[2018-11-16] MEDS: SODIUM CHLORIDE 0.9% INJ 10 ML SYR IV PRN (07:55)
[2018-11-16] MEDS: cefTRIAXone SOD 2 GM in D5W MINI-BAG PLUS 50 ML IV SCH (07:55)
[2018-11-16] MEDS: TRINTELLIX PO SCH (07:56)
[2018-11-16] MEDS: POLYVINYL ALCOHOL OPHTH SOLN 15 ML(LIQUITEARS) OU SCH ×4 (07:56→21:02)
[2018-11-16] MEDS: FLUTICASONE PROP 0.05% NASAL SPRAY 16 GM (FLONASE) NARES SCH (07:56)
--- NOTE | 2018-11-16 11:51 | IPN ---
DATE OF SERVICE: 11/15/2018 SUBJECTIVE: The patient was seen and examined at the bedside today morning. The patient is afebrile, hemodynamically stable. He still reports back pain and inability to do physical therapy. Otherwise, his renal function is stable, and hemoglobin is improving. OBJECTIVE: Vital signs: Temperature is 97.4 degrees Fahrenheit, blood pressure 162/76, pulse is 84, respiratory rate of 18, saturating 94% on room air. Intake and output: Urine output recorded is 675 mL so far today since overnight. Weight in the bed scale is not available. PHYSICAL EXAMINATION: General: The patient is awake, alert, oriented times three, lying in bed, no apparent distress. Head and neck examination: Extraocular muscles intact. Pupils equally round and reactive to light. Mucous membranes are moist. Neck is supple. There is no jugular venous distention (JVD). Cardiovascular: S1, S2. Regular rate. No murmur, rub, and gallop. No edema of the bilateral lower extremities. Respiratory: Chest is clear to auscultation bilaterally. Bilateral good air entry. No rales or rhonchi. Abdomen: Is soft, obese. Positive bowel sounds. Nontender. No organomegaly. Musculoskeletal: No clubbing or cyanosis. Pulses are 2+. Central nervous system (EMERGENCY MEDICINE MEDICAL DIRECTOR): No focal deficit. Power is 5/5 in bilateral upper extremities. The patient has decreased movement of the back because of pain. LABORATORY REVIEW: Complete blood count (CBC) was done yesterday. It showed a WBC of 3.9, hemoglobin 8.9, platelets of 140. Basic metabolic profile (BMP) was done yesterday, which showed a creatinine of 1.65 which is stable. CURRENT INPATIENT MEDICATIONS: The patient's medications were all reviewed by me. He continues to be on intravenous (IV) Rocephin. The patient is receiving Aranesp 100 mcg once a week on . He was started on metoprolol XL 50 mg by mouth daily. No other change in the medications today as compared with yesterday. ASSESSMENT AND PLAN: 1. Acute kidney injury superimposed on chronic kidney disease. The patient's renal function has plateaued. Creatinine has been fluctuating around 1.6, which is close to his baseline. Volume status is optimized. 2. Anemia secondary to iron deficiency. The patient got two doses of IV Venofer during this hospitalization. He is also a Jehovah Witness, and he cannot accept blood transfusion. He was also started on Aranesp 100 mcg once a week on . Hemoglobin level according to yesterday's laboratory is improving. Laboratories are being done every 48 hours. Next laboratory draw will be done on 11/17/2018, and his laboratories are drawn in pediatric tubes. 3. Diskitis and osteomyelitis of the lumbar spine. The patient continues to be on IV ceftriaxone. The rest of the management is as per infectious disease recommendations. 4. Hypertension. Blood pressure is better controlled now. He is currently on metoprolol XL 50 mg by mouth daily.
[2018-11-16] MEDS: oxyCODONE 5MG TAB PO PRN (12:53)
[2018-11-16 14:00] VITALS: BP 156/69
--- NOTE | 2018-11-16 17:54 | IPNPDOC ---
Text Note Date of Service The patient was seen on 11/16/18. NOTE SUBJECTIVE: Patient is seen and examined in the room today. Patient complains about significant back pain. Any movement will exacerbate the back pain. OBJECTIVE: VITAL SIGNS: Listed below. GENERAL: Mild to moderate acute distress. Patient is alert, awake, oriented. HEENT: Normocephalic, atraumatic. Extraocular motor grossly intact. CARDIOVASCULAR: Positive S1, S2, regular rate. LUNGS: Clear to auscultation bilaterally. ABDOMEN: Soft, nontender, nondistended. Bowel sounds present. EXTREMITIES: No edema. LABORATORY DATA: Listed below. ASSESSMENT AND PLAN: #. Discitis/osteomyelitis of L1 and L2. Staphylococcus mitis bacteremia and endocarditis. - Currently patient continues rehabilitation in acute rehabilitation unit (ARU). Infectious disease consulted. Patient is currently on intravenous (IV) Rocephin per infectious disease specialist in [place]. Continue IV Rocephin until 11/28/2018, then adjust it to Omnicef orally for 1 year. # Acute kidney injury superimposed on chronic kidney disease. Improved. Nephrology has been assisting on the case. #. Coronary artery disease, status post coronary artery bypass graft (CABG) and transcatheter aortic valve replacement (TAVR). - On aspirin, metoprolol, and Ranexa. #. Chronic obstructive pulmonary disease (COPD). No sign of exacerbation at this moment. #. Hypertension. Blood pressure in the satisfactory range, on metoprolol. #. Deep vein thrombosis (DVT) prophylaxis, on thromboembolic deterrents (TEDs) and compression. VS,Fishbone, I+O VS, Fishbone, I+O Vital Signs Date Time Temp Pulse Resp B/P (MAP) Pulse Ox O2 Delivery O2 Flow Rate FiO2 11/16/18 14:00 97.7 82 20 156/69 (98) 96 11/12/18 06:00 Room Air I&O- Last 24 Hours up to 6 AM 11/16/18 06:00 Intake Total 1200 ml Output Total 1000 ml Balance 200 ml SIRENA HERNANDEZ DO Nov 16, 2018 17:54
[2018-11-16 20:00] VITALS: BP 162/70
[2018-11-16] MEDS: MIRTAZAPINE 15 MG TAB PO SCH (21:01)
[2018-11-16] MEDS: **NOTE PATIENT COMMENT** MISC XX SCH (21:02)
[2018-11-16] MEDS: PRAMIPEXOLE 1 MG TAB PO SCH (21:02)
[2018-11-17] MEDS: SODIUM CHLORIDE 0.9% INJ 10 ML SYR IV SCH ×2 (05:53→17:15)
[2018-11-17 06:00] VITALS: BP 166/74
[2018-11-17 07:12] LABS: HEMATOCRIT 26.8 % (42.0-52.0); HEMOGLOBIN 8.1 g/dl (13.5-17.5); MEAN CORPUSCULAR HEMOGLOBIN 30.5 pg (27.0-33.0); MEAN CORPUSCULAR HGB CONC 30.2 g/dl (32.0-36.5); MEAN CORPUSCULAR VOLUME 100.8 fl (80.0-96.0); PLATELET COUNT, AUTOMATED 125 10^3/uL (150-450); RED BLOOD COUNT 2.66 10^6/uL (4.30-6.10); WHITE BLOOD COUNT 3.9 10^3/uL (4.0-10.0)
[2018-11-17 07:46] LABS: ALBUMIN 2.9 GM/DL (3.2-5.2); BILIRUBIN,TOTAL 0.3 MG/DL (0.2-1.0); C REACTIVE PROTEIN QUANTITATIV 2.7 MG/DL (0.00-0.30); CALCIUM LEVEL 8.5 MG/DL (8.8-10.2); CREATININE FOR GFR 1.77 MG/DL (0.70-1.30); GLOMERULAR FILTRATION RATE 40.3 (>42); POTASSIUM SERUM 4.6 MEQ/L (3.5-5.1); TOTAL PROTEIN 6.2 GM/DL (6.4-8.2)
[2018-11-17] MEDS: IPRATROPIUM 0.5MG/ALBUTEROL 2.5MG INH SOL UD 3ML (DUONEB)(J7620) NEB SCH ×2 (08:00→20:00)
[2018-11-17] MEDS: ADVAIR HFA 115/21MCG INHALER INH SCH ×2 (08:06→20:07)
[2018-11-17] MEDS: POLYVINYL ALCOHOL OPHTH SOLN 15 ML(LIQUITEARS) OU SCH ×4 (08:17→20:06)
[2018-11-17] MEDS: FLUTICASONE PROP 0.05% NASAL SPRAY 16 GM (FLONASE) NARES SCH (08:17)
[2018-11-17] MEDS: cefTRIAXone SOD 2 GM in D5W MINI-BAG PLUS 50 ML IV SCH (08:17)
[2018-11-17] MEDS: CO-ENZYME Q10 50 MG CAP PO SCH (08:18)
[2018-11-17] MEDS: ONDANSETRON 4 MG TAB (S0181) PO SCH ×3 (08:18→17:13)
[2018-11-17] MEDS: VITAMIN D 1,000 INTERNATIONAL UNITS TABLET PO SCH (08:19)
[2018-11-17] MEDS: RANOLAZINE 500 MG ER TAB PO SCH ×2 (08:19→20:04)
[2018-11-17] MEDS: BACLOFEN 5MG PER 1/2 TABLET PO SCH (08:19)
[2018-11-17] MEDS: oxyCODONE 5MG TAB PO SCH ×3 (08:19→20:02)
[2018-11-17] MEDS: SENOKOT S TAB PO SCH ×2 (08:19→20:05)
[2018-11-17] MEDS: ASCORBIC ACID 500 MG TAB PO SCH (08:19)
[2018-11-17] MEDS: ASPIRIN 81 MG ENTERIC TAB PO SCH (08:20)
[2018-11-17] MEDS: ACETAMINOPHEN 500 MG TAB PO SCH ×3 (08:20→20:06)
[2018-11-17] MEDS: MAGNESIUM GLUCONATE 500 MG TAB PO SCH ×2 (08:20→20:05)
[2018-11-17] MEDS: TRINTELLIX PO SCH (08:21)
[2018-11-17] MEDS: PANTOPRAZOLE 40MG TAB (PROTONIX) PO SCH (08:21)
[2018-11-17] MEDS: METOPROLOL SUCC (TopROL XL) 50MG **XL** TAB PO SCH (08:21)
[2018-11-17] MEDS: PREGABALIN 100 MG CAP (LYRICA) PO SCH ×2 (08:21→21:00)
[2018-11-17] MEDS: diazePAM 2 MG TAB PO SCH ×4 (08:21→20:05)
[2018-11-17] MEDS: LIDOCAINE 5% (LIDODERM) PATCH TD SCH (08:22)
[2018-11-17] MEDS: TESTOSTERONE 1% TOP SCH (08:22)
[2018-11-17 08:53] LABS: HEMOGLOBIN A1c 4.9 %
[2018-11-17] MEDS: SODIUM CHLORIDE 0.9% INJ 10 ML SYR IV PRN (09:00)
--- NOTE | 2018-11-17 11:08 | IPNPDOC ---
Date Seen The patient was seen on 11/17/18. Progress Note HPI: 72M who was transferred to [facility] from [facility] for low back pain with fevers that began 6 days prior to admission. An ID consult was ordered, he was found to have Strep Mitis bacteremia from a October 14 and blood culture taken at [place] for which he was placed on Ceftriaxone and Gentamicin on 10-16-18 for discitis vs osteomyelitis in the setting of a possibly infected bi-prosthetic aortic valve with endocarditis. A GUILLERMO was performed showing, Moderate perivalvular aortic regurgitation, mobile density contiguous with aortic valve,cannot rule out vegetation. Repeat blood cultures on October 20 and were negative. [address]olumbar CT on 10-18-18 showed lesion suspicious for diskovertebral osteomyelitis at L1-L2. ID recommended a 6 week course of IV antibiotics followed by Omnicef for 1 year for suppression. No cardiac or orthopedic surgery was recommended and PICC line placed. He developed a decubitus ulcer during his stay due to immobility. 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 ID following to assist with antibiotic recommendations. Nephrology following to assist with anemia/ANA. Pt states his pain has been somewhat improved with less spasms. Denies any fevers, chills, headache, Chest Pain, Shortness of breath, cough, palpitations, abdominal pain, N/V/D or changes in bowel or bladder habits. PAST MEDICAL HISTORY: NIDDM. HTN Coronary artery disease, status post CABG, status post TAVR 05/31. COPD. depression PAST SURGICAL HISTORY: TAVR replaced May 2018, first placed 2009 Right hip septic joint 1.5 years ago, s/p YANET January 2018, s/p pacemaker PE: GEN: 72yoM, appears stated age. No acute distress. Alert and oriented to person/time/place. HEENT: Normocephalic, atraumatic. Sclera are nonicteric. Moist mucous membranes. CHEST: Regular rate and rhythm, +S1, +S2 LUNGS: Clear to auscultation bilaterally. No wheezes, rales, or rhonchi. ABD: Round, soft, non-tender, non-distended. +Bowel sounds present. No rebound or guarding. EXT: No lower extremity edema appreciated. SKIN: [place], dry, warm. No rashes. NEURO: No focal deficits appreciated. Moving UEs and LEs UC negative. U/S LEs 10/31/18, 11/05/[address] A/P done related to constipation 11/02/18. A&P: 72M pmh DM, HTN, PM, AVR (replaced in May 2018), CAD with CABG, JR, right hip periprosthetic infection, who was transferred to [facility] from [facility] for low back pain with fevers that began 6 days prior to admission. An ID consult was ordered, he was found to have Strep Mitis bacteremia from a October 14 and blood culture taken at [place] for which he was placed on Ceftriaxone and Gentamicin on 10-16-18 for discitis vs osteomyelitis in the setting of a possibly infected bi-prosthetic aortic valve with endocarditis. A GUILLERMO was performed showing, Moderate perivalvular aortic regurgitation, mobile density contiguous with aortic valve,cannot rule out vegetation. Repeat blood cultures on October 20 and were negative. Thoracolumbar CT on 10-18-18 showed lesion suspicious for diskovertebral osteomyelitis at L1-L2. ID recommen ded a 6 week course of IV antibiotics followed by Omnicef for 1 year for suppression. No cardiac or orthopedic surgery was recommended and PICC line placed. He developed a decubitus ulcer during his stay due to immobility. 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 1. Discitis/osteomyelitis of L1 to L2, Streptococcus mitis bacteremia/Endoc arditis. Pt is afebrile. WBC 3.9 Mgmt as per ARU Pain control as per ARU Bowel care as per ARU PT/OT/ST as per ARU DVT prophylaxis as per ARU, SQ Heparin. On IV Rocephin as per ID Shirlene. Continue Mgmt as per ID. ID consulted, Dr Alejandro. Appreciate recommendations. IV Rocephin until 11/28/18 then po Omnicef x 1 year. 11/17/18 CRP 2.70-trend downward. Pt unable to have MRI related to pacemaker. Blood culture x2 11/01 neg. Urine culture neg. Continue to monitor. 2. Coronary artery disease/Status post coronary artery bypass graft (CABG) and status post transcatheter aortic valve replacement (TAVR). Continue aspirin/Ranexa/Toprol XL. Outpt F/U with cardiology. 3. History of COPD. Duoneb Advair 4. Hypertension. Toprol XL 5. DM. CC diet. HOLD Metformin Monitor FSBS. 6. Depression Trintellix. 7. Anemia. B12, folate, Fe studies noted Pt is Jehovah Witness and declines transfusion. Nephrology consulted and following, Venofer as per Nephrology/Jillian weekly. Hgb 8.1 Monitor. Plan for labs 11/19/18. 8. ANA/CKD. SCr noted to be 1.77 Continue to hold Metformin. S/P IV contrast with CT 11/02/18. Nephrology following. Avoid nephrotoxins. Monitor 9. Hyponatremia. Resolved. Monitor. VS, I&O, [facility], [facility] Vital Signs/I&O Vital Signs Date Time Temp Pulse Resp B/P (MAP) Pulse Ox O2 Delivery O2 Flow Rate FiO2 11/17/18 08:49 18 11/17/18 08:21 70 166/74 11/17/18 06:00 96.8 98 11/12/18 06:00 Room Air I&O- Last 24 Hours up to 6 AM 11/17/18 06:00 Intake Total 720 ml Output Total 900 ml Balance -180 ml Laboratory Data 24H LABS Laboratory Tests 2 11/16/18 17:29: Bedside Glucose (Misc Panel) 103 11/17/18 05:57: Bedside Glucose (Misc Panel) 85 11/17/18 06:49: Nucleated Red Blood Cells % (auto) 0.0, Anion Gap 6L, Glomerular Filtration Rate 40.3L, Estimated Mean Plasma Glucose 94, Hemoglobin A1c 4.9, Blood Urea Nitrogen 17, Creatinine 1.77H, Sodium Level 143, Potassium Level 4.6, Chloride Level 107, Carbon Dioxide Level 30, Calcium Level 8.5L, Aspartate Amino Transf (AST/SGOT) 30, Alanine Aminotransferase (ALT/SGPT) 15, Alkaline Phosphatase 141H, Total Bilirubin 0.3, Total Protein 6.2L, Albumin 2.9L, C-Reactive Protein, Quantitative 2.70H, Albumin/Globulin Ratio 0.88L CBC/BMP Laboratory Tests 11/17/18 06:49 Red Blood Count 2.66 L, Mean Corpuscular Volume 100.8 H, Mean Corpuscular Hemoglobin 30.5, Mean Corpuscular Hemoglobin Concent 30.2 L, Red Cell Distribution Width 18.1 H, Calcium Level 8.5 L, Aspartate Amino Transf (AST/SGOT) 30, Alanine Aminotransferase (ALT/SGPT) 15, Alkaline Phosphatase 141 H, Total Bilirubin 0.3, Total Protein 6.2 L, Albumin 2.9 L Microbiology Microbiology 11/16/18 Stool Occult Blood (SULEIMAN) - Final, Complete Yanci Cortes Nov 17, 2018 11:08
[2018-11-17] MEDS: DULoxetine 30 MG CAP (CYMBALTA) PO SCH (12:17)
--- NOTE | 2018-11-17 14:15 | IPN ---
DATE OF SERVICE: 11/16/2018 SUBJECTIVE: The patient was seen and examined at the bedside today morning. The patient continues to complain of back pain because of diskitis. He did physical therapy, but after the physical therapy he reports that his pain is worse. He is otherwise afebrile and hemodynamically stable. He has a good urine output. Labs are not being done every day because of history of anemia. OBJECTIVE: Vital Signs: Temperature is 97.7 degrees Fahrenheit. Blood pressure 156/69. Pulse 82. Respiratory rate 20. Saturating 96% on room air. Intake and Output: Urine output recorded since overnight is 900 mL. Weight on the bed scale is 82 kg. PHYSICAL EXAMINATION: General: Patient is awake, alert and oriented times three, laying in bed in no apparent distress. Head and Neck Exam: Extraocular muscles intact. Pupils equally round and reactive to light. Mucous membranes are moist. Neck is supple. There is no jugular venous distention. Cardiovascular: S1, S2, regular rate. No murmur, rub or gallop. No edema of the bilateral lower extremities. Respiratory: Chest is clear to auscultation bilaterally. Bilateral equal air entry. No rales or rhonchi. Abdomen: Soft. Obese. Positive bowel sounds. Nontender. No organomegaly. Musculoskeletal: The patient has back pain and decreased range of movement. Otherwise no clubbing or cyanosis of the extremities. Central Nervous System: No focal deficit. Power is 5/5 in bilateral upper extremities. Decreased range of movement of the lumbosacral spine because of diskitis. LAB REVIEW: CBC and BMP from 11/14/2018. Next lab draw will be done tomorrow morning. CURRENT INPATIENT MEDICATIONS: Patient's medications were all reviewed by me. There is no change in the medications today as compared with yesterday. ASSESSMENT AND PLAN: 1. Acute kidney injury superimposed on chronic kidney disease. The patient's renal function is stable. Last creatinine was 1.6. Next renal profile will be done tomorrow morning. 2. Anemia secondary to iron deficiency. The patient was given iron infusion times two during this hospitalization. He is also getting Aranesp. He is not a candidate for blood transfusion because he is a Jehovah Witness. His labs are being drawn in pediatric tubes. 3. Infected endocarditis and diskitis. The patient is currently on IV ceftriaxone. The rest of the management is as per infectious disease recommendations. 4. Hypertension. Blood pressure is controlled. Continue current dose of metoprolol at 50 mg by mouth daily.
[2018-11-17 14:18] VITALS: BP 141/63
--- NOTE | 2018-11-17 18:09 | IPNPDOC ---
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 He would like to adjust his medications. REVIEW OF SYSTEMS: The following is a completed review of systems and has been reviewed. Review of systems otherwise unremarkable. PAIN: Patient self reports severe low back pain with spasms EYES: Negative for recent vision changes EARS, NOSE, & THROAT:negative for rhinorrhea, tinnitus, or dysphagia CARDIOVASCULAR: denies chest pain or palpitations PULMONARY: Negative. Denies shortness of breath GASTROINTESTINAL: constipation -resolved GENITOURINARY: Negative for dysuria MUSCULOSKELETAL: low back pain and bilateral knee OA NEUROLOGICAL: restless leg syndrome HEMATOLOGICAL: +anemia SKIN: PICC rue PSYCHIATRIC: Unremarkable All other review of systems found to be negative. PHYSICAL EXAMINATION: VITAL SIGNS: Please see below. GENERAL: Pleasant and cooperative, no acute distress HEENT: PERRL. Extraocular movements intact. Clear conjunctiva CARDIOVASCULAR: Regular rate and rhythm. No murmurs, rubs, or gallops LUNGS: Clear to auscultation bilaterally. No wheezes. No rhonchi ABDOMEN: Soft, nontender, nondistended. Positive bowel sounds. Normal active bowel sounds NEUROLOGICAL: Alert and oriented times to self and place not time, Cranial nerves II through XII grossly intact. Sensation grossly intact. EXTREMITIES: 5\5 strength bilateral upper extremities. bilateral Ankle DF and EHL 5/5, however proximal muscle testing greatly limited by pain (negative Michael's bilat) SKIN: +PICC, decubitus ulcer ASSESSMENT:72-year-old M with past medical history of CAD, AVR, CAD with CABG who presents with diskovertebral osteomyelitis in the setting of endocarditis. PLAN: 1. Rehab: PT/OT, assess for DME needs- LSO brace when out of bed for comfort, able to ambulate further with RW, has been trained 2. Neuro: pmh restless leg syndrome, continue home meds 3. Cardio: pmh CAD s/p AVR replacement with recent GUILLERMO suspicious for endocarditis continue IV Ceftriaxone and s/p Gentamicin, will need outpatient cardio f/u -continue beta-blockers and ASA 4. Endo: pmh DM off metformin, monitoring FS for hypoglycemia due to poor oral intake 5. ID: L1-L2 disko-vertebral osteomyeltis, blood cultures positive for Strep Mitis, per acute care hospital continue IV Ceftriaxone for 6 weeks (start date 10/16/18) and Gentamicin for 2 weeks (start date 10/26/18)to be followed by one year suppression dose of Omnicef starting 11/19/18 -Dr. Alejandro consulted, Gentamicin discontinued will continue to follow-recs, appreciated, CRP/ESR improving -admission blood cultures negative 6. Pain: pmh chronic knee pain, now with severe discogenic pain with spasms- continue oxycodone 5mg tid standing and oxycodone 10mg q4h prn, standing Tylenol, continue Lyrica, and low dose Diazepam standing for painful spasms to be held for sedation -will start Cymbalta -tapered off baclofen 7. DVT ppx: will d/c heparin given anemia and borderline low platelets and obtain serial dopplers, continue TEDs, thus far studies negative for DVT-will repeat today 8. SKin: Balmex and turning q2h in bed 9. Resp: pmh COPD: continue home meds, continue Duonebs and monitor for PNA 10. Renal:stable, ANA most likely from recent contrast Abdomen pelvis while on metformin, s/p IVF, Renal consulted, metformin stopped, and defer repeat CT with contrast for the future if clinical picture worsens, Top Carrier returning to baseline 11. Heme: Anemia of chronic disease, patient is Jehovas witness and cannot receive blood, however s/p Venofer and s/p Aranesp per Renal, recs appreciated- hgb stable at 8 10. GIppx: optimize laxatives, protonix for ppx 11. Dispo: 11/24/18, progressing towards goals Allergies Coded Allergies: Statins (Unverified Adverse Reaction, Unknown, MUSCLE PAINS, 10/31/18) Trazodone (Unverified Adverse Reaction, Unknown, ITCH, 10/31/18) Vital Signs Vital Signs Date Time Temp Pulse Resp B/P (MAP) Pulse Ox O2 Delivery O2 Flow Rate FiO2 11/17/18 17:15 18 11/17/18 14:18 97.7 78 141/63 (89) 97 11/12/18 06:00 Room Air Laboratory Data CBC/BMP Laboratory Tests 11/17/18 06:49 Red Blood Count 2.66 L, Mean Corpuscular Volume 100.8 H, Mean Corpuscular Hemoglobin 30.5, Mean Corpuscular Hemoglobin Concent 30.2 L, Red Cell Distribution Width 18.1 H, Calcium Level 8.5 L, Aspartate Amino Transf (AST/SGOT) 30, Alanine Aminotransferase (ALT/SGPT) 15, Alkaline Phosphatase 141 H, Total Bilirubin 0.3, Total Protein 6.2 L, Albumin 2.9 L Labs 24H Laboratory Tests 2 11/17/18 05:57: Bedside Glucose (Misc Panel) 85 11/17/18 06:49: Nucleated Red Blood Cells % (auto) 0.0, Anion Gap 6L, Glomerular Filtration Rate 40.3L, Estimated Mean Plasma Glucose 94, Hemoglobin A1c 4.9, Blood Urea Nitrogen 17, Creatinine 1.77H, Sodium Level 143, Potassium Level 4.6, Chloride Level 107, Carbon Dioxide Level 30, Calcium Level 8.5L, Aspartate Amino Transf (AST/SGOT) 30, Alanine Aminotransferase (ALT/SGPT) 15, Alkaline Phosphatase 141H, Total Bilirubin 0.3, Total Protein 6.2L, Albumin 2.9L, C-Reactive Protein, Quantitative 2.70H, Albumin/Globulin Ratio 0.88L 11/17/18 16:39: Bedside Glucose (Misc Panel) 92 Microbiology Microbiology 11/16/18 Stool Occult Blood (SULEIMAN) - Final, Complete Current Medications Current Medications Current Medications Acetaminophen (Tylenol Tab) 1,000 mg TID PO Last administered on 11/17/18 17:13; Start 10/31/18 at 16:00 Albuterol/ Ipratropium (Duoneb (Ipr 0.5mg/Alb 2.5mg)) 3 ml RBID NEB ; Start 11/01/18 at 08:00 Artificial Tears (Akwa Tears) 2 drop QID OU Last administered on 11/17/18at 17:00; Start 10/31/18 at 21:00 Ascorbic Acid (Vitamin C) 500 mg DAILY PO Last administered on 11/17/18 08:19; Start 11/01/18 at 09:00 Aspirin (Ecotrin) 81 mg DAILY PO Last administered on 11/17/18 08:20; Start 11/01/18 at 09:00 Baclofen (Lioresal) 5 mg BID PO Last administered on 11/17/18at 08:19; Start 11/14/18 at 21:00; Stop 11/17/18 at 11:50; Status DC Baclofen (Lioresal) 5 mg TID PO Last administered on 11/14/18at 08:19; Start 11/03/18 at 16:00; Stop 11/14/18 at 12:52; Status DC Bisacodyl (Dulcolax Suppository) 10 mg DAILYPRN PRN LA CONSTIPATION; Start 10/31/18 at 15:30 Bisacodyl (Dulcolax Tab) 5 mg DAILYPRN PRN PO CONSTIPATION Last administered on 11/15/18at 08:49; Start 10/31/18 at 15:30 Ceftriaxone Sodium 2 gm/ Dextrose 50 ml @ 100 mls/hr Q24H IV Last administered on 11/17/18at 08:17; Start 11/01/18 at 09:00 Coenzyme Q10 (Coenzyme Q10) 100 mg DAILY PO Last administered on 11/17/18 08:18; Start 11/01/18 at 09:00; Stop 12/01/18 at 08:59 Darbepoetin Dioni (Aranesp) 100 mcg Th@09 SC Last administered on 11/13/18at 11:49; Start 11/06/18 at 09:00; Stop 11/17/18 at 09:42; Status DC Darbepoetin Dioni (Aranesp) 200 mcg Th@09 SC ; Start 11/20/18 at 09:00 Dextran/ Hydroxypropyl Methylcellul (Tears Naturale Free) 2 drop QID OU ; Start 10/31/18 at 17:00; Status Cancel Dextrose (Dextrose 50%) 25 ml ASDIRECTED PRN IV SEE LABEL COMMENTS; Start 10/31/18 at 15:15 Dextrose/Sodium Chloride 1,000 ml @ 75 mls/hr [id number] IV Last administered on 11/10/18at 09:57; Start 11/08/18 at 12:30; Stop 11/10/18 at 10:40; Status DC Diazepam (Valium) 1 mg QID PO Last administered on 11/17/18at 17:13; Start 11/14/18 at 13:00 Diazepam (Valium) 2 mg Q4H PRN PO spasm; Start 11/06/18 at 10:45; Stop 11/10/18 at 15:31; Status DC Diazepam (Valium) 2 mg TID PO Last administered on 11/05/18at 15:05; Start 11/04/18 at 16:00; Stop 11/06/18 at 10:35; Status DC Diazepam (Valium) 2.5 mg Q4H PRN PO SPASMS Last administered on 11/01/18at 19:13; Start 11/01/18 at 14:30; Stop 11/01/18 at 23:15; Status DC Diazepam (Valium) 2.5 mg Q6H PRN PO SPASMS Last administered on 11/01/18at 14:15; Start 11/01/18 at 14:00; Stop 11/01/18 at 14:24; Status DC Diazepam (Valium) 2.5 mg Q8HP PRN PO SPASMS Last administered on 10/31/18at 16:01; Start 10/31/18 at 14:45; Stop 10/31/18 at 16:19; Status DC Diazepam (Valium) 2.5 mg Q8HP PRN PO SPASMS Last administered on 11/01/18at 08:09; Start 10/31/18 at 21:00; Stop 11/01/18 at 13:59; Status DC Diazepam (Valium) 5 mg Q8HP PRN PO SPASMS; Start 10/31/18 at 16:15; Stop 10/31/18 at 20:55; Status DC Duloxetine HCl (Cymbalta) 60 mg DAILY PO Last administered on 11/17/18at 12:17; Start 11/17/18 at 12:00 Fluticasone Propionate (Flonase 0.05% Nasal [place]) 2 spray DAILY NARES Last administered on 11/17/18at 08:17; Start 11/01/18 at 09:00 Gentamicin Sulfate 80 mg/IV Miscellaneous Supplies 100 ml @ 200 mls/hr Q12H IV Last administered on 11/02/18at 06:17; Start 10/31/18 at 18:00; Stop 11/02/18 at 08:56; Status DC Gentamicin Sulfate 80 mg/IV Miscellaneous Supplies 100 ml @ 200 mls/hr Q18H IV Last administered on 11/03/18at 00:02; Start 11/03/18 at 00:00; Stop 11/03/18 at 16:59; Status DC Glucagon (Glucagon) 1 mg ASDIRECTED PRN SC SEE LABEL COMMENTS; Start 10/31/18 at 15:15 Glucose (Glucose) 16 GM ASDIRECTED PRN PO SEE LABEL COMMENTS; Start 10/31/18 at 15:15 Heparin Sodium (Heparin (Flush)) 100 units ASDIRECTED PRN IV SEE LABEL COMMENTS Last administered on 11/17/18at 09:00; Start 11/11/18 at 16:30 Heparin Sodium (Heparin (Flush)) 100 units PICC IV Last administered on 11/17/18at 17:15; Start 11/11/18 at 18:00 Heparin Sodium (Heparin (Flush)) 200 units ASDIRECTED PRN IV SEE LABEL COMMENTS Last administered on 11/02/18at 09:48; Start 10/31/18 at 16:30; Stop 11/08/18 at 19:36; Status DC Heparin Sodium (Heparin (Flush)) 200 units PICC IV Last administered on 11/04/18at 05:43; Start 10/31/18 at 18:00; Stop 11/08/18 at 19:36; Status DC Heparin Sodium (Porcine) (Heparin) 5,000 units Q12H SC Last administered on 11/04/18at 08:35; Start 10/31/18 at 21:00; Stop 11/04/18 at 18:41; Status DC Home Med (Med Rec Complete!) ASDIRECTED XX ; Start 10/31/18 at 14:45; Stop 10/31/18 at 14:45; Status DC Insulin Human Lispro (HumaLOG INSULIN) SEE PROTOCOL TABLE QHS SC ; Start 10/31/18 at 21:00; Stop 11/06/18 at 21:44; Status DC Lidocaine (Lidoderm Patch) 1 patch DAILY TD Last administered on 11/17/18at 08:22; Start 11/01/18 at 09:00 Magnesium Gluconate (Magnesium Gluconate) 500 mg BID PO Last administered on 11/17/18 08:20; Start 10/31/18 at 21:00 Magnesium Hydroxide (Milk Of Magnesia) 30 ml DAILYPRN PRN PO CONSTIPATION Last administered on 11/16/18at 05:59; Start 10/31/18 at 15:30 Metformin HCl (Glucophage) 500 mg DAILY@08 PO Last administered on 11/04/18 08:36; Start 11/01/18 at 08:00; Stop 11/04/18 at 11:08; Status DC Metoprolol Succinate (TopROL XL) 25 mg DAILY PO Last administered on 11/12/18 08:53; Start 11/01/18 at 09:00; Stop 11/12/18 at 11:31; Status DC Metoprolol Succinate (TopROL XL) 50 mg DAILY PO Last administered on 11/13/18 10:10; Start 11/13/18 at 09:00; Stop 11/14/18 at 09:10; Status DC Metoprolol Succinate (TopROL XL) 50 mg DAILY PO Last administered on 11/17/18 08:21; Start 11/14/18 at 09:00 Mirtazapine (Remeron) 30 mg QHS PO Last administered on 11/16/18 21:01; Start 10/31/18 at 21:00 Miscellaneous (Unresolved Clarification Entry) SEE LABEL COMMENTS DAILY XX ; Start 11/16/18 at 09:00; Stop 11/17/18 at 07:10; Status DC Miscellaneous (Unresolved Clarification Entry) SEE LABEL COMMENTS DAILY XX Last administered on 11/17/18 08:23; Start 11/17/18 at 09:00; Stop 11/17/18 at 11:28; Status DC Miscellaneous (Unresolved Patient Own Med Order) SEE LABEL COMMENTS DAILY XX ; Start 10/31/18 at 09:00; Stop 11/06/18 at 18:23; Status DC Morphine Sulfate (Ms Contin) 15 mg BID PO Last administered on 11/04/18at 20:47; Start 10/31/18 at 17:00; Stop 11/06/18 at 10:35; Status DC Nitroglycerin (Nitrostat (1/ 150)) 0.4 mg Q5MP PRN SL CHEST PAIN; Start 10/31/18 at 14:45 Non-Formulary Medication ( See Comment Field Below ) REMOVE LIDODERM PATCH DAILY@21 XX Last administered on 11/16/18 21:02; Start 10/31/18 at 21:00 Ondansetron HCl (Zofran) 4 mg AC PO Last administered on 11/17/18 17:13; Start 10/31/18 at 17:30 Ondansetron HCl (Zofran) 4 mg Q6HP PRN PO NAUSEA Last administered on 11/06/18 15:21; Start 10/31/18 at 15:30 Oxycodone HCl (Roxicodone, Oxyir) 5 mg Q4HP PRN PO PAIN 4-7 Last administered on 11/04/18 05:47; Start 10/31/18 at 14:45; Stop 11/06/18 at 10:35; Status DC Oxycodone HCl (Roxicodone, Oxyir) 5 mg TID PO Last administered on 11/17/18 17:15; Start 11/06/18 at 16:00 Oxycodone HCl (Roxicodone, Oxyir) 10 mg Q4HP PRN PO SEVERE PAIN (PS 8-10) Last administered on 11/16/18 12:53; Start 10/31/18 at 14:45 Pantoprazole Sodium (Protonix) 40 mg DAILY PO Last administered on 11/17/18 08: 21; Start 11/01/18 at 09:00 Patient Own Medication (Patient'S Own Med) TRINTELLIX 20mg po daily DAILY PO Last administered on 11/17/18 08:21; Start 11/01/18 at 09:00 Patient Own Medication (Patient'S Own Med) Testosterone 5gram 1% gel; AP... DAILY TOP Last administered on 11/17/18 08:22; Start 11/07/18 at 09:00 Pramipexole Dihydrochloride (Mirapex) 2 mg QHS PO Last administered on 11/16/18 21:02; Start 10/31/18 at 21:00 Pregabalin (Lyrica) 75 mg BID PO ; Start 10/31/18 at 21:00; Stop 10/31/18 at 21:00; Status DC Pregabalin (Lyrica) 100 mg BID PO Last administered on 11/17/18 08:21; Start 10/31/18 at 21:00 Ranolazine (Ranexa) 500 mg BID PO Last administered on 11/17/18 08:19; Start 10/31/18 at 21:00 Salmeterol Xinafoate/ Fluticasone (Advair Hfa 115/ 21) 2 puff BID INH Last administered on 11/17/18 08:06; Start 10/31/18 at 21:00 Senna/Docusate Sodium (Senokot S) 1 tab BID PO Last administered on 11/17/18 08:19; Start 10/31/18 at 21:00 Sodium Chloride 1,000 ml @ 40 mls/hr Q24H IV Last administered on 11/07/18at 13:55; Start 11/04/18 at 10:30; Stop 11/08/18 at 12:17; Status DC Sodium Chloride (Saline Lock Flush) 2 ml ASDIRECTED PRN IV SEE LABEL COMMENTS; Start 11/08/18 at 19:45; Stop 11/12/18 at 14:23; Status DC Sodium Chloride (Saline Lock Flush) 2 ml SLF IV Last administered on 11/12/18 05:55; Start 11/08/18 at 22:00; Stop 11/12/18 at 14:23; Status DC Sodium Chloride (Saline Lock Flush) 10 ML PICC IV Last administered on 11/17/18at 17:15; Start 11/11/18 at 18:00 Sodium Chloride (Saline Lock Flush) 10 ml ASDIRECTED PRN IV SEE LABEL COMMENTS Last administered on 11/02/18 09:48; Start 10/31/18 at 16:30; Stop 11/08/18 at 19:36; Status DC Sodium Chloride (Saline Lock Flush) 10 ml PICC IV Last administered on 11/04/18 05:43; Start 10/31/18 at 18:00; Stop 11/08/18 at 19:36; Status DC Sodium Chloride (Saline Lock Flush) 10ML ASDIRECTED PRN IV SEE LABEL COMMENTS Last administered on 11/17/18 09:00; Start 11/11/18 at 16:30 Vitamin D (Vitamin D) 1,000 units DAILY PO Last administered on 11/17/18 08:19; Start 11/01/18 at 09:00 SOILA FREITAS MD Nov 17, 2018 18:09
[2018-11-17 20:00] VITALS: BP 164/70
[2018-11-17] MEDS: PRAMIPEXOLE 1 MG TAB PO SCH (20:05)
[2018-11-17] MEDS: MIRTAZAPINE 15 MG TAB PO SCH (20:06)
[2018-11-17] MEDS: **NOTE PATIENT COMMENT** MISC XX SCH (20:06)
[2018-11-18] MEDS: SODIUM CHLORIDE 0.9% INJ 10 ML SYR IV SCH ×2 (05:31→17:24)
[2018-11-18 05:48] VITALS: BP 162/73
[2018-11-18] MEDS: ADVAIR HFA 115/21MCG INHALER INH SCH ×2 (07:44→21:12)
[2018-11-18] MEDS: IPRATROPIUM 0.5MG/ALBUTEROL 2.5MG INH SOL UD 3ML (DUONEB)(J7620) NEB SCH ×2 (07:44→20:00)
--- NOTE | 2018-11-18 08:03 | IPN ---
DATE OF SERVICE: 11/17/2018 SUBJECTIVE: Patient was seen and examined at the bedside today morning. He is afebrile, hemodynamically stable. His hemoglobin is 8.1. His renal function is stable. Creatinine has been fluctuating around 1.6 to 1.7. He complains of persistent lower back pain. Otherwise he denies any other complaints. OBJECTIVE: Vital signs: Temperature is 97.7 degrees Fahrenheit, blood pressure 141/63, pulse is 78, respiratory rate of 18, saturating 96% on room air. Intake and output: Urine output recorded at 1.1 liter yesterday, 650 mL so far today since overnight. Weight on the bed scale is not available. PHYSICAL EXAMINATION: General: Patient is awake, alert, oriented times three, lying in bed. No apparent distress. Head and neck exam: Extraocular muscles intact. Pupils equal, round, and reactive to light. Mucous membranes are moist. Neck is supple. There is no jugular venous distention. Cardiovascular: S1, S2. Regular rate. No murmur, rub or gallop. No edema of the bilateral lower extremities. Respiratory: Chest is clear to auscultation bilaterally. Bilateral equal air entry. No rales or rhonchi. Abdomen is soft, obese, positive bowel sounds. Nontender. No organomegaly. Musculoskeletal: Patient has decreased range of movement of the back. Otherwise no clubbing or cyanosis. STUNT MAN: No focal deficit. Power is 5/5 in bilateral upper extremities. LAB REVIEW: CBC showed WBC of 3.9, hemoglobin 8.1, platelets of 125. BMP showed sodium 143, potassium 4.6, chloride 107, bicarbonate is 30, BUN 17, creatinine 1.7, it was 1.6 yesterday. Calcium 8.5. Albumin is 2.9. CURRENT INPATIENT MEDICATIONS: Patient's medications were all reviewed by me. He continues to be on IV ceftriaxone. Baclofen has been stopped now. I have increased his Aranesp dose to 200 mcg subcutaneous once a week. No other change in the medications today as compared with yesterday. ASSESSMENT AND PLAN: 1. Acute kidney injury superimposed on chronic kidney disease. Patient's renal function has stabilized. His creatinine has been fluctuating around 1.6 to 1.7. Continue to monitor renal function about three times a week now. 2. Anemia secondary to iron deficiency and chronic kidney disease. Patient is status post IV iron. He is getting Aranesp 100 mcg. I have increased the Aranesp dose to 200 mcg once a week. No blood transfusion because patient is Jehovah's Witnesses. 3. Infective endocarditis and discitis. Patient is currently on IV ceftriaxone. Duration of antibiotics is as per infectious disease recommendation. 4. Hypertension with chronic kidney disease. Blood pressure is acceptable. Continue current dose of metoprolol.
[2018-11-18] MEDS: TRINTELLIX PO SCH (08:52)
[2018-11-18] MEDS: CO-ENZYME Q10 50 MG CAP PO SCH (08:53)
[2018-11-18] MEDS: LIDOCAINE 5% (LIDODERM) PATCH TD SCH (08:53)
[2018-11-18] MEDS: PREGABALIN 100 MG CAP (LYRICA) PO SCH ×2 (08:54→20:47)
[2018-11-18] MEDS: METOPROLOL SUCC (TopROL XL) 50MG **XL** TAB PO SCH (08:54)
[2018-11-18] MEDS: diazePAM 2 MG TAB PO SCH ×4 (08:54→21:27)
[2018-11-18] MEDS: ASCORBIC ACID 500 MG TAB PO SCH (08:54)
[2018-11-18] MEDS: cefTRIAXone SOD 2 GM in D5W MINI-BAG PLUS 50 ML IV SCH (08:55)
[2018-11-18] MEDS: VITAMIN D 1,000 INTERNATIONAL UNITS TABLET PO SCH (08:55)
[2018-11-18] MEDS: ASPIRIN 81 MG ENTERIC TAB PO SCH (08:55)
[2018-11-18] MEDS: SENOKOT S TAB PO SCH ×2 (08:56→20:48)
[2018-11-18] MEDS: ONDANSETRON 4 MG TAB (S0181) PO SCH ×3 (08:56→17:24)
[2018-11-18] MEDS: oxyCODONE 5MG TAB PO SCH ×3 (08:56→20:48)
[2018-11-18] MEDS: DULoxetine 30 MG CAP (CYMBALTA) PO SCH (08:56)
[2018-11-18] MEDS: MAGNESIUM GLUCONATE 500 MG TAB PO SCH ×2 (08:56→20:48)
[2018-11-18] MEDS: PANTOPRAZOLE 40MG TAB (PROTONIX) PO SCH (08:56)
[2018-11-18] MEDS: ACETAMINOPHEN 500 MG TAB PO SCH ×3 (08:57→20:48)
[2018-11-18] MEDS: TESTOSTERONE 1% TOP SCH (08:57)
[2018-11-18] MEDS: FLUTICASONE PROP 0.05% NASAL SPRAY 16 GM (FLONASE) NARES SCH (08:58)
[2018-11-18] MEDS: POLYVINYL ALCOHOL OPHTH SOLN 15 ML(LIQUITEARS) OU SCH ×4 (08:58→21:00)
[2018-11-18] MEDS: RANOLAZINE 500 MG ER TAB PO SCH ×2 (08:58→20:47)
[2018-11-18] MEDS: SODIUM CHLORIDE 0.9% INJ 10 ML SYR IV PRN (08:59)
--- NOTE | 2018-11-18 11:51 | IPNPDOC ---
Date Seen The patient was seen on 11/18/18. Progress Note HPI: 72M who was transferred to [facility] from [facility] for low back pain with fevers that began 6 days prior to admission. An ID consult was ordered, he was found to have Strep Mitis bacteremia from a October 14 and blood culture taken at [place] for which he was placed on Ceftriaxone and Gentamicin on 10-16-18 for discitis vs osteomyelitis in the setting of a possibly infected bi-prosthetic aortic valve with endocarditis. A GUILLERMO was performed showing, Moderate perivalvular aortic regurgitation, mobile density contiguous with aortic valve,cannot rule out vegetation. Repeat blood cultures on October 20 and were negative. Thoracolumbar CT on 10-18-18 showed lesion suspicious for diskovertebral osteomyelitis at L1-L2. ID recommended a 6 week course of IV antibiotics followed by Omnicef for 1 year for suppression. No cardiac or orthopedic surgery was recommended and PICC line placed. He developed a decubitus ulcer during his stay due to immobility. Patient had worsening back pain with spasms limiting his ability to ambulate and perform ADLs and deemed medically appropriate for transfer to [facility], Dr Pennington, on 10-31-18 with a diagnosis of Strep Mitis bacteremia with bio- prosthetic AVR endocarditis and L1-L2 diskovertebral osteomyelitis. ID following to assist with antibiotic recommendations. Nephrology following to assist with anemia/ANA. Pt states his pain has been improved with less spasms. Denies any fevers, chills, headache, Chest Pain, Shortness of breath, cough, palpitations, abdominal pain, N/V/D or changes in bowel or bladder habits. PAST MEDICAL HISTORY: NIDDM. HTN Coronary artery disease, status post CABG, status post TAVR 05/31. COPD. depression PAST SURGICAL HISTORY: TAVR replaced May 2018, first placed 2009 Right hip septic joint 1.5 years ago, s/p YANET January 2018, s/p pacemaker PE: GEN: 72yoM, appears stated age. No acute distress. Alert and oriented X3. HEENT: Normocephalic, atraumatic. Sclera are nonicteric. Moist mucous membranes. CHEST: Regular rate and rhythm, +S1, +S2 LUNGS: Clear to auscultation bilaterally. No wheezes, rales, or rhonchi. ABD: Round, soft, non-tender, non-distended. +Bowel sounds present. No rebound or guarding. EXT: No lower extremity edema appreciated. SKIN: [place], dry, warm. No rashes. NEURO: No focal deficits appreciated. Moving UEs and LEs UC negative. U/S LEs 10/31/18, 11/05/[address] A/P done related to constipation 11/02/18. A&P: 72M pmh DM, HTN, PM, AVR (replaced in May 2018), CAD with CABG, JR, right hip periprosthetic infection, who was transferred to [facility] from [facility] for low back pain with fevers that began 6 days prior to admission. An ID consult was ordered, he was found to have Strep Mitis bacteremia from a October 14 and blood culture taken at [place] for which he was placed on Ceftriaxone and Gentamicin on 10-16-18 for discitis vs osteomyelitis in the setting of a possibly infected bi-prosthetic aortic valve with endocarditis. A GUILLERMO was performed showing, Moderate perivalvular aortic regurgitation, mobile density contiguous with aortic valve,cannot rule out vegetation. Repeat blood cultures on October 20 and were negative. Thoracolumbar CT on 10-18-18 showed lesion suspicious for diskovertebral osteomyelitis at L1-L2. ID recommended a 6 week course of IV antibiotics followed by Omnicef for 1 year for suppression. No cardiac or orthopedic surgery was recommended and PICC line placed. He developed a decubitus ulcer during his stay due to immobility. Patient had worsening back pain with spasms limiting his ability to ambulate and perform ADLs and deemed medically appropriate for transfer to [facility], Dr Pennington, on 10-31-18 with a diagnosis of Strep Mitis bacteremia with bio- prosthetic AVR endocarditis and L1-L2 diskovertebral osteomyelitis. 1. Discitis/osteomyelitis of L1 to L2, Streptococcus mitis bacteremia/Endocarditis. Pt is afebrile. WBC 3.9 Mgmt as per ARU Pain control as per ARU Bowel care as per ARU PT/OT/ST as per ARU DVT prophylaxis as per ARU, SQ Heparin. Continue Mgmt as per ID. ID consulted, Dr Alejandro. Appreciate recommendations. IV Rocephin until 11/28/18 then po Omnicef x 1 year. 11/17/18 CRP 2.70-trend downward. Pt unable to have MRI related to pacemaker. Blood culture x2 11/01 neg. Urine culture neg. Continue to monitor. 2. Coronary artery disease/Status post coronary artery bypass graft (CABG) and status post transcatheter aortic valve replacement (TAVR). Continue aspirin/Ranexa/Toprol XL. Outpt F/U with cardiology. 3. History of COPD. Duoneb Advair 4. Hypertension. Toprol XL 5. DM. CC diet. HOLD Metformin Monitor FSBS. 6. Depression Trintellix. 7. Anemia. B12, folate, Fe studies noted Pt is Jehovah Witness and declines transfusion. Nephrology consulted and following, Venofer as per Nephrology/Aranesp weekly. Hgb 8.1 Monitor. Plan for labs 11/19/18. 8. Thrombocytopenia. Plt trending 133-150 during admission. Recheck CBC in AM and add peripheral smear. Monitor. 9. ANA/CKD. SCr noted to be 1.77 Continue to hold Metformin. S/P IV contrast with CT 11/02/18. Nephrology following. Avoid nephrotoxins. Monitor 10. Hyponatremia. Resolved. Monitor. VS, I&O, 24H, Fishbone Vital Signs/I&O Vital Signs Date Time Temp Pulse Resp B/P (MAP) Pulse Ox O2 Delivery O2 Flow Rate FiO2 11/18/18 08:56 18 11/18/18 08:54 73 162/73 11/18/18 05:48 96.1 96 11/12/18 06:00 Room Air I&O- Last 24 Hours up to 6 AM 11/18/18 06:00 Intake Total 1130 ml Output Total 300 ml Balance 830 ml Laboratory Data 24H LABS Laboratory Tests 2 11/17/18 16:39: Bedside Glucose (Misc Panel) 92 11/18/18 06:37: Bedside Glucose (Misc Panel) 87 11/18/18 09:05: Differential Slide Review Report, Peripheral Blood Smear Path Consult PERIPHERAL SMEAR Microbiology Microbiology 11/16/18 Stool Occult Blood (SULEIMAN) - Final, Complete Yanci Cortes Nov 18, 2018 11:51
[2018-11-18 14:00] VITALS: BP 148/70
[2018-11-18 19:57] VITALS: BP 160/70
[2018-11-18] MEDS: PRAMIPEXOLE 1 MG TAB PO SCH (20:47)
[2018-11-18] MEDS: MIRTAZAPINE 15 MG TAB PO SCH (20:47)
[2018-11-18] MEDS: **NOTE PATIENT COMMENT** MISC XX SCH (21:00)
[2018-11-19] MEDS: SODIUM CHLORIDE 0.9% INJ 10 ML SYR IV SCH ×2 (05:28→17:14)
[2018-11-19] MEDS: oxyCODONE 5MG TAB PO PRN (05:29)
[2018-11-19 05:30] VITALS: BP 142/88
[2018-11-19 06:55] LABS: BASO % 0.3 % (0.0-1.0); EOS # 0.2 10^3/uL (0.0-0.50); EOS % 3.8 % (0.0-3.0); HEMATOCRIT 28.2 % (42.0-52.0); HEMOGLOBIN 8.5 g/dl (13.5-17.5); LYMPH # 0.8 10^3/uL (1.5-4.5); LYMPH % 19.3 % (24.0-44.0); MEAN CORPUSCULAR HGB CONC 30.1 g/dl (32.0-36.5); MEAN CORPUSCULAR VOLUME 102.9 fl (80.0-96.0); MONO # 0.4 10^3/uL (0.0-0.8); MONO % 9.5 % (0.0-5.0); NEUTROPHILS # 2.7 10^3/uL (1.8-7.7); NEUTROPHILS % 66.1 % (36.0-66.0); PLATELET COUNT, AUTOMATED 129 10^3/uL (150-450); RED BLOOD COUNT 2.74 10^6/uL (4.30-6.10)
[2018-11-19 07:27] LABS: ALBUMIN 2.8 GM/DL (3.2-5.2); BILIRUBIN,TOTAL 0.3 MG/DL (0.2-1.0); C REACTIVE PROTEIN QUANTITATIV 2.22 MG/DL (0.00-0.30); CALCIUM LEVEL 8.8 MG/DL (8.8-10.2); CREATININE FOR GFR 1.81 MG/DL (0.70-1.30); GLOMERULAR FILTRATION RATE 39.3 (>42); POTASSIUM SERUM 4.1 MEQ/L (3.5-5.1); TOTAL PROTEIN 6.9 GM/DL (6.4-8.2)
[2018-11-19] MEDS: IPRATROPIUM 0.5MG/ALBUTEROL 2.5MG INH SOL UD 3ML (DUONEB)(J7620) NEB SCH ×2 (07:43→20:00)
[2018-11-19] MEDS: ADVAIR HFA 115/21MCG INHALER INH SCH ×2 (07:44→20:51)
[2018-11-19] MEDS: LIDOCAINE 5% (LIDODERM) PATCH TD SCH (08:55)
[2018-11-19] MEDS: CO-ENZYME Q10 50 MG CAP PO SCH (08:55)
[2018-11-19] MEDS: TRINTELLIX PO SCH (08:56)
[2018-11-19] MEDS: TESTOSTERONE 1% TOP SCH (08:56)
[2018-11-19] MEDS: DULoxetine 30 MG CAP (CYMBALTA) PO SCH (08:57)
[2018-11-19] MEDS: oxyCODONE 5MG TAB PO SCH ×3 (08:57→21:28)
[2018-11-19] MEDS: METOPROLOL SUCC (TopROL XL) 50MG **XL** TAB PO SCH (08:57)
[2018-11-19] MEDS: VITAMIN D 1,000 INTERNATIONAL UNITS TABLET PO SCH (08:57)
[2018-11-19] MEDS: PREGABALIN 100 MG CAP (LYRICA) PO SCH ×2 (08:57→21:26)
[2018-11-19] MEDS: RANOLAZINE 500 MG ER TAB PO SCH ×2 (08:57→21:27)
[2018-11-19] MEDS: MAGNESIUM GLUCONATE 500 MG TAB PO SCH ×2 (08:57→21:27)
[2018-11-19] MEDS: ACETAMINOPHEN 500 MG TAB PO SCH ×3 (08:58→21:28)
[2018-11-19] MEDS: SENOKOT S TAB PO SCH ×2 (08:58→21:26)
[2018-11-19] MEDS: ASCORBIC ACID 500 MG TAB PO SCH (08:58)
[2018-11-19] MEDS: diazePAM 2 MG TAB PO SCH ×4 (08:58→21:26)
[2018-11-19] MEDS: ASPIRIN 81 MG ENTERIC TAB PO SCH (08:58)
[2018-11-19] MEDS: ONDANSETRON 4 MG TAB (S0181) PO SCH ×3 (08:58→17:13)
[2018-11-19] MEDS: FLUTICASONE PROP 0.05% NASAL SPRAY 16 GM (FLONASE) NARES SCH (08:59)
[2018-11-19] MEDS: POLYVINYL ALCOHOL OPHTH SOLN 15 ML(LIQUITEARS) OU SCH ×4 (08:59→21:28)
--- NOTE | 2018-11-19 09:41 | IPNPDOC ---
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 REVIEW OF SYSTEMS: The following is a completed review of systems and has been reviewed. Review of systems otherwise unremarkable. PAIN: Patient self reports severe low back pain with spasms EYES: Negative for recent vision changes EARS, NOSE, & THROAT:negative for rhinorrhea, tinnitus, or dysphagia CARDIOVASCULAR: denies chest pain or palpitations PULMONARY: Negative. Denies shortness of breath GASTROINTESTINAL: constipation -resolved GENITOURINARY: Negative for dysuria MUSCULOSKELETAL: low back pain and bilateral knee OA NEUROLOGICAL: restless leg syndrome HEMATOLOGICAL: +anemia SKIN: PICC rue PSYCHIATRIC: Unremarkable All other review of systems found to be negative. PHYSICAL EXAMINATION: VITAL SIGNS: Please see below. GENERAL: Pleasant and cooperative, no acute distress HEENT: PERRL. Extraocular movements intact. Clear conjunctiva CARDIOVASCULAR: Regular rate and rhythm. No murmurs, rubs, or gallops LUNGS: Clear to auscultation bilaterally. No wheezes. No rhonchi ABDOMEN: Soft, nontender, nondistended. Positive bowel sounds. Normal active bowel sounds NEUROLOGICAL: Alert and oriented times to self and place not time, Cranial nerves II through XII grossly intact. Sensation grossly intact. EXTREMITIES: 5\5 strength bilateral upper extremities. bilateral Ankle DF and EHL 5/5, however proximal muscle testing greatly limited by pain (negative Michael's bilat) SKIN: +PICC, decubitus ulcer ASSESSMENT:72-year-old M with past medical history of CAD, AVR, CAD with CABG who presents with diskovertebral osteomyelitis in the setting of endocarditis. PLAN: 1. Rehab: PT/OT, assess for DME needs- LSO brace when out of bed for comfort, able to ambulate further with RW, has been trained 2. Neuro: pmh restless leg syndrome, continue home meds 3. Cardio: pmh CAD s/p AVR replacement with recent GUILLERMO suspicious for endocarditis continue IV Ceftriaxone until 11/28/18 and s/p Gentamicin, will need outpatient cardio f/u -continue beta-blockers and ASA 4. Endo: pmh DM off metformin, monitoring FS for hypoglycemia due to poor oral intake 5. ID: L1-L2 disko-vertebral osteomyeltis, blood cultures positive for Strep Mitis, per acute care hospital continue IV Ceftriaxone for 6 weeks (start date 10/16/18) and Gentamicin for 2 weeks (start date 10/26/18)to be followed by one year suppression dose of Omnicef starting 11/19/18 -Dr. Alejandro consulted, Gentamicin discontinued will continue to follow-recs, appreciated, CRP/ESR improving -admission blood cultures negative 6. Pain: pmh chronic knee pain, now with severe discogenic pain with spasms- continue oxycodone 5mg tid standing and oxycodone 10mg q4h prn, standing Tylenol, continue Lyrica, and low dose Diazepam standing for painful spasms to be held for sedation -continue Cymbalta -tapered off baclofen 7. DVT ppx: will d/c heparin given anemia and borderline low platelets and obtain serial dopplers, continue TEDs, thus far studies negative for DVT-will repeat today 8. SKin: Balmex and turning q2h in bed 9. Resp: pmh COPD: continue home meds, continue Duonebs and monitor for PNA 10. 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 Heme: Anemia of chronic disease, patient is Jehovas witness and cannot receive blood, however s/p Venofer and s/p Aranesp per Renal, recs appreciated- hgb stable at 8 10. GI ppx: optimize laxatives, protonix for ppx 11. Dispo: 11/24/18, progressing towards goals Allergies Coded Allergies: Statins (Unverified Adverse Reaction, Unknown, MUSCLE PAINS, 10/31/18) Trazodone (Unverified Adverse Reaction, Unknown, ITCH, 10/31/18) Vital Signs Vital Signs Date Time Temp Pulse Resp B/P (MAP) Pulse Ox O2 Delivery O2 Flow Rate FiO2 11/19/18 08:57 80 142/88 11/19/18 08:57 97.8 18 97 2.0 Laboratory Data CBC/BMP Laboratory Tests 11/19/18 06:26 Red Blood Count 2.74 L, Mean Corpuscular Volume 102.9 H, Mean Corpuscular Hemoglobin 31.0, Mean Corpuscular Hemoglobin Concent 30.1 L, Red Cell Distribution Width 18.3 H, Neutrophils (%) (Auto) 66.1 H, Lymphocytes (%) (Auto) 19.3 L, Monocytes (%) (Auto) 9.5 H, Eosinophils (%) (Auto) 3.8 H, Basophils (%) (Auto) 0.3, Neutrophils # (Auto) 2.7, Lymphocytes # (Auto) 0.8 L, Monocytes # (Auto) 0.4, Eosinophils # (Auto) 0.2, Basophils # (Auto) 0.0, Calcium Level 8.8, Aspartate Amino Transf (AST/SGOT) 34, Alanine Aminotransferase (ALT/SGPT) 18, Alkaline Phosphatase 141 H, Total Bilirubin 0.3, Total Protein 6.9, Albumin 2.8 L Labs 24H Laboratory Tests 2 11/18/18 16:41: Bedside Glucose (Misc Panel) 99 11/19/18 06:26: Immature Granulocyte % (Auto) 1.0, White Blood Count 4.0, Red Blood Count 2.74L, Hemoglobin 8.5L, Hematocrit 28.2L, Mean Corpuscular Volume 102.9H, Mean Corpuscular Hemoglobin 31.0, Mean Corpuscular Hemoglobin Concent 30.1L, Red Cell Distribution Width 18.3H, Platelet Count 129L, Neutrophils (%) (Auto) 66.1H, Lymphocytes (%) (Auto) 19.3L, Monocytes (%) (Auto) 9.5H, Eosinophils (%) (Auto) 3.8H, Basophils (%) (Auto) 0.3, Neutrophils # (Auto) 2.7, Lymphocytes # (Auto) 0.8L, Monocytes # (Auto) 0.4, Eosinophils # (Auto) 0.2, Basophils # (Auto) 0.0, Nucleated Red Blood Cells % (auto) 0.0, Anion Gap 7L, Glomerular Filtration Rate 39.3L, Blood Urea Nitrogen 21H, Creatinine 1.81H, Sodium Level 140, Potassium Level 4.1, Chloride Level 103, Carbon Dioxide Level 30, Calcium Level 8.8, Aspartate Amino Transf (AST/SGOT) 34, Alanine Aminotransferase (ALT/SGPT) 18, Alkaline Phosphatase 141H, Total Bilirubin 0.3, Total Protein 6.9, Albumin 2.8L, C-Reactive Protein, Quantitative 2.22H, Albumin/Globulin Ratio 0.68L Microbiology Microbiology 11/16/18 Stool Occult Blood (SULEIMAN) - Final, Complete Current Medications Current Medications Current Medications Acetaminophen (Tylenol Tab) 1,000 mg TID PO Last administered on 11/19/18 08:58; Start 10/31/18 at 16:00 Albuterol/ Ipratropium (Duoneb (Ipr 0.5mg/Alb 2.5mg)) 3 ml RBID NEB ; Start 11/01/18 at 08:00 Artificial Tears (Akwa Tears) 2 drop QID OU Last administered on 11/19/18 08:59; Start 10/31/18 at 21:00 Ascorbic Acid (Vitamin C) 500 mg DAILY PO Last administered on 11/19/18 08:58; Start 11/01/18 at 09:00 Aspirin (Ecotrin) 81 mg DAILY PO Last administered on 11/19/18 08:58; Start 11/01/18 at 09:00 Baclofen (Lioresal) 5 mg BID PO Last administered on 11/17/18 08:19; Start 11/14/18 at 21:00; Stop 11/17/18 at 11:50; Status DC Baclofen (Lioresal) 5 mg TID PO Last administered on 11/14/18 08:19; Start 11/03/18 at 16:00; Stop 11/14/18 at 12:52; Status DC Bisacodyl (Dulcolax Suppository) 10 mg DAILYPRN PRN TN CONSTIPATION; Start 10/31/18 at 15:30 Bisacodyl (Dulcolax Tab) 5 mg DAILYPRN PRN PO CONSTIPATION Last administered on 11/15/18 08:49; Start 10/31/18 at 15:30 Ceftriaxone Sodium 2 gm/ Dextrose 50 ml @ 100 mls/hr Q24H IV Last administered on 11/18/18 08:55; Start 11/01/18 at 09:00; Stop 11/18/18 at 10:40; Status DC Ceftriaxone Sodium 2 gm/ Dextrose 50 ml @ 50 mls/hr Q24H IV ; Start 11/19/18 at 12:00 Ceftriaxone Sodium (Rocephin) 2 gm Q24H IM ; Start 11/19/18 at 12:00; Stop 11/19/18 at 12:00; Status DC Ceftriaxone Sodium (Rocephin) 2 gm Q24H IV ; Start 11/19/18 at 12:00; Stop 11/19/18 at 12:00; Status DC Coenzyme Q10 (Coenzyme Q10) 100 mg DAILY PO Last administered on 11/19/18at 08:55; Start 11/01/18 at 09:00; Stop 12/01/18 at 08:59 Darbepoetin Dioni (Aranesp) 100 mcg Th@09 SC Last administered on 11/13/18at 11:49; Start 11/06/18 at 09:00; Stop 11/17/18 at 09:42; Status DC Darbepoetin Dioni (Aranesp) 200 mcg Th@09 SC ; Start 11/20/18 at 09:00 Dextran/ Hydroxypropyl Methylcellul (Tears Naturale Free) 2 drop QID OU ; Start 10/31/18 at 17:00; Status Cancel Dextrose (Dextrose 50%) 25 ml ASDIRECTED PRN IV SEE LABEL COMMENTS; Start 10/31/18 at 15:15 Dextrose/Sodium Chloride 1,000 ml @ 75 mls/hr [id number] IV Last administered on 11/10/18at 09:57; Start 11/08/18 at 12:30; Stop 11/10/18 at 10:40; Status DC Diazepam (Valium) 1 mg QID PO Last administered on 11/19/18at 08:58; Start 11/14/18 at 13:00 Diazepam (Valium) 2 mg Q4H PRN PO spasm; Start 11/06/18 at 10:45; Stop 11/10/18 at 15:31; Status DC Diazepam (Valium) 2 mg TID PO Last administered on 11/05/18at 15:05; Start 11/04/18 at 16:00; Stop 11/06/18 at 10:35; Status DC Diazepam (Valium) 2.5 mg Q4H PRN PO SPASMS Last administered on 11/01/18at 19:13; Start 11/01/18 at 14:30; Stop 11/01/18 at 23:15; Status DC Diazepam (Valium) 2.5 mg Q6H PRN PO SPASMS Last administered on 11/01/18at 14:15; Start 11/01/18 at 14:00; Stop 11/01/18 at 14:24; Status DC Diazepam (Valium) 2.5 mg Q8HP PRN PO SPASMS Last administered on 10/31/18at 16:01; Start 10/31/18 at 14:45; Stop 10/31/18 at 16:19; Status DC Diazepam (Valium) 2.5 mg Q8HP PRN PO SPASMS Last administered on 11/01/18at 08:09; Start 10/31/18 at 21:00; Stop 11/01/18 at 13:59; Status DC Diazepam (Valium) 5 mg Q8HP PRN PO SPASMS; Start 10/31/18 at 16:15; Stop 10/31/18 at 20:55; Status DC Duloxetine HCl (Cymbalta) 60 mg DAILY PO Last administered on 11/19/18at 08:57; Start 11/17/18 at 12:00 Fluticasone Propionate (Flonase 0.05% Nasal [place]) 2 spray DAILY NARES Last administered on 11/19/18at 08:59; Start 11/01/18 at 09:00 Gentamicin Sulfate 80 mg/IV Miscellaneous Supplies 100 ml @ 200 mls/hr Q12H IV Last administered on 11/02/18at 06:17; Start 10/31/18 at 18:00; Stop 11/02/18 at 08:56; Status DC Gentamicin Sulfate 80 mg/IV Miscellaneous Supplies 100 ml @ 200 mls/hr Q18H IV Last administered on 11/03/18at 00:02; Start 11/03/18 at 00:00; Stop 11/03/18 at 16:59; Status DC Glucagon (Glucagon) 1 mg ASDIRECTED PRN SC SEE LABEL COMMENTS; Start 10/31/18 at 15:15 Glucose (Glucose) 16 GM ASDIRECTED PRN PO SEE LABEL COMMENTS; Start 10/31/18 at 15:15 Heparin Sodium (Heparin (Flush)) 100 units ASDIRECTED PRN IV SEE LABEL COMMENTS Last administered on 11/18/18at 08:59; Start 11/11/18 at 16:30 Heparin Sodium (Heparin (Flush)) 100 units PICC IV Last administered on 11/19/18at 05:29; Start 11/11/18 at 18:00 Heparin Sodium (Heparin (Flush)) 200 units ASDIRECTED PRN IV SEE LABEL COMMENTS Last administered on 11/02/18at 09:48; Start 10/31/18 at 16:30; Stop 11/08/18 at 19:36; Status DC Heparin Sodium (Heparin (Flush)) 200 units PICC IV Last administered on 11/04/18at 05:43; Start 10/31/18 at 18:00; Stop 11/08/18 at 19:36; Status DC Heparin Sodium (Porcine) (Heparin) 5,000 units Q12H SC Last administered on 11/04/18at 08:35; Start 10/31/18 at 21:00; Stop 11/04/18 at 18:41; Status DC Home Med (Med Rec Complete!) ASDIRECTED XX ; Start 10/31/18 at 14:45; Stop 10/31/18 at 14:45; Status DC Insulin Human Lispro (HumaLOG INSULIN) SEE PROTOCOL TABLE QHS SC ; Start 10/31/18 at 21:00; Stop 11/06/18 at 21:44; Status DC Lidocaine (Lidoderm Patch) 1 patch DAILY TD Last administered on 11/19/18 08:55; Start 11/01/18 at 09:00 Magnesium Gluconate (Magnesium Gluconate) 500 mg BID PO Last administered on 11/19/18 08:57; Start 10/31/18 at 21:00 Magnesium Hydroxide (Milk Of Magnesia) 30 ml DAILYPRN PRN PO CONSTIPATION Last administered on 11/16/18 05:59; Start 10/31/18 at 15:30 Metformin HCl (Glucophage) 500 mg DAILY@08 PO Last administered on 11/04/18at 08:36; Start 11/01/18 at 08:00; Stop 11/04/18 at 11:08; Status DC Metoprolol Succinate (TopROL XL) 25 mg DAILY PO Last administered on 11/12/18 08:53; Start 11/01/18 at 09:00; Stop 11/12/18 at 11:31; Status DC Metoprolol Succinate (TopROL XL) 50 mg DAILY PO Last administered on 11/13/18at 10:10; Start 11/13/18 at 09:00; Stop 11/14/18 at 09:10; Status DC Metoprolol Succinate (TopROL XL) 50 mg DAILY PO Last administered on 11/19/18 08:57; Start 11/14/18 at 09:00 Mirtazapine (Remeron) 30 mg QHS PO Last administered on 11/18/18 20:47; Start 10/31/18 at 21:00 Miscellaneous (Unresolved Clarification Entry) SEE LABEL COMMENTS DAILY XX ; S tart 11/16/18 at 09:00; Stop 11/17/18 at 07:10; Status DC Miscellaneous (Unresolved Clarification Entry) SEE LABEL COMMENTS DAILY XX Last administered on 11/17/18 08:23; Start 11/17/18 at 09:00; Stop 11/17/18 at 11:28; Status DC Miscellaneous (Unresolved Clarification Entry) SEE LABEL COMMENTS DAILY XX ; Start 11/18/18 at 09:00; Stop 11/18/18 at 16:35; Status DC Miscellaneous (Unresolved Patient Own Med Order) SEE LABEL COMMENTS DAILY XX ; Start 10/31/18 at 09:00; Stop 11/06/18 at 18:23; Status DC Morphine Sulfate (Ms Contin) 15 mg BID PO Last administered on 11/04/18 20:47; Start 10/31/18 at 17:00; Stop 11/06/18 at 10:35; Status DC Nitroglycerin (Nitrostat (1/ 150)) 0.4 mg Q5MP PRN SL CHEST PAIN; Start 10/31/18 at 14:45 Non-Formulary Medication ( See Comment Field Below ) REMOVE LIDODERM PATCH DAILY@21 XX Last administered on 11/18/18at 21:00; Start 10/31/18 at 21:00 Ondansetron HCl (Zofran) 4 mg AC PO Last administered on 11/19/18 08:58; Start 10/31/18 at 17:30 Ondansetron HCl (Zofran) 4 mg Q6HP PRN PO NAUSEA Last administered on 11/06/18 15:21; Start 10/31/18 at 15:30 Oxycodone HCl (Roxicodone, Oxyir) 5 mg Q4HP PRN PO PAIN 4-7 Last administered on 11/04/18 05:47; Start 10/31/18 at 14:45; Stop 11/06/18 at 10:35; Status DC Oxycodone HCl (Roxicodone, Oxyir) 5 mg TID PO Last administered on 11/19/18 08:57; Start 11/06/18 at 16:00 Oxycodone HCl (Roxicodone, Oxyir) 10 mg Q4HP PRN PO SEVERE PAIN (PS 8-10) Last administered on 11/19/18 05:29; Start 10/31/18 at 14:45 Pantoprazole Sodium (Protonix) 40 mg DAILY PO Last administered on 11/18/18 08:56; Start 11/01/18 at 09:00; Stop 11/18/18 at 11:14; Status DC Patient Own Medication (Patient'S Own Med) TRINTELLIX 20mg po daily DAILY PO Last administered on 11/19/18 08:56; Start 11/01/18 at 09:00 Patient Own Medication (Patient'S Own Med) Testosterone 5gram 1% gel; AP... DAILY TOP Last administered on 11/19/18 08:56; Start 11/07/18 at 09:00 Pramipexole Dihydrochloride (Mirapex) 2 mg QHS PO Last administered on 11/18/18 20:47; Start 10/31/18 at 21:00 Pregabalin (Lyrica) 75 mg BID PO ; Start 10/31/18 at 21:00; Stop 10/31/18 at 21:00; Status DC Pregabalin (Lyrica) 100 mg BID PO Last administered on 11/19/18 08:57; Start 10/31/18 at 21:00 Ranolazine (Ranexa) 500 mg BID PO Last administered on 11/19/18 08:57; Start 10/31/18 at 21:00 Salmeterol Xinafoate/ Fluticasone (Advair Hfa 115/ 21) 2 puff BID INH Last administered on 11/19/18 07:44; Start 10/31/18 at 21:00 Senna/Docusate Sodium (Senokot S) 1 tab BID PO Last administered on 11/19/18 08:58; Start 10/31/18 at 21:00 Sodium Chloride 1,000 ml @ 40 mls/hr Q24H IV Last administered on 1/25/19at 13:55; Start 11/04/18 at 10:30; Stop 11/08/18 at 12:17; Status DC Sodium Chloride (Saline Lock Flush) 2 ml ASDIRECTED PRN IV SEE LABEL COMMENTS; Start 11/08/18 at 19:45; Stop 11/12/18 at 14:23; Status DC Sodium Chloride (Saline Lock Flush) 2 ml SLF IV Last administered on 11/12/18 05:55; Start 11/08/18 at 22:00; Stop 11/12/18 at 14:23; Status DC Sodium Chloride (Saline Lock Flush) 10 ML PICC IV Last administered on 11/19/18at 05:28; Start 11/11/18 at 18:00 Sodium Chloride (Saline Lock Flush) 10 ml ASDIRECTED PRN IV SEE LABEL COMMENTS Last administered on 11/02/18at 09:48; Start 10/31/18 at 16:30; Stop 11/08/18 at 19:36; Status DC Sodium Chloride (Saline Lock Flush) 10 ml PICC IV Last administered on 11/04/18at 05:43; Start 10/31/18 at 18:00; Stop 11/08/18 at 19:36; Status DC Sodium Chloride (Saline Lock Flush) 10ML ASDIRECTED PRN IV SEE LABEL COMMENTS Last administered on 11/18/18 08:59; Start 11/11/18 at 16:30 Vitamin D (Vitamin D) 1,000 units DAILY PO Last administered on 11/19/18 08:57; Start 11/01/18 at 09:00 SOILA FREITAS MD Nov 19, 2018 09:41
--- NOTE | 2018-11-19 09:43 | IPNPDOC ---
PM&R Progress Note DATE OF SERVICE: Nov 19, 2018 [employer] Progress Note Subjective: Patient seen in OT doing his grooming, he is asking if his labs looks ok and when he is able to go home. REVIEW OF SYSTEMS: The following is a completed review of systems and has been reviewed. Review of systems otherwise unremarkable. PAIN: Patient self reports severe low back pain with spasms EYES: Negative for recent vision changes EARS, NOSE, & THROAT:negative for rhinorrhea, tinnitus, or dysphagia CARDIOVASCULAR: denies chest pain or palpitations PULMONARY: Negative. Denies shortness of breath GASTROINTESTINAL: constipation -resolved GENITOURINARY: Negative for dysuria MUSCULOSKELETAL: low back pain and bilateral knee OA NEUROLOGICAL: restless leg syndrome HEMATOLOGICAL: +anemia SKIN: PICC rue PSYCHIATRIC: Unremarkable All other review of systems found to be negative. PHYSICAL EXAMINATION: VITAL SIGNS: Please see below. GENERAL: Pleasant and cooperative, no acute distress HEENT: PERRL. Extraocular movements intact. Clear conjunctiva CARDIOVASCULAR: Regular rate and rhythm. No murmurs, rubs, or gallops LUNGS: Clear to auscultation bilaterally. No wheezes. No rhonchi ABDOMEN: Soft, nontender, nondistended. Positive bowel sounds. Normal active bowel sounds NEUROLOGICAL: Alert and oriented times to self and place not time, Cranial nerves II through XII grossly intact. Sensation grossly intact. EXTREMITIES: 5\5 strength bilateral upper extremities. bilateral Ankle DF and EHL 5/5, however proximal muscle testing greatly limited by pain (negative Michael's bilat) SKIN: +PICC, decubitus ulcer ASSESSMENT:72-year-old M with past medical history of CAD, AVR, CAD with CABG who presents with diskovertebral osteomyelitis in the setting of endocarditis. PLAN: 1. Rehab: PT/OT, assess for DME needs- LSO brace when out of bed for comfort, able to ambulate further with RW, has been trained 2. Neuro: pmh restless leg syndrome, continue home meds 3. Cardio: pmh CAD s/p AVR replacement with recent GUILLERMO suspicious for endocarditis continue IV Ceftriaxone until 11/28/18 and s/p Gentamicin, will need outpatient cardio f/u -continue beta-blockers and ASA 4. Endo: pmh DM off metformin, monitoring FS for hypoglycemia due to poor oral intake 5. ID: L1-L2 disko-vertebral osteomyeltis, blood cultures positive for Strep M itis, per acute care hospital continue IV Ceftriaxone for 6 weeks (start date 10/16/18) and Gentamicin for 2 weeks (start date 10/26/18)to be followed by one year suppression dose of Omnicef starting 11/19/18 -Dr. Alejandro consulted, Gentamicin discontinued will continue to follow-recs, appreciated, CRP/ESR improving -admission blood cultures negative 6. Pain: pmh chronic knee pain, now with severe discogenic pain with spasms- continue oxycodone 5mg tid standing and oxycodone 10mg q4h prn, standing Tyl enol, continue Lyrica, and low dose Diazepam standing for painful spasms to be held for sedation -continue Cymbalta-significant improvement in overall pain -tapered off baclofen 7. DVT ppx: will d/c heparin given anemia and borderline low platelets and obtain serial dopplers, continue TEDs, thus far studies negative for DVT-will repeat today 8. SKin: Balmex and turning q2h in bed 9. Resp: pmh COPD: continue home meds, continue Duonebs and monitor for PNA 10. Renal:stable, ANA most likely from recent contrast Abdomen pelvis while on metformin, s/p IVF, Renal consulted, metformin stopped, and defer repeat CT with contrast for the future if clinical picture worsens, Bl[employer] returning to baseline 11. Heme: Anemia of chronic disease, patient is Jehovas witness and cannot receive blood, however s/p Venofer and s/p Aranesp per Renal, recs appreciated- hgb stable at 8 10. GI ppx: optimize laxatives, protonix for ppx 11. Dispo: 11/28/18, progressing towards goals, extending stay from 11/24 as he is making gains and needs more time to work on stairs Allergies Coded Allergies: Statins (Unverified Adverse Reaction, Unknown, MUSCLE PAINS, 10/31/18) Trazodone (Unverified Adverse Reaction, Unknown, ITCH, 10/31/18) Vital Signs Vital Signs Date Time Temp Pulse Resp B/P (MAP) Pulse Ox O2 Delivery O2 Flow Rate FiO2 11/19/18 08:57 80 142/88 11/19/18 08:57 97.8 18 97 2.0 Laboratory Data CBC/BMP Laboratory Tests 11/19/18 06:26 Red Blood Count 2.74 L, Mean Corpuscular Volume 102.9 H, Mean Corpuscular Hemoglobin 31.0, Mean Corpuscular Hemoglobin Concent 30.1 L, Red Cell Distribution Width 18.3 H, Neutrophils (%) (Auto) 66.1 H, Lymphocytes (%) (Auto) 19.3 L, Monocytes (%) (Auto) 9.5 H, Eosinophils (%) (Auto) 3.8 H, Basophils (%) (Auto) 0.3, Neutrophils # (Auto) 2.7, Lymphocytes # (Auto) 0.8 L, Monocytes # (Auto) 0.4, Eosinophils # (Auto) 0.2, Basophils # (Auto) 0.0, Calcium Level 8.8, Aspartate Amino Transf (AST/SGOT) 34, Alanine Aminotransferase (ALT/SGPT) 18, Alkaline Phosphatase 141 H, Total Bilirubin 0.3, Total Protein 6.9, Albumin 2.8 L Labs 24H Laboratory Tests 2 11/18/18 16:41: Bedside Glucose (Misc Panel) 99 11/19/18 06:26: Immature Granulocyte % (Auto) 1.0, White Blood Count 4.0, Red Blood Count 2.74L, Hemoglobin 8.5L, Hematocrit 28.2L, Mean Corpuscular Volume 102.9H, Mean Corpu scular Hemoglobin 31.0, Mean Corpuscular Hemoglobin Concent 30.1L, Red Cell Distribution Width 18.3H, Platelet Count 129L, Neutrophils (%) (Auto) 66.1H, Lymphocytes (%) (Auto) 19.3L, Monocytes (%) (Auto) 9.5H, Eosinophils (%) (Auto) 3.8H, Basophils (%) (Auto) 0.3, Neutrophils # (Auto) 2.7, Lymphocytes # (Auto) 0.8L, Monocytes # (Auto) 0.4, Eosinophils # (Auto) 0.2, Basophils # (Auto) 0.0, Nucleated Red Blood Cells % (auto) 0.0, Anion Gap 7L, Glomerular Filtration Rate 39.3L, Blood Urea Nitrogen 21H, Creatinine 1.81H, Sodium Level 140, Potassium Level 4.1, Chloride Level 103, Carbon Dioxide Level 30, Calcium Level 8.8, Aspartate Amino Transf (AST/SGOT) 34, Alanine Aminotransferase (ALT/SGPT) 18, Alkaline Phosphatase 141H, Total Bilirubin 0.3, Total Protein 6.9, Albumin 2.8L, C-Reactive Protein, Quantitative 2.22H, Albumin/Globulin Ratio 0.68L Microbiology Microbiology 11/16/18 Stool Occult Blood (SULEIMAN) - Final, Complete Current Medications Current Medications Current Medications Acetaminophen (Tylenol Tab) 1,000 mg TID PO Last administered on 11/19/18 08:58; Start 10/31/18 at 16:00 Albuterol/ Ipratropium (Duoneb (Ipr 0.5mg/Alb 2.5mg)) 3 ml RBID NEB ; Start 11/01/18 at 08:00 Artificial Tears ([place] Tears) 2 drop QID OU Last administered on 11/19/18 08:59; Start 10/31/18 at 21:00 Ascorbic Acid (Vitamin C) 500 mg DAILY PO Last administered on 11/19/18 08:58; Start 11/01/18 at 09:00 Aspirin (Ecotrin) 81 mg DAILY PO Last administered on 11/19/18 08:58; Start 11/01/18 at 09:00 Baclofen (Lioresal) 5 mg BID PO Last administered on 11/17/18 08:19; Start 11/14/18 at 21:00; Stop 11/17/18 at 11:50; Status DC Baclofen (Lioresal) 5 mg TID PO Last administered on 11/14/18 08:19; Start at 16:00; Stop 11/14/18 at 12:52; Status DC Bisacodyl (Dulcolax Suppository) 10 mg DAILYPRN PRN [place] CONSTIPATION; Start 10/31/18 at 15:30 Bisacodyl (Dulcolax Tab) 5 mg DAILYPRN PRN PO CONSTIPATION Last administered on 11/15/18 08:49; Start 10/31/18 at 15:30 Ceftriaxone Sodium 2 gm/ Dextrose 50 ml @ 100 mls/hr Q24H IV Last administered on 11/18/18 08:55; Start 11/01/18 at 09:00; Stop 11/18/18 at 10:40; Status DC Ceftriaxone Sodium 2 gm/ Dextrose 50 ml @ 50 mls/hr Q24H IV ; Start 11/19/18 at 12:00 Ceftriaxone Sodium (Rocephin) 2 gm Q24H IM ; Start 11/19/18 at 12:00; Stop 11/19/18 at 12:00; Status DC Ceftriaxone Sodium (Rocephin) 2 gm Q24H IV ; Start 11/19/18 at 12:00; Stop 11/19/18 at 12:00; Status DC Coenzyme Q10 (Coenzyme Q10) 100 mg DAILY PO Last administered on 11/19/18at 08:55; Start 11/01/18 at 09:00; Stop 12/01/18 at 08:59 Darbepoetin Dioni (Aranesp) 100 mcg Th@09 SC Last administered on 11/13/18at 11:49; Start 11/06/18 at 09:00; Stop 11/17/18 at 09:42; Status DC Darbepoetin Dioni (Aranesp) 200 mcg Th@09 SC ; Start 11/20/18 at 09:00 Dextran/ Hydroxypropyl Methylcellul (Tears Naturale Free) 2 drop QID OU ; Start 10/31/18 at 17:00; Status Cancel Dextrose (Dextrose 50%) 25 ml ASDIRECTED PRN IV SEE LABEL COMMENTS; Start 10/31/18 at 15:15 Dextrose/Sodium Chloride 1,000 ml @ 75 mls/hr [id number] IV Last administered on 11/10/18at 09:57; Start 11/08/18 at 12:30; Stop 11/10/18 at 10:40; Status DC Diazepam (Valium) 1 mg QID PO Last administered on 11/19/18at 08:58; Start at 13:00 Diazepam (Valium) 2 mg Q4H PRN PO spasm; Start 11/06/18 at 10:45; Stop 11/10/18 at 15:31; Status DC Diazepam (Valium) 2 mg TID PO Last administered on 11/05/18at 15:05; Start 11/04/18 at 16:00; Stop 11/06/18 at 10:35; Status DC Diazepam (Valium) 2.5 mg Q4H PRN PO SPASMS Last administered on 11/01/18at 19:13; Start 11/01/18 at 14:30; Stop 11/01/18 at 23:15; Status DC Diazepam (Valium) 2.5 mg Q6H PRN PO SPASMS Last administered on 11/01/18at 14:15; Start 11/01/18 at 14:00; Stop 11/01/18 at 14:24; Status DC Diazepam (Valium) 2.5 mg Q8HP PRN PO SPASMS Last administered on 10/31/18at 16:01; Start 10/31/18 at 14:45; Stop 10/31/18 at 16:19; Status DC Diazepam (Valium) 2.5 mg Q8HP PRN PO SPASMS Last administered on 11/01/18at 08:09; Start 10/31/18 at 21:00; Stop 11/01/18 at 13:59; Status DC Diazepam (Valium) 5 mg Q8HP PRN PO SPASMS; Start 10/31/18 at 16:15; Stop 10/31/18 at 20:55; Status DC Duloxetine HCl (Cymbalta) 60 mg DAILY PO Last administered on 11/19/18at 08:57; Start 11/17/18 at 12:00 Fluticasone Propionate (Flonase 0.05% Nasal [place]) 2 spray DAILY NARES Last administered on 11/19/18at 08:59; Start 11/01/18 at 09:00 Gentamicin Sulfate 80 mg/IV Miscellaneous Supplies 100 ml @ 200 mls/hr Q12H IV Last administered on 11/02/18at 06:17; Start 10/31/18 at 18:00; Stop 11/02/18 at 08:56; Status DC Gentamicin Sulfate 80 mg/IV Miscellaneous Supplies 100 ml @ 200 mls/hr Q18H IV Last administered on 11/03/18at 00:02; Start 11/03/18 at 00:00; Stop 11/03/18 at 16:59; Status DC Glucagon (Glucagon) 1 mg ASDIRECTED PRN SC SEE LABEL COMMENTS; Start 10/31/18 at 15:15 Glucose (Glucose) 16 GM ASDIRECTED PRN PO SEE LABEL COMMENTS; Start 10/31/18 at 15:15 Heparin Sodium (Heparin (Flush)) 100 units ASDIRECTED PRN IV SEE LABEL COMMENTS Last administered on 11/18/18at 08:59; Start 11/11/18 at 16:30 Heparin Sodium (Heparin (Flush)) 100 units PICC IV Last administered on 11/19/18 05:29; Start 11/11/18 at 18:00 Heparin Sodium (Heparin (Flush)) 200 units ASDIRECTED PRN IV SEE LABEL COMMENTS Last administered on 11/02/18 09:48; Start 10/31/18 at 16:30; Stop 11/08/18 at 19:36; Status DC Heparin Sodium (Heparin (Flush)) 200 units PICC IV Last administered on 11/04/18 05:43; Start 10/31/18 at 18:00; Stop 11/08/18 at 19:36; Status DC Heparin Sodium (Porcine) (Heparin) 5,000 units Q12H SC Last administered on 11/04/18 08:35; Start 10/31/18 at 21:00; Stop 11/04/18 at 18:41; Status DC Home Med (Med Rec Complete!) ASDIRECTED XX ; Start 10/31/18 at 14:45; Stop 10/31/18 at 14:45; Status DC Insulin Human Lispro (HumaLOG INSULIN) SEE PROTOCOL TABLE QHS SC ; Start 10/31/18 at 21:00; Stop 11/06/18 at 21:44; Status DC Lidocaine (Lidoderm Patch) 1 patch DAILY TD Last administered on 11/19/18 08:55; Start 11/01/18 at 09:00 Magnesium Gluconate (Magnesium Gluconate) 500 mg BID PO Last administered on 11/19/18 08:57; Start 10/31/18 at 21:00 Magnesium Hydroxide (Milk Of Magnesia) 30 ml DAILYPRN PRN PO CONSTIPATION Last administered on 11/16/18 05:59; Start 10/31/18 at 15:30 Metformin HCl (Glucophage) 500 mg DAILY@08 PO Last administered on 11/04/18 08:36; Start 11/01/18 at 08:00; Stop 11/04/18 at 11:08; Status DC Metoprolol Succinate (TopROL XL) 25 mg DAILY PO Last administered on 11/12/18 08:53; Start 11/01/18 at 09:00; Stop 11/12/18 at 11:31; Status DC Metoprolol Succinate (TopROL XL) 50 mg DAILY PO Last administered on 11/13/18at 10:10; Start 11/13/18 at 09:00; Stop 11/14/18 at 09:10; Status DC Metoprolol Succinate (TopROL XL) 50 mg DAILY PO Last administered on 11/19/18 08:57; Start 11/14/18 at 09:00 Mirtazapine (Remeron) 30 mg QHS PO Last administered on 11/18/18 20:47; Start 10/31/18 at 21:00 Miscellaneous (Unresolved Clarification Entry) SEE LABEL COMMENTS DAILY XX ; Start 11/16/18 at 09:00; Stop 11/17/18 at 07:10; Status DC Miscellaneous (Unresolved Clarification Entry) SEE LABEL COMMENTS DAILY XX Last administered on 11/17/18 08:23; Start 11/17/18 at 09:00; Stop 11/17/18 at 11:28; Status DC Miscellaneous (Unresolved Clarification Entry) SEE LABEL COMMENTS DAILY XX ; Start 11/18/18 at 09:00; Stop 11/18/18 at 16:35; Status DC Miscellaneous (Unresolved Patient Own Med Order) SEE LABEL COMMENTS DAILY XX ; Start 10/31/18 at 09:00; Stop 11/06/18 at 18:23; Status DC Morphine Sulfate (Ms Contin) 15 mg BID PO Last administered on 11/04/18at 20:47; Start 10/31/18 at 17:00; Stop 11/06/18 at 10:35; Status DC Nitroglycerin (Nitrostat (1/ 150)) 0.4 mg Q5MP PRN SL CHEST PAIN; Start 10/31/18 at 14:45 Non-Formulary Medication ( See Comment Field Below ) REMOVE LIDODERM PATCH DAILY@21 XX Last administered on 11/18/18 21:00; Start 10/31/18 at 21:00 Ondansetron HCl (Zofran) 4 mg AC PO Last administered on 11/19/18 08:58; Start 10/31/18 at 17:30 Ondansetron HCl (Zofran) 4 mg Q6HP PRN PO NAUSEA Last administered on 11/06/18 15:21; Start 10/31/18 at 15:30 Oxycodone HCl (Roxicodone, Oxyir) 5 mg Q4HP PRN PO PAIN 4-7 Last administered on 11/04/18 05:47; Start 10/31/18 at 14:45; Stop 11/06/18 at 10:35; Status DC Oxycodone HCl (Roxicodone, Oxyir) 5 mg TID PO Last administered on 11/19/18 08:57; Start 11/06/18 at 16:00 Oxycodone HCl (Roxicodone, Oxyir) 10 mg Q4HP PRN PO SEVERE PAIN (PS 8-10) Last administered on 11/19/18 05:29; Start 10/31/18 at 14:45 Pantoprazole Sodium (Protonix) 40 mg DAILY PO Last administered on 11/18/18 08:56; Start 11/01/18 at 09:00; Stop 11/18/18 at 11:14; Status DC Patient Own Medication (Patient'S Own Med) TRINTELLIX 20mg po daily DAILY PO Last administered on 11/19/18 08:56; Start 11/01/18 at 09:00 Patient Own Medication (Patient'S Own Med) Testosterone 5gram 1% gel; AP... CATARINO Y TOP Last administered on 11/19/18 08:56; Start 11/07/18 at 09:00 Pramipexole Dihydrochloride (Mirapex) 2 mg QHS PO Last administered on 11/18/18 20:47; Start 10/31/18 at 21:00 Pregabalin (Lyrica) 75 mg BID PO ; Start 10/31/18 at 21:00; Stop 10/31/18 at 21:00; Status DC Pregabalin (Lyrica) 100 mg BID PO Last administered on 11/19/18 08:57; Start 10/31/18 at 21:00 Ranolazine (Ranexa) 500 mg BID PO Last administered on 11/19/18 08:57; Start 10/31/18 at 21:00 Salmeterol Xinafoate/ Fluticasone (Advair Hfa 115/ 21) 2 puff BID INH Last administered on 11/19/18 07:44; Start 10/31/18 at 21:00 Senna/Docusate Sodium (Senokot S) 1 tab BID PO Last administered on 2/6/19at 08:58; Start 10/31/18 at 21:00 Sodium Chloride 1,000 ml @ 40 mls/hr Q24H IV Last administered on 11/07/18at 13:55; Start 11/04/18 at 10:30; Stop 11/08/18 at 12:17; Status DC Sodium Chloride (Saline Lock Flush) 2 ml ASDIRECTED PRN IV SEE LABEL COMMENTS; Start 11/08/18 at 19:45; Stop 11/12/18 at 14:23; Status DC Sodium Chloride (Saline Lock Flush) 2 ml SLF IV Last administered on 11/12/18at 05:55; Start 11/08/18 at 22:00; Stop 11/12/18 at 14:23; Status DC Sodium Chloride (Saline Lock Flush) 10 ML PICC IV Last administered on 11/19/18at 05:28; Start 11/11/18 at 18:00 Sodium Chloride (Saline Lock Flush) 10 ml ASDIRECTED PRN IV SEE LABEL COMMENTS Last administered on 11/02/18at 09:48; Start 10/31/18 at 16:30; Stop 11/08/18 at 19:36; Status DC Sodium Chloride (Saline Lock Flush) 10 ml PICC IV Last administered on 11/04/18at 05:43; Start 10/31/18 at 18:00; Stop 11/08/18 at 19:36; Status DC Sodium Chloride (Saline Lock Flush) 10ML ASDIRECTED PRN IV SEE LABEL COMMENTS Last administered on 11/18/18at 08:59; Start 11/11/18 at 16:30 Vitamin D (Vitamin D) 1,000 units DAILY PO Last administered on 11/19/18at 08:57; Start 11/01/18 at 09:00 SOILA FREITAS MD Nov 19, 2018 09:43
[2018-11-19 11:51] LABS: ERYTHROCYTE SEDIMENTATION RATE 105 mm/hr (0-20)
[2018-11-19] MEDS ORDERED: cefTRIAXone SOD 2 GM VIAL (J0696) IM SCH (12:00)
[2018-11-19] MEDS ORDERED: cefTRIAXone SOD 2 GM VIAL (J0696) IV SCH (12:00)
[2018-11-19] MEDS: cefTRIAXone SOD 2 GM in D5W MINI-BAG PLUS 50 ML IV SCH (12:30)
[2018-11-19] MEDS: SODIUM CHLORIDE 0.9% INJ 10 ML SYR IV PRN (12:30)
--- NOTE | 2018-11-19 12:53 | REP ---
Bilateral lower extremity Duplex Doppler venous ultrasound: Real time compression and duplex Doppler interrogation of the bilateral lower extremity deep venous system is performed. Bilaterally, the common femoral, superficial femoral and popliteal veins are fully compressible with transducer pressure and demonstrate normal spontaneous and phasic flow, without evidence of deep venous thrombosis. Impression: No evidence of deep venous thrombosis of the bilateral lower extremity femoral popliteal venous system. Electronically Signed by Darrick Hess MD 11/19/2018 12:44 P
[2018-11-19 14:00] VITALS: BP 137/64
--- NOTE | 2018-11-19 14:49 | IPNPDOC ---
Date Seen The patient was seen on 11/19/18. Progress Note HPI: 72M who was transferred to [facility] from [facility] for low back pain with fevers that began 6 days prior to admission. An ID consult was ordered, he was found to have Strep Mitis bacteremia from a October 14 and blood culture taken at [place] for which he was placed on Ceftriaxone and Gentamicin on 10-16-18 for discitis vs osteomyelitis in the setting of a possibly infected bi-prosthetic aortic valve with endocarditis. A GUILLERMO was performed showing, Moderate perivalvular aortic regurgitation, mobile density contiguous with aortic valve,cannot rule out vegetation. Repeat blood cultures on October 20 and were negative. Thor[address]olumbar CT on 10-18-18 showed lesion suspicious for diskovertebral osteomyelitis at L1-L2. ID recommended a 6 week course of IV antibiotics followed by Omnicef for 1 year for suppression. No cardiac or orthopedic surgery was recommended and PICC line placed. He developed a decubitus ulcer during his stay due to immobility. 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 ID following to assist with antibiotic recommendations. Nephrology following to assist with anemia/ANA. Pt states his pain overall has been improved with less spasms. Denies any fevers, chills, headache, Chest Pain, Shortness of breath, cough, palpitations, abdominal pain, N/V/D or changes in bowel or bladder habits. PAST MEDICAL HISTORY: NIDDM. HTN Coronary artery disease, status post CABG, status post TAVR 05/31. COPD. depression PAST SURGICAL HISTORY: TAVR replaced May 2018, first placed 2009 Right hip septic joint 1.5 years ago, s/p YANET January 2018, s/p pacemaker PE: GEN: 72yoM, appears stated age. No acute distress. Alert and oriented X3. HEENT: Normocephalic, atraumatic. Sclera are nonicteric. Moist mucous membranes. CHEST: Regular rate and rhythm, +S1, +S2 LUNGS: Clear to auscultation bilaterally. No wheezes, rales, or rhonchi. ABD: Round, soft, non-tender, non-distended. +Bowel sounds present. No rebound or guarding. EXT: No lower extremity edema appreciated. SKIN: [place], dry, warm. No rashes. NEURO: No focal deficits appreciated. Moving UEs and LEs UC negative. U/S LEs 10/31/18, 11/05/[address] A/P done related to constipation 11/02/18. A&P: 72M pmh DM, HTN, PM, AVR (replaced in May 2018), CAD with CABG, JR, right hip periprosthetic infection, who was transferred to [facility] from [facility] for low back pain with fevers that began 6 days prior to admission. An ID consult was ordered, he was found to have Strep Mitis bacteremia from a October 14 and blood culture taken at [place] for which he was placed on Ceftriaxone and Gentamicin on 10-16-18 for discitis vs osteomyelitis in the setting of a possibly infected bi-prosthetic aortic valve with endocarditis. A GUILLERMO was performed showing, Moderate perivalvular aortic regurgitation, mobile density contiguous with aortic valve,cannot rule out vegetation. Repeat blood cultures on October 20 and were negative. Thoracolumbar CT on 10-18-18 showed lesion suspicious for diskovertebral osteomyelitis at L1-L2. ID recommended a 6 week course of IV antibiotics followed by Omnicef for 1 year for suppression. No cardiac or orthopedic surgery was recommended and PICC line placed. He developed a decubitus ulcer during his stay due to immobility. 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 1. Discitis/osteomyelitis of L1 to L2, Streptococcus mitis bacteremia/Endocarditis. Pt is afebrile. WBC 3.9 Mgmt as per [facility] Pain control as per [facility]U Bowel care as per ARU PT/OT/ST as per [facility]U DVT prophylaxis as per [facility], SQ Heparin. LE U/S 11/18/18 negative. Continue Mgmt as per ID. ID consulted, Dr Alejandro. Appreciate recommendations. IV Rocephin until 11/28/18 then po Omnicef x 1 year. 11/19/18 CRP 2.22-trend downward. ESR 105 (trend downward). Pt unable to have MRI related to pacemaker. Blood culture x2 11/01 neg. Urine culture neg. Continue to monitor. 2. Coronary artery disease/Status post coronary artery bypass graft (CABG) and status post transcatheter aortic valve replacement (TAVR). Continue aspirin/Ranexa/Toprol XL. Outpt F/U with cardiology. 3. History of COPD. Duoneb Advair 4. Hypertension. Toprol XL 5. DM. CC diet. BS 85-103 HOLD Metformin Monitor FSBS. 6. Depression Trintellix. 7. Anemia. B12, folate, Fe studies noted Pt is Jehov[employer] Witness and declines transfusion. Nephrology consulted and following, Venofer as per Nephrology/Jillian weekly. Hgb 8.5 Monitor. 8. Thrombocytopenia. Plt trending 133-150 during admission. Peripheral smear 11/18/18. Mild anemia with at least a component of anemia of chronic disease. Normal platelet morphology, no platelet clumps are noted. The WBCs are within normal limits. Final: Electronically Signed by: Bessy Edwards M.D. 11/18/18 1138 Plt 129 this AM, slightly increased. Monitor. 9. ANA/CKD. SCr noted to be 1.81 baseline has been 1.6-1.7 Nephrology following. Avoid nephrotoxins. Monitor 10. Hyponatremia. Resolved. Monitor. VS, I&O, 24H, Fishbone Vital Signs/I&O Vital Signs Date Time Temp Pulse Resp B/P (MAP) Pulse Ox O2 Delivery O2 Flow Rate FiO2 11/19/18 09:27 18 11/19/18 08:57 80 142/88 11/19/18 08:57 97.8 97 2.0 I&O- Last 24 Hours up to 6 AM 11/19/18 06:00 Intake Total 770 ml Output Total 525 ml Balance 245 ml Laboratory Data 24H LABS Laboratory Tests 2 11/18/18 16:41: Bedside Glucose (Misc Panel) 99 11/19/18 06:26: Immature Granulocyte % (Auto) 1.0, White Blood Count 4.0, Red Blood Count 2.74L, Hemoglobin 8.5L, Hematocrit 28.2L, Mean Corpuscular Volume 102.9H, Mean Corpuscular Hemoglobin 31.0, Mean Corpuscular Hemoglobin Concent 30.1L, Red Cell Distribution Width 18.3H, Platelet Count 129L, Neutrophils (%) (Auto) 66.1H, Lymphocytes (%) (Auto) 19.3L, Monocytes (%) (Auto) 9.5H, Eosinophils (%) (Auto) 3.8H, Basophils (%) (Auto) 0.3, Neutrophils # (Auto) 2.7, Lymphocytes # (Auto) 0.8L, Monocytes # (Auto) 0.4, Eosinophils # (Auto) 0.2, Basophils # (Auto) 0.0, Nucleated Red Blood Cells % (auto) 0.0, Erythrocyte Sedimentation Rate 105H, Anion Gap 7L, Glomerular Filtration Rate 39.3L, Blood Urea Nitrogen 21H, Creatinine 1.81H, Sodium Level 140, Potassium Level 4.1, Chloride Level 103, Carbon Dioxide Level 30, Calcium Level 8.8, Aspartate Amino Transf (AST/SGOT) 34, Alanine Aminotransferase (ALT/SGPT) 18, Alkaline Phosphatase 141H, Total Bilirubin 0.3, Total Protein 6.9, Albumin 2.8L, C-Reactive Protein, Quantitative 2.22H, Albumin/Globulin Ratio 0.68L 11/19/18 13:48: Urine Color YELLOW, Urine Appearance HAZY, Urine pH 5.0, Urine Specific [place] 1.015, Urine Protein 1+H, Urine Glucose (UA) NEGATIVE, Urine Ketones NEGATIVE, Urine Blood NEGATIVE, Urine Nitrite NEGATIVE, Urine Bilirubin NEGATIVE, Urine Urobilinogen 0.2, Urine Leukocyte Esterase NEGATIVE, Urine WBC (Auto) 2, Urine RBC (Auto) 1, Urine Hyaline Casts (Auto) 0, Urine Bacteria (Auto) NEGATIVE, Urine Squamous Epithelial Cells 0, Urine Sperm (Auto) CBC/BMP Laboratory Tests 11/19/18 06:26 Red Blood Count 2.74 L, Mean Corpuscular Volume 102.9 H, Mean Corpuscular Hemoglobin 31.0, Mean Corpuscular Hemoglobin Concent 30.1 L, Red Cell Distr ibution Width 18.3 H, Neutrophils (%) (Auto) 66.1 H, Lymphocytes (%) (Auto) 19.3 L, Monocytes (%) (Auto) 9.5 H, Eosinophils (%) (Auto) 3.8 H, Basophils (%) (Auto) 0.3, Neutrophils # (Auto) 2.7, Lymphocytes # (Auto) 0.8 L, Monocytes # (Auto) 0.4, Eosinophils # (Auto) 0.2, Basophils # (Auto) 0.0, Calcium Level 8.8, Aspartate Amino Transf (AST/SGOT) 34, Alanine Aminotransferase (ALT/SGPT) 18, Alkaline Phosphatase 141 H, Total Bilirubin 0.3, Total Protein 6.9, Albumin 2.8 L Microbiology Microbiology 11/16/18 Stool Occult Blood (SULEIMAN) - Final, Complete Yanci Cortes Nov 19, 2018 14:49
[2018-11-19 20:00] VITALS: BP 123/59
[2018-11-19] MEDS: MIRTAZAPINE 15 MG TAB PO SCH (21:26)
[2018-11-19] MEDS: PRAMIPEXOLE 1 MG TAB PO SCH (21:27)
[2018-11-19] MEDS: **NOTE PATIENT COMMENT** MISC XX SCH (21:33)
[2018-11-20 06:00] VITALS: BP 164/74
[2018-11-20] MEDS: SODIUM CHLORIDE 0.9% INJ 10 ML SYR IV SCH ×2 (06:09→17:33)
[2018-11-20] MEDS: ADVAIR HFA 115/21MCG INHALER INH SCH ×2 (07:12→19:57)
[2018-11-20] MEDS: IPRATROPIUM 0.5MG/ALBUTEROL 2.5MG INH SOL UD 3ML (DUONEB)(J7620) NEB SCH ×2 (07:13→19:57)
[2018-11-20] MEDS: TRINTELLIX PO SCH (08:31)
[2018-11-20] MEDS: LIDOCAINE 5% (LIDODERM) PATCH TD SCH (08:31)
[2018-11-20] MEDS: MAGNESIUM GLUCONATE 500 MG TAB PO SCH ×2 (08:32→21:28)
[2018-11-20] MEDS: VITAMIN D 1,000 INTERNATIONAL UNITS TABLET PO SCH (08:32)
[2018-11-20] MEDS: ASPIRIN 81 MG ENTERIC TAB PO SCH (08:32)
[2018-11-20] MEDS: CO-ENZYME Q10 50 MG CAP PO SCH (08:32)
[2018-11-20] MEDS: ONDANSETRON 4 MG TAB (S0181) PO SCH ×3 (08:32→17:33)
[2018-11-20] MEDS: DULoxetine 30 MG CAP (CYMBALTA) PO SCH (08:32)
[2018-11-20] MEDS: oxyCODONE 5MG TAB PO SCH ×3 (08:33→21:29)
[2018-11-20] MEDS: SENOKOT S TAB PO SCH ×2 (08:34→21:29)
[2018-11-20] MEDS: diazePAM 2 MG TAB PO SCH ×4 (08:34→21:28)
[2018-11-20] MEDS: ASCORBIC ACID 500 MG TAB PO SCH (08:34)
[2018-11-20] MEDS: RANOLAZINE 500 MG ER TAB PO SCH ×2 (08:34→21:27)
[2018-11-20] MEDS: ACETAMINOPHEN 500 MG TAB PO SCH ×3 (08:34→21:28)
[2018-11-20] MEDS: METOPROLOL SUCC (TopROL XL) 50MG **XL** TAB PO SCH (08:34)
[2018-11-20] MEDS: PREGABALIN 100 MG CAP (LYRICA) PO SCH ×2 (08:34→21:30)
[2018-11-20] MEDS: POLYVINYL ALCOHOL OPHTH SOLN 15 ML(LIQUITEARS) OU SCH ×4 (08:35→21:29)
[2018-11-20] MEDS: FLUTICASONE PROP 0.05% NASAL SPRAY 16 GM (FLONASE) NARES SCH (08:35)
[2018-11-20] MEDS ORDERED: DARBEPOETIN 100 MCG/0.5 ML *NON-DIALYSIS* SYRINGE (J0881) SC SCH (09:00)
[2018-11-20] MEDS: BISACODYL 5 MG TAB PO PRN (09:59)
--- NOTE | 2018-11-20 09:59 | IPN ---
DATE OF SERVICE: 11/19/2018 SUBJECTIVE: The patient was seen and examined at the bedside today morning. He was actually sitting in the sofa, and he was getting his physical therapy. He still reports back pain. Otherwise, he is hemodynamically stable. His renal function is stable. Creatinine is 1.8 today, and his hemoglobin is also stable at 8.5 now. OBJECTIVE: Vital signs: Temperature is 97.8 degrees Fahrenheit, blood pressure 142/88 pulse is 80, respiratory rate of 16, saturating 97% on 2 liters via nasal cannula. Intake and output: Urine output recorded is only 250 mL. Weight in the bed scale is not available. PHYSICAL EXAMINATION: General: The patient is awake, alert, oriented times three, sitting up in the sofa. No apparent distress. Head and neck examination: Extraocular muscles intact. Pupils equal, round, and reactive to light. Mucous membranes are moist. Neck is supple. There is no jugular venous distention (JVD). Cardiovascular: S1, S2. Regular rate. No murmur, rub, and gallop. No edema of the bilateral lower extremities. Respiratory: Chest is clear to auscultation bilaterally. Bilateral equal air entry. No rales or rhonchi. Abdomen is soft, obese, positive bowel sounds. Nontender. No organomegaly. Musculoskeletal: No clubbing or cyanosis. Pulses are 2+. Central nervous system (SHERIFF DETECTIVE): No focal deficit. Power is 5/5 in bilateral upper extremities. LABORATORY REVIEW: Complete blood count (CBC) showed a WBC of 4, hemoglobin 8.5, platelets are 129. Urinalysis done today showed 1+ protein. Basic metabolic profile (BMP) done today morning showed sodium 140, potassium 4.1, chloride 103, bicarbonate 30, BUN 21, creatinine is 1.8, it was 1.7 yesterday, C-reactive protein is 2.2 now which is improving. IMAGING: Doppler of the bilateral lower extremities was done. It showed no evidence of deep venous thrombosis (DVT). CURRENT INPATIENT MEDICATIONS: The patient's medications were all reviewed by me. His intravenous (IV) Rocephin has been stopped, and a new dose of 2-gram IV every 24 has been started today morning. ASSESSMENT AND PLAN: 1. Acute kidney injury superimposed on chronic kidney disease. Renal function is stable. Creatinine has been fluctuating around 1.7-1.8. Continue to monitor for now. Continue the BMP monitoring three times a week. 2. Anemia secondary to iron deficiency and chronic kidney disease. The patient is status post IV iron. I increased his Aranesp dose to 200 mcg once a week. He will get the higher dose tomorrow. He is Protestant and not a candidate for blood transfusion. 3. Infective endocarditis and discitis. The patient is currently on IV ceftriaxone. Duration of antibiotics is as per infectious disease (ID). 4. Hypertension with chronic kidney disease. Continue current dose of metoprolol XL 50 mg by mouth daily.
[2018-11-20] MEDS: TESTOSTERONE 1% TOP SCH (10:05)
[2018-11-20] MEDS: oxyCODONE 5MG TAB PO PRN (11:21)
--- NOTE | 2018-11-20 11:41 | IPNPDOC ---
PM&R Progress Note DATE OF SERVICE: Nov 20, 2018 Gynecological Assistant Progress Note Subjective: Patient seen in bed stating he is having back spasms and is uncomfortable, additional pain medication ordered. REVIEW OF SYSTEMS: The following is a completed review of systems and has been reviewed. Review of systems otherwise unremarkable. PAIN: Patient self reports severe low back pain with spasms EYES: Negative for recent vision changes EARS, NOSE, & THROAT:negative for rhinorrhea, tinnitus, or dysphagia CARDIOVASCULAR: denies chest pain or palpitations PULMONARY: Negative. Denies shortness of breath GASTROINTESTINAL: constipation -resolved GENITOURINARY: Negative for dysuria MUSCULOSKELETAL: low back pain and bilateral knee OA NEUROLOGICAL: restless leg syndrome HEMATOLOGICAL: +anemia SKIN: PICC rue PSYCHIATRIC: Unremarkable All other review of systems found to be negative. PHYSICAL EXAMINATION: VITAL SIGNS: Please see below. GENERAL: Pleasant and cooperative, no acute distress HEENT: PERRL. Extraocular movements intact. Clear conjunctiva CARDIOVASCULAR: Regular rate and rhythm. No murmurs, rubs, or gallops LUNGS: Clear to auscultation bilaterally. No wheezes. No rhonchi ABDOMEN: Soft, nontender, nondistended. Positive bowel sounds. Normal active bowel sounds NEUROLOGICAL: Alert and oriented times to self and place not time, Cranial nerves II through XII grossly intact. Sensation grossly intact. EXTREMITIES: 5\5 strength bilateral upper extremities. bilateral Ankle DF and EHL 5/5, however proximal muscle testing greatly limited by pain (negative Michael's bilat) SKIN: +PICC, decubitus ulcer ASSESSMENT:72-year-old M with past medical history of CAD, AVR, CAD with CABG who presents with diskovertebral osteomyelitis in the setting of endocarditis. PLAN: 1. Rehab: PT/OT, assess for DME needs- LSO brace when out of bed for comfort, ab le to ambulate further with RW, has been trained 2. Neuro: pmh restless leg syndrome, continue home meds 3. Cardio: pmh CAD s/p AVR replacement with recent GUILLERMO suspicious for endocarditis continue IV Ceftriaxone until 11/28/18 and s/p Gentamicin, will need outpatient cardio f/u -continue beta-blockers and ASA 4. Endo: pmh DM off metformin, monitoring FS for hypoglycemia due to poor oral intake 5. ID: L1-L2 disko-vertebral osteomyeltis, blood cultures positive for Strep Mitis, per acute care hospital continue IV Ceftriaxone for 6 weeks (start date 10/16/18) and Gentamicin for 2 weeks (start date 10/26/18)to be followed by one year suppression dose of Omnicef starting 11/19/18 -Dr. Alejandro consulted, Gentamicin discontinued will continue to follow-recs, kimmy reciated, CRP/ESR improving -admission blood cultures negative 6. Pain: pmh chronic knee pain, now with severe discogenic pain with spasms- continue oxycodone 5mg tid standing and oxycodone 10mg q4h prn, standing Tylenol, continue Lyrica, and low dose Diazepam standing for painful spasms to be held for sedation -continue Cymbalta-significant improvement in overall pain -tapered off baclofen 7. DVT ppx: will d/c heparin given anemia and borderline low platelets and obtain serial dopplers, continue TEDs, thus far studies negative for DVT-will repeat today 8. SKin: Balmex and turning q2h in bed 9. Resp: pmh COPD: continue home meds, continue Duonebs and monitor for PNA 10. Renal:stable, ANA most likely from recent contrast Abdomen pelvis while on metformin, s/p IVF, Renal consulted, metformin stopped, and defer repeat CT with contrast for the future if clinical picture worsens, [employer] returning to baseline 11. Heme: Anemia of chronic disease, patient is Jehovas witness and cannot receive blood, however s/p Venofer and s/p Aranesp per Renal, recs appreciated- hgb stable at 8 10. GI ppx: optimize laxatives, protonix for ppx 11. Dispo: 11/28/18, progressing towards goals, extending stay from 11/24 as he is making gains and needs more time to work on stairs Allergies Coded Allergies: Statins (Unverified Adverse Reaction, Unknown, MUSCLE PAINS, 10/31/18) Trazodone (Unverified Adverse Reaction, Unknown, ITCH, 10/31/18) Vital Signs Vital Signs Date Time Temp Pulse Resp B/P (MAP) Pulse Ox O2 Delivery O2 Flow Rate FiO2 11/20/18 11:21 18 11/20/18 08:34 93 164/74 11/20/18 06:00 97.5 98 11/19/18 08:57 2.0 Laboratory Data Labs 24H Laboratory Tests 2 11/19/18 13:48: Urine Color YELLOW, Urine Appearance HAZY, Urine pH 5.0, Urine Specific [place] 1.015, Urine Protein 1+H, Urine Glucose (UA) NEGATIVE, Urine Ketones NEGATIVE, Urine Blood NEGATIVE, Urine Nitrite NEGATIVE, Urine Bilirubin NEGATIVE, Urine Urobilinogen 0.2, Urine Leukocyte Esterase NEGATIVE, Urine WBC (Auto) 2, Urine RBC (Auto) 1, Urine Hyaline Casts (Auto) 0, Urine Bacteria (Auto) NEGATIVE, Urine Squamous Epithelial Cells 0, Urine Sperm (Auto) 11/19/18 17:24: Bedside Glucose (Misc Panel) 87 11/20/18 06:09: Bedside Glucose (Misc Panel) 78L Microbiology Microbiology 11/16/18 Stool Occult Blood (SULEIMAN) - Final, Complete Current Medications Current Medications Current Medications Acetaminophen (Tylenol Tab) 1,000 mg TID PO Last administered on 11/20/18 08:34; Start 10/31/18 at 16:00 Albuterol/ Ipratropium (Duoneb (Ipr 0.5mg/Alb 2.5mg)) 3 ml RBID NEB ; Start 11/01/18 at 08:00 Artificial Tears ([place] Tears) 2 drop QID OU Last administered on 11/20/18 08:35; Start 10/31/18 at 21:00 Ascorbic Acid (Vitamin C) 500 mg DAILY PO Last administered on 11/20/18 08:34; Start 11/01/18 at 09:00 Aspirin (Ecotrin) 81 mg DAILY PO Last administered on 11/20/18 08:32; Start 11/01/18 at 09:00 Baclofen (Lioresal) 5 mg BID PO Last administered on 11/17/18 08:19; Start 11/14/18 at 21:00; Stop 11/17/18 at 11:50; Status DC Baclofen (Lioresal) 5 mg TID PO Last administered on 11/14/18 08:19; Start 11/03/18 at 16:00; Stop 11/14/18 at 12:52; Status DC Bisacodyl (Dulcolax Suppository) 10 mg DAILYPRN PRN HI CONSTIPATION; Start 10/31/18 at 15:30 Bisacodyl (Dulcolax Tab) 5 mg DAILYPRN PRN PO CONSTIPATION Last administered on 11/20/18 09:59; Start 10/31/18 at 15:30 Ceftriaxone Sodium 2 gm/ Dextrose 50 ml @ 100 mls/hr Q24H IV Last administered on 11/18/18at 08:55; Start 11/01/18 at 09:00; Stop 11/18/18 at 10:40; Status DC Ceftriaxone Sodium 2 gm/ Dextrose 50 ml @ 50 mls/hr Q24H IV Last administered on 11/19/18at 12:30; Start 11/19/18 at 12:00 Ceftriaxone Sodium (Rocephin) 2 gm Q24H IM ; Start 11/19/18 at 12:00; Stop 11/19/18 at 12:00; Status DC Ceftriaxone Sodium (Rocephin) 2 gm Q24H IV ; Start 11/19/18 at 12:00; Stop 11/19/18 at 12:00; Status DC Coenzyme Q10 (Coenzyme Q10) 100 mg DAILY PO Last administered on 11/20/18at 08:32; Start 11/01/18 at 09:00; Stop 12/01/18 at 08:59 Darbepoetin Dioni (Aranesp) 100 mcg Th@09 SC Last administered on 11/13/18at 11:49; Start 11/06/18 at 09:00; Stop 11/17/18 at 09:42; Status DC Darbepoetin Dioni (Aranesp) 200 mcg Th@09 SC ; Start 11/20/18 at 09:00 Dextran/ Hydroxypropyl Methylcellul (Tears Naturale Free) 2 drop QID OU ; Start 10/31/18 at 17:00; Status Cancel Dextrose (Dextrose 50%) 25 ml ASDIRECTED PRN IV SEE LABEL COMMENTS; Start 10/31/18 at 15:15 Dextrose/Sodium Chloride 1,000 ml @ 75 mls/hr [id number] IV Last administered on 11/10/18at 09:57; Start 11/08/18 at 12:30; Stop 11/10/18 at 10:40; Status DC Diazepam (Valium) 1 mg QID PO Last administered on 11/20/18at 08:34; Start 11/14/18 at 13:00 Diazepam (Valium) 2 mg Q4H PRN PO spasm; Start 11/06/18 at 10:45; Stop 11/10/18 at 15:31; Status DC Diazepam (Valium) 2 mg TID PO Last administered on 11/05/18at 15:05; Start 11/04/18 at 16:00; Stop 11/06/18 at 10:35; Status DC Diazepam (Valium) 2.5 mg Q4H PRN PO SPASMS Last administered on 11/01/18at 19:13; Start 11/01/18 at 14:30; Stop 11/01/18 at 23:15; Status DC Diazepam (Valium) 2.5 mg Q6H PRN PO SPASMS Last administered on 11/01/18at 14:15; Start 11/01/18 at 14:00; Stop 11/01/18 at 14:24; Status DC Diazepam (Valium) 2.5 mg Q8HP PRN PO SPASMS Last administered on 10/31/18at 16:01; Start 10/31/18 at 14:45; Stop 10/31/18 at 16:19; Status DC Diazepam (Valium) 2.5 mg Q8HP PRN PO SPASMS Last administered on 11/01/18at 08:09; Start 10/31/18 at 21:00; Stop 11/01/18 at 13:59; Status DC Diazepam (Valium) 5 mg Q8HP PRN PO SPASMS; Start 10/31/18 at 16:15; Stop 10/31/18 at 20:55; Status DC Duloxetine HCl (Cymbalta) 60 mg DAILY PO Last administered on 11/20/18at 08:32; Start 11/17/18 at 12:00 Fluticasone Propionate (Flonase 0.05% Nasal [place]) 2 spray DAILY NARES Last ad ministered on 11/20/18at 08:35; Start 11/01/18 at 09:00 Gentamicin Sulfate 80 mg/IV Miscellaneous Supplies 100 ml @ 200 mls/hr Q12H IV Last administered on 11/02/18at 06:17; Start 10/31/18 at 18:00; Stop 11/02/18 at 08:56; Status DC Gentamicin Sulfate 80 mg/IV Miscellaneous Supplies 100 ml @ 200 mls/hr Q18H IV Last administered on 11/03/18at 00:02; Start 11/03/18 at 00:00; Stop 11/03/18 at 16:59; Status DC Glucagon (Glucagon) 1 mg ASDIRECTED PRN SC SEE LABEL COMMENTS; Start 10/31/18 at 15:15 Glucose (Glucose) 16 GM ASDIRECTED PRN PO SEE LABEL COMMENTS; Start 10/31/18 at 15:15 Heparin Sodium (Heparin (Flush)) 100 units ASDIRECTED PRN IV SEE LABEL COMMENTS Last administered on 11/19/18at 12:30; Start 11/11/18 at 16:30 Heparin Sodium (Heparin (Flush)) 100 units PICC IV Last administered on 11/20/18at 06:10; Start 11/11/18 at 18:00 Heparin Sodium (Heparin (Flush)) 200 units ASDIRECTED PRN IV SEE LABEL COMMENTS Last administered on 11/02/18at 09:48; Start 10/31/18 at 16:30; Stop 11/08/18 at 19:36; Status DC Heparin Sodium (Heparin (Flush)) 200 units PICC IV Last administered on 11/04/18at 05:43; Start 10/31/18 at 18:00; Stop 11/08/18 at 19:36; Status DC Heparin Sodium (Porcine) (Heparin) 5,000 units Q12H SC Last administered on 11/04/18at 08:35; Start 10/31/18 at 21:00; Stop 11/04/18 at 18:41; Status DC Home Med (Med Rec Complete!) ASDIRECTED XX ; Start 10/31/18 at 14:45; Stop 10/31/18 at 14:45; Status DC Insulin Human Lispro (HumaLOG INSULIN) SEE PROTOCOL TABLE QHS SC ; Start 10/31/18 at 21:00; Stop 11/06/18 at 21:44; Status DC Lidocaine (Lidoderm Patch) 1 patch DAILY TD Last administered on 11/20/18 08:31; Start 11/01/18 at 09:00 Magnesium Gluconate (Magnesium Gluconate) 500 mg BID PO Last administered on 11/20/18 08:32; Start 10/31/18 at 21:00 Magnesium Hydroxide (Milk Of Magnesia) 30 ml DAILYPRN PRN PO CONSTIPATION Last administered on 11/16/18 05:59; Start 10/31/18 at 15:30 Metformin HCl (Glucophage) 500 mg DAILY@08 PO Last administered on 11/04/18at 08:36; Start 11/01/18 at 08:00; Stop 11/04/18 at 11:08; Status DC Metoprolol Succinate (TopROL XL) 25 mg DAILY PO Last administered on 11/12/18at 08:53; Start 11/01/18 at 09:00; Stop 11/12/18 at 11:31; Status DC Metoprolol Succinate (TopROL XL) 50 mg DAILY PO Last administered on 11/13/18at 10:10; Start 11/13/18 at 09:00; Stop 11/14/18 at 09:10; Status DC Metoprolol Succinate (TopROL XL) 50 mg DAILY PO Last administered on 11/20/18at 08:34; Start 11/14/18 at 09:00 Mirtazapine (Remeron) 30 mg QHS PO Last administered on 11/19/18at 21:26; Start 10/31/18 at 21:00 Miscellaneous (Unresolved Clarification Entry) SEE LABEL COMMENTS DAILY XX ; Start 11/16/18 at 09:00; Stop 11/17/18 at 07:10; Status DC Miscellaneous (Unresolved Clarification Entry) SEE LABEL COMMENTS DAILY XX Last administered on 11/17/18at 08:23; Start 11/17/18 at 09:00; Stop 11/17/18 at 11:28; Status DC Miscellaneous (Unresolved Clarification Entry) SEE LABEL COMMENTS DAILY XX ; Start 11/18/18 at 09:00; Stop 11/18/18 at 16:35; Status DC Miscellaneous (Unresolved Patient Own Med Order) SEE LABEL COMMENTS DAILY XX ; Start 10/31/18 at 09:00; Stop 11/06/18 at 18:23; Status DC Morphine Sulfate (Ms Contin) 15 mg BID PO Last administered on 11/04/18at 20:47; Start 10/31/18 at 17:00; Stop 11/06/18 at 10:35; Status DC Nitroglycerin (Nitrostat (1/ 150)) 0.4 mg Q5MP PRN SL CHEST PAIN; Start 10/31/18 at 14:45 Non-Formulary Medication ( See Comment Field Below ) REMOVE LIDODERM PATCH DAILY@21 XX Last administered on 11/19/18 21:33; Start 10/31/18 at 21:00 Ondansetron HCl (Zofran) 4 mg AC PO Last administered on 11/20/18 08:32; Start 10/31/18 at 17:30 Ondansetron HCl (Zofran) 4 mg Q6HP PRN PO NAUSEA Last administered on 11/06/18 15:21; Start 10/31/18 at 15:30 Oxycodone HCl (Roxicodone, Oxyir) 5 mg Q4HP PRN PO PAIN 4-7 Last administered on 11/04/18 05:47; Start 10/31/18 at 14:45; Stop 11/06/18 at 10:35; Status DC Oxycodone HCl (Roxicodone, Oxyir) 5 mg TID PO Last administered on 11/20/18 08:33; Start 11/06/18 at 16:00 Oxycodone HCl (Roxicodone, Oxyir) 10 mg Q4HP PRN PO SEVERE PAIN (PS 8-10) Last administered on 11/20/18 11:21; Start 10/31/18 at 14:45 Pantoprazole Sodium (Protonix) 40 mg DAILY PO Last administered on 11/18/18 08:56; Start 11/01/18 at 09:00; Stop 11/18/18 at 11:14; Status DC Patient Own Medication (Patient'S Own Med) TRINTELLIX 20mg po daily DAILY PO Last administered on 11/20/18 08:31; Start 11/01/18 at 09:00 Patient Own Medication (Patient'S Own Med) Testosterone 5gram 1% gel; AP... DAILY TOP Last administered on 11/20/18 10:05; Start 11/07/18 at 09:00 Pramipexole Dihydrochloride (Mirapex) 2 mg QHS PO Last administered on 11/19/18 21:27; Start 10/31/18 at 21:00 Pregabalin (Lyrica) 75 mg BID PO ; Start 10/31/18 at 21:00; Stop 10/31/18 at 21:00; Status DC Pregabalin (Lyrica) 100 mg BID PO Last administered on 11/20/18 08:34; Start 10/31/18 at 21:00 Ranolazine (Ranexa) 500 mg BID PO Last administered on 11/20/18 08:34; Start 10/31/18 at 21:00 Salmeterol Xinafoate/ Fluticasone (Advair Hfa 115/ 21) 2 puff BID INH Last administered on 11/20/18 07:12; Start 10/31/18 at 21:00 Senna/Docusate Sodium (Senokot S) 1 tab BID PO Last administered on 11/20/18 08:34; Start 10/31/18 at 21:00 Sodium Chloride 1,000 ml @ 40 mls/hr Q24H IV Last administered on 11/07/18 13:55; Start 11/04/18 at 10:30; Stop 11/08/18 at 12:17; Status DC Sodium Chloride (Saline Lock Flush) 2 ml ASDIRECTED PRN IV SEE LABEL COMMENTS; Start 11/08/18 at 19:45; Stop 11/12/18 at 14:23; Status DC Sodium Chloride (Saline Lock Flush) 2 ml SLF IV Last administered on 11/12/18 05:55; Start 11/08/18 at 22:00; Stop 11/12/18 at 14:23; Status DC Sodium Chloride (Saline Lock Flush) 10 ML PICC IV Last administered on 11/20/18 06:09; Start 11/11/18 at 18:00 Sodium Chloride (Saline Lock Flush) 10 ml ASDIRECTED PRN IV SEE LABEL COMMENTS Last administered on 11/02/18 09:48; Start 10/31/18 at 16:30; Stop 11/08/18 at 19:36; Status DC Sodium Chloride (Saline Lock Flush) 10 ml PICC IV Last administered on 11/04/18 05:43; Start 10/31/18 at 18:00; Stop 11/08/18 at 19:36; Status DC Sodium Chloride (Saline Lock Flush) 10ML ASDIRECTED PRN IV SEE LABEL COMMENTS Last administered on 11/19/18 12:30; Start 11/11/18 at 16:30 Vitamin D (Vitamin D) 1,000 units DAILY PO Last administered on 11/20/18 08:32; Start 11/01/18 at 09:00 SOILA FREITAS MD Nov 20, 2018 11:41
[2018-11-20] MEDS: cefTRIAXone SOD 2 GM in D5W MINI-BAG PLUS 50 ML IV SCH (12:21)
[2018-11-20] MEDS: SODIUM CHLORIDE 0.9% INJ 10 ML SYR IV PRN (12:54)
[2018-11-20 14:00] VITALS: BP 111/64
--- NOTE | 2018-11-20 14:25 | IPNPDOC ---
Date Seen The patient was seen on 11/20/18. Progress Note HPI: 72M who was transferred to [facility] from [facility] for low back pain with fevers that began 6 days prior to admission. An ID consult was ordered, he was found to have Strep Mitis bacteremia from a October 14 and blood culture taken at [facility] for which he was placed on Ceftriaxone and Gentamicin on 10-16-18 for discitis vs osteomyelitis in the setting of a possibly infected bi-prosthetic aortic valve with endocarditis. A GUILLERMO was performed showing, Moderate perivalvular aortic regurgitation, mobile density contiguous with aortic valve,cannot rule out vegetation. Repeat blood cultures on October 20 and were negative. Thoracolumbar CT on 10-18-18 showed lesion suspicious for diskovertebral osteomyelitis at L1-L2. ID recommended a 6 week course of IV antibiotics followed by Omnicef for 1 year for suppression. No cardiac or orthopedic surgery was recommended and PICC line placed. He developed a decubitus ulcer during his stay due to immobility. 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 ID following to assist with antibiotic recommendations. Nephrology following to assist with anemia/ANA. Pt states his pain overall has been controlled. Denies any fevers, chills, headache, Chest Pain, Shortness of breath, cough, palpitations, abdominal pain, N/V/D or changes in bowel or bladder habits. PAST MEDICAL HISTORY: NIDDM. HTN Coronary artery disease, status post CABG, status post TAVR 05/31. COPD. depression PAST SURGICAL HISTORY: TAVR replaced May 2018, first placed 2008 Right hip septic joint 1.5 years ago, s/p YANET January 2018, s/p pacemaker PE: GEN: 72yoM, appears stated age. No acute distress. Alert and oriented X3. HEENT: Normocephalic, atraumatic. Sclera are nonicteric. Moist mucous membranes. CHEST: Regular rate and rhythm, +S1, +S2 LUNGS: Clear to auscultation bilaterally. No wheezes, rales, or rhonchi. ABD: Round, soft, non-tender, non-distended. +Bowel sounds present. No rebound or guarding. EXT: No lower extremity edema appreciated. SKIN: [place], dry, warm. No rashes. NEURO: No focal deficits appreciated. Moving UEs and LEs UC negative. U/S LEs 10/31/18, 11/05/[address] A/P done related to constipation 11/02/18. A&P: 72M pmh DM, HTN, PM, AVR (replaced in May 2018), CAD with CABG, JR, right hip periprosthetic infection, who was transferred to [facility] from [facility] for low back pain with fevers that began 6 days prior to admission. An ID consult was ordered, he was found to have Strep Mitis bacteremia from a October 14 and blood culture taken at [facility] for which he was placed on Ceftriaxone and Gentamicin on 10-16-18 for discitis vs osteomyelitis in the setting of a possibly infected bi-prosthetic aortic valve with endocarditis. A GUILLERMO was performed showing, Moderate perivalvular aortic regurgitation, mobile density contiguous with aortic valve,cannot rule out vegetation. Repeat blood cultures on October 20 and were negative. Thoracolumbar CT on 10-18-18 showed lesion suspicious for diskovertebral osteomyelitis at L1-L2. ID recommended a 6 week course of IV antibiotics followed by Omnicef for 1 year for suppression. No cardiac or orthopedic surgery was recommended and PICC line placed. He developed a decubitus ulcer during his stay due to immobility. 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 1. Discitis/osteomyelitis of L1 to L2, Streptococcus mitis bacteremia/Endocarditis. Pt is afebrile. Mgmt as per ARU Pain control as per ARU Bowel care as per ARU PT/OT/ST as per ARU DVT prophylaxis as per ARU, SQ Heparin. LE U/S 11/19/18 negative. Continue Mgmt as per ID. ID consulted, Dr Alejandro. Appreciate recommendations. IV Rocephin until 11/28/18 then po Omnicef x 1 year. 11/19/18 CRP 2.22-trend downward. ESR 105 (trend downward). Pt unable to have MRI related to pacemaker. Blood culture x2 11/01 neg. Urine culture neg. Continue to monitor. 2. Coronary artery disease/Status post coronary artery bypass graft (CABG) and status post transcatheter aortic valve replacement (TAVR). Continue aspirin/Ranexa/Toprol XL. Outpt F/U with cardiology. 3. History of COPD. Duoneb Advair 4. Hypertension. Toprol XL 5. DM. CC diet. Metformin d/cd Monitor FSBS. 6. Depression Trintellix. 7. Anemia. B12, folate, Fe studies noted Pt is Jehovah Witness and declines transfusion. Nephrology consulted and following, Venofer as per Nephrology/Aranesp weekly. Hgb 8.5 Monitor. 8. Thrombocytopenia. Plt trending 133-150 during admission. Peripheral smear 11/18/18. Mild anemia with at least a component of anemia of chronic disease. Normal platelet morphology, no platelet clumps are noted. The WBCs are within normal limits. Final: Electronically Signed by: Bessy Edwards M.D. 11/18/18 1138 Plt 129 11/19/18. Monitor. 9. ANA/CKD. SCr noted to be 1.81 baseline has been 1.6-1.7 Nephrology following. Avoid nephrotoxins. Monitor Labs 11/21/18. 10. Hyponatremia. Resolved. Monitor. VS, I&O, 24H, Fishbone Vital Signs/I&O Vital Signs Date Time Temp Pulse Resp B/P (MAP) Pulse Ox O2 Delivery O2 Flow Rate FiO2 11/20/18 12:00 18 11/20/18 08:34 93 164/74 11/20/18 06:00 97.5 98 11/19/18 08:57 2.0 I&O- Last 24 Hours up to 6 AM 11/20/18 06:00 Intake Total 1310 ml Output Total 350 ml Balance 960 ml Laboratory Data 24H LABS Laboratory Tests 2 11/19/18 17:24: Bedside Glucose (Misc Panel) 87 11/20/18 06:09: Bedside Glucose (Misc Panel) 78L Microbiology Microbiology 11/16/18 Stool Occult Blood (SULEIMAN) - Final, Complete Yanci Cortes Nov 20, 2018 14:25
--- NOTE | 2018-11-20 16:28 | IPN ---
DATE: 11/20/2018 Mr. Ward seems to be doing better. He has no nausea, vomiting, or diarrhea. No cough or shortness of breath. No chest pain or palpitations. His only complaint is back pain with spasms. He is improving. He has done at least 155 feet and has tried to do the stairs today. The back spasms have diminished. LABORATORY DATA: White count is 4, hemoglobin 8.5, hematocrit 28.2, platelets 129, 66% neutrophils, 90% lymphocytes, 10% monocytes. ESR 105, down from 126. Sodium 140, potassium 4.1, chloride was 103, bicarbonate 30, BUN 21, creatinine 1.81, glucose 107, calcium 8.8. AST 34, ALT 18, alkaline phosphatase 141, CRP 2.22, down from 16.4. PHYSICAL EXAMINATION: HEART: Normal S1, S2 with a systolic ejection murmur, 2/6, unchanged, regular. LUNGS: Clear. No wheezes, rales, or rhonchi. ABDOMEN: Soft, nontender. No hepatosplenomegaly. Bowel sounds present. EXTREMITIES: No edema. NEUROLOGIC: Motor strength 5/5, bilateral lower extremities and hip flexion. BACK: Not examined, as the patient was lying flat due to back spasms. IMPRESSION: 1. Vertebral osteomyelitis with discitis of L1-2 from Streptococcus mitis endocarditis in a patient with prosthetic aortic valve. The patient remains on intravenous (IV) Rocephin 2 grams daily every 24 hours, doing well, improving C-reactive protein (CRP) and sedimentation rate, improving motor strength. The patient will continue antibiotic until November 28, then he will be switched to oral antibiotics. Recommendation from [place] was Omnicef. 2. Back spasms. The patient is slowly improving. This is related to discitis, and the patient understands that he will have chronic back pain probably for the rest of his life. 3. Anemia of chronic disease/renal disease and infection. The patient is on Aranesp 200 mcg subcutaneous every . He is a [employer]. PLAN: Continue IV Rocephin 2 grams daily until November 28, anticipated date of discharge. Oral antibiotic will be decided next week.
[2018-11-20 20:00] VITALS: BP 135/61
[2018-11-20] MEDS: **NOTE PATIENT COMMENT** MISC XX SCH (21:00)
[2018-11-20] MEDS: MIRTAZAPINE 15 MG TAB PO SCH (21:27)
[2018-11-20] MEDS: PRAMIPEXOLE 1 MG TAB PO SCH (21:28)
[2018-11-21 06:00] VITALS: BP 137/63
[2018-11-21] MEDS: SODIUM CHLORIDE 0.9% INJ 10 ML SYR IV SCH ×2 (06:19→18:00)
[2018-11-21] MEDS: ADVAIR HFA 115/21MCG INHALER INH SCH ×2 (07:17→20:45)
[2018-11-21 07:39] LABS: BASO % 0.5 % (0.0-1.0); EOS # 0.2 10^3/uL (0.0-0.50); EOS % 5.9 % (0.0-3.0); HEMATOCRIT 27.7 % (42.0-52.0); HEMOGLOBIN 8.5 g/dl (13.5-17.5); LYMPH # 0.9 10^3/uL (1.5-4.5); LYMPH % 22.9 % (24.0-44.0); MEAN CORPUSCULAR HEMOGLOBIN 31.4 pg (27.0-33.0); MEAN CORPUSCULAR HGB CONC 30.7 g/dl (32.0-36.5); MEAN CORPUSCULAR VOLUME 102.2 fl (80.0-96.0); MONO # 0.6 10^3/uL (0.0-0.8); MONO % 14.6 % (0.0-5.0); NEUTROPHILS # 2.1 10^3/uL (1.8-7.7); NEUTROPHILS % 55.6 % (36.0-66.0); PLATELET COUNT, AUTOMATED 113 10^3/uL (150-450); RED BLOOD COUNT 2.71 10^6/uL (4.30-6.10); WHITE BLOOD COUNT 3.8 10^3/uL (4.0-10.0)
[2018-11-21 07:57] LABS: ALBUMIN 2.9 GM/DL (3.2-5.2); CALCIUM LEVEL 8.9 MG/DL (8.8-10.2); CREATININE FOR GFR 2.24 MG/DL (0.70-1.30); GLOMERULAR FILTRATION RATE 30.7 (>42); PHOSPHORUS LEVEL 4.4 MG/DL (2.5-4.9)
[2018-11-21] MEDS: IPRATROPIUM 0.5MG/ALBUTEROL 2.5MG INH SOL UD 3ML (DUONEB)(J7620) NEB SCH ×2 (08:00→20:00)
[2018-11-21] MEDS: TESTOSTERONE 1% TOP SCH (09:00)
[2018-11-21] MEDS: SENOKOT S TAB PO SCH ×2 (09:00→21:31)
[2018-11-21] MEDS: TRINTELLIX PO SCH (09:44)
[2018-11-21] MEDS: ACETAMINOPHEN 500 MG TAB PO SCH ×3 (09:45→21:32)
[2018-11-21] MEDS: CO-ENZYME Q10 50 MG CAP PO SCH (09:46)
[2018-11-21] MEDS: RANOLAZINE 500 MG ER TAB PO SCH ×2 (09:46→21:31)
[2018-11-21] MEDS: ONDANSETRON 4 MG TAB (S0181) PO SCH ×3 (09:46→18:35)
[2018-11-21] MEDS: MAGNESIUM GLUCONATE 500 MG TAB PO SCH ×2 (09:47→21:32)
[2018-11-21] MEDS: METOPROLOL SUCC (TopROL XL) 50MG **XL** TAB PO SCH (09:48)
[2018-11-21] MEDS: ASCORBIC ACID 500 MG TAB PO SCH (09:48)
[2018-11-21] MEDS: VITAMIN D 1,000 INTERNATIONAL UNITS TABLET PO SCH (09:50)
[2018-11-21] MEDS: oxyCODONE 5MG TAB PO SCH ×4 (09:50→21:31)
[2018-11-21] MEDS: ASPIRIN 81 MG ENTERIC TAB PO SCH (09:51)
[2018-11-21] MEDS: DULoxetine 30 MG CAP (CYMBALTA) PO SCH (09:51)
[2018-11-21] MEDS: diazePAM 2 MG TAB PO SCH ×4 (09:51→21:31)
[2018-11-21] MEDS: FLUTICASONE PROP 0.05% NASAL SPRAY 16 GM (FLONASE) NARES SCH (09:53)
[2018-11-21] MEDS: LIDOCAINE 5% (LIDODERM) PATCH TD SCH (09:53)
[2018-11-21] MEDS: POLYVINYL ALCOHOL OPHTH SOLN 15 ML(LIQUITEARS) OU SCH ×4 (09:54→21:32)
[2018-11-21] MEDS: PREGABALIN 100 MG CAP (LYRICA) PO SCH ×2 (09:55→21:32)
--- NOTE | 2018-11-21 12:48 | IPNPDOC ---
PM&R Progress Note DATE OF SERVICE: Nov 21, 2018 Public Speaker Progress Note Subjective: Patient seen in bed with family stating he wouldl padilla to try going up on the Valium. he is wondering if he should have his pacemaker replaced while on antibi otics. REVIEW OF SYSTEMS: The following is a completed review of systems and has been reviewed. Review of systems otherwise unremarkable. PAIN: Patient self reports severe low back pain with spasms EYES: Negative for recent vision changes EARS, NOSE, & THROAT:negative for rhinorrhea, tinnitus, or dysphagia CARDIOVASCULAR: denies chest pain or palpitations PULMONARY: Negative. Denies shortness of breath GASTROINTESTINAL: constipation -resolved GENITOURINARY: Negative for dysuria MUSCULOSKELETAL: low back pain and bilateral knee OA NEUROLOGICAL: restless leg syndrome HEMATOLOGICAL: +anemia SKIN: PICC rue PSYCHIATRIC: Unremarkable All other review of systems found to be negative. PHYSICAL EXAMINATION: VITAL SIGNS: Please see below. GENERAL: Pleasant and cooperative, no acute distress HEENT: PERRL. Extraocular movements intact. Clear conjunctiva CARDIOVASCULAR: Regular rate and rhythm. No murmurs, rubs, or gallops LUNGS: Clear to auscultation bilaterally. No wheezes. No rhonchi ABDOMEN: Soft, nontender, nondistended. Positive bowel sounds. Normal active bowel sounds NEUROLOGICAL: Alert and oriented times to self and place not time, Cranial nerves II through XII grossly intact. Sensation grossly intact. EXTREMITIES: 5\5 strength bilateral upper extremities. bilateral Ankle DF and EHL 5/5, however proximal muscle testing greatly limited by pain (negative Michael's bilat) SKIN: +PICC, decubitus ulcer ASSESSMENT:72-year-old M with past medical history of CAD, AVR, CAD with CABG who presents with diskovertebral osteomyelitis in the setting of endocarditis. PLAN: 1. Rehab: PT/OT, assess for DME needs- LSO brace when out of bed for comfort, able to ambulate further with RW, has been trained 2. Neuro: pmh restless leg syndrome, continue home meds 3. Cardio: pmh CAD s/p AVR replacement with recent GUILLERMO suspicious for endocarditis continue IV Ceftriaxone until 11/28/18 and s/p Gentamicin, will need outpatient cardio f/u -continue beta-blockers and ASA 4. Endo: pmh DM off metformin, monitoring FS for hypoglycemia due to poor oral intake, improving 5. ID: L1-L2 disko-vertebral osteomyeltis, blood cultures positive for Strep Mitis, per acute care hospital continue IV Ceftriaxone for 6 weeks (start date 10/16/18) and Gentamicin for 2 weeks (start date 10/26/18)to be followed by one year suppression dose of Omnicef starting 11/29/18 -Dr. Alejandro consulted, Gentamicin discontinued will continue to follow-recs, appreciated, CRP/ESR improving -admission blood cultures negative 6. Pain: pmh chronic knee pain, now with severe discogenic pain with spasms- continue oxycodone 5mg tid standing and oxycodone 10mg q4h prn, standing Tylenol, continue Lyrica, and low dose Diazepam standing for painful spasms to be held for sedation -continue Cymbalta-significant improvement in overall pain -tapered off baclofen 7. DVT ppx: will d/c heparin given anemia and borderline low platelets and obtain serial dopplers, continue TEDs, thus far studies negative for DVT-will repeat today 8. SKin: Balmex and turning q2h in bed 9. Resp: pmh COPD: continue home meds, continue Duonebs and monitor for PNA 10. Renal:stable, ANA most likely from recent contrast Abdomen pelvis while on metformin, s/p IVF, Renal consulted, metformin stopped, and defer repeat CT with contrast for the future if clinical picture worsens, Tester Regulator returning to baseline until today 2.24, currently not on any nephrotoxic agents, possibly due to dehydration, will give IVF and recheck tomorrow 11. Heme: Anemia of chronic disease, patient is Jehovas witness and cannot receive blood, however s/p Venofer and getting weekly Aranesp per Renal, recs appreciated- hgb stable at 8 10. GI ppx: optimize laxatives, protonix for ppx 11. Dispo: 11/28/18, progressing towards goals, extending stay from 11/24 as he is making gains and needs more time to work on stairs Allergies Coded Allergies: Statins (Unverified Adverse Reaction, Unknown, MUSCLE PAINS, 10/31/18) Trazodone (Unverified Adverse Reaction, Unknown, ITCH, 10/31/18) Vital Signs Vital Signs Date Time Temp Pulse Resp B/P (MAP) Pulse Ox O2 Delivery O2 Flow Rate FiO2 11/21/18 09:50 22 11/21/18 09:48 75 137/63 11/21/18 06:00 96.5 97 11/19/18 08:57 2.0 Laboratory Data CBC/BMP Laboratory Tests 11/21/18 07:14 Red Blood Count 2.71 L, Mean Corpuscular Volume 102.2 H, Mean Corpuscular Hemoglobin 31.4, Mean Corpuscular Hemoglobin Concent 30.7 L, Red Cell Distribution Width 18.4 H, Neutrophils (%) (Auto) 55.6, Lymphocytes (%) (Auto) 22.9 L, Monocytes (%) (Auto) 14.6 H, Eosinophils (%) (Auto) 5.9 H, Basophils (%) (Auto) 0.5, Neutrophils # (Auto) 2.1, Lymphocytes # (Auto) 0.9 L, Monocytes # (Auto) 0.6, Eosinophils # (Auto) 0.2, Basophils # (Auto) 0.0, Anion Gap 6 L Labs 24H Laboratory Tests 2 11/20/18 16:30: Bedside Glucose (Misc Panel) 100 11/21/18 06:17: Bedside Glucose (Misc Panel) 93 11/21/18 07:14: Immature Granulocyte % (Auto) 0.5, White Blood Count 3.8L, Red Blood Count 2.71L, Hemoglobin 8.5L, Hematocrit 27.7L, Mean Corpuscular Volume 102.2H, Mean Corpuscular Hemoglobin 31.4, Mean Corpuscular Hemoglobin Concent 30.7L, Red Cell Distribution Width 18.4H, Platelet Count 113L, Neutrophils (%) (Auto) 55.6, Lymphocytes (%) (Auto) 22.9L, Monocytes (%) (Auto) 14.6H, Eosinophils (%) (Auto) 5.9H, Basophils (%) (Auto) 0.5, Neutrophils # (Auto) 2.1, Lymphocytes # (Auto) 0.9L, Monocytes # (Auto) 0.6, Eosinophils # (Auto) 0.2, Basophils # (Auto) 0.0, Nucleated Red Blood Cells % (auto) 0.0, Blood Urea Nitrogen 25H, Creatinine 2.24H, Sodium Level 139, Potassium Level 4.0, Chloride Level 102, Carbon Dioxide Level 31, Anion Gap 6L, Glomerular Filtration Rate 30.7L, Calcium Level 8.9, Phosphorus Level 4.4, Albumin 2.9L Microbiology Microbiology 11/16/18 Stool Occult Blood (SULEIMAN) - Final, Complete Current Medications Current Medications Current Medications Acetaminophen (Tylenol Tab) 1,000 mg TID PO Last administered on 11/21/18 09:45; Start 10/31/18 at 16:00 Albuterol/ Ipratropium (Duoneb (Ipr 0.5mg/Alb 2.5mg)) 3 ml RBID NEB ; Start 11/01/18 at 08:00 Artificial Tears (Akwa Tears) 2 drop QID OU Last administered on 11/21/18 09:54; Start 10/31/18 at 21:00 Ascorbic Acid (Vitamin C) 500 mg DAILY PO Last administered on 11/21/18 09:48; Start 11/01/18 at 09:00 Aspirin (Ecotrin) 81 mg DAILY PO Last administered on 11/21/18 09:51; Start 11/01/18 at 09:00 Baclofen (Lioresal) 5 mg BID PO Last administered on 11/17/18 08:19; Start 11/14/18 at 21:00; Stop 11/17/18 at 11:50; Status DC Baclofen (Lioresal) 5 mg TID PO Last administered on 11/14/18 08:19; Start 11/03/18 at 16:00; Stop 11/14/18 at 12:52; Status DC Bisacodyl (Dulcolax Suppository) 10 mg DAILYPRN PRN VT CONSTIPATION; Start 10/31/18 at 15:30 Bisacodyl (Dulcolax Tab) 5 mg DAILYPRN PRN PO CONSTIPATION Last administered on 11/20/18 09:59; Start 10/31/18 at 15:30 Ceftriaxone Sodium 2 gm/ Dextrose 50 ml @ 100 mls/hr Q24H IV Last administered on 11/18/18 08:55; Start 11/01/18 at 09:00; Stop 11/18/18 at 10:40; Status DC Ceftriaxone Sodium 2 gm/ Dextrose 50 ml @ 50 mls/hr Q24H IV Last administered on 11/20/18 12:21; Start 11/19/18 at 12:00 Ceftriaxone Sodium (Rocephin) 2 gm Q24H IM ; Start 11/19/18 at 12:00; Stop 11/19/18 at 12:00; Status DC Ceftriaxone Sodium (Rocephin) 2 gm Q24H IV ; Start 11/19/18 at 12:00; Stop 11/19/18 at 12:00; Status DC Coenzyme Q10 (Coenzyme Q10) 100 mg DAILY PO Last administered on 11/21/18at 09:46; Start 11/01/18 at 09:00; Stop 12/01/18 at 08:59 Darbepoetin Dioni (Aranesp) 100 mcg Th@09 SC Last administered on 11/13/18at 11:49; Start 11/06/18 at 09:00; Stop 11/17/18 at 09:42; Status DC Darbepoetin Dioni (Aranesp) 200 mcg Th@09 SC Last administered on 11/20/18at 11:47; Start 11/20/18 at 09:00 Dextran/ Hydroxypropyl Methylcellul (Tears Naturale Free) 2 drop QID OU ; Start 10/31/18 at 17:00; Status Cancel Dextrose (Dextrose 50%) 25 ml ASDIRECTED PRN IV SEE LABEL COMMENTS; Start 10/31/18 at 15:15 Dextrose/Sodium Chloride 1,000 ml @ 75 mls/hr [id number] IV Last administered on 11/10/18at 09:57; Start 11/08/18 at 12:30; Stop 11/10/18 at 10:40; Status DC Diazepam (Valium) 1 mg QID PO Last administered on 11/21/18at 09:51; Start 11/14/18 at 13:00 Diazepam (Valium) 2 mg Q4H PRN PO spasm; Start 11/06/18 at 10:45; Stop 11/10/18 at 15:31; Status DC Diazepam (Valium) 2 mg TID PO Last administered on 11/05/18at 15:05; Start 11/04/18 at 16:00; Stop 11/06/18 at 10:35; Status DC Diazepam (Valium) 2.5 mg Q4H PRN PO SPASMS Last administered on 11/01/18at 19:13; Start 11/01/18 at 14:30; Stop 11/01/18 at 23:15; Status DC Diazepam (Valium) 2.5 mg Q6H PRN PO SPASMS Last administered on 11/01/18at 14:15; Start 11/01/18 at 14:00; Stop 11/01/18 at 14:24; Status DC Diazepam (Valium) 2.5 mg Q8HP PRN PO SPASMS Last administered on 10/31/18at 16:01; Start 10/31/18 at 14:45; Stop 10/31/18 at 16:19; Status DC Diazepam (Valium) 2.5 mg Q8HP PRN PO SPASMS Last administered on 11/01/18 08:09; Start 10/31/18 at 21:00; Stop 11/01/18 at 13:59; Status DC Diazepam (Valium) 5 mg Q8HP PRN PO SPASMS; Start 10/31/18 at 16:15; Stop 10/31/18 at 20:55; Status DC Duloxetine HCl (Cymbalta) 60 mg DAILY PO Last administered on 11/21/18at 09:51; Start 11/17/18 at 12:00 Fluticasone Propionate (Flonase 0.05% Nasal [place]) 2 spray DAILY NARES Last administered on 11/21/18 09:53; Start 11/01/18 at 09:00 Gentamicin Sulfate 80 mg/IV Miscellaneous Supplies 100 ml @ 200 mls/hr Q12H IV Last administered on 11/02/18 06:17; Start 10/31/18 at 18:00; Stop 11/02/18 at 08:56; Status DC Gentamicin Sulfate 80 mg/IV Miscellaneous Supplies 100 ml @ 200 mls/hr Q18H IV Last administered on 11/03/18at 00:02; Start 11/03/18 at 00:00; Stop 11/03/18 at 16:59; Status DC Glucagon (Glucagon) 1 mg ASDIRECTED PRN SC SEE LABEL COMMENTS; Start 10/31/18 at 15:15 Glucose (Glucose) 16 GM ASDIRECTED PRN PO SEE LABEL COMMENTS; Start 10/31/18 at 15:15 Heparin Sodium (Heparin (Flush)) 100 units ASDIRECTED PRN IV SEE LABEL COMMENTS Last administered on 11/20/18at 12:54; Start 11/11/18 at 16:30 Heparin Sodium (Heparin (Flush)) 100 units PICC IV Last administered on 11/21/18 06:19; Start 11/11/18 at 18:00 Heparin Sodium (Heparin (Flush)) 200 units ASDIRECTED PRN IV SEE LABEL COMMENTS Last administered on 11/02/18at 09:48; Start 10/31/18 at 16:30; Stop 11/08/18 at 19:36; Status DC Heparin Sodium (Heparin (Flush)) 200 units PICC IV Last administered on 11/04/18 05:43; Start 10/31/18 at 18:00; Stop 11/08/18 at 19:36; Status DC Heparin Sodium (Porcine) (Heparin) 5,000 units Q12H SC Last administered on 11/04/18 08:35; Start 10/31/18 at 21:00; Stop 11/04/18 at 18:41; Status DC Home Med (Med Rec Complete!) ASDIRECTED XX ; Start 10/31/18 at 14:45; Stop 10/31/18 at 14:45; Status DC Insulin Human Lispro (HumaLOG INSULIN) SEE PROTOCOL TABLE QHS SC ; Start 10/31/18 at 21:00; Stop 11/06/18 at 21:44; Status DC Lidocaine (Lidoderm Patch) 1 patch DAILY TD Last administered on 11/21/18 09:53; Start 11/01/18 at 09:00 Magnesium Gluconate (Magnesium Gluconate) 500 mg BID PO Last administered on 11/21/18 09:47; Start 10/31/18 at 21:00 Magnesium Hydroxide (Milk Of Magnesia) 30 ml DAILYPRN PRN PO CONSTIPATION Last administered on 11/16/18 05:59; Start 10/31/18 at 15:30 Metformin HCl (Glucophage) 500 mg DAILY@08 PO Last administered on 11/04/18 08:36; Start 11/01/18 at 08:00; Stop 11/04/18 at 11:08; Status DC Metoprolol Succinate (TopROL XL) 25 mg DAILY PO Last administered on 11/12/18 08:53; Start 11/01/18 at 09:00; Stop 11/12/18 at 11:31; Status DC Metoprolol Succinate (TopROL XL) 50 mg DAILY PO Last administered on 11/13/18 10:10; Start 11/13/18 at 09:00; Stop 11/14/18 at 09:10; Status DC Metoprolol Succinate (TopROL XL) 50 mg DAILY PO Last administered on 11/21/18 09:48; Start 11/14/18 at 09:00 Mirtazapine (Remeron) 30 mg QHS PO Last administered on 11/20/18 21:27; Start 10/31/18 at 21:00 Miscellaneous (Unresolved Clarification Entry) SEE LABEL COMMENTS DAILY XX ; Start 11/16/18 at 09:00; Stop 11/17/18 at 07:10; Status DC Miscellaneous (Unresolved Clarification Entry) SEE LABEL COMMENTS DAILY XX Last administered on 11/17/18 08:23; Start 11/17/18 at 09:00; Stop 11/17/18 at 11:28; Status DC Miscellaneous (Unresolved Clarification Entry) SEE LABEL COMMENTS DAILY XX ; Start 11/18/18 at 09:00; Stop 11/18/18 at 16:35; Status DC Miscellaneous (Unresolved Patient Own Med Order) SEE LABEL COMMENTS DAILY XX ; Start 10/31/18 at 09:00; Stop 11/06/18 at 18:23; Status DC Morphine Sulfate (Ms Contin) 15 mg BID PO Last administered on 11/04/18 20:47; Start 10/31/18 at 17:00; Stop 11/06/18 at 10:35; Status DC Nitroglycerin (Nitrostat (1/ 150)) 0.4 mg Q5MP PRN SL CHEST PAIN; Start 10/31/18 at 14:45 Non-Formulary Medication ( See Comment Field Below ) REMOVE LIDODERM PATCH DAILY@21 XX Last administered on 11/20/18 21:00; Start 10/31/18 at 21:00 Ondansetron HCl (Zofran) 4 mg AC PO Last administered on 11/21/18 09:46; Start 10/31/18 at 17:30 Ondansetron HCl (Zofran) 4 mg Q6HP PRN PO NAUSEA Last administered on 11/06/18 15:21; Start 10/31/18 at 15:30 Oxycodone HCl (Roxicodone, Oxyir) 5 mg Q4HP PRN PO PAIN 4-7 Last administered on 11/04/18 05:47; Start 10/31/18 at 14:45; Stop 11/06/18 at 10:35; Status DC Oxycodone HCl (Roxicodone, Oxyir) 5 mg TID PO Last administered on 11/21/18 09:50; Start 11/06/18 at 16:00 Oxycodone HCl (Roxicodone, Oxyir) 10 mg Q4HP PRN PO SEVERE PAIN (PS 8-10) Last administered on 11/20/18 11:21; Start 10/31/18 at 14:45 Pantoprazole Sodium (Protonix) 40 mg DAILY PO Last administered on 11/18/18 08:56; Start 11/01/18 at 09:00; Stop 11/18/18 at 11:14; Status DC Patient Own Medication (Patient'S Own Med) TRINTELLIX 20mg po daily DAILY PO Last administered on 11/21/18 09:44; Start 11/01/18 at 09:00 Patient Own Medication (Patient'S Own Med) Testosterone 5gram 1% gel; AP... DAILY TOP Last administered on 11/21/18 09:00; Start 11/07/18 at 09:00 Pramipexole Dihydrochloride (Mirapex) 2 mg QHS PO Last administered on 11/20/18 21:28; Start 10/31/18 at 21:00 Pregabalin (Lyrica) 75 mg BID PO ; Start 10/31/18 at 21:00; Stop 10/31/18 at 21:00; Status DC Pregabalin (Lyrica) 100 mg BID PO Last administered on 11/21/18 09:55; Start 10/31/18 at 21:00 Ranolazine (Ranexa) 500 mg BID PO Last administered on 11/21/18 09:46; Start 10/31/18 at 21:00 Salmeterol Xinafoate/ Fluticasone (Advair Hfa 115/ 21) 2 puff BID INH Last administered on 11/21/18 07:17; Start 10/31/18 at 21:00 Senna/Docusate Sodium (Senokot S) 1 tab BID PO Last administered on 2/7/19at 21:29; Start 10/31/18 at 21:00 Sodium Chloride 1,000 ml @ 40 mls/hr Q24H IV Last administered on 11/07/18at 13:55; Start 11/04/18 at 10:30; Stop 11/08/18 at 12:17; Status DC Sodium Chloride (Saline Lock Flush) 2 ml ASDIRECTED PRN IV SEE LABEL COMMENTS; Start 11/08/18 at 19:45; Stop 11/12/18 at 14:23; Status DC Sodium Chloride (Saline Lock Flush) 2 ml SLF IV Last administered on 11/12/18 05:55; Start 11/08/18 at 22:00; Stop 11/12/18 at 14:23; Status DC Sodium Chloride (Saline Lock Flush) 10 ML PICC IV Last administered on 11/21/18 06:19; Start 11/11/18 at 18:00 Sodium Chloride (Saline Lock Flush) 10 ml ASDIRECTED PRN IV SEE LABEL COMMENTS Last administered on 11/02/18 09:48; Start 10/31/18 at 16:30; Stop 11/08/18 at 19:36; Status DC Sodium Chloride (Saline Lock Flush) 10 ml PICC IV Last administered on 11/04/18 05:43; Start 10/31/18 at 18:00; Stop 11/08/18 at 19:36; Status DC Sodium Chloride (Saline Lock Flush) 10ML ASDIRECTED PRN IV SEE LABEL COMMENTS Last administered on 11/20/18 12:54; Start 11/11/18 at 16:30 Vitamin D (Vitamin D) 1,000 units DAILY PO Last administered on 11/21/18 09:50; Start 11/01/18 at 09:00 SOILA FREITAS MD Nov 21, 2018 12:48
[2018-11-21] MEDS ORDERED: D5W/0.9% SODIUM CHLORIDE 1,000 ML IV ONE (13:00)
--- NOTE | 2018-11-21 13:19 | IPNPDOC ---
Date Seen The patient was seen on 11/21/18. Progress Note HPI: [id number] who was transferred to [facility] from [facility] for low back pain with fevers that began 6 days prior to admission. An ID consult was ordered, he was found to have Strep Mitis bacteremia from a October 14 and blood culture taken at [facility] for which he was placed on Ceftriaxone and Gentamicin on 10-16-18 for discitis vs osteomyelitis in the setting of a possibly infected bi-prosthetic aortic valve with endocarditis. A GUILLERMO was performed showing, Moderate perivalvular aortic regurgitation, mobile density contiguous with aortic valve,cannot rule out vegetation. Repeat blood cultures on October 20 and were negative. Thoracolumbar CT on 10-18-18 showed lesion suspicious for diskovertebral osteomyelitis at L1-L2. ID recommended a 6 week course of IV antibiotics followed by Omnicef for 1 year for suppression. No cardiac or orthopedic surgery was recommended and PICC line placed. He developed a decubitus ulcer during his stay due to immobility. Patient had worsening back pain with spasms limiting his ability to ambulate and perform ADLs and deemed medically appropriate for transfer to [facility], Dr Pennington, on 10-31-18 with a diagnosis of Strep Mitis bacteremia with bio- prosthetic AVR endocarditis and L1-L2 diskovertebral osteomyelitis. ID following to assist with antibiotic recommendations. Nephrology following to assist with anemia/ANA. Pt states he is having back spasms today, has not been eating and drinking as well related to his pain. Dr Pennington is aware and has requested IVF and adjusted pain meds. Denies any fevers, chills, headache, Chest Pain, Shortness of breath, cough, palpitations, abdominal pain, N/V/D or changes in bowel or bladder habits. PAST MEDICAL HISTORY: NIDDM. HTN Coronary artery disease, status post CABG, status post TAVR 05/31. COPD. depression PAST SURGICAL HISTORY: TAVR replaced May 2018, first placed 2009 Right hip septic joint 1.5 years ago, s/p YANET January 2018, s/p pacemaker PE: GEN: 72yoM, appears stated age. having spasms in LB currently. Alert and oriented X3. HEENT: Normocephalic, atraumatic. Sclera are nonicteric. Moist mucous membranes. CHEST: Regular rate and rhythm, +S1, +S2 LUNGS: Clear to auscultation bilaterally. No wheezes, rales, or rhonchi. ABD: Round, soft, non-tender, non-distended. +Bowel sounds present. No rebound or guarding. EXT: No lower extremity edema appreciated. SKIN: Marianne, dry, warm. No rashes. NEURO: No focal deficits appreciated. Moving UEs and LEs UC negative. UA 11/19/18 unremarkable. U/S LEs 10/31/18, 11/05/18, 11/19/[address] A/P done related to constipation 11/02/18. A&P: 72M pmh DM, HTN, PM, AVR (replaced in May 2018), CAD with CABG, JR, right hip periprosthetic infection, who was transferred to [facility] from [facility] for low back pain with fevers that began 6 days prior to admission. An ID consult was ordered, he was found to have Strep Mitis bacteremia from a October 14 and blood culture taken at [facility] for which he was placed on Ceftriaxone and Gentamicin on 10-16-18 for discitis vs osteomyelitis in the setting of a possibly infected bi-prosthetic aortic valve with endocarditis. A GUILLERMO was performed showing, Moderate perivalvular aortic regurgitation, mobile density contiguous with aortic valve,cannot rule out vegetation. Repeat blood cultures on October 20 and were negative. Thoracolumbar CT on 10-18-18 showed lesion suspicious for diskovertebral osteomyelitis at L1-L2. ID recommended a 6 week course of IV antibiotics followed by Omnicef for 1 year for suppression. No cardiac or orthopedic surgery was recommended and PICC line placed. He developed a decubitus ulcer during his stay due to immobility. Patient had worsening back pain with spasms limiting his ability to ambulate and perform ADLs and deemed medically appropriate for transfer to [facility], Dr Pennington, on 10-31-18 with a diagnosis of Strep Mitis bacteremia with bio- prosthetic AVR endocarditis and L1-L2 diskovertebral osteomyelitis. 1. Discitis/osteomyelitis of L1 to L2, Streptococcus mitis bacteremia/Endocarditis. Pt is afebrile. Mgmt as per ARU Pain control as per ARU Bowel care as per ARU PT/OT/ST as per ARU DVT prophylaxis as per ARU, SQ Heparin. LE U/S 11/19/18 negative. Continue Mgmt as per ID. ID consulted, Dr Alejandro. Appreciate recommendations. IV Rocephin until 11/28/18 then po Omnicef x 1 year. 11/19/18 CRP 2.22-trend downward. ESR 105 (trend downward). recheck 11/26/18. Pt unable to have MRI related to pacemaker. Blood culture x2 11/01 neg. Urine culture neg. Continue to monitor. 2. Coronary artery disease/Status post coronary artery bypass graft (CABG) and status post transcatheter aortic valve replacement (TAVR). Continue aspirin/Ranexa/Toprol XL. Outpt F/U with cardiology. 3. History of COPD. Duoneb Advair 4. Hypertension. Toprol XL 5. DM. CC diet. Metformin d/cd Monitor FSBS. 6. Depression Trintellix. 7. Anemia. B12, folate, Fe studies noted Pt is Jehovah Witness and declines transfusion. Nephrology consulted and following, Venofer as per Nephrology/[place]urnimap weekly. Hgb 8.5, stable. Monitor. 8. Thrombocytopenia. Plt trending 133-150 during admission. Peripheral smear 11/18/18. Mild anemia with at least a component of anemia of chronic disease. Normal platelet morphology, no platelet clumps are noted. The WBCs are within normal limits. Final: Electronically Signed by: Bessy Edwards M.D. 11/18/18 [id number] Monitor. 9. ANA/CKD. SCr noted to be 2.24 baseline has been 1.6-1.8 Nephrology following. Avoid nephrotoxins. IVF x 1L ordered today. Monitor 10. Hyponatremia. Resolved. Monitor. VS, I&O, 24H, Ritobone Vital Signs/I&O Vital Signs Date Time Temp Pulse Resp B/P (MAP) Pulse Ox O2 Delivery O2 Flow Rate FiO2 11/21/18 09:50 22 11/21/18 09:48 75 137/63 11/21/18 06:00 96.5 97 11/19/18 08:57 2.0 I&O- Last 24 Hours up to 6 AM 11/21/18 06:00 Intake Total 1750 ml Output Total 1625 ml Balance 125 ml Laboratory Data 24H LABS Laboratory Tests 2 11/20/18 16:30: Bedside Glucose (Misc Panel) 100 11/21/18 06:17: Bedside Glucose (Misc Panel) 93 11/21/18 07:14: Immature Granulocyte % (Auto) 0.5, White Blood Count 3.8L, Red Blood Count 2.71L, Hemoglobin 8.5L, Hematocrit 27.7L, Mean Corpuscular Volume 102.2H, Mean Corpuscular Hemoglobin 31.4, Mean Corpuscular Hemoglobin Concent 30.7L, Red Cell Distribution Width 18.4H, Platelet Count 113L, Neutrophils (%) (Auto) 55.6, Lymphocytes (%) (Auto) 22.9L, Monocytes (%) (Auto) 14.6H, Eosinophils (%) (Auto) 5.9H, Basophils (%) (Auto) 0.5, Neutrophils # (Auto) 2.1, Lymphocytes # (Auto) 0.9L, Monocytes # (Auto) 0.6, Eosinophils # (Auto) 0.2, Basophils # (Auto) 0.0, Nucleated Red Blood Cells % (auto) 0.0, Blood Urea Nitrogen 25H, Creatinine 2.24H, Sodium Level 139, Potassium Level 4.0, Chloride Level 102, Carbon Dioxide Level 31, Anion Gap 6L, Glomerular Filtration Rate 30.7L, Calcium Level 8.9, Phosphorus Level 4.4, Albumin 2.9L CBC/BMP Laboratory Tests 11/21/18 07:14 Red Blood Count 2.71 L, Mean Corpuscular Volume 102.2 H, Mean Corpuscular Hemoglobin 31.4, Mean Corpuscular Hemoglobin Concent 30.7 L, Red Cell Distribution Width 18.4 H, Neutrophils (%) (Auto) 55.6, Lymphocytes (%) (Auto) 22.9 L, Monocytes (%) (Auto) 14.6 H, Eosinophils (%) (Auto) 5.9 H, Basophils (%) (Auto) 0.5, Neutrophils # (Auto) 2.1, Lymphocytes # (Auto) 0.9 L, Monocytes # (Auto) 0.6, Eosinophils # (Auto) 0.2, Basophils # (Auto) 0.0, Anion Gap 6 L Microbiology Microbiology 11/16/18 Stool Occult Blood (SULEIMAN) - Final, Complete Yanci Cortes Nov 21, 2018 13:19
[2018-11-21 14:00] VITALS: BP 150/67
[2018-11-21] MEDS: oxyCODONE 5MG TAB PO PRN (15:06)
[2018-11-21] MEDS: cefTRIAXone SOD 2 GM in D5W MINI-BAG PLUS 50 ML IV SCH (15:12)
[2018-11-21 20:00] VITALS: BP 124/77
[2018-11-21] MEDS: **NOTE PATIENT COMMENT** MISC XX SCH (21:00)
[2018-11-21] MEDS: MIRTAZAPINE 15 MG TAB PO SCH (21:31)
[2018-11-21] MEDS: PRAMIPEXOLE 1 MG TAB PO SCH (21:32)
[2018-11-21] MEDS: SODIUM CHLORIDE 0.9% INJ 10 ML SYR IV PRN (23:31)
[2018-11-22 06:00] VITALS: BP 162/88
[2018-11-22] MEDS: SODIUM CHLORIDE 0.9% INJ 10 ML SYR IV SCH ×2 (06:18→17:10)
[2018-11-22] MEDS: IPRATROPIUM 0.5MG/ALBUTEROL 2.5MG INH SOL UD 3ML (DUONEB)(J7620) NEB SCH ×2 (07:30→20:00)
[2018-11-22] MEDS: ADVAIR HFA 115/21MCG INHALER INH SCH ×2 (07:30→20:31)
[2018-11-22 07:34] LABS: HEMATOCRIT 30.4 % (42.0-52.0); HEMOGLOBIN 9.4 g/dl (13.5-17.5); MEAN CORPUSCULAR HEMOGLOBIN 31.2 pg (27.0-33.0); MEAN CORPUSCULAR HGB CONC 30.9 g/dl (32.0-36.5); PLATELET COUNT, AUTOMATED 115 10^3/uL (150-450); RED BLOOD COUNT 3.01 10^6/uL (4.30-6.10); WHITE BLOOD COUNT 3.6 10^3/uL (4.0-10.0)
[2018-11-22 07:45] LABS: CALCIUM LEVEL 8.5 MG/DL (8.8-10.2); CREATININE FOR GFR 2.28 MG/DL (0.70-1.30); GLOMERULAR FILTRATION RATE 30.1 (>42); POTASSIUM SERUM 4.3 MEQ/L (3.5-5.1)
[2018-11-22] MEDS: SENOKOT S TAB PO SCH ×2 (08:34→21:18)
[2018-11-22] MEDS: DULoxetine 30 MG CAP (CYMBALTA) PO SCH (08:35)
[2018-11-22] MEDS: CO-ENZYME Q10 50 MG CAP PO SCH (08:35)
[2018-11-22] MEDS: ACETAMINOPHEN 500 MG TAB PO SCH ×3 (08:35→21:18)
[2018-11-22] MEDS: RANOLAZINE 500 MG ER TAB PO SCH ×2 (08:35→21:17)
[2018-11-22] MEDS: ASPIRIN 81 MG ENTERIC TAB PO SCH (08:35)
[2018-11-22] MEDS: diazePAM 2 MG TAB PO SCH ×4 (08:35→21:18)
[2018-11-22] MEDS: METOPROLOL SUCC (TopROL XL) 50MG **XL** TAB PO SCH (08:36)
[2018-11-22] MEDS: PREGABALIN 100 MG CAP (LYRICA) PO SCH ×2 (08:36→21:18)
[2018-11-22] MEDS: MAGNESIUM GLUCONATE 500 MG TAB PO SCH ×2 (08:36→21:17)
[2018-11-22] MEDS: TESTOSTERONE 1% TOP SCH (08:36)
[2018-11-22] MEDS: oxyCODONE 5MG TAB PO SCH ×4 (08:36→21:16)
[2018-11-22] MEDS: FLUTICASONE PROP 0.05% NASAL SPRAY 16 GM (FLONASE) NARES SCH (08:37)
[2018-11-22] MEDS: TRINTELLIX PO SCH (08:37)
[2018-11-22] MEDS: LIDOCAINE 5% (LIDODERM) PATCH TD SCH (08:37)
[2018-11-22] MEDS: POLYVINYL ALCOHOL OPHTH SOLN 15 ML(LIQUITEARS) OU SCH ×4 (08:37→21:19)
[2018-11-22] MEDS: VITAMIN D 1,000 INTERNATIONAL UNITS TABLET PO SCH (08:38)
[2018-11-22] MEDS: ASCORBIC ACID 500 MG TAB PO SCH (08:38)
[2018-11-22] MEDS: ONDANSETRON 4 MG TAB (S0181) PO SCH ×3 (08:38→17:10)
--- NOTE | 2018-11-22 09:01 | IPN ---
DATE: 12/01/2018 SUBJECTIVE: The patient was seen and examined at the bedside this morning. The patient still reports pain in the back. Otherwise, he is hemodynamically stable. His hemoglobin is stable at 8.5. There is a slight bump in his creatinine from 1.8 to 2.2 since the last laboratories. There is no change in the medications. OBJECTIVE: VITAL SIGNS: Temperature is 97.9 degrees Fahrenheit. Blood pressure 150/67, pulse is 80, respiratory rate is 16, saturating 95% on room air. Intake and output: Urine output recorded as 1.1 liter yesterday. 1 liter so far today since overnight. Weight on the bed scale is not available. PHYSICAL EXAMINATION: GENERAL: The patient is awake, alert, oriented times three. Lying in bed. No apparent distress. HEAD AND NECK: Extraocular muscles intact. Pupils are equal, round and reactive to light. Mucous membranes are moist. NECK: Supple. There is no jugular venous distention (JVD). CARDIOVASCULAR: S1, S2. Regular rate. No murmur, rub or gallop. No edema of the bilateral lower extremities. RESPIRATORY: Chest is clear to auscultation bilaterally. Bilateral equal air entry. No rales or rhonchi. ABDOMEN: Soft, obese. Positive bowel sounds. Nontender. No organomegaly. MUSCULOSKELETAL: No clubbing, cyanosis. Pulses are 2+. CENTRAL NERVOUS SYSTEM (VAULT MANAGER): No focal deficits. Power is 5/5 in bilateral upper extremities. LABORATORY REVIEW: CBC showed a WBC of 3.8, hemoglobin is 8.5, platelets are 113. BMP showed sodium of 139, potassium 4.0, chloride 102, bicarbonate 31, BUN 25, creatinine is 2.2 and it was 1.8 the last time, two days ago. CURRENT INPATIENT MEDICATIONS: The patient's medications were all reviewed by me. I see that the primary team has ordered normal saline bolus for the patient, D5 normal saline bolus. Oxycodone dose is being tapered. No other change in the medications today as compared with yesterday. ASSESSMENT AND PLAN: 1. Acute kidney injury superimposed on chronic kidney disease. The patient's last creatinine was 1.8 two days ago. His creatinine has bumped up to 2.2 today. Primary team has already ordered normal saline bolus. We will check another BMP in the morning. Bladder scan was also ordered and it shows that the patient is not in urinary retention. 2. Anemia secondary to iron deficiency and chronic kidney disease. Hemoglobin has been staying stable at 8.5. Continue current dose of Aranesp 200 mcg subcutaneously on . He is Yazidi and is not a candidate for a blood transfusion. 3. Infective endocarditis and discitis. The patient is currently on IV ceftriaxone. Duration of antibiotics is as per infectious disease (ID) recommendations. 4. Hypertension with chronic kidney disease. Continue current dose of metoprolol and avoid use of EMY inhibitors or angiotensin receptor blockers at this point.
[2018-11-22] MEDS: SODIUM CHLORIDE 0.9% INJ 10 ML SYR IV PRN (11:05)
[2018-11-22] MEDS: cefTRIAXone SOD 2 GM in D5W MINI-BAG PLUS 50 ML IV SCH (11:05)
[2018-11-22 14:00] VITALS: BP 120/57
[2018-11-22 20:00] VITALS: BP 138/62
[2018-11-22] MEDS: PRAMIPEXOLE 1 MG TAB PO SCH (21:17)
[2018-11-22] MEDS: MIRTAZAPINE 15 MG TAB PO SCH (21:18)
[2018-11-22] MEDS: **NOTE PATIENT COMMENT** MISC XX SCH (21:25)
[2018-11-23] MEDS: SODIUM CHLORIDE 0.9% INJ 10 ML SYR IV SCH ×2 (05:28→17:11)
[2018-11-23] MEDS: BISACODYL 5 MG TAB PO PRN (05:41)
[2018-11-23 06:00] VITALS: BP 182/72
[2018-11-23] MEDS: ADVAIR HFA 115/21MCG INHALER INH SCH ×2 (07:22→20:05)
[2018-11-23] MEDS: IPRATROPIUM 0.5MG/ALBUTEROL 2.5MG INH SOL UD 3ML (DUONEB)(J7620) NEB SCH ×2 (07:23→20:00)
[2018-11-23] MEDS: TRINTELLIX PO SCH (08:22)
[2018-11-23] MEDS: TESTOSTERONE 1% TOP SCH (08:22)
[2018-11-23] MEDS: ONDANSETRON 4 MG TAB (S0181) PO SCH ×3 (08:22→17:10)
[2018-11-23] MEDS: LIDOCAINE 5% (LIDODERM) PATCH TD SCH (08:22)
[2018-11-23] MEDS: RANOLAZINE 500 MG ER TAB PO SCH ×2 (08:23→21:30)
[2018-11-23] MEDS: diazePAM 2 MG TAB PO SCH ×4 (08:23→21:34)
[2018-11-23] MEDS: CO-ENZYME Q10 50 MG CAP PO SCH (08:23)
[2018-11-23] MEDS: MOM 30ML SUSPENSION UDC PO PRN (08:23)
[2018-11-23] MEDS: ACETAMINOPHEN 500 MG TAB PO SCH ×3 (08:23→21:29)
[2018-11-23] MEDS: MAGNESIUM GLUCONATE 500 MG TAB PO SCH ×2 (08:23→21:29)
[2018-11-23] MEDS: ASPIRIN 81 MG ENTERIC TAB PO SCH (08:23)
[2018-11-23] MEDS: DULoxetine 30 MG CAP (CYMBALTA) PO SCH (08:23)
[2018-11-23] MEDS: PREGABALIN 100 MG CAP (LYRICA) PO SCH ×2 (08:24→21:26)
[2018-11-23] MEDS: METOPROLOL SUCC (TopROL XL) 50MG **XL** TAB PO SCH (08:24)
[2018-11-23] MEDS: oxyCODONE 5MG TAB PO SCH ×4 (08:24→21:32)
[2018-11-23] MEDS: FLUTICASONE PROP 0.05% NASAL SPRAY 16 GM (FLONASE) NARES SCH (08:25)
[2018-11-23] MEDS: SENOKOT S TAB PO SCH ×2 (08:25→21:34)
[2018-11-23] MEDS: POLYVINYL ALCOHOL OPHTH SOLN 15 ML(LIQUITEARS) OU SCH ×4 (08:25→21:34)
[2018-11-23] MEDS: VITAMIN D 1,000 INTERNATIONAL UNITS TABLET PO SCH (08:25)
[2018-11-23 11:10] LABS: CALCIUM LEVEL 8.9 MG/DL (8.8-10.2); CREATININE FOR GFR 2.28 MG/DL (0.70-1.30); GLOMERULAR FILTRATION RATE 30.1 (>42); MAGNESIUM LEVEL 1.8 MG/DL (1.8-2.4); POTASSIUM SERUM 4.7 MEQ/L (3.5-5.1)
[2018-11-23] MEDS: cefTRIAXone SOD 2 GM in D5W MINI-BAG PLUS 50 ML IV SCH (12:03)
[2018-11-23] MEDS: SODIUM CHLORIDE 0.9% INJ 10 ML SYR IV PRN ×2 (12:06→21:36)
[2018-11-23 14:00] VITALS: BP 93/55
[2018-11-23 20:00] VITALS: BP 148/65
[2018-11-23] MEDS ORDERED: NS 0.45% 1,000 ML IV SCH (20:15)
[2018-11-23] MEDS: **NOTE PATIENT COMMENT** MISC XX SCH (21:00)
[2018-11-23] MEDS: PRAMIPEXOLE 1 MG TAB PO SCH (21:29)
[2018-11-23] MEDS: MIRTAZAPINE 15 MG TAB PO SCH (21:30)
[2018-11-24] MEDS: SODIUM CHLORIDE 0.9% INJ 10 ML SYR IV SCH ×2 (05:43→17:49)
[2018-11-24] MEDS: oxyCODONE 5MG TAB PO PRN (05:49)
[2018-11-24 06:00] VITALS: BP 130/60
[2018-11-24] MEDS: IPRATROPIUM 0.5MG/ALBUTEROL 2.5MG INH SOL UD 3ML (DUONEB)(J7620) NEB SCH ×2 (08:00→20:00)
[2018-11-24] MEDS: ADVAIR HFA 115/21MCG INHALER INH SCH ×2 (08:11→21:30)
[2018-11-24] MEDS: MAGNESIUM GLUCONATE 500 MG TAB PO SCH ×2 (09:18→22:15)
[2018-11-24] MEDS: PREGABALIN 100 MG CAP (LYRICA) PO SCH ×2 (09:18→22:13)
[2018-11-24] MEDS: CO-ENZYME Q10 50 MG CAP PO SCH (09:19)
[2018-11-24] MEDS: SENOKOT S TAB PO SCH ×2 (09:19→22:13)
[2018-11-24] MEDS: RANOLAZINE 500 MG ER TAB PO SCH ×2 (09:19→22:09)
[2018-11-24] MEDS: ONDANSETRON 4 MG TAB (S0181) PO SCH ×3 (09:19→16:17)
[2018-11-24] MEDS: diazePAM 2 MG TAB PO SCH ×5 (09:21→22:25)
[2018-11-24] MEDS: ACETAMINOPHEN 500 MG TAB PO SCH ×4 (09:21→22:11)
[2018-11-24] MEDS: DULoxetine 30 MG CAP (CYMBALTA) PO SCH (09:21)
[2018-11-24] MEDS: ASPIRIN 81 MG ENTERIC TAB PO SCH (09:21)
[2018-11-24] MEDS: oxyCODONE 5MG TAB PO SCH ×4 (09:22→22:13)
[2018-11-24] MEDS: TRINTELLIX PO SCH (09:24)
[2018-11-24] MEDS: FLUTICASONE PROP 0.05% NASAL SPRAY 16 GM (FLONASE) NARES SCH (09:24)
[2018-11-24] MEDS: METOPROLOL SUCC (TopROL XL) 50MG **XL** TAB PO SCH (09:24)
[2018-11-24] MEDS: TESTOSTERONE 1% TOP SCH (09:25)
[2018-11-24] MEDS: LIDOCAINE 5% (LIDODERM) PATCH TD SCH (09:25)
[2018-11-24] MEDS: POLYVINYL ALCOHOL OPHTH SOLN 15 ML(LIQUITEARS) OU SCH ×4 (09:25→22:14)
[2018-11-24 09:41] LABS: CALCIUM LEVEL 8.8 MG/DL (8.8-10.2); CREATININE FOR GFR 2.36 MG/DL (0.70-1.30); GLOMERULAR FILTRATION RATE 28.9 (>42); POTASSIUM SERUM 4.1 MEQ/L (3.5-5.1)
--- NOTE | 2018-11-24 09:44 | IPN ---
DATE: 11/23/2018 SUBJECTIVE: Patient seen and examined this morning at the bedside in the rehab unit. His is present as well. He complains of pain in the lower back, otherwise is working with physical therapy and walking. His hemoglobin has improved to 9.4. For the past three days his creatinine remains elevated at 2.2. His oral intake has not been that great and I asked nursing staff to place plenty of beverages at the bedside within easy reach. VITAL SIGNS: Temperature 97.3, pulse 83, respiratory rate 16, blood pressure 93/55, saturating 93-99% on room air. INTAKE AND OUTPUT: Intake yesterday was 710, urine output yesterday was 1225. Weight on the bed scale today is 80.7. Net negative 500 mL. GENERAL: Patient is awake, alert and oriented, lying in bed, no acute distress. HEENT: Extraocular muscles intact. Pupils are equal, round and reactive to light. Mucous membranes are moist. He is comfortable on room air. NECK: Supple. There is no jugular venous distention (JVD). HEART: S1, S2 regular rate, no murmur. No edema of the lower extremities. LUNGS: Clear to auscultation bilaterally. No rales or crackles. ABDOMEN: Soft and nontender. NEUROLOGIC: He is interactive, conversations, and follows commands. LABORATORIES: Sodium 141, potassium 4.7, bicarbonate 32, BUN 24, creatinine 2.2, magnesium 1.8, hemoglobin 9.4. INPATIENT MEDICATIONS: Reviewed by myself. No change from prior. PROBLEMS: 1. Acute kidney injury (ANA) on chronic kidney disease (CKD) stage III. Patient's creatinine has been elevated to 2.2 over the past three days. His daily weights are down trending. He has not had a whole lot of oral fluid intake. Labs also show a mild contraction alkalosis. I am going to put him on some gentle IV fluids and I asked nursing staff to place plenty of beverages at the bedside. IV fluids can run at night so that they do not interfere with his physical therapy during the day. 2. Anemia in a Sikh patient. His iron deficiency was already addressed with Venofer infusion. He continues on Aranesp weekly on . His hemoglobin and hematocrit are slowly improving. Labs are draw judiciously. 3. Infective endocarditis and discitis. IV antibiotics are managed as per infectious diseases and he continues on IV ceftriaxone. 4. Hypertension. Blood pressures are acceptably controlled with metoprolol. At times he becomes intermittently hypertensive and it is likely related to his back pain.
[2018-11-24 10:30] LABS: ACETAMINOPHEN LEVEL 2.1 UG/ML (10.0-30.0)
[2018-11-24] MEDS: VITAMIN D 1,000 INTERNATIONAL UNITS TABLET PO SCH (10:44)
[2018-11-24] MEDS: D5W/0.9% SODIUM CHLORIDE 1,000 ML IV SCH (11:43)
[2018-11-24] MEDS: cefTRIAXone SOD 2 GM in D5W MINI-BAG PLUS 50 ML IV SCH (11:44)
--- NOTE | 2018-11-24 12:04 | REP ---
Renal ultrasound: Comparison is the abdomen and pelvis CT dated 11/02/2018. The right kidney measures 10.8 x 5.5 x 4.5 cm. Left kidney measures 11.0 x 5.3 x 5.7 cm. The kidneys are normal size. Renal cortical echogenicity is normal bilaterally. There are no renal calculi. There is no hydronephrosis. There are no solid renal masses. There is a 1 cm simple cyst near the hilus of the right kidney. There is a 1.5 cm simple cyst laterally in the left kidney. There is a 0.8 cm simple cyst medially in the lower pole of the left kidney. The bladder is nondistended and cannot be further evaluated. The prostate is normal size measuring 3.2 x 2.8 x 4.0 cm for a volume of 18.7 ml. Impression: Bilateral simple renal cysts as described. Otherwise, negative renal ultrasound. Electronically Signed by Darrick Brown MD 11/24/2018 11:55 A
--- NOTE | 2018-11-24 13:57 | IPNPDOC ---
Date Seen The patient was seen on 11/24/18. Progress Note HPI: [id number] who was transferred to [facility] from [facility] for low back pain with fevers that began 6 days prior to admission. An ID consult was ordered, he was found to have Strep Mitis bacteremia from a October 14 and blood culture taken at [facility] for which he was placed on Ceftriaxone and Gentamicin on 10-16-18 for discitis vs osteomyelitis in the setting of a possibly infected bi-prosthetic aortic valve with endocarditis. A GUILLERMO was performed showing, Moderate perivalvular aortic regurgitation, mobile density contiguous with aortic valve,cannot rule out vegetation. Repeat blood cultures on October 20 and were negative. Thoracolumbar CT on 10-18-18 showed lesion suspicious for diskovertebral osteomyelitis at L1-L2. ID recommended a 6 week course of IV antibiotics followed by Omnicef for 1 year for suppression. No cardiac or orthopedic surgery was recommended and PICC line placed. He developed a decubitus ulcer during his stay due to immobility. 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 ID following to assist with antibiotic recommendations. Nephrology following to assist with anemia/ANA. Pt states he is having back spasms today, has not been eating and drinking as well related to his pain. Dr Pennington is aware and has requested IVF and adjusted pain meds. Denies any fevers, chills, headache, Chest Pain, Shortness of breath, cough, palpitations, abdominal pain, N/V/D or changes in bowel or bladder habits. PAST MEDICAL HISTORY: NIDDM. HTN Coronary artery disease, status post CABG, status post TAVR 05/31. COPD. depression PAST SURGICAL HISTORY: TAVR replaced May 2018, first placed 2009 Right hip septic joint 1.5 years ago, s/p YANET January 2018, s/p pacemaker PE: GEN: 72yoM, appears stated age. Alert and oriented X3. OOB to chair. HEENT: Normocephalic, atraumatic. Sclera are nonicteric. Moist mucous membranes. CHEST: Regular rate and rhythm, +S1, +S2 LUNGS: Clear to auscultation bilaterally. No wheezes, rales, or rhonchi. ABD: Round, soft, non-tender, non-distended. +Bowel sounds present. No rebound or guarding. EXT: No lower extremity edema appreciated. SKIN: [place]ade, dry, warm. No rashes. NEURO: No focal deficits appreciated. Moving UEs and LEs UC negative. UA 11/19/18 unremarkable. U/S LEs 10/31/18, 11/05/18, 11/19/[address] A/P done related to constipation 11/02/18. A&P: 72M pmh DM, HTN, PM, AVR (replaced in May 2018), CAD with CABG, JR, right hip periprosthetic infection, who was transferred to [facility] from [facility] for low back pain with fevers that began 6 days prior to admission. An ID consult was ordered, he was found to have Strep Mitis bacteremia from a October 14 and blood culture taken at [facility] for which he was placed on Ceftriaxone and Gentamicin on 10-16-18 for discitis vs osteomyelitis in the setting of a possibly infected bi-prosthetic aortic valve with endocarditis. A GUILLERMO was performed showing, Moderate perivalvular aortic regurgitation, mobile density contiguous with aortic valve,cannot rule out vegetation. Repeat blood cultures on October 20 and were negative. Thoracolumbar CT on 10-18-18 showed lesion suspicious for diskovertebral osteomyelitis at L1-L2. ID recommended a 6 week course of IV antibiotics followed by Omnicef for 1 year for suppression. No cardiac or orthopedic surgery was recommended and PICC line placed. He developed a decubitus ulcer during his stay due to immobility. 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 1. Discitis/osteomyelitis of L1 to L2, Streptococcus mitis bacteremia/Endocarditis. Pt is afebrile. Mgmt as per [facility]U Pain control as per ARU Bowel care as per ARU PT/OT/ST as per ARU DVT prophylaxis as per ARU, SQ Heparin. LE U/S 11/19/18 negative. Continue Mgmt as per ID. ID consulted, Dr Alejandro. Appreciate recommendations. IV Rocephin until 11/28/18 then po Omnicef x 1 year. 11/19/18 CRP 2.22-trend downward. ESR 105 (trend downward). recheck 11/26/18. Pt unable to have MRI related to pacemaker. Blood culture x2 11/01 neg. Urine culture neg. Continue to monitor. 2. Coronary artery disease/Status post coronary artery bypass graft (CABG) and status post transcatheter aortic valve replacement (TAVR). Continue aspirin/Ranexa/Toprol XL. Outpt F/U with cardiology. 3. History of COPD. Duoneb Advair 4. Hypertension. Toprol XL 5. DM. CC diet. Metformin d/cd Monitor FSBS. 6. Depression Trintellix. 7. Anemia. B12, folate, Fe studies noted Pt is Jehovah Witness and declines transfusion. Nephrology consulted and following, Venofer as per Nephrology/[facility] weekly. Hgb 9.4, stable. Monitor. 8. Thrombocytopenia. Peripheral smear 11/18/18. Mild anemia with at least a component of anemia of chronic disease. Normal platelet morphology, no platelet clumps are noted. The WBCs are within normal limits. Final: Electronically Signed by: Bessy Edwards M.D. 11/18/18 0887 Monitor. 9. ANA/CKD. SCr noted to be 2.36 baseline has been 1.6-1.8 Renal U/S 11/24/18 B/L simple cysts. Nephrology following. Avoid nephrotoxins. IVF ordered today. Encourage po intake. Monitor 10. Hyponatremia. Resolved. Monitor. VS, I&O, 24H, [facility] Vital Signs/I&O Vital Signs Date Time Temp Pulse Resp B/P (MAP) Pulse Ox O2 Delivery O2 Flow Rate FiO2 11/24/18 13:03 18 11/24/18 09:24 87 116/56 11/24/18 06:20 93 11/24/18 06:00 97.5 11/19/18 08:57 2.0 I&O- Last 24 Hours up to 6 AM 11/24/18 06:00 Intake Total 1770 ml Output Total 400 ml Balance 1370 ml Laboratory Data 24H LABS Laboratory Tests 2 11/23/18 16:34: Bedside Glucose (Misc Panel) 81L 11/24/18 06:57: Bedside Glucose (Misc Panel) 91 11/24/18 08:55: Anion Gap 4L, Glomerular Filtration Rate 28.9L, Blood Urea Nitrogen 25H, Creatinine 2.36H, Sodium Level 136, Potassium Level 4.1, Chloride Level 102, Carbon Dioxide Level 30, Calcium Level 8.8, Acetaminophen Level 2.1L CBC/BMP Laboratory Tests 11/24/18 08:55 Calcium Level 8.8 Microbiology Microbiology 11/16/18 Stool Occult Blood (SULEIMAN) - Final, Complete Yanci Cortes Nov 24, 2018 13:57
[2018-11-24 14:00] VITALS: BP 155/67
[2018-11-24] MEDS ORDERED: tiZANidine 4 MG TAB PO ONE (15:30)
--- NOTE | 2018-11-24 15:55 | IPN ---
DATE: 11/22/2018 SUBJECTIVE: The patient was seen and examined at the bedside today morning. He is afebrile and hemodynamically stable. I was told by nursing staff that the patient is hardly eating or drinking anything. He is still complaining of some pain in the back. He was given IV D5 normal saline 1 liter bolus yesterday because of a bump of the creatinine. His creatinine is stable today at 2.2 from yesterday. However, it is still high from the baseline. OBJECTIVE: VITAL SIGNS: Temperature is 97.1 degrees Fahrenheit, blood pressure 120/57, pulse is 82, respiratory rate of 19, saturating 98% on room air. INTAKE AND OUTPUT: Urine output recorded as 1 liter yesterday, 1.2 liter so far today since overnight. Weight in the bed scale is not available. PHYSICAL EXAMINATION: GENERAL: The patient is awake, alert, oriented times three, laying in bed, in no apparent distress. HEAD AND NECK: Pupils are equally round and reactive to light. Mucous membranes are moist. Neck is supple. There is no jugular venous distention (JVD). CARDIOVASCULAR: S1, S2, regular rate. No murmur, rub or gallop. No edema of the bilateral lower extremities. RESPIRATORY: Chest is clear to auscultation bilaterally. Bilateral equal air entry. No rales or rhonchi. ABDOMEN: Soft, obese. Positive bowel sounds. Nontender. No organomegaly. MUSCULOSKELETAL: No clubbing or cyanosis. Pulses are 2+. CENTRAL NERVOUS SYSTEM (SURVEY CAD TECHNICIAN): No focal deficits. Power is 5/5 in bilateral upper extremities. LABORATORY REVIEW: CBC showed a WBC of 3.6, hemoglobin is 9.4, platelets are 115. BMP showed sodium of 141, potassium 4.3, chloride 105, bicarbonate 28, BUN 23, creatinine is 2.2, it was 2.2 yesterday as well, calcium 8.5. CURRENT INPATIENT MEDICATIONS: The patient's medications were all reviewed by me. The patient was given a bolus of D5 normal saline yesterday. I stopped his vitamin C today morning. No other change in the medications today as compared with yesterday. ASSESSMENT AND PLAN: 1. Acute kidney injury superimposed on chronic kidney disease. The patient's renal function was improving up until two days ago. His creatinine bumped up to 2.2 again. He was given IV fluids. He has decreased oral intake as reported by nursing staff. Bladder scan was ordered and I told the nursing staff to call me if his postvoid residual is more than 250. Electrolytes are within the acceptable range and acid base status is acceptable at this point. 2. Anemia secondary to iron deficiency and chronic kidney disease. The patient's Aranesp dose has been increased to 200 mcg subcutaneously on . Hemoglobin is nicely improving to 9.4 today. The patient is a Syn[employer] and he does not accept any blood transfusion. 3. Infective endocarditis and discitis. The patient is currently on IV ceftriaxone. Duration of antibiotics is as per primary team and infectious disease. 4. Hypertension with chronic kidney disease. Continue current dose of metoprolol. He is not a candidate of angiotensin-converting enzyme (EMY) inhibitors or angiotensin-receptor blockers at this point.
[2018-11-24] MEDS: **NOTE PATIENT COMMENT** MISC XX SCH (21:00)
[2018-11-24] MEDS: DRONABINOL 2.5 MG CAP (MARINOL) PO SCH (22:08)
[2018-11-24] MEDS: MIRTAZAPINE 15 MG TAB PO SCH (22:08)
[2018-11-24] MEDS: PRAMIPEXOLE 1 MG TAB PO SCH (22:09)
[2018-11-24 22:26] VITALS: BP 137/64
[2018-11-25 05:49] VITALS: BP 125/59
[2018-11-25] MEDS: SODIUM CHLORIDE 0.9% INJ 10 ML SYR IV SCH ×2 (05:59→16:34)
[2018-11-25] MEDS: D5W/0.9% SODIUM CHLORIDE 1,000 ML IV SCH (05:59)
[2018-11-25] MEDS: oxyCODONE 5MG TAB PO PRN (06:58)
[2018-11-25] MEDS: ADVAIR HFA 115/21MCG INHALER INH SCH ×2 (07:14→21:00)
[2018-11-25 07:30] LABS: HEMOGLOBIN 7.6 g/dl (13.5-17.5); MEAN CORPUSCULAR HEMOGLOBIN 30.6 pg (27.0-33.0); MEAN CORPUSCULAR HGB CONC 29.2 g/dl (32.0-36.5); MEAN CORPUSCULAR VOLUME 104.8 fl (80.0-96.0); PLATELET COUNT, AUTOMATED 102 10^3/uL (150-450); RED BLOOD COUNT 2.48 10^6/uL (4.30-6.10)
[2018-11-25] MEDS ORDERED: oxyCODONE 5MG TAB PO ONE (08:00)
[2018-11-25] MEDS ORDERED: tiZANidine 4 MG TAB PO ONE (08:00)
[2018-11-25] MEDS: IPRATROPIUM 0.5MG/ALBUTEROL 2.5MG INH SOL UD 3ML (DUONEB)(J7620) NEB SCH ×2 (08:00→20:00)
[2018-11-25 08:01] LABS: ALBUMIN 2.6 GM/DL (3.2-5.2); BILIRUBIN,TOTAL 0.3 MG/DL (0.2-1.0); C REACTIVE PROTEIN QUANTITATIV 16.4 MG/DL (0.00-0.30); CALCIUM LEVEL 8.7 MG/DL (8.8-10.2); CREATININE FOR GFR 2.13 MG/DL (0.70-1.30); GLOMERULAR FILTRATION RATE 32.6 (>42); POTASSIUM SERUM 4.2 MEQ/L (3.5-5.1); TOTAL PROTEIN 6.7 GM/DL (6.4-8.2)
[2018-11-25 08:31] LABS: ERYTHROCYTE SEDIMENTATION RATE 126 mm/hr (0-20)
[2018-11-25] MEDS: TRINTELLIX PO SCH (08:51)
[2018-11-25] MEDS: TESTOSTERONE 1% TOP SCH (08:51)
[2018-11-25] MEDS: ONDANSETRON 4 MG TAB (S0181) PO SCH ×3 (08:52→16:22)
[2018-11-25] MEDS: PREGABALIN 100 MG CAP (LYRICA) PO SCH ×2 (08:52→20:47)
[2018-11-25] MEDS: SENOKOT S TAB PO SCH ×2 (08:52→20:46)
[2018-11-25] MEDS: VITAMIN D 1,000 INTERNATIONAL UNITS TABLET PO SCH (08:52)
[2018-11-25] MEDS: ASPIRIN 81 MG ENTERIC TAB PO SCH (08:52)
[2018-11-25] MEDS: CO-ENZYME Q10 50 MG CAP PO SCH (08:52)
[2018-11-25] MEDS: DULoxetine 30 MG CAP (CYMBALTA) PO SCH (08:52)
[2018-11-25] MEDS: MAGNESIUM GLUCONATE 500 MG TAB PO SCH (08:53)
[2018-11-25] MEDS: RANOLAZINE 500 MG ER TAB PO SCH ×2 (08:55→20:46)
[2018-11-25] MEDS: oxyCODONE 5MG TAB PO SCH ×5 (08:55→21:00)
[2018-11-25] MEDS: ACETAMINOPHEN 500 MG TAB PO SCH ×3 (08:56→20:48)
[2018-11-25] MEDS: diazePAM 2 MG TAB PO SCH (08:56)
[2018-11-25] MEDS: FLUTICASONE PROP 0.05% NASAL SPRAY 16 GM (FLONASE) NARES SCH (08:56)
[2018-11-25] MEDS: POLYVINYL ALCOHOL OPHTH SOLN 15 ML(LIQUITEARS) OU SCH ×4 (08:57→20:50)
[2018-11-25] MEDS: LIDOCAINE 5% (LIDODERM) PATCH TD SCH (08:57)
[2018-11-25] MEDS: tiZANidine 4 MG TAB PO SCH ×3 (09:00→21:00)
[2018-11-25] MEDS: METOPROLOL SUCC (TopROL XL) 50MG **XL** TAB PO SCH (09:01)
--- NOTE | 2018-11-25 10:45 | REP ---
CT LUMBAR SPINE WITHOUT CONTRAST: HISTORY: Discitis. COMPARISON: CT abdomen 11/02/2018. A diffuse disc bulge is present at the L1-2 level. There is hypertrophy of the ligamenta flava and posterior articulating facets. There is destruction of the endplates of the L1 and L2 vertebral bodies adjacent to the L1-2 intervertebral disc. There is minimal loss of vertebral body height. This is associated with a paravertebral soft tissue component. There is moderate central canal stenosis. There is compression of the L1 nerves in the neural foramina. A small epidural component cannot be excluded. A diffuse disc bulge is present at the L2-3 level. There is hypertrophy of the ligamenta flava and posterior articulating facets. These findings produce moderate central canal stenosis. There is compression of the L2 nerves in the neural foramina. A diffuse disc bulge with associated osteophyte formation is present at the L3-4 level. There is hypertrophy of the ligamenta flava and posterior articulating facets. These findings produce moderate central canal stenosis. There is compression of the L3 nerves in the neural foramina. A diffuse disc bulge with associated osteophyte formation is present at the L4-5 level. There is minimal compression of the thecal sac. There is hypertrophy of the posterior articulating facets. There is compression of the right L4 nerve in the neural foramen. The left L4 nerve exits the neural foramen without compression. A diffuse disc bulge is present at the L5-S1 level. This abuts the thecal sac. There is hypertrophy of the posterior articulating facets. There is compression of the L5 nerves in the neural foramina. The lumbar intervertebral discs are decreased in height consistent with disc degeneration. There is no subluxation. IMPRESSION: 1. Findings consistent with discitis osteomyelitis at the L1-2 level. There is moderate central canal stenosis secondary to disc bulge, ligamentous and facet hypertrophy. A small epidural soft tissue component cannot be excluded. 2. Moderate central canal stenosis at the L2-3 level secondary to disc bulge, ligamentous and facet hypertrophy. 3. Moderate central canal stenosis at the L3-4 level secondary to disc bulge, ligamentous and facet hypertrophy, and osteophyte formation. 4. Diffuse disc bulge with associated osteophyte formation at the L4-5 level with minimal thecal sac compression. 5. Diffuse disc bulge at the L5-S1 level. This abuts the thecal sac. Electronically Signed by Eladio Mann MD 11/25/2018 10:51 A
[2018-11-25] MEDS: cefTRIAXone SOD 2 GM in D5W MINI-BAG PLUS 50 ML IV SCH (12:33)
[2018-11-25] MEDS: oxyCODONE 15 MG CR TAB PO SCH ×2 (12:45→20:49)
[2018-11-25] MEDS: BISACODYL 5 MG TAB PO PRN (12:45)
--- NOTE | 2018-11-25 12:51 | IPNPDOC ---
PM&R Progress Note DATE OF SERVICE: Nov 24, 2018 Field Staff Progress Note Subjective: Patient was delirious and having painful spasms over the weekend. This morning appeared to be in a lot of pain and pale. IVF started. Nba his friend rep orted he ate a sandwich. REVIEW OF SYSTEMS: The following is a completed review of systems and has been reviewed. Review of systems otherwise unremarkable. PAIN: Patient self reports severe low back pain with spasms EYES: Negative for recent vision changes EARS, NOSE, & THROAT:negative for rhinorrhea, tinnitus, or dysphagia CARDIOVASCULAR: denies chest pain or palpitations PULMONARY: Negative. Denies shortness of breath GASTROINTESTINAL: constipation -resolved GENITOURINARY: Negative for dysuria MUSCULOSKELETAL: low back pain and bilateral knee OA NEUROLOGICAL: restless leg syndrome HEMATOLOGICAL: +anemia SKIN: PICC rue PSYCHIATRIC: Unremarkable All other review of systems found to be negative. PHYSICAL EXAMINATION: VITAL SIGNS: Please see below. GENERAL: Pleasant and cooperative, no acute distress HEENT: PERRL. Extraocular movements intact. Clear conjunctiva CARDIOVASCULAR: Regular rate and rhythm. No murmurs, rubs, or gallops LUNGS: Clear to auscultation bilaterally. No wheezes. No rhonchi ABDOMEN: Soft, nontender, nondistended. Positive bowel sounds. Normal active bowel sounds NEUROLOGICAL: Alert and oriented times to self and place not time, Cranial nerves II through XII grossly intact. Sensation grossly intact. EXTREMITIES: 5\5 strength bilateral upper extremities. bilateral Ankle DF and EHL 5/5, however proximal muscle testing greatly limited by pain (negative Michael's bilat) SKIN: +PICC, decubitus ulcer ASSESSMENT:72-year-old M with past medical history of CAD, AVR, CAD with CABG who presents with diskovertebral osteomyelitis in the setting of endocarditis. PLAN: 1. Rehab: PT/OT, assess for DME needs- LSO brace when out of bed for comfort, able to ambulate further with RW, has been trained 2. Neuro: pmh restless leg syndrome, continue home meds 3. Cardio: pmh CAD s/p AVR replacement with recent GUILLERMO suspicious for endocarditis continue IV Ceftriaxone until 11/28/18 and s/p Gentamicin, will need outpatient cardio f/u -continue beta-blockers and ASA 4. Endo: pmh DM off metformin, monitoring FS for hypoglycemia due to poor oral intake, improving 5. ID: L1-L2 disko-vertebral osteomyeltis, blood cultures positive for Strep Mitis, per acute care hospital continue IV Ceftriaxone for 6 weeks (start date 10/16/18) and Gentamicin for 2 weeks (start date 10/26/18)to be followed by one year suppression dose of Omnicef starting 11/29/18, however discussed case with Dr. Alejandro who recommend continue IV until he is discharged -Dr. Alejandro consulted, Gentamicin discontinued will continue to follow-recs, appreciated, will re-order CRP/ESR ad get CT L-spine to look for new lesion -admission blood cultures negative 6. Pain: pmh chronic knee pain, now with severe discogenic pain with spasms- continue oxycodone 5mg tid standing and oxycodone 10mg q4h prn, standing Tylenol, continue Lyrica, and low dose Diazepam standing for painful spasms to be held for sedation -continue Cymbalta-significant improvement in overall pain -tapered off baclofen 7. DVT ppx: will d/c heparin given anemia and borderline low platelets and obtain serial dopplers, continue TEDs, thus far studies negative for DVT-will repeat today 8. SKin: Balmex and turning q2h in bed 9. Resp: pmh COPD: continue home meds, continue Duonebs and monitor for PNA 10. Renal:stable, ANA most likely from recent contrast Abdomen pelvis while on metformin, s/p IVF, Renal consulted, metformin stopped, and defer repeat CT with contrast for the future if clinical picture worsens, [employer] [address] Light elevated around 2.2 will continue IVF, renal recs appreciated 11. Heme: Anemia of chronic disease, patient is Jehovas witness and cannot receive blood, however s/p Venofer and getting weekly Aranesp per Renal, recs appreciated- hgb stable at 8 10. GI ppx: optimize laxatives, protonix for ppx 11. Dispo: given recent decline, will need more time and will attempt to post- pone discharge until 12/05/18 Allergies Coded Allergies: Statins (Unverified Adverse Reaction, Unknown, MUSCLE PAINS, 10/31/18) Trazodone (Unverified Adverse Reaction, Unknown, ITCH, 10/31/18) Vital Signs Vital Signs Date Time Temp Pulse Resp B/P (MAP) Pulse Ox O2 Delivery O2 Flow Rate FiO2 11/25/18 09:13 18 11/25/18 09:01 88 130/62 11/25/18 05:49 98.0 98 11/24/18 16:17 2.0 Laboratory Data CBC/BMP Laboratory Tests 11/25/18 06:48 Red Blood Count 2.48 L, Mean Corpuscular Volume 104.8 H, Mean Corpuscular Hemoglobin 30.6, Mean Corpuscular Hemoglobin Concent 29.2 L, Red Cell Distribution Width 17.8 H, Calcium Level 8.7 L, Aspartate Amino Transf (AST/SGOT) 27, Alanine Aminotransferase (ALT/SGPT) 14, Alkaline Phosphatase 154 H, Total Bilirubin 0.3, Total Protein 6.7, Albumin 2.6 L Labs 24H Laboratory Tests 2 11/24/18 16:54: Bedside Glucose (Misc Panel) 128H 11/25/18 06:48: Nucleated Red Blood Cells % (auto) 0.0, Erythrocyte Sedimentation Rate 126H, Anion Gap 6L, Glomerular Filtration Rate 32.6L, Blood Urea Nitrogen 22H, Creatinine 2.13H, Sodium Level 138, Potassium Level 4.2, Chloride Level 103, Carbon Dioxide Level 29, Calcium Level 8.7L, Aspartate Amino Transf (AST/SGOT) 27, Alanine Aminotransferase (ALT/SGPT) 14, Alkaline Phosphatase 154H, Total Bilirubin 0.3, Total Protein 6.7, Albumin 2.6L, C-Reactive Protein, Quantitative 16.40H, Albumin/Globulin Ratio 0.63L Microbiology Microbiology 11/25/18 Blood Culture, Received Pending 11/25/18 Blood Culture, Received Pending 11/16/18 Stool Occult Blood (SULEIMAN) - Final, Complete Current Medications Current Medications Current Medications Acetaminophen (Tylenol Tab) 1,000 mg TID PO Last administered on 11/25/18at 08:56; Start 10/31/18 at 16:00 Albuterol/ Ipratropium (Duoneb (Ipr 0.5mg/Alb 2.5mg)) 3 ml RBID NEB ; Start 11/01/18 at 08:00 Artificial Tears ([place] Tears) 2 drop QID OU Last administered on 11/25/18at 08:57; Start 10/31/18 at 21:00 Ascorbic Acid (Vitamin C) 500 mg DAILY PO Last administered on 11/22/18 08:38; Start 11/01/18 at 09:00; Stop 11/22/18 at 09:53; Status DC Aspirin (Ecotrin) 81 mg DAILY PO Last administered on 11/25/18at 08:52; Start 11/01/18 at 09:00 Baclofen (Lioresal) 5 mg BID PO Last administered on 11/17/18 08:19; Start 11/14/18 at 21:00; Stop 11/17/18 at 11:50; Status DC Baclofen (Lioresal) 5 mg TID PO Last administered on 11/14/18 08:19; Start 11/03/18 at 16:00; Stop 11/14/18 at 12:52; Status DC Bisacodyl (Dulcolax Suppository) 10 mg DAILYPRN PRN [place] CONSTIPATION; Start 10/31/18 at 15:30 Bisacodyl (Dulcolax Tab) 5 mg DAILYPRN PRN PO CONSTIPATION Last administered on 11/23/18at 05:41; Start 10/31/18 at 15:30 Ceftriaxone Sodium 2 gm/ Dextrose 50 ml @ 100 mls/hr Q24H IV Last administered on 11/18/18at 08:55; Start 11/01/18 at 09:00; Stop 11/18/18 at 10:40; Status DC Ceftriaxone Sodium 2 gm/ Dextrose 50 ml @ 50 mls/hr Q24H IV Last administered on 11/24/18at 11:44; Start 11/19/18 at 12:00 Ceftriaxone Sodium (Rocephin) 2 gm Q24H IM ; Start 11/19/18 at 12:00; Stop 11/19/18 at 12:00; Status DC Ceftriaxone Sodium (Rocephin) 2 gm Q24H IV ; Start 11/19/18 at 12:00; Stop 11/19/18 at 12:00; Status DC Coenzyme Q10 (Coenzyme Q10) 100 mg DAILY PO Last administered on 11/25/18 08:52; Start 11/01/18 at 09:00; Stop 12/01/18 at 08:59 Darbepoetin Dioni (Aranesp) 100 mcg Th@09 SC Last administered on 11/13/18at 11:49; Start 11/06/18 at 09:00; Stop 11/17/18 at 09:42; Status DC Darbepoetin Dioni (Aranesp) 200 mcg Th@09 SC Last administered on 11/20/18at 11:47; Start 11/20/18 at 09:00 Dextran/ Hydroxypropyl Methylcellul (Tears Naturale Free) 2 drop QID OU ; Start 10/31/18 at 17:00; Status Cancel Dextrose (Dextrose 50%) 25 ml ASDIRECTED PRN IV SEE LABEL COMMENTS; Start 10/31/18 at 15:15 Dextrose/Sodium Chloride 1,000 ml @ 50 mls/hr Q20H IV Last administered on 11/25/18at 05:59; Start 11/24/18 at 10:15 Dextrose/Sodium Chloride 1,000 ml @ 75 mls/hr [id number] IV Last administered on 11/10/18at 09:57; Start 11/08/18 at 12:30; Stop 11/10/18 at 10:40; Status DC Diazepam (Valium) 1 mg QID PO Last administered on 11/21/18at 09:51; Start 11/14/18 at 13:00; Stop 11/21/18 at 12:49; Status DC Diazepam (Valium) 1 mg QID PO ; Start 11/25/18 at 13:00 Diazepam (Valium) 2 mg Q4H PRN PO spasm; Start 11/06/18 at 10:45; Stop 11/10/18 at 15:31; Status DC Diazepam (Valium) 2 mg QID PO Last administered on 11/24/18at 16:16; Start 11/21/18 at 13:00; Stop 11/25/18 at 09:47; Status DC Diazepam (Valium) 2 mg TID PO Last administered on 11/05/18at 15:05; Start 11/04/18 at 16:00; Stop 11/06/18 at 10:35; Status DC Diazepam (Valium) 2.5 mg Q4H PRN PO SPASMS Last administered on 11/01/18at 19:13; Start 11/01/18 at 14:30; Stop 11/01/18 at 23:15; Status DC Diazepam (Valium) 2.5 mg Q6H PRN PO SPASMS Last administered on 11/01/18at 14:15; Start 11/01/18 at 14:00; Stop 11/01/18 at 14:24; Status DC Diazepam (Valium) 2.5 mg Q8HP PRN PO SPASMS Last administered on 10/31/18at 16:01; Start 10/31/18 at 14:45; Stop 10/31/18 at 16:19; Status DC Diazepam (Valium) 2.5 mg Q8HP PRN PO SPASMS Last administered on 11/01/18at 08:09; Start 10/31/18 at 21:00; Stop 11/01/18 at 13:59; Status DC Diazepam (Valium) 5 mg Q8HP PRN PO SPASMS; Start 10/31/18 at 16:15; Stop 10/31/18 at 20:55; Status DC Dronabinol (Marinol) 2.5 mg QHS PO Last administered on 11/24/18at 22:08; Start 11/24/18 at 21:00 Duloxetine HCl (Cymbalta) 60 mg DAILY PO Last administered on 11/25/18at 08:52; Start 11/17/18 at 12:00 Fluticasone Propionate (Flonase 0.05% Nasal [place]) 2 spray DAILY NARES Last administered on 11/25/18at 08:56; Start 11/01/18 at 09:00 Gentamicin Sulfate 80 mg/IV Miscellaneous Supplies 100 ml @ 200 mls/hr Q12H IV Last administered on 11/02/18at 06:17; Start 10/31/18 at 18:00; Stop 11/02/18 at 08:56; Status DC Gentamicin Sulfate 80 mg/IV Miscellaneous Supplies 100 ml @ 200 mls/hr Q18H IV Last administered on 11/03/18at 00:02; Start 11/03/18 at 00:00; Stop 11/03/18 at 16:59; Status DC Glucagon (Glucagon) 1 mg ASDIRECTED PRN SC SEE LABEL COMMENTS; Start 10/31/18 at 15:15 Glucose (Glucose) 16 GM ASDIRECTED PRN PO SEE LABEL COMMENTS; Start 10/31/18 at 15:15 Heparin Sodium (Heparin (Flush)) 100 units ASDIRECTED PRN IV SEE LABEL COMMENTS Last administered on 11/23/18at 12:06; Start 11/11/18 at 16:30 Heparin Sodium (Heparin (Flush)) 100 units PICC IV Last administered on 11/25/18at 05:59; Start 11/11/18 at 18:00 Heparin Sodium (Heparin (Flush)) 200 units ASDIRECTED PRN IV SEE LABEL COMMENTS Last administered on 11/02/18at 09:48; Start 10/31/18 at 16:30; Stop 11/08/18 at 19:36; Status DC Heparin Sodium (Heparin (Flush)) 200 units PICC IV Last administered on 11/04/18at 05:43; Start 10/31/18 at 18:00; Stop 11/08/18 at 19:36; Status DC Heparin Sodium (Porcine) (Heparin) 5,000 units Q12H SC Last administered on 11/04/18at 08:35; Start 10/31/18 at 21:00; Stop 11/04/18 at 18:41; Status DC Home Med (Med Rec Complete!) ASDIRECTED XX ; Start 10/31/18 at 14:45; Stop 10/31/18 at 14:45; Status DC Insulin Human Lispro (HumaLOG INSULIN) SEE PROTOCOL TABLE QHS SC ; Start 10/31/18 at 21:00; Stop 11/06/18 at 21:44; Status DC Lidocaine (Lidoderm Patch) 1 patch DAILY TD Last administered on 11/25/18at 0 8:57; Start 11/01/18 at 09:00 Magnesium Gluconate (Magnesium Gluconate) 500 mg BID PO Last administered on 11/25/18at 08:53; Start 10/31/18 at 21:00; Stop 11/25/18 at 10:31; Status DC Magnesium Hydroxide (Milk Of Magnesia) 30 ml DAILYPRN PRN PO CONSTIPATION Last administered on 11/23/18at 08:23; Start 10/31/18 at 15:30 Metformin HCl (Glucophage) 500 mg DAILY@08 PO Last administered on 11/04/18at 08:36; Start 11/01/18 at 08:00; Stop 11/04/18 at 11:08; Status DC Metoprolol Succinate (TopROL XL) 25 mg DAILY PO Last administered on 11/12/18at 08:53; Start 11/01/18 at 09:00; Stop 11/12/18 at 11:31; Status DC Metoprolol Succinate (TopROL XL) 50 mg DAILY PO Last administered on 11/13/18at 10:10; Start 11/13/18 at 09:00; Stop 11/14/18 at 09:10; Status DC Metoprolol Succinate (TopROL XL) 50 mg DAILY PO Last administered on 11/25/18 09:01; Start 11/14/18 at 09:00 Mirtazapine (Remeron) 30 mg QHS PO Last administered on 11/24/18at 22:08; Start 10/31/18 at 21:00 Miscellaneous (Unresolved Clarification Entry) SEE LABEL COMMENTS DAILY XX ; Start 11/16/18 at 09:00; Stop 11/17/18 at 07:10; Status DC Miscellaneous (Unresolved Clarification Entry) SEE LABEL COMMENTS DAILY XX Last administered on 11/17/18 08:23; Start 11/17/18 at 09:00; Stop 11/17/18 at 11:28; Status DC Miscellaneous (Unresolved Clarification Entry) SEE LABEL COMMENTS DAILY XX ; Start 11/18/18 at 09:00; Stop 11/18/18 at 16:35; Status DC Miscellaneous (Unresolved Patient Own Med Order) SEE LABEL COMMENTS DAILY XX ; Start 10/31/18 at 09:00; Stop 11/06/18 at 18:23; Status DC Morphine Sulfate (Ms Contin) 15 mg BID PO Last administered on 11/04/18at 20:47; Start 10/31/18 at 17:00; Stop 11/06/18 at 10:35; Status DC Nitroglycerin (Nitrostat (1/ 150)) 0.4 mg Q5MP PRN SL CHEST PAIN; Start 10/31/18 at 14:45 Non-Formulary Medication ( See Comment Field Below ) REMOVE LIDODERM PATCH DAILY@21 XX Last administered on 11/24/18at 21:00; Start 10/31/18 at 21:00 Ondansetron HCl (Zofran) 4 mg AC PO Last administered on 11/25/18 08:52; Start 10/31/18 at 17:30 Ondansetron HCl (Zofran) 4 mg Q6HP PRN PO NAUSEA Last administered on 11/06/18at 15:21; Start 10/31/18 at 15:30 Oxycodone HCl (OxyCONTIN) 15 mg BID PO ; Start 11/25/18 at 09:45 Oxycodone HCl (Roxicodone, Oxyir) 5 mg Q4HP PRN PO PAIN 4-7 Last administered on 11/04/18 05:47; Start 10/31/18 at 14:45; Stop 11/06/18 at 10:35; Status DC Oxycodone HCl (Roxicodone, Oxyir) 5 mg Q6HP PRN PO PAIN (5-10) Last administered on 11/25/18 06:58; Start 11/21/18 at 13:00 Oxycodone HCl (Roxicodone, Oxyir) 5 mg TID PO Last administered on 11/21/18 09:50; Start 11/06/18 at 16:00; Stop 11/21/18 at 12:51; Status DC Oxycodone HCl (Roxicodone, Oxyir) 7.5 mg QID PO Last administered on 11/25/18 08:55; Start 11/21/18 at 13:00 Oxycodone HCl (Roxicodone, Oxyir) 10 mg Q4HP PRN PO SEVERE PAIN (PS 8-10) Last administered on 11/20/18 11:21; Start 10/31/18 at 14:45; Stop 11/21/18 at 12:51; Status DC Pantoprazole Sodium (Protonix) 40 mg DAILY PO Last administered on 11/18/18 08:56; Start 11/01/18 at 09:00; Stop 11/18/18 at 11:14; Status DC Patient Own Medication (Patient'S Own Med) TRINTELLIX 20mg po daily DAILY PO Last administered on 11/25/18 08:51; Start 11/01/18 at 09:00 Patient Own Medication (Patient'S Own Med) Testosterone 5gram 1% gel; AP... DAILY TOP Last administered on 11/25/18 08:51; Start 11/07/18 at 09:00 Pramipexole Dihydrochloride (Mirapex) 2 mg QHS PO Last administered on 11/24/18 22:09; Start 10/31/18 at 21:00 Pregabalin (Lyrica) 75 mg BID PO ; Start 10/31/18 at 21:00; Stop 10/31/18 at 21:00; Status DC Pregabalin (Lyrica) 100 mg BID PO Last administered on 11/25/18at 08:52; Start 10/31/18 at 21:00 Ranolazine (Ranexa) 500 mg BID PO Last administered on 11/25/18at 08:55; Start 10/31/18 at 21:00 Salmeterol Xinafoate/ Fluticasone (Advair Hfa 115/ 21) 2 puff BID INH Last administered on 11/25/18at 07:14; Start 10/31/18 at 21:00 Senna/Docusate Sodium (Senokot S) 1 tab BID PO Last administered on 11/25/18 08:52; Start 10/31/18 at 21:00 Sodium Chloride 1,000 ml @ 40 mls/hr Q24H IV Last administered on 11/07/18at 13:55; Start 11/04/18 at 10:30; Stop 11/08/18 at 12:17; Status DC Sodium Chloride 1,000 ml @ 100 mls/hr Q10H IV Last administered on 11/23/18at 21:35; Start 11/23/18 at 20:15; Stop 11/24/18 at 06:14; Status DC Sodium Chloride (Saline Lock Flush) 2 ml ASDIRECTED PRN IV SEE LABEL COMMENTS; Start 11/08/18 at 19:45; Stop 11/12/18 at 14:23; Status DC Sodium Chloride (Saline Lock Flush) 2 ml SLF IV Last administered on 11/12/18at 05:55; Start 11/08/18 at 22:00; Stop 11/12/18 at 14:23; Status DC Sodium Chloride (Sal[place] Flush) 10 ML PICC IV Last administered on 11/25/18at 05:59; Start 11/11/18 at 18:00 Sodium Chloride (Saline Lock Flush) 10 ml ASDIRECTED PRN IV SEE LABEL COMMENTS Last administered on 11/02/18at 09:48; Start 10/31/18 at 16:30; Stop 11/08/18 at 19:36; Status DC Sodium Chloride (Saline Lock Flush) 10 ml PICC IV Last administered on 11/04/18at 05:43; Start 10/31/18 at 18:00; Stop 11/08/18 at 19:36; Status DC Sodium Chloride (Saline Lock Flush) 10ML ASDIRECTED PRN IV SEE LABEL COMMENTS Last administered on 11/23/18at 21:36; Start 11/11/18 at 16:30 Tizanidine HCl (Zanaflex) 4 mg TID PO ; Start 11/25/18 at 09:00 Vitamin D (Vitamin D) 1,000 units DAILY PO Last administered on 11/25/18at 08:52; Start 11/01/18 at 09:00 SOILA FREITAS MD Nov 25, 2018 12:51
--- NOTE | 2018-11-25 12:57 | IPNPDOC ---
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 Medical hold on therapy today. REVIEW OF SYSTEMS: The following is a completed review of systems and has been reviewed. Review of systems otherwise unremarkable. PAIN: Patient self reports severe low back pain with spasms EYES: Negative for recent vision changes EARS, NOSE, & THROAT:negative for rhinorrhea, tinnitus, or dysphagia CARDIOVASCULAR: denies chest pain or palpitations PULMONARY: Negative. Denies shortness of breath GASTROINTESTINAL: constipation -resolved GENITOURINARY: Negative for dysuria MUSCULOSKELETAL: low back pain and bilateral knee OA NEUROLOGICAL: restless leg syndrome HEMATOLOGICAL: +anemia SKIN: PICC rue PSYCHIATRIC: Unremarkable All other review of systems found to be negative. PHYSICAL EXAMINATION: VITAL SIGNS: Please see below. GENERAL: Pleasant and cooperative, no acute distress HEENT: PERRL. Extraocular movements intact. Clear conjunctiva CARDIOVASCULAR: Regular rate and rhythm. No murmurs, rubs, or gallops LUNGS: Clear to auscultation bilaterally. No wheezes. No rhonchi ABDOMEN: Soft, nontender, nondistended. Positive bowel sounds. Normal active bowel sounds NEUROLOGICAL: Alert and oriented times to self and place not time, Cranial nerves II through XII grossly intact. Sensation grossly intact. EXTREMITIES: 5\\5 strength bilateral upper extremities. bilateral Ankle DF and EHL 5/5, however proximal muscle testing greatly limited by pain (negative Michael's bilat) SKIN: +PICC, decubitus ulcer ASSESSMENT:72-year-old M with past medical history of CAD, AVR, CAD with CABG who presents with diskovertebral osteomyelitis in the setting of endocarditis. PLAN: 1. Rehab: PT/OT, assess for DME needs- LSO brace when out of bed for comfort, able to ambulate further with RW, has been trained- decline in progess over past few days given increased pain and concern for worsening infection- medical hold today 2. Neuro: pmh restless leg syndrome, continue home meds 3. Cardio: pmh CAD s/p AVR replacement with recent GUILLERMO suspicious for endocarditis continue IV Ceftriaxone until 11/28/18 and s/p Gentamicin, will need outpatient cardio f/u -continue beta-blockers and ASA 4. Endo: pmh DM off metformin, monitoring FS for hypoglycemia due to poor oral intake, improving 5. ID: L1-L2 disko-vertebral osteomyeltis, blood cultures positive for Strep Mitis, per acute care hospital continue IV Ceftriaxone for 6 weeks (start date 10/16/18) and Gentamicin for 2 weeks (start date 10/26/18)to be followed by one year suppression dose of Omnicef starting 11/29/18, however discussed case with Dr. Alejandro who recommend continue IV until he is discharged -Dr. Alejandro consulted, Gentamicin discontinued will continue to follow-recs, ap preciated, CRP/ESR elevated, ID aware and will consider additional antibiotics -CT L-spine today showed, "Findings consistent with discitis osteomyelitis at the L1-2 level. There is moderate central canal stenosis secondary to disc bulge, ligamentous and facet hypertrophy." -admission blood cultures negative, will repeat 6. Pain: pmh chronic knee pain, now with severe discogenic pain with spasms worse now- will add Oxycontin 15mg BID, continue oxycodone 7.5mg QID, standing Tylenol, continue Lyrica, adding Tizanidine and will hold VAlium given delirium -continue Cymbalta-significant improvement in overall pain -tapered off baclofen 7. DVT ppx: will d/c heparin given anemia and borderline low platelets and obtain serial dopplers, continue TEDs, thus far studies negative for DVT-will repeat today 8. SKin: Balmex and turning q2h in bed 9. Resp: pmh COPD: continue home meds, continue Duonebs and monitor for PNA 10. 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 Heme: Anemia of chronic disease, patient is Jehovas witness and cannot receive blood, however s/p Venofer and getting weekly Aranesp per Renal, recs appreciated- hgb dropped to 7.6, will receive Aranesp this week, possibly dilutional 10. GI ppx: optimize laxatives, protonix for ppx 11. Dispo: given recent decline, will need more time and will attempt to post-pone discharge until 12/05/18 Allergies Coded Allergies: Statins (Unverified Adverse Reaction, Unknown, MUSCLE PAINS, 10/31/18) Trazodone (Unverified Adverse Reaction, Unknown, ITCH, 10/31/18) Vital Signs Vital Signs Date Time Temp Pulse Resp B/P (MAP) Pulse Ox O2 Delivery O2 Flow Rate FiO2 11/25/18 09:13 18 11/25/18 09:01 88 130/62 11/25/18 05:49 98.0 98 11/24/18 16:17 2.0 Laboratory Data CBC/BMP Laboratory Tests 11/25/18 06:48 Red Blood Count 2.48 L, Mean Corpuscular Volume 104.8 H, Mean Corpuscular Hemoglobin 30.6, Mean Corpuscular Hemoglobin Concent 29.2 L, Red Cell Distribution Width 17.8 H, Calcium Level 8.7 L, Aspartate Amino Transf (AST/SGOT) 27, Alanine Aminotransferase (ALT/SGPT) 14, Alkaline Phosphatase 154 H, Total Bilirubin 0.3, Total Protein 6.7, Albumin 2.6 L Labs 24H Laboratory Tests 2 11/24/18 16:54: Bedside Glucose (Misc Panel) 128H 11/25/18 06:48: Nucleated Red Blood Cells % (auto) 0.0, Erythrocyte Sedimentation Rate 126H, Anion Gap 6L, Glomerular Filtration Rate 32.6L, Blood Urea Nitrogen 22H, Creatinine 2.13H, Sodium Level 138, Potassium Level 4.2, Chloride Level 103, Carbon Dioxide Level 29, Calcium Level 8.7L, Aspartate Amino Transf (AST/SGOT) 27, Alanine Aminotransferase (ALT/SGPT) 14, Alkaline Phosphatase 154H, Total Bilirubin 0.3, Total Protein 6.7, Albumin 2.6L, C-Reactive Protein, Quantitative 16.40H, Albumin/Globulin Ratio 0.63L Microbiology Microbiology 11/25/18 Blood Culture, Received Pending 11/25/18 Blood Culture, Received Pending 11/16/18 Stool Occult Blood (SULEIMAN) - Final, Complete Current Medications Current Medications Current Medications Acetaminophen (Tylenol Tab) 1,000 mg TID PO Last administered on 11/25/18at 08:56; Start 10/31/18 at 16:00 Albuterol/ Ipratropium (Duoneb (Ipr 0.5mg/Alb 2.5mg)) 3 ml RBID NEB ; Start 11/01/18 at 08:00 Artificial Tears (Akwa Tears) 2 drop QID OU Last administered on 11/25/18 08:57; Start 10/31/18 at 21:00 Ascorbic Acid (Vitamin C) 500 mg DAILY PO Last administered on 11/22/18 08:38; Start 11/01/18 at 09:00; Stop 11/22/18 at 09:53; Status DC Aspirin (Ecotrin) 81 mg DAILY PO Last administered on 11/25/18 08:52; Start 11/01/18 at 09:00 Baclofen (Lioresal) 5 mg BID PO Last administered on 11/17/18 08:19; Start 11/14/18 at 21:00; Stop 11/17/18 at 11:50; Status DC Baclofen (Lioresal) 5 mg TID PO Last administered on 11/14/18 08:19; Start 11/03/18 at 16:00; Stop 11/14/18 at 12:52; Status DC Bisacodyl (Dulcolax Suppository) 10 mg DAILYPRN PRN [place] CONSTIPATION; Start 10/31/18 at 15:30 Bisacodyl (Dulcolax Tab) 5 mg DAILYPRN PRN PO CONSTIPATION Last administered on 11/23/18at 05:41; Start 10/31/18 at 15:30 Ceftriaxone Sodium 2 gm/ Dextrose 50 ml @ 100 mls/hr Q24H IV Last administered on 11/18/18 08:55; Start 11/01/18 at 09:00; Stop 11/18/18 at 10:40; Status DC Ceftriaxone Sodium 2 gm/ Dextrose 50 ml @ 50 mls/hr Q24H IV Last administered on 11/24/18at 11:44; Start 11/19/18 at 12:00 Ceftriaxone Sodium (Rocephin) 2 gm Q24H IM ; Start 11/19/18 at 12:00; Stop 11/19/18 at 12:00; Status DC Ceftriaxone Sodium (Rocephin) 2 gm Q24H IV ; Start 11/19/18 at 12:00; Stop 11/19/18 at 12:00; Status DC Coenzyme Q10 (Coenzyme Q10) 100 mg DAILY PO Last administered on 11/25/18at 08:52; Start 11/01/18 at 09:00; Stop 12/01/18 at 08:59 Darbepoetin Dioni (Aranesp) 100 mcg Th@09 SC Last administered on 11/13/18at 11:49; Start 11/06/18 at 09:00; Stop 11/17/18 at 09:42; Status DC Darbepoetin Dioni (Aranesp) 200 mcg Th@09 SC Last administered on 11/20/18at 11:47; Start 11/20/18 at 09:00 Dextran/ Hydroxypropyl Methylcellul (Tears Naturale Free) 2 drop QID OU ; Start 10/31/18 at 17:00; Status Cancel Dextrose (Dextrose 50%) 25 ml ASDIRECTED PRN IV SEE LABEL COMMENTS; Start 10/31/18 at 15:15 Dextrose/Sodium Chloride 1,000 ml @ 50 mls/hr Q20H IV Last administered on 11/25/18at 05:59; Start 11/24/18 at 10:15 Dextrose/Sodium Chloride 1,000 ml @ 75 mls/hr [id number] IV Last administered on 11/10/18at 09:57; Start 11/08/18 at 12:30; Stop 11/10/18 at 10:40; Status DC Diazepam (Valium) 1 mg QID PO Last administered on 11/21/18at 09:51; Start 11/14/18 at 13:00; Stop 11/21/18 at 12:49; Status DC Diazepam (Valium) 1 mg QID PO ; Start 11/25/18 at 13:00 Diazepam (Valium) 2 mg Q4H PRN PO spasm; Start 11/06/18 at 10:45; Stop 11/10/18 at 15:31; Status DC Diazepam (Valium) 2 mg QID PO Last administered on 11/24/18at 16:16; Start 11/21/18 at 13:00; Stop 11/25/18 at 09:47; Status DC Diazepam (Valium) 2 mg TID PO Last administered on 11/05/18at 15:05; Start 11/04/18 at 16:00; Stop 11/06/18 at 10:35; Status DC Diazepam (Valium) 2.5 mg Q4H PRN PO SPASMS Last administered on 11/01/18at 19:13; Start 11/01/18 at 14:30; Stop 11/01/18 at 23:15; Status DC Diazepam (Valium) 2.5 mg Q6H PRN PO SPASMS Last administered on 11/01/18at 14:15; Start 11/01/18 at 14:00; Stop 11/01/18 at 14:24; Status DC Diazepam (Valium) 2.5 mg Q8HP PRN PO SPASMS Last administered on 10/31/18at 16:01; Start 10/31/18 at 14:45; Stop 10/31/18 at 16:19; Status DC Diazepam (Valium) 2.5 mg Q8HP PRN PO SPASMS Last administered on 11/01/18at 08:09; Start 10/31/18 at 21:00; Stop 11/01/18 at 13:59; Status DC Diazepam (Valium) 5 mg Q8HP PRN PO SPASMS; Start 10/31/18 at 16:15; Stop 10/31/18 at 20:55; Status DC Dronabinol (Marinol) 2.5 mg QHS PO Last administered on 11/24/18at 22:08; Start 11/24/18 at 21:00 Duloxetine HCl (Cymbalta) 60 mg DAILY PO Last administered on 11/25/18at 08:52; Start 11/17/18 at 12:00 Fluticasone Propionate (Flonase 0.05% Nasal Draper) 2 spray DAILY NARES Last administered on 11/25/18at 08:56; Start 11/01/18 at 09:00 Gentamicin Sulfate 80 mg/IV Miscellaneous Supplies 100 ml @ 200 mls/hr Q12H IV Last administered on 11/02/18at 06:17; Start 10/31/18 at 18:00; Stop 11/02/18 at 08:56; Status DC Gentamicin Sulfate 80 mg/IV Miscellaneous Supplies 100 ml @ 200 mls/hr Q18H IV Last administered on 11/03/18at 00:02; Start 11/03/18 at 00:00; Stop 11/03/18 at 16:59; Status DC Glucagon (Glucagon) 1 mg ASDIRECTED PRN SC SEE LABEL COMMENTS; Start 10/31/18 at 15:15 Glucose (Glucose) 16 GM ASDIRECTED PRN PO SEE LABEL COMMENTS; Start 10/31/18 at 15:15 Heparin Sodium (Heparin (Flush)) 100 units ASDIRECTED PRN IV SEE LABEL COMMENTS Last administered on 11/23/18at 12:06; Start 11/11/18 at 16:30 Heparin Sodium (Heparin (Flush)) 100 units PICC IV Last administered on 11/25/18 at 05:59; Start 11/11/18 at 18:00 Heparin Sodium (Heparin (Flush)) 200 units ASDIRECTED PRN IV SEE LABEL COMMENTS Last administered on 11/02/18at 09:48; Start 10/31/18 at 16:30; Stop 11/08/18 at 19:36; Status DC Heparin Sodium (Heparin (Flush)) 200 units PICC IV Last administered on 11/04/18at 05:43; Start 10/31/18 at 18:00; Stop 11/08/18 at 19:36; Status DC Heparin Sodium (Porcine) (Heparin) 5,000 units Q12H SC Last administered on 11/04/18at 08:35; Start 10/31/18 at 21:00; Stop 11/04/18 at 18:41; Status DC Home Med (Med Rec Complete!) ASDIRECTED XX ; Start 10/31/18 at 14:45; Stop 10/31/18 at 14:45; Status DC Insulin Human Lispro (HumaLOG INSULIN) SEE PROTOCOL TABLE QHS SC ; Start 10/14 06/01 at 21:00; Stop 11/06/18 at 21:44; Status DC Lidocaine (Lidoderm Patch) 1 patch DAILY TD Last administered on 11/25/18at 08:57; Start 11/01/18 at 09:00 Magnesium Gluconate (Magnesium Gluconate) 500 mg BID PO Last administered on 11/25/18at 08:53; Start 10/31/18 at 21:00; Stop 11/25/18 at 10:31; Status DC Magnesium Hydroxide (Milk Of Magnesia) 30 ml DAILYPRN PRN PO CONSTIPATION Last administered on 11/23/18at 08:23; Start 10/31/18 at 15:30 Metformin HCl (Glucophage) 500 mg DAILY@08 PO Last administered on 11/04/18at 08:36; Start 11/01/18 at 08:00; Stop 11/04/18 at 11:08; Status DC Metoprolol Succinate (TopROL XL) 25 mg DAILY PO Last administered on 11/12/18 08:53; Start 11/01/18 at 09:00; Stop 11/12/18 at 11:31; Status DC Metoprolol Succinate (TopROL XL) 50 mg DAILY PO Last administered on 11/13/18at 10:10; Start 11/13/18 at 09:00; Stop 11/14/18 at 09:10; Status DC Metoprolol Succinate (TopROL XL) 50 mg DAILY PO Last administered on 11/25/18 09:01; Start 11/14/18 at 09:00 Mirtazapine (Remeron) 30 mg QHS PO Last administered on 11/24/18 22:08; Start 10/31/18 at 21:00 Miscellaneous (Unresolved Clarification Entry) SEE LABEL COMMENTS DAILY XX ; Start 11/16/18 at 09:00; Stop 11/17/18 at 07:10; Status DC Miscellaneous (Unresolved Clarification Entry) SEE LABEL COMMENTS DAILY XX Last administered on 11/17/18at 08:23; Start 11/17/18 at 09:00; Stop 11/17/18 at 11:28; Status DC Miscellaneous (Unresolved Clarification Entry) SEE LABEL COMMENTS DAILY XX ; Start 11/18/18 at 09:00; Stop 11/18/18 at 16:35; Status DC Miscellaneous (Unresolved Patient Own Med Order) SEE LABEL COMMENTS DAILY XX ; Start 10/31/18 at 09:00; Stop 11/06/18 at 18:23; Status DC Morphine Sulfate (Ms Contin) 15 mg BID PO Last administered on 11/04/18at 20:47; Start 10/31/18 at 17:00; Stop 11/06/18 at 10:35; Status DC Nitroglycerin (Nitrostat (1/ 150)) 0.4 mg Q5MP PRN SL CHEST PAIN; Start 10/31/18 at 14:45 Non-Formulary Medication ( See Comment Field Below ) REMOVE LIDODERM PATCH DAILY@21 XX Last administered on 11/24/18at 21:00; Start 10/31/18 at 21:00 Ondansetron HCl (Zofran) 4 mg AC PO Last administered on 11/25/18at 08:52; Start 10/31/18 at 17:30 Ondansetron HCl (Zofran) 4 mg Q6HP PRN PO NAUSEA Last administered on 11/06/18 15:21; Start 10/31/18 at 15:30 Oxycodone HCl (OxyCONTIN) 15 mg BID PO ; Start 11/25/18 at 09:45 Oxycodone HCl (Roxicodone, Oxyir) 5 mg Q4HP PRN PO PAIN 4-7 Last administered on 11/04/18 05:47; Start 10/31/18 at 14:45; Stop 11/06/18 at 10:35; Status DC Oxycodone HCl (Roxicodone, Oxyir) 5 mg Q6HP PRN PO PAIN (5-10) Last administered on 11/25/18 06:58; Start 11/21/18 at 13:00 Oxycodone HCl (Roxicodone, Oxyir) 5 mg TID PO Last administered on 11/21/18 09 :50; Start 11/06/18 at 16:00; Stop 11/21/18 at 12:51; Status DC Oxycodone HCl (Roxicodone, Oxyir) 7.5 mg QID PO Last administered on 11/25/18 08:55; Start 11/21/18 at 13:00 Oxycodone HCl (Roxicodone, Oxyir) 10 mg Q4HP PRN PO SEVERE PAIN (PS 8-10) Last administered on 11/20/18 11:21; Start 10/31/18 at 14:45; Stop 11/21/18 at 12:51; Status DC Pantoprazole Sodium (Protonix) 40 mg DAILY PO Last administered on 11/18/18 08:56; Start 11/01/18 at 09:00; Stop 11/18/18 at 11:14; Status DC Patient Own Medication (Patient'S Own Med) TRINTELLIX 20mg po daily DAILY PO Last administered on 11/25/18 08:51; Start 11/01/18 at 09:00 Patient Own Medication (Patient'S Own Med) Testosterone 5gram 1% gel; AP... DAILY TOP Last administered on 11/25/18 08:51; Start 11/07/18 at 09:00 Pramipexole Dihydrochloride (Mirapex) 2 mg QHS PO Last administered on 11/24/18 22:09; Start 10/31/18 at 21:00 Pregabalin (Lyrica) 75 mg BID PO ; Start 10/31/18 at 21:00; Stop 10/31/18 at 21:00; Status DC Pregabalin (Lyrica) 100 mg BID PO Last administered on 11/25/18 08:52; Start 10/31/18 at 21:00 Ranolazine (Ranexa) 500 mg BID PO Last administered on 11/25/18 08:55; Start 10/31/18 at 21:00 Salmeterol Xinafoate/ Fluticasone (Advair Hfa 115/ 21) 2 puff BID INH Last administered on 11/25/18 07:14; Start 10/31/18 at 21:00 Senna/Docusate Sodium (Senokot S) 1 tab BID PO Last administered on 11/25/18 08:52; Start 10/31/18 at 21:00 Sodium Chloride 1,000 ml @ 40 mls/hr Q24H IV Last administered on 11/07/18at 13:55; Start 11/04/18 at 10:30; Stop 11/08/18 at 12:17; Status DC Sodium Chloride 1,000 ml @ 100 mls/hr Q10H IV Last administered on 11/23/18at 21:35; Start 11/23/18 at 20:15; Stop 11/24/18 at 06:14; Status DC Sodium Chloride (Saline Lock Flush) 2 ml ASDIRECTED PRN IV SEE LABEL COMMENTS; Start 11/08/18 at 19:45; Stop 11/12/18 at 14:23; Status DC Sodium Chloride (Saline Lock Flush) 2 ml SLF IV Last administered on 11/12/18at 05:55; Start 11/08/18 at 22:00; Stop 11/12/18 at 14:23; Status DC Sodium Chloride (Saline Lock Flush) 10 ML PICC IV Last administered on 11/25/18at 05:59; Start 11/11/18 at 18:00 Sodium Chloride (Saline Lock Flush) 10 ml ASDIRECTED PRN IV SEE LABEL COMMENTS Last administered on 11/02/18at 09:48; Start 10/31/18 at 16:30; Stop 11/08/18 at 19:36; Status DC Sodium Chloride (Saline Lock Flush) 10 ml PICC IV Last administered on 11/04/18at 05:43; Start 10/31/18 at 18:00; Stop 11/08/18 at 19:36; Status DC Sodium Chloride (Saline Lock Flush) 10ML ASDIRECTED PRN IV SEE LABEL COMMENTS Last administered on 11/23/18at 21:36; Start 11/11/18 at 16:30 Tizanidine HCl (Zanaflex) 4 mg TID PO ; Start 11/25/18 at 09:00 Vitamin D (Vitamin D) 1,000 units DAILY PO Last administered on 11/25/18at 08:52; Start 11/01/18 at 09:00 SOILA FREITAS MD Nov 25, 2018 12:57
[2018-11-25] MEDS ORDERED: diazePAM 2 MG TAB PO SCH (13:00)
--- NOTE | 2018-11-25 13:48 | IPNPDOC ---
Date Seen The patient was seen on 11/25/18. Progress Note HPI: 72M who was transferred to [facility] from [facility] for low back pain with fevers that began 6 days prior to admission. An ID consult was ordered, he was found to have Strep Mitis bacteremia from a October 14 and blood culture taken at [place] for which he was placed on Ceftriaxone and Gentamicin on 10-16-18 for discitis vs osteomyelitis in the setting of a possibly infected bi-prosthetic aortic valve with endocarditis. A GUILLERMO was performed showing, Moderate perivalvular aortic regurgitation, mobile density contiguous with aortic valve,cannot rule out vegetation. Repeat blood cultures on October 20 and were negative. Thoracolumbar CT on 10-18-18 showed lesion suspicious for diskovertebral osteomyelitis at L1-L2. ID recommended a 6 week course of IV antibiotics followed by Omnicef for 1 year for suppression. No cardiac or orthopedic surgery was recommended and PICC line placed. He developed a decubitus ulcer during his stay due to immobility. 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 ID following to assist with antibiotic recommendations. Nephrology following to assist with anemia/ANA. The pt has complained of increased pain in low back. he has seemed more confused today. Valium on hold. Denies any fevers, chills, headache, Chest Pain, Shortness of breath, cough, palpitations, abdominal pain, N/V/D or changes in bowel or bladder habits. PAST MEDICAL HISTORY: NIDDM. HTN Coronary artery disease, status post CABG, status post TAVR 05/31. COPD. depression PAST SURGICAL HISTORY: TAVR replaced May 2018, first placed 2009 Right hip septic joint 1.5 years ago, s/p YANET January 2018, s/p pacemaker PE: GEN: 72yoM, appears stated age. Alert and oriented to person, states it is 2019, difficulty with place. HEENT: Normocephalic, atraumatic. Sclera are nonicteric. Moist mucous membranes. CHEST: Regular rate and rhythm, +S1, +S2 LUNGS: Clear to auscultation bilaterally. No wheezes, rales, or rhonchi. ABD: Round, soft, non-tender, non-distended. +Bowel sounds present. No rebound or guarding. EXT: No lower extremity edema appreciated. SKIN: [place], dry, warm. No rashes. NEURO: No focal deficits appreciated. Moving UEs and LEs UC negative. UA 11/19/18 unremarkable. U/S LEs 10/31/18, 11/05/18, 11/19/[address] A/P done related to constipation 11/02/18. A&P: 72M pmh DM, HTN, PM, AVR (replaced in May 2018), CAD with CABG, JR, right hip periprosthetic infection, who was transferred to [facility] from [facility] for low back pain with fevers that began 6 days prior to admission. An ID consult was ordered, he was found to have Strep Mitis bacteremia from a October 14 and blood culture taken at [place] for which he was placed on Ceftriaxone and Gentamicin on 10-16-18 for discitis vs osteomyelitis in the setting of a possibly infected bi-prosthetic aortic valve with endocarditis. A GUILLERMO was performed showing, Moderate perivalvular aortic regurgitation, mobile density contiguous with aortic valve,cannot rule out vegetation. Repeat blood cultures on October 20 and were negative. Thoracolumbar CT on 10-18-18 showed lesion suspicious for diskovertebral osteomyelitis at L1-L2. ID recommended a 6 week course of IV antibiotics followed by Omnicef for 1 year for suppression. No cardiac or orthopedic surgery was recommended and PICC line placed. He developed a decubitus ulcer during his stay due to immobility. 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 1. Discitis/osteomyelitis of L1 to L2, Streptococcus mitis bacteremia/Endocarditis. Pt is afebrile. Mgmt as per ARU Pain control as per ARU Bowel care as per ARU PT/OT/ST as per ARU DVT prophylaxis as per ARU, SQ Heparin. LE U/S 11/19/18 negative. Continue Mgmt as per ID. ID consulted, Dr Alejandro. Appreciate recommendations. IV Rocephin until 11/28/18 then po Omnicef x 1 year. Pt unable to have MRI related to pacemaker. Blood culture x2 11/01 neg. Urine culture neg. CRP this AM noted to be 16.4, ESR 126 trending upward. Discussed with ID, Dr Alejandro to re evaluate. BC x 2 pending. Continue to monitor. 2. Coronary artery disease/Status post coronary artery bypass graft (CABG) and status post transcatheter aortic valve replacement (TAVR). Continue aspirin/Ranexa/Toprol XL. Outpt F/U with cardiology. 3. History of COPD. Duoneb Advair 4. Hypertension. Toprol XL 5. DM. CC diet. Metformin d/cd Monitor FSBS. 6. Depression Trintellix. 7. Anemia. B12, folate, Fe studies noted Pt is Jehovah Witness and declines transfusion. Nephrology consulted and following, Kiet as per Nephrology/Jillian weekly. Hgb 7.6. Monitor. 8. Thrombocytopenia. Peripheral smear 11/18/18. Mild anemia with at least a component of anemia of chronic disease. Normal platelet morphology, no platelet clumps are noted. The WBCs are within normal limits. Final: Electronically Signed by: Bessy Edwards M.D. 11/18/18 1134 Monitor. 9. ANA/CKD. SCr noted to be 2.13 baseline has been 1.6-1.8 Renal U/S 11/24/18 B/L simple cysts. Nephrology following. Avoid nephrotoxins. IVF at 50cc/hr. Encourage po intake. Monitor 10. Hyponatremia. Resolved. Monitor. VS, I&O, [facility]I&O Vital Signs Date Time Temp Pulse Resp B/P (MAP) Pulse Ox O2 Delivery O2 Flow Rate FiO2 11/25/18 12:45 18 11/25/18 09:01 88 130/62 11/25/18 05:49 98.0 98 11/24/18 16:17 2.0 I&O- Last 24 Hours up to 6 AM 11/25/18 06:00 Intake Total 410 ml Output Total 1552 ml Balance -1142 ml Laboratory Data 24H LABS Laboratory Tests 2 11/24/18 16:54: Bedside Glucose (Misc Panel) 128H 11/25/18 06:48: Nucleated Red Blood Cells % (auto) 0.0, Erythrocyte Sedimentation Rate 126H, Anion Gap 6L, Glomerular Filtration Rate 32.6L, Blood Urea Nitrogen 22H, Creatinine 2.13H, Sodium Level 138, Potassium Level 4.2, Chloride Level 103, Carbon Dioxide Level 29, Calcium Level 8.7L, Aspartate Amino Transf (AST/SGOT) 27, Alanine Aminotransferase (ALT/SGPT) 14, Alkaline Phosphatase 154H, Total Bilirubin 0.3, Total Protein 6.7, Albumin 2.6L, C-Reactive Protein, Quantitative 16.40H, Albumin/Globulin Ratio 0.63L CBC/BMP Laboratory Tests 11/25/18 06:48 Red Blood Count 2.48 L, Mean Corpuscular Volume 104.8 H, Mean Corpuscular Hemoglobin 30.6, Mean Corpuscular Hemoglobin Concent 29.2 L, Red Cell Distribution Width 17.8 H, Calcium Level 8.7 L, Aspartate Amino Transf (AST/SGOT) 27, Alanine Aminotransferase (ALT/SGPT) 14, Alkaline Phosphatase 154 H, Total Bilirubin 0.3, Total Protein 6.7, Albumin 2.6 L Microbiology Microbiology 11/25/18 Blood Culture, Received Pending 11/25/18 Blood Culture, Received Pending 11/16/18 Stool Occult Blood (SULEIMAN) - Final, Complete Yanci Cortes Nov 25, 2018 13:48
[2018-11-25 14:00] VITALS: BP 106/58
--- NOTE | 2018-11-25 16:14 | REP ---
PORTABLE CHEST: AP portable view of the chest is performed in supine position. There are no prior studies. There is no evidence of infiltrate. Cardiomediastinal silhouette is mildly prominent, but may be magnified. Slight prominence of pulmonary vasculature is likely due to supine positioning. There is calcification of the thoracic aorta. Multiple sternal wires and mediastinal clips are present. There is a left pacemaker. IMPRESSION: No evidence of acute infiltrate. Electronically Signed by Darrick Hess MD 11/26/2018 10:35 A
--- NOTE | 2018-11-25 16:20 | IPN ---
DATE: 11/24/2018 Mr. Ward is not doing very well today. He was lying in bed complaining of increasing back spasm. He is also more confused. His kidney function has worsened, and he received 1 liter of normal saline for dehydration. He has had no fever or chills. He has not been able to do very much today with physical therapy due to increased back spasm. MEDICATIONS: - intravenous (IV) Rocephin 2 grams daily - oxycodone 7.5 mg four times a day and 5 mg every 6 as needed - duloxetine 60 mg by mouth daily - Lyrica 100 mg by mouth twice a day PHYSICAL EXAMINATION: HEART: Normal S1, S2. Systolic ejection murmur, 2/6, unchanged. LUNGS: Clear. No wheezes, rales, or rhonchi. ABDOMEN: Soft, nontender. EXTREMITIES: No edema. Motor strength improved, 5- bilaterally. Give-way weakness due to spasm. LABORATORY DATA White count 3.6, hemoglobin 9.4, hematocrit 30.4, platelets 113, which have decreased since admission slightly from 150. Sodium 136, potassium 4.1, chloride 102, bicarbonate 30, BUN 25, creatinine 2.36, glucose 109, calcium 8.8. Creatinine has trended up again. IMPRESSION: 1. 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 The patient will continue on IV Rocephin until his discharge from the hospital. Initially, the plan was to discontinue antibiotics on Saturday and switch him to oral antibiotic, but I would recommend continuing until he is discharged, as his back pain is still pretty severe. 2. Muscle spasms, increasing. Would suggest obtaining x-ray of lumbar spine to rule out compression fracture from complication of discitis. 3. Chronic kidney disease with worsening creatinine. The patient received IV fluids. PLAN: Continue IV Rocephin. Will obtain complete blood count (CBC), C-reactive protein (CRP), sedimentation rate, basic profile in the morning. Case has been discussed with Dr. Sarah Pennington from rehabilitation.
[2018-11-25 20:00] VITALS: BP 134/62
[2018-11-25] MEDS: MIRTAZAPINE 15 MG TAB PO SCH (20:47)
[2018-11-25] MEDS: PRAMIPEXOLE 1 MG TAB PO SCH (20:47)
[2018-11-25] MEDS: DRONABINOL 2.5 MG CAP (MARINOL) PO SCH (21:00)
[2018-11-25] MEDS: **NOTE PATIENT COMMENT** MISC XX SCH (21:00)
[2018-11-26] MEDS: tiZANidine 4 MG TAB PO SCH ×2 (00:12→08:32)
[2018-11-26] MEDS: oxyCODONE 5MG TAB PO PRN (01:10)
[2018-11-26 06:00] VITALS: BP 129/61
[2018-11-26] MEDS: SODIUM CHLORIDE 0.9% INJ 10 ML SYR IV SCH (06:15)
[2018-11-26] MEDS: IPRATROPIUM 0.5MG/ALBUTEROL 2.5MG INH SOL UD 3ML (DUONEB)(J7620) NEB SCH (08:00)
[2018-11-26 08:06] LABS: HEMATOCRIT 23.5 % (42.0-52.0); HEMOGLOBIN 7.1 g/dl (13.5-17.5); MEAN CORPUSCULAR HGB CONC 30.2 g/dl (32.0-36.5); MEAN CORPUSCULAR VOLUME 102.6 fl (80.0-96.0); PLATELET COUNT, AUTOMATED 114 10^3/uL (150-450); RED BLOOD COUNT 2.29 10^6/uL (4.30-6.10); WHITE BLOOD COUNT 4.5 10^3/uL (4.0-10.0)
[2018-11-26 08:28] LABS: ERYTHROCYTE SEDIMENTATION RATE 128 mm/hr (0-20)
[2018-11-26] MEDS: DULoxetine 30 MG CAP (CYMBALTA) PO SCH (08:28)
[2018-11-26 08:29] VITALS: BP 129/61
[2018-11-26] MEDS: ASPIRIN 81 MG ENTERIC TAB PO SCH (08:29)
[2018-11-26] MEDS: METOPROLOL SUCC (TopROL XL) 50MG **XL** TAB PO SCH (08:29)
[2018-11-26] MEDS: VITAMIN D 1,000 INTERNATIONAL UNITS TABLET PO SCH (08:29)
[2018-11-26] MEDS: RANOLAZINE 500 MG ER TAB PO SCH (08:29)
[2018-11-26] MEDS: MOM 30ML SUSPENSION UDC PO PRN (08:29)
[2018-11-26] MEDS: ONDANSETRON 4 MG TAB (S0181) PO SCH ×2 (08:29→12:00)
[2018-11-26 08:30] LABS: ALBUMIN 2.5 GM/DL (3.2-5.2); BILIRUBIN,TOTAL 0.3 MG/DL (0.2-1.0); CALCIUM LEVEL 8.8 MG/DL (8.8-10.2); CREATININE FOR GFR 2.2 MG/DL (0.70-1.30); GLOMERULAR FILTRATION RATE 31.4 (>42); POTASSIUM SERUM 4.2 MEQ/L (3.5-5.1); TOTAL PROTEIN 6.4 GM/DL (6.4-8.2)
[2018-11-26] MEDS: SENOKOT S TAB PO SCH (08:30)
[2018-11-26] MEDS: CO-ENZYME Q10 50 MG CAP PO SCH (08:30)
[2018-11-26] MEDS: BISACODYL 5 MG TAB PO PRN (08:30)
[2018-11-26] MEDS: ACETAMINOPHEN 500 MG TAB PO SCH (08:30)
[2018-11-26] MEDS: oxyCODONE 5MG TAB PO SCH ×2 (08:31→12:42)
[2018-11-26] MEDS: PREGABALIN 100 MG CAP (LYRICA) PO SCH (08:31)
[2018-11-26] MEDS: POLYVINYL ALCOHOL OPHTH SOLN 15 ML(LIQUITEARS) OU SCH ×2 (08:32→12:42)
[2018-11-26] MEDS: TRINTELLIX PO SCH (08:32)
[2018-11-26] MEDS: oxyCODONE 15 MG CR TAB PO SCH (08:32)
[2018-11-26] MEDS: FLUTICASONE PROP 0.05% NASAL SPRAY 16 GM (FLONASE) NARES SCH (08:32)
[2018-11-26] MEDS: TESTOSTERONE 1% TOP SCH (08:33)
[2018-11-26] MEDS: LIDOCAINE 5% (LIDODERM) PATCH TD SCH (08:33)
[2018-11-26] MEDS: ADVAIR HFA 115/21MCG INHALER INH SCH (10:27)
[2018-11-26 10:30] VITALS: BP 101/57
[2018-11-26] MEDS ORDERED: D5W/0.9% SODIUM CHLORIDE 1,000 ML IV ONE (11:30)
--- NOTE | 2018-11-26 12:28 | REP ---
CT Head without contrast HISTORY: Slurred speech COMPARISON: None Areas of decreased attenuation are present in the periventricular white matter. This represents small-vessel ischemic disease. There is no intraparenchymal hemorrhage, acute infarct, mass or midline shift. The ventricular system and cortical sulci as well as subarachnoid space in the posterior fossa are dilated consistent with moderate volume loss. There is no extra cerebral collection. There is no fracture. The visualized sinuses are clear. IMPRESSION: 1. Small vessel ischemic disease. 2. Moderate volume loss. Electronically Signed by Eladio Mann MD 11/26/2018 12:20 P
[2018-11-26] MEDS: cefTRIAXone SOD 2 GM in D5W MINI-BAG PLUS 50 ML IV SCH (12:40)
[2018-11-26] MEDS: SODIUM CHLORIDE 0.9% INJ 10 ML SYR IV PRN (12:42)
--- NOTE | 2018-11-26 16:09 | IPN ---
DATE: 11/25/2018 SUBJECTIVE: George is seen and examined this morning at the bedside in the rehabilitation unit. His therapy is on hold. He remains on gentle IV fluid. There is slight improvement in his creatinine with IV fluid administration over the past couple of days. His anemia has been unmasked and hemoglobin is 7.4. The patient denies shortness of breath. He went for a lumbar spine CT this morning. He continues to complain of back pain and tremors. VITAL SIGNS: Temperature 97.0, pulse 76, respiratory rate 19, blood pressure 106/58, saturating 96% on room air. Intake yesterday was 1280, urine output yesterday was 089[address]. Weight in the bed scale today is not recorded. GENERAL: The patient is seen lying in bed, elderly male, not fully oriented, makes eye contact after some prompting. Clear conjunctivae. Tongue is moist. He is lying flat. There is no accessory muscle use nor tachypnea. Lungs are clear to auscultation bilaterally. Heart sounds regular rate and rhythm. Abdomen is soft and nontender. There are bowel sounds present. There is no suprapubic distension. The lower extremities are negative for edema. Peripheral pulses are intact. LABORATORY DATA: Sodium 138, potassium 4.2, bicarbonate 29, BUN 22, creatinine 2.1, CRP 16 which is increased as compared to the past two weeks. Hemoglobin 7.6, white count 3.0, platelets 102, ESR 126. MICROBIOLOGY: Repeat blood cultures are pending. IMAGING: Renal ultrasound 11/24/2018 showed bilateral simple renal cysts. The bladder was not distended. There is no hydronephrosis. INPATIENT MEDICATIONS: He continues on D5 normal saline at 50 mL an hour. He continues on weekly Aranesp. His opioid regimen was adjusted per the primary team. He was started on Zanaflex by the primary team. Remainder of medications are unchanged from prior. PROBLEMS: 1. Acute kidney injury (ANA), superimposed on chronic kidney disease (CKD), stage II. The patient's historical baseline creatinine is unknown to me but his admission creatinine was around 1.2. He initially had acute kidney injury in the setting of IV contrast with concomitant aminoglycoside and metformin use. Subsequently after withholding nephrotoxins, his creatinine did improve to about 1.6. However, for the past five days, creatinine has been elevated at around 2.2. He is not receiving any known nephrotoxins. His ceftriaxone is renally dosed. Ceftriaxone can very rarely cause post renal failure. However, his renal imaging yesterday did not show any signs of the same. He is continued on gentle IV fluids. His C-reactive protein (CRP) and erythrocyte sedimentation rate (ESR) are also noted to be significantly uptrending and I wonder if the ongoing infection may be the cause of the renal insufficiency. Repeat urinalysis is pending. 2. Anemia. Management in this patient who is a [employer]. Hemoglobin was 9.4 on 11/22/2018. However, that was likely due to some hemoconcentration. He has received IV fluids the past couple of days and hemoglobin today is 7.6. He is somewhat pancytopenic. His white count is low. His platelets are low as well. He is receiving weekly Aranesp and has received iron supplementation throughout this visit. Given the ongoing infection, I feel if his white count downtrends further that he would benefit from Neupogen administration as well. 3. Endocarditis and discitis/osteomyelitis, rising CRP. Actually, his CRP is the highest it has been in the past couple of weeks. His ESR is up as well. He is pancytopenic. If neutropenia worsens, he may benefit from Neupogen. Dr. Alejandro is following him. He had a repeat CT lumbar spine and repeat blood cultures have also been sent and pending.
[2018-11-27] MEDS ORDERED: METOPROLOL SUCC *XL* 25MG TAB (TopROL *XL*) PO SCH (09:00)
--- NOTE | 2018-12-03 09:23 | PMRDS ---
DATE OF ADMISSION: 10/31/2018 DATE OF DISCHARGE: 11/26/2018 CHIEF COMPLAINT/DISCHARGE DIAGNOSES: Lumbar osteomyelitis and endocarditis. HISTORY OF PRESENT ILLNESS: This is a 72-year-old man with a past medical history of diabetes, hypertension, pacemaker, aortic valve replacement replaced in May of 2018, coronary artery disease (CAD) with coronary artery bypass graft (CABG), obstructive sleep apnea (JR), right hip periprosthetic infection, who was transferred to [facility] from [facility] for low back pain with fevers that began 6 days prior to admission. An infectious disease (ID) consult was ordered. He was found to have Streptococcus mitis bacteremia from a 10/14/2018 and 10/15/2018 blood culture taken at [place], for which he was placed on ceftriaxone and gentamicin on 10/16/2018 for discitis versus osteomyelitis in the setting of a possibly infected bioprosthetic aortic valve with endocarditis. A transesophageal echocardiogram (GUILLERMO) was performed, showing Moderate perivalvular aortic regurgitation...mobile density contiguous with aortic valvecannot rule out vegetation. Repeat blood cultures on 10/20/2018 and 10/24/[address] on 10/18/2018 showed lesion suspicious for discovertebral osteomyelitis at L1-L2. MR was not performed given his pacemaker status. ID ultimately recommended a 6-week course of intravenous (IV) antibiotics followed by [facility] for 1 year for suppression. No cardiac or orthopedic surgery was recommended, and peripherally inserted central catheter (PICC) line was placed. He developed a decubitus ulcer during his stay due to immobility. 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 PAST MEDICAL HISTORY: 1. Diabetes. 2. Hypertension. 3. Pacemaker. 4. AVR. 5. CAD with CABG. 6. JR. 7. Right hip periprosthetic infection. HOSPITAL COURSE: The patient was admitted, enrolled in comprehensive physical therapy (PT)/occupational therapy (OT) program. He received 24-hour nursing supervision and weekly team meetings were held to discuss his progress. During his hospital course, he was followed by infectious disease for his osteomyelitis and endocarditis. They recommended discontinuing gentamicin for worsening renal function and to continue ceftriaxone. Initially, his erythrocyte sedimentation rate (ESR) and C-reactive protein (CRP) levels trended down, and the patient remained afebrile, and he seemed clinically to be improving. The patient was anemic upon arrival, with a Zoroastrian, unable to accept blood. Renal was consulted for his acute kidney injury in the setting of chronic kidney disease (CKD) and administered Venofer and weekly Aranesp. His hemoglobin remained stable around 7-8. He received serial Dopplers to rule out deep venous thrombosis (DVT) in his legs, which were negative times three. The patient had severe pain in his back with muscle spasms throughout his hospital course, which was difficult to manage. He received alternating doses of oxycodone and muscle relaxants, which were held on multiple occasions for sedation and delirium. He was maintained on Lyrica and Cymbalta for his pain. However, his pain was ultimately not well controlled. On 11/25/2018, repeat imaging was ordered for his spine, given a spike in his CRP and ESR and worsening delirium, which showed consistent "findings consistent with discitis, osteomyelitis at L1-L2 level." His imaging was discussed with radiology, who did not believe that there was any progression at the level of the lumbar spine in his infection. GUILLERMO was scheduled with Dr. Crespo for 11/28/2018 to rule out vegetation and worsening endocarditis. On 11/26/2018, the patient had slurred speech with a left-sided facial droop, and a at once (STAT) CT was ordered. The case was discussed with neurology. He was transferred off the unit to the progressive care unit (PCU) for further evaluation. DISCHARGE MEDICATIONS: - metoprolol - oxycodone - tizanidine - ceftriaxone - duloxetine - Protonix - lidocaine - Flonase - aspirin - mirtazapine FUNCTIONAL HISTORY UPON DISCHARGE: The patient was moderate assist for functional transfers, maximal assist for bed mobility, able to ambulate 15 feet, and had a rapid decline in his overall function, whereas a week prior, he was ambulate further and required less assistance with function mobility. He was urgently transferred off the unit on 11/26/2018 for worsening clinical picture. Thank you for this referral.
== END 2018-11-26 13:50 | disposition short-term general hospital (02) | DRG 949 ==
LOC: M PM&R 10-31 13:05
PROVIDERS: ADMIT Physical Medicine & Rehabilitation; ATTEND Physical Medicine & Rehabilitation
PROC: 05HB33Z Insertion of Infusion Device into Right Basilic Vein, Percutaneous Approach (ICD-10-PCS; principal; 2018-11-11)
DX: T82.6XXD Infection and inflammatory reaction due to cardiac valve prosthesis, subsequent encounter (principal); M46.26 Osteomyelitis of vertebra, lumbar region; N17.9 Acute kidney failure, unspecified; E87.1 Hypo-osmolality and hyponatremia; D61.818 Other pancytopenia; E87.3 Alkalosis; E11.22 Type 2 diabetes mellitus with diabetic chronic kidney disease; I12.9 Hypertensive chronic kidney disease with stage 1 through stage 4 chronic kidney disease, or unspecified chronic kidney disease; I25.10 Atherosclerotic heart disease of native coronary artery without angina pectoris; G47.33 Obstructive sleep apnea (adult) (pediatric); M17.0 Bilateral primary osteoarthritis of knee; K59.00 Constipation, unspecified; R10.9 Unspecified abdominal pain; J44.9 Chronic obstructive pulmonary disease, unspecified; F32.9 Major depressive disorder, single episode, unspecified; D63.1 Anemia in chronic kidney disease; J45.909 Unspecified asthma, uncomplicated; R29.810 Facial weakness; R47.81 Slurred speech; K21.9 Gastro-esophageal reflux disease without esophagitis; E11.40 Type 2 diabetes mellitus with diabetic neuropathy, unspecified; F41.9 Anxiety disorder, unspecified; T40.2X5A Adverse effect of other opioids, initial encounter; N18.3 Chronic kidney disease, stage 3 (moderate); D50.9 Iron deficiency anemia, unspecified; R32 Unspecified urinary incontinence; R41.82 Altered mental status, unspecified; L89.152 Pressure ulcer of sacral region, stage 2; M62.830 Muscle spasm of back; B95.4 Other streptococcus as the cause of diseases classified elsewhere; R53.81 Other malaise; G25.81 Restless legs syndrome; Z95.3 Presence of xenogenic heart valve; Z95.1 Presence of aortocoronary bypass graft; Z96.641 Presence of right artificial hip joint; Z87.891 Personal history of nicotine dependence; Z79.4 Long term (current) use of insulin; Z79.82 Long term (current) use of aspirin; Z79.899 Other long term (current) drug therapy; Z88.8 Allergy status to other drugs, medicaments and biological substances; Z95.0 Presence of cardiac pacemaker

== ENCOUNTER 2018-11-26 12:36 | Inpatient (IN) | payer MEDICARE ==
[~2018-11-26] VITALS: Ht 182.9 cm; Wt 96.8 kg
[~2018-11-26 12:36] MED LIST: ACET1TAB55 PO; ADV100INH INH; ASPI81TA24 PO; BACL1TAB8 PO; BISA10SU4 PR; BRIN1TAB3 PO; CEFT1INJ3 IV; COEN100T PO; CYCL10TA PO; D 50CAP PO; DOCU100C16 PO; DULE100A INH; FLON1SPR NARES; GABA-843 PO; GENT80SY IV; INSUHUMDS SC; KRIS20PA4 PO; LANS30CA PO; LIDO5DIS41 TOP; METF500T13 PO; METO1TAB32 PO; MILK120011 PO; MIRA3350 PO; NITR4TASL SL; OXYC-517 PO; OXYC10TA12 PO; PANT40TA3 PO; PRAM1TAB7 PO; RANO5TAB PO; REME30TA PO; REPA1INJ SC; SENN18TA PO; TEAR1SOL3 OU; TEST5GEL TOP; VITA500T PO; [UNRECOGNIZED DRUG - CODE] IV; [UNRECOGNIZED DRUG - CODE] SC
--- NOTE | 2018-11-26 13:37 | HPEPDOC ---
[facility] Medical History & Physical Date of Admission Nov 26, 2018 History and Physical Attending Dr Ferrell PCP Dr Watt. Nephrology Dr Mihai Bassett ID Dr Alejandro Neurology Dr Browne. HPI: 72M who was transferred to [facility] from [facility] for low back pain with fevers that began 6 days prior to admission. An ID consult was ordered, he was found to have Strep Mitis bacteremia from a October 14 and blood culture taken at [place] for which he was placed on Ceftriaxone and Gentamicin on 10-16-18 for discitis vs osteomyelitis in the setting of a possibly infected bi-prosthetic aortic valve with endocarditis. A GUILLERMO was performed showing, Moderate perivalvular aortic regurgitation, mobile density contiguous with aortic valve,cannot rule out vegetation. Repeat blood cultures on October 20 and were negative. Thoracolumbar CT on 10-18-18 showed lesion suspicious for diskovertebral osteomyelitis at L1-L2. ID recommended a 6 week course of IV antibiotics followed by Omnicef for 1 year for suppression. No cardiac or orthopedic surgery was recommended and PICC line placed. He developed a decubitus ulcer during his stay due to immobility. 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 ID following to assist with antibiotic recommendations. Nephrology following to assist with anemia/ANA. The patient has been noted to be more lethargic today. As per ARU Dr Pennington, the patient was noted to be more confused. He apparently had some facial droop and slurred speech. CT head was requested. Neurology consulted. The patient will be transferred to hospitalist under the care of Dr. Ferrell for further evaluation and management. Follow-up GUILLERMO is currently scheduled for Saturday11/28/18 as requested per infectious disease. Denies any fevers, chills, headache, Chest Pain, Shortness of breath, cough, palpitations, abdominal pain, N/V/D or changes in bowel or bladder habits. PAST MEDICAL HISTORY: NIDDM. HTN Coronary artery disease, status post CABG, status post TAVR 05/31. COPD. depression PAST SURGICAL HISTORY: TAVR replaced May 2018, first placed 2009 Right hip septic joint 1.5 years ago, s/p YANET January 2018, s/p pacemaker Social history Lives in [facility] Denies tobacco use, alcohol use. Advanced Directives. None PE: GEN: 72yoM, appears stated age. Alert responds to questions, oriented to person, states it is 2019, states he is at [facility]. HEENT: Normocephalic, atraumatic. Sclera are nonicteric. Moist mucous membranes. CHEST: Regular rate and rhythm, +S1, +S2 LUNGS: Clear to auscultation bilaterally. No wheezes, rales, or rhonchi. ABD: Round, soft, non-tender, non-distended. +Bowel sounds present. No rebound or guarding. EXT: No lower extremity edema appreciated. SKIN: [place], dry, warm. No rashes. NEURO: No focal deficits appreciated. Moving UEs and LEs. BC x 2 11/25/18 BLOOD CULTURE Preliminary No growth after 24 hours . All specimens observed CT LS spine 11/25/18 1. Findings consistent with discitis osteomyelitis at the L1-2 level. There is moderate central canal stenosis secondary to disc bulge, ligamentous and facet hypertrophy. A small epidural soft tissue component cannot be excluded. 2. Moderate central canal stenosis at the L2-3 level secondary to disc bulge, ligamentous and facet hypertrophy. 3. Moderate central canal stenosis at the L3-4 level secondary to disc bulge, ligamentous and facet hypertrophy, and osteophyte formation. 4. Diffuse disc bulge with associated osteophyte formation at the L4-5 level with minimal thecal sac compression. 5. Diffuse disc bulge at the L5-S1 level. This abuts the thecal sac. Electronically Signed by Eladio Mann MD 11/25/2018 10:51 A A&P: 72M pmh DM, HTN, PM, AVR (replaced in May 2018), CAD with CABG, JR, right hip periprosthetic infection, who was transferred to [facility] from [facility] for low back pain with fevers that began 6 days prior to admission. An ID consult was ordered, he was found to have Strep Mitis bacteremia from a October 14 and blood culture taken at [place] for which he was placed on Ceftriaxone and Gentamicin on 10-16-18 for discitis vs osteomyelitis in the setting of a possibly infected bi-prosthetic aortic valve with endocarditis. A GUILLERMO was performed showing, Moderate perivalvular aortic regurgitation, mobile density contiguous with aortic valve,cannot rule out vegetation. Repeat blood cultures on October 20 and were negative. Thoracolumbar CT on 10-18-18 showed lesion suspicious for diskovertebral osteomyelitis at L1-L2. ID recommended a 6 week course of IV antibiotics followed by Omnicef for 1 year for suppression. No cardiac or orthopedic surgery was recommended and PICC line placed. He developed a decubitus ulcer during his stay due to immobility. 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 1. Lethargy/slurred speech. Possible CVA. Plan to transfer the patient to PCU/TM Neuro check every [address] head pending. Neurology consulted. Dr. Browne agrees to evaluate patient. Recommends repeat CT head 11/27/18 Carotid ultrasound pending. Aspirin 325 mg daily. Patient states he is intolerant to statins. Patient is unable to have MRI/MRA related to pacemaker. HOLD scheduled tizanidine, scheduled oxycodone, Mirapex, Remeron. Hold Cymbalta as pt is on trintellix. The patient's Valium and Marinol were discontinued 11/25/18. Will use caution with pain medications as these may be contributing to lethargy. Continue Tylenol 650 mg every 6 hours as needed. Oxycodone 5 mg every 6 hours as needed for severe pain. Reduce Zanaflex to 2 mg 3 times a day if needed for back spasms. Continue Lyrica 100 mg by mouth twice a day. PT/OT/ST/PFS 2. Discitis/osteomyelitis of L1 to L2, Streptococcus mitis bacteremia/Endocarditis. Pt is afebrile. MAXIMUM TEMPERATURE 99.2 No leukocytosis per labs today. Continue Mgmt as per ID, Dr Alejandro. IV Rocephin 2 g every 24 hours until 11/28/18 then po Omnicef x 1 year. Pt unable to have MRI related to pacemaker. Blood culture x2 11/25/18 neg. UA unremarkable 11/25/18. Chest x-ray 11/25/18 NAD CRP this AM noted to be 14 which is down from 16.4, ESR 128 from 126 yesterday. Discussed with ID, Dr Alejandro to continue to follow daily CRP/ESR. CT LS-spine 11/25/18 as above. Repeat GUILLERMO planned for 11/28/18. Pain control as above. 3. Coronary artery disease/Status post coronary artery bypass graft (CABG) and status post transcatheter aortic valve replacement (TAVR). PCU/TM Serial CIP/troponin Continue aspirin/Ranexa/Toprol XL. Patient states he is intolerant to statins. 4. History of COPD. Continue Advair 5. Hypertension. Continue Toprol XL 25 mg daily with hold parameters. 6. DM. Diet controlled. CC diet. Monitor FSBS. 7. Depression Trintellix. HOLD Cymbalta as patient is on Trintellix. 8. Anemia. B12, folate, Fe studies noted Pt is Jehovah Witness and declines transfusion. Nephrology consulted and following, Venofer as per Nephrology/Jillian weekly. Hgb 7.1. Monitor. 9. Thrombocytopenia. Peripheral smear 11/18/18. Mild anemia with at least a component of anemia of chronic disease. Normal platelet morphology, no platelet clumps are noted. The WBCs are within normal limits. Final: Electronically Signed by: Bessy Edwards M.D. 11/18/18 2603 Monitor. 10. ANA/CKD. SCr noted to be 2.2 This has been the patient's baseline for the past several days. Renal U/S 11/24/18 B/L simple cysts. Nephrology following. Avoid nephrotoxins. IVF at 50cc/hr. Encourage po intake. Monitor DVT prophylaxis. SCD/TEDS Vital Signs Vital Signs Label Value Date Time Patient Temperature 98.0 degrees F 11/26/18 1030 Temperature Source Temporal 11/26/18 1030 Pulse 95 11/26/18 1030 Respiratory Rate 16 bpm 11/26/18 1030 Blood Pressure Assessment 101/57 (72) 11/26/18 1030 Bedside Pulse Oximetry 95 % 11/26/18 1030 Laboratory Data Labs 24H Item Value Date Time White Blood Count 4.5 10^3/uL 11/26/18 0658 Red Blood Count 2.29 10^6/uL L 11/26/18 0658 Hemoglobin 7.1 g/dl L 11/26/18 0658 Hematocrit 23.5 % L 11/26/18 0658 Mean Corpuscular Volume 102.6 fl H 11/26/18 0658 Mean Corpuscular Hemoglobin 31.0 pg 11/26/18 0658 Mean Corpuscular Hemoglobin Concent 30.2 g/dl L 11/26/18 0658 Red Cell Distribution Width 18.1 % H 11/26/18 0658 Platelet Count 114 10^3/uL L 11/26/18 0658 Erythrocyte Sedimentation Rate 128 mm/hr H 11/26/18 0658 Sodium Level 138 MEQ/L 11/26/18 0658 Potassium Level 4.2 MEQ/L 11/26/18 0658 Chloride Level 103 MEQ/L 11/26/18 0658 Carbon Dioxide Level 28 MEQ/L 11/26/18 0658 Anion Gap 7 MEQ/L L 11/26/18 0658 Blood Urea Nitrogen 21 MG/DL H 11/26/1858 Creatinine 2.20 MG/DL H 11/26/1858 Glomerular Filtration Rate 31.4 L 11/26/1858 Fasting Glucose 116 MG/DL H 11/26/18 0658 Calcium Level 8.8 MG/DL 11/26/18 0658 Total Bilirubin 0.3 MG/DL 11/26/18 0658 Aspartate Amino Transf (AST/SGOT) 32 U/L 11/26/18 0658 Alanine Aminotransferase (ALT/SGPT) 15 U/L 11/26/18 0658 Alkaline Phosphatase 140 U/L H 11/26/18 0658 Ammonia < 10 uMOL/L 11/26/18 1038 C-Reactive Protein, Quantitative 14.00 MG/DL H 11/26/1858 Total Protein 6.4 GM/DL 11/26/18 0658 Albumin 2.5 GM/DL L 11/26/18 0658 Albumin/Globulin Ratio 0.64 L 11/26/18 0658 Urine Color YELLOW 11/25/18 0840 Urine Appearance CLEAR 11/25/18 0840 Urine pH 5.0 UNITS 11/25/18 0840 Urine Specific [place] 1.016 11/25/18 0840 Urine Protein 1+ mg/dL H 11/25/18 0840 Urine Glucose (UA) NEGATIVE mg/dL 11/25/18 0840 Urine Ketones NEGATIVE mg/dL 11/25/18 0840 Urine Blood NEGATIVE 11/25/18 0840 Urine Nitrite NEGATIVE 11/25/18 0840 Urine Bilirubin NEGATIVE 11/25/18 0840 Urine Urobilinogen 0.2 mg/dL 11/25/18 0840 Urine Leukocyte Esterase NEGATIVE 11/25/18 0840 Bedside Glucose (Misc Panel) 140 MG/DL H 11/26/18 1027 Home Medications Scheduled (Dulera 100-5 Mcg/Act) 1 Aer Aer, 2 PUFF INH BID (Heparin Sodium) 5,000 Unit/Ml Inj, 5,000 UNIT SC BID (Repatha Sureclick) 140 Mg/Ml Inj, 140 MG SC Q2WK Ascorbic Acid (Vitamin C) 500 Mg Tab, 500 MG PO DAILY Aspirin (Aspirin EC) 81 Mg Tab, 81 MG PO DAILY Baclofen (Baclofen) 10 Mg Tab, 10 MG PO Q8H Ceftriaxone Sodium (Ceftriaxone Sodium) 1 Gm Inj, 2 GRAM IV DAILY Cholecalciferol (Vitamin D3) 5,000 Unit Cap, 5,000 UNIT PO DAILY Coenzyme Q10 (Coenzyme Q10) 100 Mg Tab, 100 MG PO DAILY Docusate Sodium (Docusate Sodium) 100 Mg Cap, 100 MG PO BID Fluticasone Propionate (Flonase Allergy Relief) 50 Mcg/Act Spr, 1 SPRAY NARES DAILY Gabapentin (Gabapentin) 300 Mg Cap, 300 MG PO TID Gentamicin Sulfate (Gentamicin Sulfate) 80 Mg/20 Ml Syringe, 80 MG IV Q12H Insulin Human Lispro (Humalog) 1 Units/0.01 Ml Inj, 1 DOSE SC ACHS PER SLIDING SCALE Lansoprazole (Lansoprazole) 30 Mg Cap, 30 MG PO DAILY HOME MED, REPLACED WITH PROTONIX AT [facility] Lidocaine (Lidoderm) 5 % Dis, 1 PATCH TOP DAILY LOWER BACK Magnesium Sulfate Heptahydrate (Magnesium Sulfate) 2 Gm/50 Ml Inj, 2 GM IV ASDIRECTED ONE TIME DOSE RECEIVED AT [facility] Metformin Hydrochloride (Metformin HCl) 500 Mg Tab, 500 MG PO DAILY Metoprolol Succinate (Metoprolol Succinate ER) 25 Mg Tab, 25 MG PO DAILY Mirtazapine (Remeron) 30 Mg Tab, 30 MG PO QHS Pantoprazole Sodium (Pantoprazole Sodium) 40 Mg Tab, 40 MG PO DAILY REPLACING HOME MED OF PREVACID, GIVEN AT [facility] Polyethylene Glycol (Miralax) 1 Pow Pow, 17 GM PO DAILY dilute in 8 ounces of water or juice Pramipexole Dihydrochloride (Pramipexole Dihydrochlori) 1 Mg Tab, 2 MG PO QHS Ranolazine (Ranexa) 500 Mg Nicolas, 500 MG PO BID Salmeterol/Fluticasone (Advair Diskus 100-50 Mcg/Dose) 28 Puff/Inhaler Aerp, 1 PUFF INH BID HOME MED, REPLACED WITH DULERA AT [facility] Senna (Senna-Lax) 8.6 Mg Tab, 1 TAB PO BID Testosterone (Androgel) 5 Gm Gel, 5 GM TOP DAILY APPLIED TO DELTOIDS Vortioxetine Hydrobromide (Trintellix) 20 Mg Tab, 20 MG PO DAILY Scheduled PRN Acetaminophen (Acetaminophen) 325 Mg Tab, 650 MG PO Q4H PRN for PAIN Bisacodyl (Bisacodyl) 10 Mg Sup, 10 MG DC DAILY PRN for CONSTIPATION Cyclobenzaprine HCl (Cyclobenzaprine HCl) 10 Mg Tab, 10 MG PO Q8H PRN for MUSCLE SPASMS Dextran/Hydrox.prop.meth.cell (Tears Naturale PF 0.1-0.3 %) 1 Drop/Bottle Soln, 1 DROP OU QID PRN for DRY EYES Lactulose (Kristalose) 20 Gm Viral, 10 GRAM PO DAILY PRN for CONSTIPATION Milk Of Magnesia (Milk of Magnesia) 1,200 Mg/15 Ml Yashira, 30 ML PO DAILY PRN for CONSTIPATION Nitroglycerin (Nitrostat) 0.4 Mg Subl, 0.4 MG SL Q5MP PRN for CHEST PAIN Oxycodone HCl (Oxycodone HCl) 10 Mg Tab, 10 MG PO Q4H PRN for BREAKTHROUGH PAIN Oxycodone HCl (Oxycodone HCl) 5 Mg Tab, 5 MG PO Q4H PRN for SEVERE PAIN (PS 8-10) Allergies Coded Allergies: Statins (Unverified Adverse Reaction, Unknown, MUSCLE PAINS, 10/31/18) Trazodone (Unverified Adverse Reaction, Unknown, ITCH, 10/31/18) Yanci Cortes Nov 26, 2018 13:37
[2018-11-26] MEDS ORDERED: oxyCODONE 5MG TAB PO PRN (14:00)
[2018-11-26] MEDS ORDERED: ACETAMINOPHEN TAB 650MG DOSE (2X325MG) PO PRN (14:00)
[2018-11-26] MEDS: ASPIRIN 325 MG TAB PO SCH (14:48)
[2018-11-26] MEDS: NS 1,000 ML IV SCH (14:49)
[2018-11-26] MEDS: cefTRIAXone SOD 2 GM in D5W MINI-BAG PLUS 50 ML IV SCH (14:49)
[2018-11-26 15:35] LABS: MB/CK RELATIVE INDEX 3.08 (< OR =4); TROPONIN I 0.07 NG/ML (< 0.10)
[2018-11-26 15:45] VITALS: BP 148/67
[2018-11-26 16:00] VITALS: BP 140/72
--- NOTE | 2018-11-26 16:46 | IPN ---
DATE: 11/25/2018 Mr. Ward continues to be confused and has a lot of back spasm, although better than yesterday. He did walk today somewhat. He ate breakfast, eggs, and a sandwich for lunch. He had an episode of urinary retention last night. No fever or chills. No chest pain or shortness of breath. No increased palpitations. Temperature is 97, pulse 76, respirations 19, blood pressure 106/58, oxygen saturation 96% on room air. The patient has been afebrile throughout this admission. HEART: Normal S1, S2 with a systolic ejection murmur 2/6, unchanged. LUNGS: Clear. No wheezes, rales, or rhonchi. ABDOMEN: Soft, nontender. No hepatosplenomegaly. EXTREMITIES: No edema. BACK: Not examined, as he has a lot of spasm with movement. White count is 3, hemoglobin 7.6, hematocrit 26, platelets 102. ESR 126, which has increased from 105 but is kind of stable over the past month. His CRP, though, has increased, which is concerning. It was down to 2.2. Blood cultures, two sets, were ordered on November 25. IMPRESSION: 1. 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 The patient has been on intravenous (IV) ceftriaxone 2 grams daily for at least 5 weeks with worsening C-reactive protein (CRP) and increasing back pain. CT of the abdomen and pelvis was obtained to followup on discitis. I did discuss the case with Dr. Mann. There is no evidence of worsening discitis. It is stable. There is no abscess to drain. 2. Urinary tension. Will obtain a urinalysis (UA), urine culture to make sure the patient does not have a urinary tract infection causing increased CRP and creatinine. 3. Status post transcatheter aortic valve replacement (TAVR) and coronary artery bypass graft (CABG) with endocarditis. The patient will have followup transesophageal echocardiogram done by Dr. Crespo on or Saturday to followup on endocarditis and see if there is any evidence of worsening infections or myocardial abscess that could explain the increase in CRP and sedimentation rate. PLAN: Urinalysis (UA)/urine culture will be done today. Transesophageal echocardiogram to be done . Continue with IV Rocephin 2 grams daily. Will continue to monitor repeat CRP/sedimentation rate in the next 1-2 days.
--- NOTE | 2018-11-26 19:49 | REP ---
CAROTID ULTRASOUND: Real-time ultrasound evaluation and duplex Doppler interrogation of the extracranial carotid vasculature was performed. Study is limited due to patient motion. There is moderate plaquing and narrowing is seen in both carotid bulbs extending into the internal and external carotid arteries bilaterally. There is elevated peak systolic velocity in the proximal left internal carotid artery suggesting stenosis 60-79% at that location. Luminal narrowing of the right ICA appears to be less than 50%. There is normal direction of flow in both vertebral arteries. Right Left Peak systolic velocity ICA 71 cm/s 137.6 cm/s End diastolic velocity ICA 15.0 cm/s 26.9 cm/s Peak systolic velocity CCA 79.7 cm/s 79.3 cm/s Peak systolic velocity ECA 93.1 cm/s 93.8 cm/s ICA/CCA ratio 0.89 1.74 IMPRESSION: Moderate plaquing and narrowing of both carotid bulbs and internal carotid arteries. Elevated peak systolic velocity in the left internal carotid artery suggests stenosis 60-79%. Luminal narrowing right ICA less than 50%. Electronically Signed by Darrick Hess MD 11/27/2018 09:11 A
[2018-11-26 20:00] VITALS: BP 113/65
[2018-11-26] MEDS: ADVAIR HFA 115/21MCG INHALER INH SCH (20:12)
[2018-11-26] MEDS: RANOLAZINE 500 MG ER TAB PO SCH (20:25)
[2018-11-26] MEDS: tiZANidine 4 MG TAB PO PRN (21:10)
[2018-11-26 22:24] LABS: MB/CK RELATIVE INDEX 3.28 (< OR =4); TROPONIN I 0.04 NG/ML (< 0.10)
[2018-11-27] VITALS (10 sets, daily range): BP systolic 113–154; BP diastolic 60–95; O2SAT 91–97
[2018-11-27 05:36] LABS: HEMATOCRIT 24.4 % (42.0-52.0); HEMOGLOBIN 7.4 g/dl (13.5-17.5); MEAN CORPUSCULAR HEMOGLOBIN 30.1 pg (27.0-33.0); MEAN CORPUSCULAR HGB CONC 30.3 g/dl (32.0-36.5); MEAN CORPUSCULAR VOLUME 99.2 fl (80.0-96.0); PLATELET COUNT, AUTOMATED 125 10^3/uL (150-450); RED BLOOD COUNT 2.46 10^6/uL (4.30-6.10); WHITE BLOOD COUNT 3.9 10^3/uL (4.0-10.0)
[2018-11-27] MEDS: tiZANidine 4 MG TAB PO PRN (05:50)
[2018-11-27 05:54] LABS: ERYTHROCYTE SEDIMENTATION RATE 127 mm/hr (0-20)
[2018-11-27 06:03] LABS: ALBUMIN 2.5 GM/DL (3.2-5.2); BILIRUBIN,TOTAL 0.3 MG/DL (0.2-1.0); C REACTIVE PROTEIN QUANTITATIV 15.3 MG/DL (0.00-0.30); CALCIUM LEVEL 8.7 MG/DL (8.8-10.2); CREATININE FOR GFR 2.05 MG/DL (0.70-1.30); GLOMERULAR FILTRATION RATE 34.1 (>42); MB/CK RELATIVE INDEX 3.66 (< OR =4); POTASSIUM SERUM 4.9 MEQ/L (3.5-5.1); TOTAL PROTEIN 6.9 GM/DL (6.4-8.2); TROPONIN I 0.46 NG/ML (< 0.10)
--- NOTE | 2018-11-27 08:41 | REP ---
CT Head without contrast HISTORY: Infarction COMPARISON: Areas of decreased attenuation are present in the periventricular white matter. This represents small-vessel ischemic disease. There is no intraparenchymal hemorrhage, acute infarct, mass or midline shift. The ventricular system and cortical sulci as well as subarachnoid space in the posterior fossa are dilated consistent with moderate volume loss. There is no extra cerebral collection. There is no fracture. The visualized sinuses are clear. IMPRESSION: 1. Small vessel ischemic disease. 2. Moderate volume loss. Electronically Signed by Eladio Mann MD 11/27/2018 08:32 A
[2018-11-27] MEDS ORDERED: TRINTELLIX 20 MG PO SCH (09:00)
[2018-11-27] MEDS ORDERED: DARBEPOETIN 100 MCG/0.5 ML *NON-DIALYSIS* SYRINGE (J0881) SC SCH (09:00)
[2018-11-27] MEDS: ASPIRIN 325 MG TAB PO SCH ×2 (09:00→09:18)
[2018-11-27] MEDS: RANOLAZINE 500 MG ER TAB PO SCH ×2 (09:00→09:19)
[2018-11-27] MEDS ORDERED: LIDOCAINE 5% (LIDODERM) PATCH TD SCH (09:00)
[2018-11-27] MEDS ORDERED: FLUTICASONE PROP 0.05% NASAL SPRAY 16 GM (FLONASE) NARES SCH (09:00)
[2018-11-27] MEDS: METOPROLOL SUCC *XL* 25MG TAB (TopROL *XL*) PO SCH ×2 (09:00→09:18)
[2018-11-27] MEDS ORDERED: MORPHINE 4 MG/ML 1ML VIAL/SYRINGE (J2270) IV PRN (10:15)
[2018-11-27] MEDS ORDERED: HYDROMORPHONE HCL 0.5 MG/ 0.5 ML SYRINGE (J1170 PER 1) IV PRN (10:45)
[2018-11-27] MEDS: ADVAIR HFA 115/21MCG INHALER INH SCH ×2 (11:26→20:00)
[2018-11-27 11:37] LABS: MB/CK RELATIVE INDEX 2.36 (< OR =4); TROPONIN I 0.5 NG/ML (< 0.10)
--- NOTE | 2018-11-27 12:13 | CR ---
DATE OF CONSULTATION: 11/27/2018 REFERRING PROVIDER: Dr. Pennington REASON FOR CONSULTATION: Suspected stroke. HISTORY OF PRESENT ILLNESS: The patient is a 72-year-old male who is currently being treated for diskitis and endocarditis. The patient has been having waxing and waning delirium while on the rehabilitation floor over the last several days. Today, he was noted to have slurred speech which was new for him. Head CT was ordered which showed small-vessel ischemic disease and no acute intracranial pathology. Repeat head CT the following morning also showed the same findings without evidence of acute stroke. The patient's states that he has had similar events when Valium was restarted. Valium was provided to the patient during this visit. The patient had a similar event occurring while the patient was in [place]. The patient also did receive tizanidine as a new muscle relaxant which may have contributed towards his symptoms. The patient states his symptoms of slurred speech have completely resolved. He is quite fidgety. He is confused. He is demonstrating signs of delirium. He denies any focal neurological deficits other than the chronic pain, particularly affecting his right leg and low back. The patient denies any headaches. PAST MEDICAL HISTORY: 1. Non insulin dependent diabetes. 2. Hypertension. 3. Coronary artery disease status post coronary artery bypass graft (CABG), status post transcatheter aortic valve replacement (TAVR) 05/2018. 4. Chronic obstructive pulmonary disease (COPD). 5. Depression. 6. Diskitis. 7. Bacterial endocarditis. PAST SURGICAL HISTORY: 1. TAVR replaced May 2018, first placed 2008. 2. Right hip septic joint approximately one half years ago. 3. Status post total abdominal hysterectomy (PATTIE) January 2018. 4. Status post pacemaker placement. MRI not possible. SOCIAL HISTORY: The patient denies use of tobacco, alcohol or illicit drugs. FAMILY HISTORY: Noncontributory. REVIEW OF SYSTEMS: Unobtainable as the patient is confused, although he denies any chest pain or shortness of breath. He complains of pain in his low back and down his leg. He is a poor historian at this point. PHYSICAL EXAMINATION: Blood pressure is 140/72, pulse rate 85, respiratory rate is 20, oxygenation is 95% on room air, and temperature is 97 degrees Fahrenheit. Current height 6 feet 0 inches, current weight is 80 kg. The patient is awake, alert, oriented to person, place and time. Speech, language, comprehension and repetition appear to be intact. There is no slurring of speech at the present time. The patient is able to follow all commands. He is able to demonstrate 5/5 strength in the arms and legs. Deep tendon reflexes are decreased throughout. Sensory is intact to light touch in all four extremities. There does not appear to be any gross ataxia or dysmetria. Gait was deferred. ASSESSMENT: 1. Waxing and waning delirium in the setting of a patient with diskitis and endocarditis. 2. Head CT times two have revealed no acute stroke. Recommend continuation of aspirin 325 mg for possibility of transient ischemic attack (TIA). 3. Continue management of underlying medical care as per primary team. Consider avoiding high doses of muscle relaxers which can cause alteration in the patient's mentation. Avoid Valium as the patient has had poor reaction in the past as per his . 4. Can obtain electroencephalogram (EEG) to rule out any cortical dysfunction or seizure and assess for encephalopathy. 5. Recommend physical therapy (PT), occupational therapy (OT) as appropriate. 6. History obtained from both the patient, the patient's and niece.
[2018-11-27] MEDS: NS 1,000 ML IV SCH (12:17)
--- NOTE | 2018-11-27 12:54 | NUR ---
Recommend pureed solids and honey thick liquids by spoon. Medications crushed in puree assist. Please position pt upright as tolerated. Addendum: 11/27/18 at [address] [facility] Amended: Links added.
[2018-11-27] MEDS: cefTRIAXone SOD 2 GM in D5W MINI-BAG PLUS 50 ML IV SCH (13:56)
--- NOTE | 2018-11-27 14:02 | ECGEPIP ---
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
[2018-11-27] MEDS ORDERED: HYDROMORPHONE HCL 0.5 MG/ 0.5 ML SYRINGE (J1170 PER 1) IV ONE (16:15)
--- NOTE | 2018-11-27 16:58 | IPNPDOC ---
Text Note Date of Service The patient was seen on 11/27/18. NOTE Subjective: Patient is a 72 year old male with a PMHx of CAD s/p CABG s/p TAVR (05/2018), SSS s/p PM, HTN, NIDDM2, COPD and Depression who presented to [facility] as a transfer from [facility] from [facility] for low back and fevers. He was found to have diskovertebral osteomyelitis / endocarditis from Strep Mitis. He was on Ceftriaxone and Gentamicin. At [facility] he received a GUILLERMO that revealed mobile denisty contiguous with aortic valve, couldn't rule out vegetation. Thoracolumbar CT spine revealed diskovertebral osteomyelitis at L1-L2. ID recommendations from there were for 6 weeks of IV therapy followed by 1 year of Cefdinir for immunosuppression. He developed a decubitus ulcer during his stay due to immobility. He was unable to participate with ARU rehab sessions because of increasing pain and received several pain medications. On 11/26 there was a suspicion for stroke give slurred speech and possible facial droop. He was transferred to medical unit (PCU). Neurology, ID and Nephrology were on consultation at ARU and were reconsulted. Patient is scheduled to receive a GUILLERMO with Dr. Crespo on 11/28/2018. Patient was seen and examined at the bedside. This morning patient was very fidgety appeared confused. Denied chest pain or shortness of breath. Denied any nausea or vomiting. Was complaining of severe back pain. Denies any constipation, diarrhea. As per nursing staff. Patient has been incontinent. Objective: Vitals (See below) General: Lying in bed, complaining of back pain, awake / alert HEENT: NC, AT CVS: RRR, +S1S2 Lungs: Fair air entry b/l, -w/r/r Abdomen: Soft, ND, NT Extremities: - Edema, - Calf tenderness Assessment and plan: Confusion / Slurred speech - possibly 2/2 polypharmacy and delirium, less likely 2/2 acute CVA - Has received varying doses of pain medications and muscle relaxants - Patient not fully oriented, is very fidgety in the room - Currently, patient does not experience any focal neurologic deficits - CT head 11/26: 1. Small vessel ischemic disease. 2. Moderate volume loss. - CT head 11/27: 1. Small vessel ischemic disease. 2. Moderate volume loss. - Duplex US carotid 11/27: Moderate plaquing and narrowing of both carotid bulbs and internal carotid arteries. Elevated peak systolic velocity in the left internal carotid artery suggests stenosis 60-79%. Luminal narrowing right ICA less than 50%. - Pain medications adjusted - c/w ASA 325 - Neurology on consultation; appreciate their input Diskovertebral osteomyelitis at L1-L2 / Endocarditis - likely 2/2 Streptococcus mitis bacteremia - Blood cultures 11/25: No growth - UA / CXR 11/25: Negative - Unable to get MRI 2/2 PM - ESR/CRP has trended up - c/w Ceftriaxone; s/p Gentamycin - Plan for GUILLERMO tomorrow with Dr. Crespo - Dr. Alejandro on consultation; appreciate their input Elevated troponin - possibly 2/2 NSTEMI (Type II) - Currently is not experiencing any CP, SOB or palpitations - Troponin count has remained stable - c/w Telemetry monitoring - c/w ASA, Metoprolol, Ranolazine Hx of CAD s/p CABG s/p TAVR - Unable to tolerate statin therapy - See above HTN - BP well cotnrolled - c/w Metoprolol COPD - no evidence of exacerbation - c/w inhaled therapy as ordered NIDDM2 - c/w dietary changes Depression - c/w Vortioxetine Anemia - Hg appears relatively stable - Patient is a Denominational and does not accept blood transfusions Thrombocytopenia - Appears to be improving ANA on CKD - Baseline creatinine of 2.2 - Renal US 11/24: Bilateral simple renal cysts as described. Otherwise, negative renal ultrasound. - c/w IV fluid hydration DVT prophylaxis - c/w SCDs/TEDs VS,Fishbone, I+O VS, Fishbone, I+O Laboratory Tests 11/27/18 05:15 Red Blood Count 2.46 L, Mean Corpuscular Volume 99.2 H, Mean Corpuscular Hemoglobin 30.1, Mean Corpuscular Hemoglobin Concent 30.3 L, Red Cell Distribution Width 17.3 H, Calcium Level 8.7 L, Aspartate Amino Transf (AST/SGOT) 38 H, Alanine Aminotransferase (ALT/SGPT) 15, Total Creatine Kinase 93, Alkaline Phosphatase 134 H, Total Bilirubin 0.3, Total Protein 6.9, Albumin 2.5 L Vital Signs Date Time Temp Pulse Resp B/P (MAP) Pulse Ox O2 Delivery O2 Flow Rate FiO2 11/27/18 16:00 97.7 113 20 118/69 (85) 98 I&O- Last 24 Hours up to 6 AM 11/27/18 06:00 Intake Total 840 ml Output Total 400 ml Balance 440 ml MERRICK DEL CASTILLO MD Nov 27, 2018 16:58
[2018-11-27 19:17] LABS: MB/CK RELATIVE INDEX 1.63 (< OR =4); TROPONIN I 2.23 NG/ML (< 0.10)
[2018-11-27] MEDS: MORPHINE 4 MG/ML 1ML VIAL/SYRINGE (J2270) IV PRN ×5 (20:51→23:56)
[2018-11-27] MEDS ORDERED: SALIVA SUBSTITUTE(MOUTHKOTE) BTL MT PRN (21:00)
[2018-11-27] MEDS ORDERED: ACETAMINOPHEN 650 MG SUPP PR PRN (21:00)
[2018-11-27] MEDS ORDERED: **NOTE PATIENT COMMENT** MISC XX SCH (21:00)
[2018-11-27] MEDS ORDERED: PROMETHAZINE 25 MG SUPP PR PRN (21:00)
[2018-11-28] MEDS: HYDROMORPHONE HCL 0.5 MG/ 0.5 ML SYRINGE (J1170 PER 1) IV PRN ×5 (00:30→08:30)
[2018-11-28] MEDS ORDERED: SCOPOLAMINE 1MG TRANSDERMAL PATCH TOP SCH (06:00)
--- NOTE | 2018-11-28 07:08 | ECGEPIP ---
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
--- NOTE | 2018-11-28 09:30 | CR ---
CARDIOLOGY CONSULTATION NOTE DATE OF CONSULTATION: 11/27/2018 REFERRING PHYSICIAN: Dr. Bronwyn Salamanca INDICATION: Elevated troponin I level. HISTORY: This 72-year-old , father, resident of [place], [place] has an extremely complicated medical history, including essential hypertension, diabetes mellitus, weight problem / obstructive sleep apnea, ischemic and valvular heart disease, status post coronary artery bypass graft (CABG) and two prior aortic valve replacements (2008 and transaortic valve replacement May 2018). Because of periprocedure AV block, a dual-chamber pacemaker was also placed. According to the patient's and the medical record, he had been on his usual state of health until approximately a month prior to his admission to [facility] October 14, 2018 having increasing low back pain. Approximately 1 week prior to his presentation, he had been having fevers and chills. Blood cultures were taken in [place] and proved to be positive for Streptococcus. Subsequently, he was transferred to [facility] and a transesophageal echocardiogram was performed showing an infected bioprosthetic valve with moderate perivalvular regurgitation and a mobile density continuous with the valve. Thoracal lumbar CT scan also showed evidence to suggest osteomyelitis / diskitis. The patient was started on combination antibiotic therapy and cardiovascular and neurosurgical consultations were placed, but he was not deemed a candidate for intervention. Continued conservative measures with antibiotic therapy was recommended. On parenteral antibiotic therapy. Followup blood cultures in [facility] were negative and so he was transferred to [facility] acute rehab center. Upon his admission, he apparently was alert but required moderate to max assist for mobility, including functional transfers, even requiring assistance for dressing. Consultation was placed with infectious disease, as well as nephrology in light of his complicated infection and worsening renal function. He was maintained on parenteral antibiotic therapy and has remained afebrile with stable blood pressure but deteriorating mental status. Worsening back pain with spasms limiting his ability to ambulate. He was transferred to acute medical floor because of altered mental status with confusion, slurred speech and facial droop. Nephrology was consulted and he was tentatively scheduled for a transesophageal echocardiogram tomorrow. Official cardiology consultation was placed this evening because of blood work today showing an elevated troponin I level. Serial CT scans of the head have shown moderate cerebral atrophy with small vessel ischemic disease but no clear evidence of acute infarction. EKGs show relatively fast rates and continued paced QRS complexes with slightly more prominent repolarization abnormalities. Please see his admission history and physical for further details of his medical condition in the past. CURRENT MEDICATIONS: - metoprolol succinate 25 mg daily - Ranexa 500 mg by mouth twice a day - aspirin 325 mg daily - ceftriaxone 2 grams IV daily - oxycodone 5 mg by mouth every 6 hours as needed for back pain - Zanaflex 2 mg three times a day as needed for back spasms - Advair inhaler 115/21 two puffs twice a day - Flonase inhaler one inhalation each nostril daily - Lidoderm patch ALLERGIES/INTOLERANCES: STATIN THERAPY, TRAZODONE. PHYSICAL EXAMINATION: CONSTITUTIONAL: Overweight, elderly male, appears quite confused and very restless reaching out with both arms meaninglessly, obvious pallor. Vital signs: Heart rate 115 beats per minute and regular. blood pressure 154/95, respiratory rate 20 to 24 per minute O2 saturation on room air currently 92%. He is afebrile. Weight 213 pounds, height 72 inches, BMI 28.9. EYES: Somewhat pale conjunctiva but no petechiae or scleral icterus. No obvious central cyanosis, but it is markedly anemic. Oral membranes somewhat dry with his rapid respiratory rate. NECK: Trachea midline. Thyroid not enlarged. The neck veins did not appear to be elevated. RESPIRATORY: Slightly increased anteroposterior chest diameter with well-healed sternotomy incision and left subclavian. Has fair air entry over both lung johnson with no current inspiratory rales. Slight prolongation of expiration but no audible wheeze at this time. CARDIOVASCULAR: Apical impulse not palpable heart sounds were quite distant. Does have a systolic ejection murmur. I cannot hear an aortic insufficiency murmur despite his echocardiographic findings. Has a fairly brisk carotid upstroke and increased volume. Soft transmitted bruit to the neck from his precordium. Upper extremity and femoral pulses were symmetrical and normal. Pedal pulses were slightly reduced. No current edema. EXTREMITIES: No clubbing, peripheral cyanosis or splinter hemorrhages. GASTROINTESTINAL: Soft, nontender, obese. No apparent hepatosplenomegaly. INVESTIGATIONS: His portable upright chest x-ray taken November 25, 2018 was reviewed independently and shows obvious cardiomegaly, even allowing for this technique. His pulmonary vasculature with increased interstitial markings in keeping with degree of pulmonary edema. Somewhat unfolded thoracic aorta with visible bioprosthetic valve in aortic position with dual-chamber pacemaker pulse generator in the left subclavian region and leads terminating in the high right atrial appendage and RV apex. He has multiple vascular clips related to prior bypass surgery. Obvious sternotomy wire sutures. EKG: Tracing taken earlier today at 08:47 a.m. showed sinus tachycardia at 109 beats per minute with atrial sensing and tracking with consistent ventricular pacing. Paced QRS complexes having extreme left axis and LVEDP configuration, in keeping with RV apical stimulation. Followup tracing this evening and 1944 hours shows a rate now of 117 beats per minute with precordial lead placement slightly different than earlier today making it hard to assess for any serial repolarization change. Blood work: Studies today show a hemoglobin of 7.4, which is down from November 22 of 9.4. Slightly elevated MCV but normal to slightly low MCHC. Platelet count was also low at 125,000 but this has been low since November 17. White blood cell count has been relatively low since admission down to 3.9 today. Sedimentation rate has been steadily markedly elevated at 127 earlier today. Chemistry today shows electrolyte balance. BUN 24 and stable, creatinine 2.05, actually improved from 2.36 three days ago related to IV fluid administration. Fasting glucose this morning was 110. Serum calcium 8.7. Serum magnesium 2.0. Serum albumin 2.5, marginally elevated SGOT and alkaline phosphatase with normal total bilirubin. Ammonia level measured yesterday was normal. Serial Troponin I levels the past 24 hours have increased from 0.04 to 0.46 this morning and this evening this has jumped to 2.23. His CPK has also jumped this evening to 504, but his relative index is still negative. His C-reactive protein is 15.3. Urinalysis +1 proteinuria. IMPRESSION/PLAN: 1. Coronary artery disease ([place] vessel) / post coronary artery bypass graft (CABG) / abrupt elevation in troponin I: Undoubtedly, he has suffered an acute coronary syndrome, possibly related to direct coronary flow obstruction with abscess formation around his prosthetic valve or microembolic phenomenon. Unfortunately, he is not a candidate for invasive intervention in light of his acute endocarditis, marked anemia (Quaker) and acute renal insufficiency. He has been receiving beta vera therapy and aspirin antiplatelet therapy. He is not a candidate for statin or EMY inhibition. We could use topical nitropaste in light of his current blood pressure and respiratory distress, likely related to acute pulmonary congestion. 2. Aortic valve disorder (non rheumatic) / status post aortic valve replacement (transaortic bioprosthetic) / Prosthetic valve endocarditis: Unfortunately, he has not been deemed to a candidate for surgical aortic valve replacement. In the setting of prosthetic endocarditis, his observed aortic insufficiency, pulmonary congestion and acute renal insufficiency, his prognosis is dismal. Currently, remains on parenteral antibiotic therapy. 3. Heart failure (unspecified / acute): Decompensation appears to be related to his underlying ischemic and hypertensive heart disease with likely a degree of LV diastolic dysfunction aggravated by his acute prosthetic insufficiency. Without surgical intervention, he is not expected to survive. 4. AV block / dual-chamber pacemaker in situ: His device appears to be functioning appropriately. As mentioned, his paced QRS complexes make it a challenge to evaluate for his acute ischemic event. I have spoken frankly with his , who is at the bedside, regarding his extremely complicated, non fixable medical condition. We have emphasized his comfort should be our primary goal and he appears to be suffering at this time. She understands and agrees. He has now been made DO NOT RESUSCITATE with comfort care measures only. Zanaflex will be continued for his back spasms and morphine will be administered intravenously every 15 minutes for distress. We have encouraged his to contact family members to notify them of his critical condition. Thank you for allowing me to participate in your patient's care. At this point, we will follow from afar. George Lutz MD [facility]
[2018-11-28] MEDS: MORPHINE 4 MG/ML 1ML VIAL/SYRINGE (J2270) IV PRN ×2 (09:44→10:34)
[2018-11-28] MEDS ORDERED: LORazepam 2 MG/ML VIAL (J2060) IV PRN (10:45)
[2018-11-28] MEDS ORDERED: MORPHINE SULF IN 0.9% NACL 100 MG in APPROPRIATE DILUENT 1 EA IV SCH ×2 (10:45)
--- NOTE | 2018-11-28 14:53 | DS.PDOC ---
Discharge Summary General Date of Admission Nov 26, 2018 at 14:00 Date of Discharge 11/28/2018 Discharge Summary PROCEDURES PERFORMED DURING STAY: [None]. 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 He was found to have diskovertebral osteomyelitis / endocarditis from Strep Mitis. He was on Ceftriaxone and Gentamicin. At [facility] he received a GUILLERMO that revealed mobile density contiguous with aortic valve, couldn't rule out vegetation. Thoracolumbar CT spine revealed diskovertebral osteomyelitis at L1-L2. ID recommendations from there were for 6 weeks of IV therapy followed by 1 year of Cefdinir for immunosuppression. He developed a decubitus ulcer during his stay due to immobility. He was unable to participate with ARU rehab sessions because of increasing pain and received several pain medications. On 11/26 there was a suspicion for stroke give slurred speech and possible facial droop. He was transferred to medical unit (PCU). Neurology, ID and Nephrology were on consultation at ARU and were reconsulted. Patient was initially scheduled to receive a GUILLERMO with Dr. Crespo later this week. In PCU, patient continued to experience some confusion / lower back pain. Patient was ultimately found to have an elevation of his troponin on the evening of 11/27. Cardiology was consulted. Patient was found to be having acute coronary event, however, given his current medical conditions including endocarditis extensive cardiac surgeries, patient was not a candidate for any further cardiac intervention. It was ultimately decided by the family to pursue comfort measures only. With the help of Dr. Lutz the patient's MOLST form was updated to reflect this change. Nonessential medications were discontinued. Aggressive support was discontinued. Lab work. Vital signs in imaging were discontinued. Patient continued with symptomatic control only, including morph ine and Zanaflex. Ultimately patient on 11/28/2018 at 11:27AM. DISCHARGE MEDICATIONS: Not applicable ALLERGIES: Please see below. PHYSICAL EXAMINATION ON DISCHARGE: VITAL SIGNS: Please see below. GENERAL: Lying in bed, no acute distress, does not appear to be in pain, sleeping Full assessment and physical not completed LABORATORY DATA: Please see below. DISPOSITION: TIME SPENT ON DISCHARGE: Greater than [35] minutes. Vital Signs/I&Os Vital Signs Date Time Temp Pulse Resp B/P (MAP) Pulse Ox O2 Delivery O2 Flow Rate FiO2 11/28/18 09:44 18 11/28/18 08:55 2.0 11/27/18 20:00 97.1 115 154/95 (114) 92 11/27/18 18:00 Room Air I&O- Last 24 Hours up to 6 AM 11/28/18 06:00 Intake Total 840 ml Output Total 120 ml Balance 720 ml Laboratory Data Labs 24H Laboratory Tests 2 11/27/18 18:07: Bedside Glucose (Misc Panel) 120H 11/27/18 18:38: Total Creatine Kinase 504#H, Creatine Kinase MB 8.0H, Creatine Kinase MB Relative Index 1.63, Troponin I 2.23#*H FSBS Laboratory Tests Test 11/27/18 18:07 Range/Units Bedside Glucose (Misc Panel) 120 83-110 MG/DL Microbiology Microbiology 11/27/18 Blood Culture - Preliminary, Resulted No growth after 24 hours . All specim... 11/27/18 Blood Culture - Preliminary, Resulted No growth after 24 hours . All specim... Discharge Medications Scheduled (Dulera 100-5 Mcg/Act) 1 Aer Aer, 2 PUFF INH BID, (Reported) (Heparin Sodium) 5,000 Unit/Ml Inj, 5,000 UNIT SC BID, (Reported) (Repatha Sureclick) 140 Mg/Ml Inj, 140 MG SC Q2WK, (Reported) Ascorbic Acid (Vitamin C) 500 Mg Tab, 500 MG PO DAILY, (Reported) Aspirin (Aspirin EC) 81 Mg Tab, 81 MG PO DAILY, (Reported) Baclofen (Baclofen) 10 Mg Tab, 10 MG PO Q8H, (Reported) Ceftriaxone Sodium (Ceftriaxone Sodium) 1 Gm Inj, 2 GRAM IV DAILY, (Reported) Cholecalciferol (Vitamin D3) 5,000 Unit Cap, 5,000 UNIT PO DAILY, (Reported) Coenzyme Q10 (Coenzyme Q10) 100 Mg Tab, 100 MG PO DAILY, (Reported) Docusate Sodium (Docusate Sodium) 100 Mg Cap, 100 MG PO BID, (Reported) Fluticasone Propionate (Flonase Allergy Relief) 50 Mcg/Act Spr, 1 SPRAY NARES DAILY, (Reported) Gabapentin (Gabapentin) 300 Mg Cap, 300 MG PO TID, (Reported) Gentamicin Sulfate (Gentamicin Sulfate) 80 Mg/20 Ml Syringe, 80 MG IV Q12H, (Reported) Insulin Human Lispro (Humalog) 1 Units/0.01 Ml Inj, 1 DOSE SC ACHS, (Reported) PER SLIDING SCALE Lansoprazole (Lansoprazole) 30 Mg Cap, 30 MG PO DAILY, (Reported) HOME MED, REPLACED WITH PROTONIX AT [facility] Lidocaine (Lidoderm) 5 % Dis, 1 PATCH TOP DAILY, (Reported) LOWER BACK Magnesium Sulfate Heptahydrate (Magnesium Sulfate) 2 Gm/50 Ml Inj, 2 GM IV ASDIRECTED, (Reported) ONE TIME DOSE RECEIVED AT [facility] Metformin Hydrochloride (Metformin HCl) 500 Mg Tab, 500 MG PO DAILY, (Reported) Metoprolol Succinate (Metoprolol Succinate ER) 25 Mg Tab, 25 MG PO DAILY, (Rep orted) Mirtazapine (Remeron) 30 Mg Tab, 30 MG PO QHS, (Reported) Pantoprazole Sodium (Pantoprazole Sodium) 40 Mg Tab, 40 MG PO DAILY, (Reported) REPLACING HOME MED OF PREVACID, GIVEN AT [facility] Polyethylene Glycol (Miralax) 1 Pow Pow, 17 GM PO DAILY, (Reported) dilute in 8 ounces of water or juice Pramipexole Dihydrochloride (Pramipexole Dihydrochlori) 1 Mg Tab, 2 MG PO QHS, (Reported) Ranolazine (Ranexa) 500 Mg Nicolas, 500 MG PO BID, (Reported) Salmeterol/Fluticasone (Advair Diskus 100-50 Mcg/Dose) 28 Puff/Inhaler Aerp, 1 PUFF INH BID, (Reported) HOME MED, REPLACED WITH DULERA AT [facility] Senna (Senna-Lax) 8.6 Mg Tab, 1 TAB PO BID, (Reported) Testosterone (Androgel) 5 Gm Gel, 5 GM TOP DAILY, (Reported) APPLIED TO DELTOIDS Vortioxetine Hydrobromide (Trintellix) 20 Mg Tab, 20 MG PO DAILY, (Reported) Scheduled PRN Acetaminophen (Acetaminophen) 325 Mg Tab, 650 MG PO Q4H PRN for PAIN, (Reported) Bisacodyl (Bisacodyl) 10 Mg Sup, 10 MG MA DAILY PRN for CONSTIPATION, (Reported) Cyclobenzaprine HCl (Cyclobenzaprine HCl) 10 Mg Tab, 10 MG PO Q8H PRN for MUSCLE SPASMS, (Reported) Dextran/Hydrox.prop.meth.cell (Tears Naturale PF 0.1-0.3 %) 1 Drop/Bottle Soln, 1 DROP OU QID PRN for DRY EYES, (Reported) Lactulose (Kristalose) 20 Gm Viral, 10 GRAM PO DAILY PRN for CONSTIPATION, (Reported) Milk Of Magnesia (Milk of Magnesia) 1,200 Mg/15 Ml Yashira, 30 ML PO DAILY PRN for CONSTIPATION, (Reported) Nitroglycerin (Nitrostat) 0.4 Mg Subl, 0.4 MG SL Q5MP PRN for CHEST PAIN, (Reported) Oxycodone HCl (Oxycodone HCl) 10 Mg Tab, 10 MG PO Q4H PRN for BREAKTHROUGH PAIN, (Reported) Oxycodone HCl (Oxycodone HCl) 5 Mg Tab, 5 MG PO Q4H PRN for SEVERE PAIN (PS 8- 10), (Reported) Allergies Coded Allergies: Statins (Unverified Adverse Reaction, Unknown, MUSCLE PAINS, 10/31/18) Trazodone (Unverified Adverse Reaction, Unknown, ITCH, 10/31/18) MERRICK DEL CASTILLO MD Nov 28, 2018 14:53
--- NOTE | 2018-11-28 20:49 | CR ---
DATE OF CONSULTATION: 11/27/2018 REQUESTING PHYSICIAN: Dr. Surjit Ferrell REASON FOR CONSULTATION: Management of anemia in this patient who is a Orthodox and also has concomitant acute kidney injury. HISTORY OF PRESENT ILLNESS: The patient is a 72-year-old male who has recently been treated with long-term antibiotics for osteomyelitis/discitis and endocarditis. He has been on intravenous ceftriaxone 2 grams daily for the past 5 weeks. He has been in the rehabilitation unit at [facility]. He has been having significant back pain, tremors, delirium, and disorientation. He has been unable to effectively participate in his rehab over the past several days. Initially during his rehab stay, he had acute kidney injury in the setting of contrast use with aminoglycoside and metformin. His nephrotoxics were held and subsequently he had some improvement in renal function. However, for the past week, his creatinine has been increased to around 2.0. He has been having decreased oral intake secondary to delirium and has been receiving IV fluids throughout the day. He has also been requiring significant medications for control of his pain, has been on opioids, benzodiazepines and neuropathics, managed by the rehab team. The patient has also been significantly anemic over the course of his rehab stay, has been treated with weekly Aranesp and with iron infusions. A decision was made yesterday to transfer the patient from the rehab unit to the inpatient side given his inability to participate in rehab, his delirium, his acute kidney injury. He was evaluated by neurology for the waxing and waning delirium. He had a head CT that revealed no acute stroke. Recommendations were given for titration of his polypharmacy that can affect his mentation. The patient was seen and examined this morning at the bedside in the progressive care unit. He was noted to be significantly altered and restless, and was unable to provide any reliable history. PAST MEDICAL HISTORY: Non-insulin dependent diabetes. Hypertension. Coronary artery disease, status post coronary artery bypass graft (CABG) and status post transcatheter aortic valve replacement (TAVR). Chronic obstructive pulmonary disease (COPD). Depression. Recently being treated for osteomyelitis, discitis and bacterial endocarditis. PAST SURGICAL HISTORY: TAVR in May 2018. Prior aortic valve procedure in 2008. Right total hip replacement. History of dental surgery. SOCIAL HISTORY: He is . He is a Orthodox. No alcohol or tobacco use. ALLERGIES: STATINS and TRAZODONE. REVIEW OF SYSTEMS: Unable to obtain secondary to clinical condition. Patient is delirious. PHYSICAL EXAMINATION: Vital Signs: Temperature 97.8, pulse 90, respiratory rate 18, blood pressure 113/69, saturating 92 to 98% on room air. Intake yesterday was 440. Urine output was not recorded as he is incontinent of urine. General: Patient is seen lying in bed, very restless and fidgety, delirious. Does not answer any questions appropriately. Cannot tell me his 's name. Tremors are noted and spasms. Extraocular muscles are intact. He makes eye contact sporadically. Tongue is dry. Neck is supple. Jugular veins are not elevated. Cardiac: S1, S2, systolic murmur. Lungs show clear air entry bilaterally. There is no accessory muscle use. The abdomen is soft and nontender to palpation. He is noted to be incontinent of urine. The lower extremities are negative for edema. There is a peripherally inserted central catheter (PICC) line present in the right upper extremity. LABORATORY: White count 3.9, hemoglobin 7.4, platelets 125. Sodium 139, potassium 4.9, bicarbonate 27, BUN 24, creatinine 2.0, magnesium 2.0, CRP 15. Microbiology: Repeat blood cultures 11/27/2018 are pending. IMAGING: CT head 11/27/2018 with small vessel ischemic disease and no other acute finding. INPATIENT MEDICATIONS: He is receiving ceftriaxone 2 grams IV daily, normal saline at 50 mL an hour, aspirin 325 mg by mouth daily, Aranesp 200 mcg subcu on , Dilaudid as needed, Toprol XL 25 mg by mouth daily, ranolazine 500 mg by mouth twice a day, Advair two puffs inhaled twice a day, Zanaflex 2 mg by mouth three times a day as needed for spasms. Most recent urinalysis on 11/25/2018 only showed 1+ protein without any RBC or WBC. Renal ultrasound on 11/24/2018 showed bilateral simple cysts. PROBLEMS: 1. Acute kidney injury on chronic kidney disease stage II. Patient's historical baseline creatinine is unknown to me, but his admission creatinine was 1.2. He had an initial acute kidney injury in the setting of IV contrast with concomitant aminoglycoside and metformin use while he was in the rehabilitation unit. Subsequently, after withholding nephrotoxins, his creatinine improved to about 1.6. However, for the past week, creatinine has again elevated to around 2.0 to 2.2. He is not receiving any known nephrotoxins. His ceftriaxone is renally dosed. His renal ultrasound on 11/24/2018 only showed bilateral simple cysts without any obstruction. His urinalysis two days ago, likewise, only showed 1+ protein without any WBC or RBC. His oral intake has been decreased because of delirium. He continues on gentle IV fluid, normal saline at 50 mL an hour. It is likely that the underlying infection process is also driving the kidney injury. His creatinine has been stable for the past week. I would continue with IV fluid and treatment of the ongoing infectious process at this time. His CRP elevation did mirror the elevation in renal function as well. 2. Anemia management in this patient who is a Orthodox. Please limit blood draws as possible and also blood can be drawn in pediatric tubes. He is status post Venofer infusions in the rehabilitation unit. He continues on weekly Aranesp 200 mcg on . He received a dose this morning. His white count has also been down trending, and he has also been thrombocytopenic. 3. Prosthetic valve endocarditis and L1-L2 discitis. The patient has been on ceftriaxone 2 grams IV daily for the past 5 weeks. Over the past 1 week, his CRP up trended, and patient was unable to participate effectively in rehab due to worsening complaints of back pain. Infectious disease is closely following. There is a plan for a transesophageal echocardiogram (GUILLERMO) at the end of this week. 4. Delirium, altered mental status. The patient has been evaluated by neurology. His opioids have been adjusted. His neuropathics have been decreased. His benzodiazepine is noted to be stopped. I suggest one-to-one sitter at the bedside and to continue IV fluids while his oral intake is poor.
== END 2018-11-28 11:27 | disposition expired | DRG 551 ==
LOC: M PCU 14:00
PROVIDERS: ADMIT Internal Medicine; ATTEND Internal Medicine
DX: M46.46 Discitis, unspecified, lumbar region (principal); I21.A1 Myocardial infarction type 2; I33.0 Acute and subacute infective endocarditis; I50.31 Acute diastolic (congestive) heart failure; N17.9 Acute kidney failure, unspecified; T82.6XXA Infection and inflammatory reaction due to cardiac valve prosthesis, initial encounter; E11.9 Type 2 diabetes mellitus without complications; I25.10 Atherosclerotic heart disease of native coronary artery without angina pectoris; J44.9 Chronic obstructive pulmonary disease, unspecified; Z51.5 Encounter for palliative care; Z66 Do not resuscitate; R41.0 Disorientation, unspecified; F32.9 Major depressive disorder, single episode, unspecified; G47.33 Obstructive sleep apnea (adult) (pediatric); B95.4 Other streptococcus as the cause of diseases classified elsewhere; R33.9 Retention of urine, unspecified; D64.9 Anemia, unspecified; D69.6 Thrombocytopenia, unspecified; Z79.82 Long term (current) use of aspirin; Z79.4 Long term (current) use of insulin; Z79.899 Other long term (current) drug therapy; Z95.1 Presence of aortocoronary bypass graft; Z95.0 Presence of cardiac pacemaker; Z88.8 Allergy status to other drugs, medicaments and biological substances; Z95.3 Presence of xenogenic heart valve; Y83.1 Surgical operation with implant of artificial internal device as the cause of abnormal reaction of the patient, or of later complication, without mention of misadventure at the time of the procedure